=== PATIENT | female | born 1945 | race Caucasian/White ===

== ENCOUNTER → 2017-01-12 | Outpatient (CLI) | payer OTHER ==
[~2017-01-12] MED LIST: AMLO-110 PO; AMLO2.5T PO; ASPI-435 PO; ATOR-24 PO; CALCTAB5 PO; CHOL1CAP57 PO; CIPR-255 PO; CYAN500T13 PO; LISI-461 PO; LSX20 PO; METF1000 PO; MISCCAP80 PO; MULT-506 PO; OMEG12006 PO
--- NOTE | 2017-01-12 12:38 | MAMMOGRAPHY REPORT ---
BILATERAL DIGITAL SCREENING MAMMOGRAM WITH CAD: 01/12/2017 CLINICAL HISTORY: Routine screening. TECHNIQUE: Current study was also evaluated with a Computer Aided Detection (CAD) system. Bilateral CC and MLO views were obtained. COMPARISON: Comparison is made to exams dated: 01/06/2015 mammogram, 01/11/2016 mammogram, 12/31/2013 ma mmogram, 12/25/2012 mammogram, 12/23/2011 mammogram, and 12/17/2010 mammogram - [facility]. BREAST COMPOSITION: The tissue of both breasts is almost entirely fatty. FINDINGS: No suspicious masses, calcifications, or areas of architectural distortion are noted in ei ther breast. There has been no significant interval change compared to prior exams. Scattered bilate ral benign-appearing calcifications are again noted. Nodular asymmetry along the posterior nipple li ne on the right MLO view middle depth is stable compared to prior 2014 and 2010 exams, and considered benign given long-term stability. IMPRESSION: ACR BI-RADS CATEGORY 2: BENIGN There is no mammographic evidence of malignancy. A 1 year screening mammogram is recommended. The pa tient will receive written notification of the results. Approximately 10% of breast cancers are not detected with mammography. A negative mammographic report should not delay biopsy if a clinically suggestive mass is present. Jennyfer Inman M.D. /:01/12/2017 07:40:29 Deck Lid Fitter: Alex FORRESTER(R)(M), [facility] letter sent: Normal 1/2 BI-RADS Code: ACR BI-RADS Category 2: Benign
== END | disposition home or self-care (01) ==
LOC: C.MAMM 07:14
PROVIDERS: ATTEND Obstetrics & Gynecology
DX: Z12.31 Encounter for screening mammogram for malignant neoplasm of breast (principal)

== ENCOUNTER 2018-09-23 09:40 | Observation (INO) ==
--- OUTSIDE RECORDS SUMMARY | 2018-09-23 09:42 | External Medical Summary | Continuity of Care Document ---
:1945 Author Name Sheree Maharaj, Provider Address Unavailable Unavailable , Care Team Providers Name Role Phone Unavailable Unavailable Unavailable BESSIE ARIZA Unavailable Unavailable Unavailable Unavailable Unavailable Problems IBS (irritable bowel syndrome) (564.1) (K58.9) Hyperlipidemia (272.4) (E78.5) Vitamin B12 deficiency (266.2) (E53.8) Osteopenia (733.90) (M85.80) Renal disorder (593.9) (N28.9) Vitamin D deficiency (268.9) (E55.9) Hypertension (401.9) (I10) Diabetes mellitus (250.00) (E11.9) Encounter for routine gynecological examination (V72.31) (Z0 1.419) Allergies and Adverse Reactions Penicillins (Allergy) Medications Dicyclomine HCl CAPS , M.D. Refills: 0 Atorvastatin Calcium 40 MG Oral Tablet , M.D. Refills: 0 Furosemide 20 MG Oral Tablet; TAKE 1 TABLET EVERY MORNING , M.D. Refills: 0 Lisinopril 10 MG Oral Tablet; TAKE 1 TABLET Bedtime , M.D. Refills: 0 Calcium 600 TABS; TAKE 2 TABLETS DAILY. , M.D. Refills: 0 Colon Care CAPS , M.D. Refills: 0 [place] 3 CAPS , M.D. Refills: 0 Multiple Vitamins TABS , M.D. Refills: 0 Vitamin B12 TABS , M.D. Refills: 0 Aspirin 81 MG TABS , M.D. Refills: 0 metFORMIN HCl - 1000 MG Oral Tablet; TAKE 1 TABLET TWI CE DAILY WITH MEALS. , M.D. Refills: 0 Norvasc 2.5 MG Oral Tablet , M.D. Refills: 0 Procedures History of Tonsillectomy With Adenoidectomy Status: Completed History of Oral Surgery Tooth Extraction Status: Completed History of Cholecystectomy Laparoscopic Status: Completed History of Biopsy Breast Open Status: Co mpleted History of Total Hip Replacement Status: Completed History of Complete Colonoscopy Status: Completed Immunizations Immunizations not documented Family History Mother Family history of coronary artery disease (V17.3) (Z82.49) S tatus: Active Father Family history of coronary artery disease (V17.3) (Z82.49) S tatus: Active Family history of Status: Active Social History - Smoking Status Never smoker Plan of Treatment Planned Observations Planned Goals not documented Results No Known Results Results not documented
[2018-09-23] MEDS ORDERED: fentaNYL citrate 100 MCG/2 ML VIAL IV STA (10:01)
[2018-09-23] MEDS ORDERED: ONDANSETRON INJ 2 MG/ML 2 ML VIAL IV STA (10:01)
[2018-09-23] MEDS ORDERED: SODIUM CHLORIDE 0.9% 500 ML IV SCH (10:15)
[2018-09-23 10:47] LABS: Albumin Level 3.8 gm/dl (3.4-5.0); BUN Creatinine Ratio 9.8 (10-20); Calcium 10.1 mg/dl (8.5-10.1); Creatinine Clr Calc Pharmacy 28.8 ml/min; Est GFR (Non-African American) 27.6; Potassium 4.1 mmol/L (3.5-5.1)
[2018-09-23 10:50] LABS: Albumin Globulin Ratio 1.1 (0.9-2); Bilirubin,Total 0.8 mg/dl (0.2-1); Globulin 3.5 gm/dl (2.5-4.0); Total Protein 7.3 gm/dl (6.4-8.2)
[2018-09-23 10:57] LABS: Lymphocytes % (auto) 16.4 %; Mean Corpuscular Hgb Conc 34.2 g/dL (32-36); Mean Platelet Volume 10.2 fL (7.4-10.4); Monocytes % (auto) 6.6 %; Neutrophils % (auto) 75.8 %; Platelet Count 348 K/uL (130-400); RDW Coefficient of Variation 15.2 % (11.5-14.5); RDW Standard Deviation 49.4 fL (36.4-46.3); Red Blood Count 4.32 M/uL (4.2-5.4); White Blood Count 8.52 K/uL (4.8-10.8)
[2018-09-23 10:58] LABS: Basophils # (auto) 0.01 K/uL (0-0.2); Basophils % (auto) 0.1 %; Echinocytes 1+; Eosinophils # (auto) 0.08 K/uL (0-0.5); Eosinophils % (auto) 0.9 %; Immature Granulocytes # (auto) 0.02 K/uL (0.00-0.02); Immature Granulocytes % (auto) 0.2 %; Monocytes # (auto) 0.56 K/uL (0.11-0.59); Neutrophils # (auto) 6.45 K/uL (1.4-6.5)
[2018-09-23] MEDS ORDERED: SODIUM CHLORIDE 0.9% 500 ML IV ONE (11:03)
--- NOTE | 2018-09-23 11:47 | CT Scan Report ---
CT SCAN OF THE ABDOMEN AND PELVIS WITHOUT IV CONTRAST CLINICAL HISTORY: Generalized abdominal pain. Nausea. COMPARISON STUDY: Abdominal CT dated 01/21/2015. TECHNIQUE: CT scan of the abdomen and pelvis is performed from the lung bases to the proximal femora. Images are reviewed in the axial, sagittal, and coronal planes. IV contrast was not administered for this examination as per the referring clinician. Note that the examination was performed in suboptim al fashion without oral and IV contrast. A dose lowering technique was utilized adhering to the [facility]. CT DOSE: 1148.55 mGy.cm FINDINGS: Lung bases: The heart is normal in size and without pericardial effusion. The coronary arteries are d ensely calcified. There is a small hiatal hernia. There is diminished attenuation of the cardiac bloo d pool as compared to the myocardium suggesting anemia. There is elevation right hemidiaphragm. The l judah bases are clear noting bibasilar scarring/atelectasis. Liver: The unenhanced liver is normal in size, contour, and attenuation. There is mild central intrah epatic biliary ductal dilatation. Gallbladder: Surgically absent noting clips in the gallbladder fossa. Spleen: Normal in size and attenuation. Pancreas: The unenhanced pancreas is moderately atrophic and grossly unremarkable. Adrenal glands: Unremarkable. Kidneys: The unenhanced kidneys are atrophic and without hydronephrosis. There are no renal calculi i dentified. There is no evidence of contour deforming renal mass lesion. Abdominal vasculature: The abdominal aorta is normal in course and caliber noting advanced atheroscle rotic calcification. Bowel: There is no bowel obstruction. The small bowel which are distended and mildly fluid-filled. Th ere is mild wall thickening seen throughout the mid to distal small bowel, as well as bowel wall thic kening involving the cecum. There is mild surrounding inflammation and trace fluid. The distal small bowel is fecalized. There is advanced colonic diverticulosis without CT evidence of acute diverticuli tis. Submucosal fat deposition is noted throughout the colon. There is a duodenal diverticulum. The a ppendix is well-visualized and normal. Peritoneum: There is no intraperitoneal free air. There is trace free fluid in the pelvis. There is a small fat-containing umbilical hernia. Lymphadenopathy: None. Pelvic viscera: Evaluation of the pelvis is degraded by streak artifact from a right hip arthroplasty . The bladder is decompressed and not well evaluated. Uterine fibroids are suggested. No adnexal lesi on is seen. Skeletal structures: The skeletal structures are osteopenic. Moderate lumbosacral spondylosis is obse rved. No lytic or blastic lesions are seen. Sclerotic change is noted in the sacroiliac joints. Advan sherwin arthritic changes seen in the left hip. A right hip arthroplasty is in place. IMPRESSION: 1. There is no bowel obstruction. 2. There is mild wall thickening seen throughout the mid to distal small bowel and the cecum with mil d inflammatory surrounding inflammatory change and trace fluid. This likely represents a nonspecific enterocolitis and clinical correlation will be required. 3. The small bowel loops are mildly distended and fluid-filled, and the distal small bowel is fecaliz ed. This may represent stasis/mild ileus. 4. There is a small volume of free fluid in the pelvis. 5. Suspect uterine fibroids. 6. Advanced colonic diverticulosis without CT evidence of acute diverticulitis. 7. Additional findings as above. Electronically signed by: Sekou Richmond M.D. 09/23/2018 11:45 AM
[2018-09-23 11:51] LABS: Appearance Urine Clear (Clear); Bacteria Urine Automated Negative (Negative); Bilirubin Urine Negative (Negative); Blood Urine Negative (Negative); Color Urine Yellow; Epithelial Cell Urine Auto >30 /lpf (0-5); Glucose Urine UA Negative (Negative); Ketones Urine Trace (Negative); Leukocyte Esterase Urine Trace (Negative); Nitrite Urine Negative (Negative); RBC Urine Automated 0-4 /hpf (0-4); Specific Gravity Urine 1.017 (1.000-1.030); Urobilinogen Urine Negative (Negative); pH Urine 8.5 (4.5-7.5)
[2018-09-23] MEDS ORDERED: SODIUM CHLORIDE 0.9% 1000ML 1,000 ML IV SCH (12:00)
[2018-09-23 12:01] LABS: Protein Urine 1+ (Negative)
--- NOTE | 2018-09-23 12:59 | History & Physical Report ---
Date of Service September 23, 2018 Assessment & Plan (1) Enterocolitis: This is a 72yo F with a PMH of tubulovillous adenoma of colon s/p excision, IBS-D, DM II, CKD III, HTN and other medical problems listed below who presents with worsening abdominal pain since yesterday as well as syncopal event this morning and was found to have non-specific enterocolitis. -Diffuse abdominal pain since yesterday in setting of IBS-D, recent endoscopic mucosal resection in May 2018 and a "clean up procedure" earlier this month. Biopsies have reportedly been negative -Hemodynamically stable and afebrile. No leukocytosis. Non-toxic appearance. Lactate elevated at 4.4 with repeat lactate after IV fluids decreased to 3.5 -CT abdomen pelvis without evidence of bowel obstruction. Nonspecific enterocolitis and possible mild ileus. Diverticulosis without evidence of diverticulitis -Bowel rest with maintenance IV fluids. Stool culture and c. diff ordered. Pain control -Consider GI consult if condition does not improve (2) Elevated lactic acid level: Initial lactate elevated at 4.4. Repeat of 3.5 after IV fluids -Elevated in setting of colitis and mild ileus. Also with some dehydration. No evidence for infection, bowel ischemia or SBO -Will repeat again this evening (3) Syncopal episodes: Had single syncopal event earlier today after becoming lightheaded in shower -No head trauma. Likely orthostatic in setting of recent addition of HCTZ -Hold diuretic. Receiving IV fluids -Monitor on telemetry (4) Acute kidney injury superimposed on chronic kidney disease: H/o CKD III but Cr has been worsening lately. Cr of 1.79 today (baseline mid-1s) -Hold HCTZ, receiving fluids -Continue monitoring BMP -Follows with Dr. Latham in clinic (5) Diabetes mellitus, type II: A1c of 6.2 earlier this May -Hold home agents -SSI while in-patient -BSG Q6H while NPO (6) HTN (hypertension): Slightly elevated in setting of pain -Holding lisinopril-hctz in setting of [place] and syncopal event -Add PRN clonidine for SBP >170 DVT Ppx: SQ heparin Code status: FULL PCP: Tori Dispo: Observation med tele. Plan to return home once medically stable. Patient seen in collaboration with Dr. Gerber. Please see addendum. Will be followed by Dr. Urban for remainder of admission. History of Present Illness Chief Complaint: abdominal pain Primary Care Provider: Maribel Valle MD This is a 72yo F with a PMH of tubulovillous adenoma of colon s/p excision, IBS-D, DM II, CKD III, HTN and other medical problems listed below who presents with worsening abdominal pain since yesterday as well as syncopal event this morning. Patient was diagnosed with tubulovillous adenoma of ileocecal valve on colonoscopy in March 2018. [facility] surgical service consulted and recommended right colon resection. Patient went for second opinion at [facility] in [place] and has since undergone an endoscopic mucosal resection in May 2018 and a "clean up procedure" earlier this month. Biopsies have reportedly been negat elizabeth for malignancy. Ate a soft diet for a few weeks and reintroduced popcorn to her diet yesterday with subsequent pain described as diffuse and constant, primarily located in lower abdomen. [place] like gas pains. [place] like she needed to have a bowel movement, but passed only small amounts of stool with popcorn kernels. Denies any melena or hematochezia. Denies fever, chills or sick contacts. Did endorse one episode of vomiting on Monday night but was not associated with any nausea or abdominal pain at that time. Has history of IBS with diarrhea. Of note, did have a syncopal event earlier today after getting out of shower. Event was preceded by lightheadedness and prodrome but denies any visual changes, palpitations or chest pain. Patient was seated on toilet during event and did not incur any head trauma or fall. Episode was witnessed by . Has had episodes of syncope in the past after adjustments to her blood pressure medications. Notes that she was recently started on HCTZ and feels dehydrated. Found to be hemodynamically stable and afebrile. No leukocytosis. Lactate elevated at 4.4 with repeat lactate after IV fluids decreased to 3.5. CT abdomen pelvis without evidence of bowel obstruction. Nonspecific enterocolitis and possible mild ileus. Diverticulosis without evidence of diverticulitis. Allergies Allergy/AdvReac Type Severity Reaction Status Date / Time Penicillins Allergy Unknown Verified 09/23/18 10:21 Home Medications Home Medications Medication Instructions Recorded Confirmed Type aspirin [Aspirin Low Dose] 81 mg PO DAILY 09/23/18 09/23/18 History atorvastatin 40 mg PO QPM 09/23/18 09/23/18 History cyanocobalamin (vitamin B-12) 1,000 mcg PO DAILY 09/23/18 09/23/18 History [Vitamin B-12] diltiazem HCl [Cartia XT] 180 mg PO QPM 09/23/18 09/23/18 History fluocinonide 1 applic TOPICAL BID 09/23/18 09/23/18 History lactobacillus combination no.4 3,000 mmu cells PO DAILY 09/23/18 09/23/18 History [Probiotic] lisinopril-hydrochlorothiazide 1 tab PO DAILY 09/23/18 09/23/18 History metformin 1,000 mg PO BID 09/23/18 09/23/18 History Past Med/Surg History Medical History CKD (chronic kidney disease), stage III (Chronic) Diabetes mellitus, type II (Chronic) HTN (hypertension) (Chronic) Surgical History History of cholecystectomy (Resolved) S/P colonoscopy (Resolved) May 31 and August 24 in [place]. "Clean up procedure, biopsies negative" S/P hip replacement (Resolved) S/P knee replacement (Resolved) Family History Other Heart disease Social History Preferred Language: Samoan Communication Ability: Effective Beliefs That Will Affect Care: None Current Living Situation: Spouse current occupational status: retired Other Information That Helps Us Care for You: No Feels Safe at Home: Yes Safety Concerns: Feels Safe At This Time Smoking Status: Never smoker Hx Alcohol Use: Yes Alcohol type: beer and wine Hx Substance Use: No Review of Systems Review of Systems: At least ten systems reviewed and negative except as noted in the HPI. Physical Exam Physical Exam: General Appearance: WD/WN, no apparent distress, resting comfortably Head: normocephalic, atraumatic Eyes: normal inspection, PERRL, EOMI ENT: hearing grossly normal, pharynx (dry mucous membranes) Neck: supple, no JVD, no adenopathy Respiratory/Chest: lungs clear to auscultation. No wheezes, rales or rhonci. No respiratory distress or accessory muscle use Cardiovascular: regular rate, rhythm, no murmur, normal peripheral pulses Abdomen/GI: sluggish bowel sounds, soft, diffusely tender to palpation but no guarding Extremities/Musculoskelatal: normal inspection, no calf tenderness, normal capillary refill, no pedal edema Neurologic/Psych: alert, normal mood/affect, oriented x 3 Skin: normal color, warm/dry Results & Data Vital Signs (Past 12 Hours) Vital Signs Temp Pulse Resp BP Pulse Ox 09/23/18 11:01 61 21 133/95 99 09/23/18 10:31 63 23 156/100 H 100 09/23/18 10:08 100 09/23/18 10:02 77 31 H 134/74 100 09/23/18 09:49 86 34 H 114/61 100 09/23/18 09:47 36.6 C 83 25 H 137/95 100 Laboratory Results Short CBC 09/23/18 Range/Units 10:17 WBC 8.52 (4.8-10.8) K/uL Hgb 13.0 (12.0-16.0) g/dL Hct 38.0 (37-47) % Plt Count 348 (130-400) K/uL BMP 09/23/18 10:17 Sodium 139 Potassium 4.1 Chloride 103 Carbon Dioxide 24 BUN 18 Creatinine 1.79 H Glucose 175 H Calcium 10.1 Liver Function 09/23/18 Range/Units 10:17 Total Bilirubin 0.8 (0.2-1) mg/dl AST 15 (15-37) U/L ALT 27 (12-78) U/L Alkaline Phosphatase 92 (45-117) U/L Albumin 3.8 (3.4-5.0) gm/dl Urine 09/23/18 Range/Units 11:38 Urine Color Yellow Urine Appearance Clear (Clear) Urine pH 8.5 H (4.5-7.5) Ur Specific [place] 1.017 (1.000-1.030) Urine Protein 1+ H (Negative) Urine Glucose (UA) Negative (Negative) Diagnostic Findings CT abd/pelvis: IMPRESSION: 1. There is no bowel obstruction. 2. There is mild wall thickening seen throughout the mid to distal small bowel and the cecum with mild inflammatory surrounding inflammatory change and trace fluid. This likely represents a nonspecific enterocolitis and clinical correlation will be required. 3. The small bowel loops are mildly distended and fluid-filled, and the distal small bowel is fecalized. This may represent stasis/mild ileus. 4. There is a small volume of free fluid in the pelvis. 5. Suspect uterine fibroids. 6. Advanced colonic diverticulosis without CT evidence of acute diverticulitis. 7. Additional findings as above. ECG Rhythm: normal sinus Change: no significant change Supervising Physician Co-Signing Physician Notes Attending Addendum: delayed entry date of service as noted above care coordinated with SHUN Casillas please refer to her notes for full details, I agree with her notes patient seen and examined, records reviewed by myself as well on exam, patient seen resting in bed, not in distress reports dull discomfort in the lower quadrants, comes in waves (+) small, soft stools earlier in the day, intermittent nausea no fever/chills no other symptoms VS noted and reviewed oriented x 3, not in distress, speaks in sentences with no effort nor accessory muscle use normal rate, regular rhythm, no murmurs clear breath sounds bilaterally non distended, soft, nontender no bipedal edema, erythema, warmth no neuro deficits WBC 8.5 Crea 1.[address] abdomen: IMPRESSION: 1. There is no bowel obstruction. 2. There is mild wall thickening seen throughout the mid to distal small bowel and the cecum with mild inflammatory surrounding inflammatory change and trace fluid. This likely represents a nonspecific enterocolitis and clinical correlation will be required. 3. The small bowel loops are mildly distended and fluid-filled, and the distal small bowel is fecalized. This may represent stasis/mild ileus. 4. There is a small volume of free fluid in the pelvis. 5. Suspect uterine fibroids. 6. Advanced colonic diverticulosis without CT evidence of acute diverticulitis. 7. Additional findings as above. ASSESSMENT AND PLAN ABDOMINAL PAIN likely from Enterocolitis, with Mild Ileus History of Tubulovillous Adenoma, s/p Endoscopic Excision - bowel rest, IV fluids - pain control - GI consult if with no improvement ACUTE RENAL FAILURE - likely pre renal - hold HCTZ - gentle IV fluids - monitor crea SYNCOPE - likely Orthostatic - monitor orthostatic BP monitor in Tele other diagnoses and plan of care as per SHUN Casillas's notes plan of care discussed with patient and her at length and in detail they are both agreeable and understanding, comfortable with the plan of care all questions answered Mateus Gerber MD
--- NOTE | 2018-09-23 13:45 | Emergency Department Note ---
Entered by Tri Louise acting as a scribe for Hayley Lu MD History of Present Illness General Chief complaint: Abdominal Pain Time Seen by Provider: 09/23/18 09:48 Source: patient History of Present Illness Provider complaint: abdominal pain Onset (ago): hour(s) (2330 last night) Location: abdomen Quality: + other (pain) Associated symptoms: + denies other symptoms (denies blood in her stool), + syncope and + other (abdominal distension, diarrhea); no chest pain, no fever/chills and no nausea/vomiting The patient is a 72 year old female who presents to the Emergency Department with complaints of abdominal pain beginning at 2330 last night. She states that she was in bed but was not sleeping when she had the pain. The patient reports that her abdomen felt distended and states that at first she thought she had gas. She states that did not sleep secondary to the pain. She does report that she ate popcorn yesterday at 1600 which she thinks may have aggravated her abdomen. The patient states that she tried to take a shower this morning but was still in a lot of pain. She states that she went to sit down on the toilet, had a syncopal episode, and was out for 1-2 minutes. The patient states that she did have some diarrhea. She denies vomiting, fevers, blood in her stool, and chest pain. The patient states that she is not on any blood thinners. She reports a history of a cholecystectomy, CKD, hypertension, and diabetes. Home Medications Home Medications Medication Instructions Recorded Confirmed Type Probiotic 3,000 mmu cells PO DAILY 09/23/18 09/23/18 History aspirin [Aspirin Low Dose] 81 mg PO DAILY 09/23/18 09/23/18 History atorvastatin 40 mg PO QPM 09/23/18 09/23/18 History cyanocobalamin (vitamin B-12) 1,000 mcg PO DAILY 09/23/18 09/23/18 History [Vitamin B-12] diltiazem HCl [Cartia XT] 180 mg PO QPM 09/23/18 09/23/18 History fluocinonide 1 applic TOPICAL BID 09/23/18 09/23/18 History ascorbic acid (vitamin C) [Vitamin 1,000 mg PO BID #60 tab 09/24/18 Rx C] Allergies Allergy/AdvReac Type Severity Reaction Status Date / Time Penicillins Allergy Unknown Verified 09/23/18 10:21 Past Med/Surg History Medical History CKD (chronic kidney disease), stage III (Chronic) Diabetes mellitus, type II (Chronic) HTN (hypertension) (Chronic) Surgical History History of cholecystectomy (Resolved) S/P colonoscopy (Resolved) May 31 and August 24 in [place]. "Clean up procedure, biopsies negative" S/P hip replacement (Resolved) S/P knee replacement (Resolved) Family History Other Heart disease Social History Preferred Language: German Communication Ability: Effective Beliefs That Will Affect Care: None Current Living Situation: Spouse current occupational status: retired Other Information That Helps Us Care for You: No Feels Safe at Home: Yes Safety Concerns: Feels Safe At This Time Smoking Status: Never smoker Hx Alcohol Use: Yes Alcohol type: beer and wine Hx Substance Use: No Review of Systems See HPI for pertinent positives & negatives. and A total of 10 systems reviewed and were otherwise negative Physical Exam Vital Signs Vital Signs - 24 hr 09/23/18 09:47 09/23/18 09:49 09/23/18 10:02 Temperature 36.6 C Temperature Source Oral Sepsis Recent Fever Within 48 Hours No Sepsis Action Taken by Nursing No Action Required Pulse Rate - Lying 73 Pulse Rate - Sitting 82 Pulse Rate - Standing 89 Pulse Rate 83 86 77 Pulse Rate from SpO2 Sensor 89 79 Pulse Rhythm Regular Pulse Strength Normal Respiratory Rate 25 H 34 H 31 H Respiratory Effort / Characteristics Non-Labored Spontaneous Respiratory Depth Normal Respiratory Pattern Regular Blood Pressure - Lying 151/88 H Blood Pressure - Sitting 130/73 Blood Pressure- Standing 114/61 Blood Pressure 137/95 114/61 134/74 Blood Pressure Mean 109 78 94 Blood Pressure Position Sitting Pulse Oximetry 100 100 100 Oxygen Delivery Method Room Air 09/23/18 10:08 09/23/18 10:31 09/23/18 11:01 Temperature Temperature Source Sepsis Recent Fever Within 48 Hours Sepsis Action Taken by Nursing Pulse Rate - Lying Pulse Rate - Sitting Pulse Rate - Standing Pulse Rate 63 61 Pulse Rate from SpO2 Sensor 63 62 Pulse Rhythm Pulse Strength Respiratory Rate 23 21 Respiratory Effort / Characteristics Respiratory Depth Respiratory Pattern Blood Pressure - Lying Blood Pressure - Sitting Blood Pressure- Standing Blood Pressure 156/100 H 133/95 Blood Pressure Mean 118 107 Blood Pressure Position Pulse Oximetry 100 100 99 Oxygen Delivery Method Room Air 09/23/18 12:01 09/23/18 12:04 09/23/18 12:31 Temperature Temperature Source Sepsis Recent Fever Within 48 Hours Sepsis Action Taken by Nursing Pulse Rate - Lying Pulse Rate - Sitting Pulse Rate - Standing Pulse Rate 63 66 Pulse Rate from SpO2 Sensor Pulse Rhythm Pulse Strength Respiratory Rate 17 20 Respiratory Effort / Characteristics Respiratory Depth Respiratory Pattern Blood Pressure - Lying Blood Pressure - Sitting Blood Pressure- Standing Blood Pressure 141/60 H 151/48 H Blood Pressure Mean 87 82 Blood Pressure Position Pulse Oximetry Oxygen Delivery Method Room Air 09/23/18 13:00 09/23/18 13:01 Temperature Temperature Source Sepsis Recent Fever Within 48 Hours Sepsis Action Taken by Nursing Pulse Rate - Lying Pulse Rate - Sitting Pulse Rate - Standing Pulse Rate 67 64 Pulse Rate from SpO2 Sensor Pulse Rhythm Pulse Strength Respiratory Rate 25 H 18 Respiratory Effort / Characteristics Respiratory Depth Respiratory Pattern Blood Pressure - Lying Blood Pressure - Sitting Blood Pressure- Standing Blood Pressure 159/80 H Blood Pressure Mean 106 Blood Pressure Position Pulse Oximetry Oxygen Delivery Method Vital signs reviewed. General: Elderly-appearing female, in no significant distress. HEENT: No scleral icterus, PERRLA, neck supple. Atraumatic. Cardiovascular: Regular rate and rhythm, no extra sounds. Pulmonary: Clear to auscultation bilaterally, normal work of breathing. Abdomen: Soft, obese, nontender, mildly distended, positive bowel sounds. No rebound or guarding. Musculoskeletal: Atraumatic, no peripheral edema. Neurologic: Patient awake alert and oriented x 3 Skin: Warm, dry, no rash Course 0957: The patient was evaluated in room B5. A history and physical were performed. 1212: I updated the patient who verbalized agreement and understanding of the treatment plan. 1231: I discussed the patient's case with Pearl Gracia who will evaluate the patient for further management. Consultations Consultation #1: Pearl Gracia Time: 12:31 Administered Medications Discontinued Medications Ascorbic Acid (Vitamin C) 1,000 mg PO BID [facility] Stop: 10/24/18 08:59 Last Admin: 09/24/18 08:55 Dose: 1,000 mg Documented by: [id number] Aspirin (Ecotrin Ectab) 81 mg PO DAILY [facility] Stop: 10/24/18 08:59 Last Admin: 09/24/18 08:49 Dose: 81 mg Documented by: [id number] Atorvastatin Calcium (Lipitor) 40 mg PO QPM [facility] Stop: 10/23/18 20:59 Last Admin: 09/23/18 21:18 Dose: 40 mg Documented by: [id number] Clonidine HCl (Catapres) 0.1 mg PO Q6H PRN PRN Reason: SBP >170 Stop: 10/23/18 15:38 Last Admin: 09/23/18 17:07 Dose: 0.1 mg Documented by: [id number] Cyanocobalamin (Vitamin B-12) 1,000 mcg PO DAILY [facility] Stop: 10/24/18 08:59 Last Admin: 09/24/18 08:50 Dose: 1,000 mcg Documented by: [id number] Diltiazem HCl (Cardizem Cd) 180 mg PO QPM [facility] Stop: 10/23/18 20:59 Last Admin: 09/23/18 21:18 Dose: 180 mg Documented by: [id number] Fentanyl Citrate (Fentanyl Citrate) 50 mcg IV NOW STA Stop: 09/23/18 10:02 Last Admin: 09/23/18 10:18 Dose: 50 mcg Documented by: [id number] Fluocinonide (Lidex 0.5%) 1 appln EXT BID [facility] Stop: 10/23/18 20:59 Last Admin: 09/24/18 08:51 Dose: 1 appln Documented by: [id number] Admin: 09/23/18 21:17 Dose: 1 appln Documented by: [id number] Heparin Sodium (Porcine) (Heparin Sodium (Porcine)) 5,000 units SQ Q8 [facility] Stop: 10/23/18 21:59 Last Admin: 09/24/18 05:25 Dose: 5,000 units Documented by: [id number] Cosigned by: [id number] Admin: 09/23/18 21:21 Dose: 5,000 units Documented by: [id number] Cosigned by: [id number] Sodium Chloride (Nss) 500 mls @ 999 mls/hr IV .Q31M [facility] Stop: 09/23/18 10:45 Last Infusion: 09/23/18 10:47 Dose: 0 mls/hr Documented by: [id number] Admin: 09/23/18 10:19 Dose: 999 mls/hr Documented by: [id number] Sodium Chloride (Nss) 500 mls @ 999 mls/hr IV .Q31M ONE Stop: 09/23/18 11:33 Last Infusion: 09/23/18 12:45 Dose: 0 mls/hr Documented by: [id number] Admin: 09/23/18 11:19 Dose: 999 mls/hr Documented by: [id number] Sodium Chloride (Nss 1000ml) 1,000 mls @ 80 mls/hr IV .[id number] [facility] Stop: 10/23/18 15:02 Last Admin: 09/24/18 03:54 Dose: 80 mls/hr Documented by: [id number] Infusion: 09/24/18 03:54 Dose: 80 mls/hr Documented by: [id number] Admin: 09/23/18 16:15 Dose: 80 mls/hr Documented by: [id number] Acetaminophen (irmev) 1,000 mg in 100 mls @ 400 mls/hr IV Q8H PRN PRN Reason: Pain Stop: 10/23/18 15:44 Last Infusion: 09/23/18 17:42 Dose: 0 mls/hr Documented by: [id number] Admin: 09/23/18 17:25 Dose: 400 mls/hr Documented by: [id number] Insulin Aspart (Novolog Flexpen) 0 units SC Q6 [facility] Stop: 10/23/18 17:59 Last Admin: 09/24/18 05:59 Dose: Not Given Documented by: [id number] Cosigned by: [id number] Admin: 09/24/18 00:11 Dose: Not Given Documented by: [id number] Cosigned by: [id number] Admin: 09/23/18 17:33 Dose: Not Given Documented by: [id number] Cosigned by: [id number] Lactobacillus Acidophilus (Floranex) 4 tab PO DAILY [facility] Stop: 10/24/18 08:59 Last Admin: 09/24/18 08:49 Dose: 4 tab Documented by: [id number] Morphine Sulfate (Morphine Sulfate) 3 mg IV Q4H PRN PRN Reason: Pain Stop: 10/07/18 17:20 Last Admin: 09/23/18 17:36 Dose: 3 mg Documented by: [id number] Ondansetron HCl (Zofran) 4 mg IV NOW STA Stop: 09/23/18 10:02 Last Admin: 09/23/18 10:18 Dose: 4 mg Documented by: [id number] Ondansetron HCl (Zofran) 4 mg IV Q6H PRN PRN Reason: Nausea Stop: 10/23/18 15:02 Last Admin: 09/23/18 17:31 Dose: 4 mg Documented by: [id number] Tramadol HCl (Ultram) 50 mg PO Q4H PRN PRN Reason: Pain Stop: 10/23/18 15:02 Last Admin: 09/23/18 16:14 Dose: 50 mg Documented by: [id number] Medical Decision Making Differential Diagnosis Differential diagnosis Etiologies such as biliary colic, cholecystitis, hepatitis, perihepatitis, pancreatitis, cardiac disease, pancreatitis, gastritis, peptic ulcer disease, appendicitis, ovarian cyst, ovarian torsion, pelvic inflammatory disease, cystitis, diverticulitis, mesenteric ischemia, inflammatory bowel disease, ileus, bowel obstruction, aortic pathology, shingles, as well as others were considered. Medical Records Attestation: I reviewed the patient's medical records. Home Medications Current Medication List: was personally reviewed by me Laboratory Data Attestation: I reviewed the patient's lab results. Result diagrams: 09/24/18 07:36 09/24/18 07:36 Lab Results 09/23/18 09/23/18 09/23/18 Range/Units 10:17 10:17 10:17 WBC 8.52 (4.8-10.8) K/uL RBC 4.32 (4.2-5.4) M/uL Hgb 13.0 (12.0-16.0) g/dL Hct 38.0 (37-47) % MCV 88.0 (80-100) fL MCH 30.1 (25-34) pg MCHC 34.2 (32-36) g/dL RDW Std Deviation 49.4 H (36.4-46.3) fL RDW Coeff of Tin 15.2 H (11.5-14.5) % Plt Count 348 (130-400) K/uL MPV 10.2 (7.4-10.4) fL Immature Gran % (Auto) 0.2 % Neut % (Auto) 75.8 % Lymph % (Auto) 16.4 % [place] % (Auto) 6.6 % Eos % (Auto) 0.9 % Baso % (Auto) 0.1 % Immature Gran # (Auto) 0.02 (0.00-0.02) K/uL Neut # (Auto) 6.45 (1.4-6.5) K/uL Lymph # (Auto) 1.40 (1.2-3.4) K/uL [place] # (Auto) 0.56 (0.11-0.59) K/uL Eos # (Auto) 0.08 (0-0.5) K/uL Baso # (Auto) 0.01 (0-0.2) K/uL Echinocytes 1+ PT (9.0-12.0) Seconds INR (0.9-1.1) Sodium 139 (136-145) mmol/L Potassium 4.1 (3.5-5.1) mmol/L Chloride 103 (98-107) mmol/L Carbon Dioxide 24 (21-32) mmol/L Anion Gap 12.0 H (3-11) BUN 18 (7-18) mg/dl Creatinine 1.79 H (0.6-1.2) mg/dl Est Cr Clr Drug Dosing 28.8 ml/min Est GFR ( Amer) 32.0 Est GFR (Non-Af Amer) 27.6 BUN/Creatinine Ratio 9.8 L (10-20) Glucose 175 H (70-99) mg/dl Lactate 4.4 H* (0.4-2.0) mmol/L Calcium 10.1 (8.5-10.1) mg/dl Total Bilirubin 0.8 (0.2-1) mg/dl AST 15 (15-37) U/L ALT 27 (12-78) U/L Alkaline Phosphatase 92 (45-117) U/L Total Protein 7.3 (6.4-8.2) gm/dl Albumin 3.8 (3.4-5.0) gm/dl Globulin 3.5 (2.5-4.0) gm/dl Albumin/Globulin Ratio 1.1 (0.9-2) Lipase 111 (73-393) U/L Urine Color Urine Appearance (Clear) Urine pH (4.5-7.5) Ur Specific [place] (1.000-1.030) Urine Protein (Negative) Urine Glucose (UA) (Negative) Urine Ketones (Negative) Urine Blood (Negative) Urine Nitrite (Negative) Urine Bilirubin (Negative) Urine Urobilinogen (Negative) Ur Leukocyte Esterase (Negative) Urine WBC (Auto) (0-5) /hpf Urine RBC (Auto) (0-4) /hpf U Hyaline Cast (Auto) (0-5) /lpf U Epithel Cells (Auto) (0-5) /lpf Urine Bacteria (Auto) (Negative) 09/23/18 09/23/18 09/23/18 Range/Units 10:21 11:22 11:38 WBC (4.8-10.8) K/uL RBC (4.2-5.4) M/uL Hgb (12.0-16.0) g/dL Hct (37-47) % MCV (80-100) fL MCH (25-34) pg MCHC (32-36) g/dL RDW Std Deviation (36.4-46.3) fL RDW Coeff of Tin (11.5-14.5) % Plt Count (130-400) K/uL MPV (7.4-10.4) fL Immature Gran % (Auto) % Neut % (Auto) % Lymph % (Auto) % [place] % (Auto) % Eos % (Auto) % Baso % (Auto) % Immature Gran # (Auto) (0.00-0.02) K/uL Neut # (Auto) (1.4-6.5) K/uL Lymph # (Auto) (1.2-3.4) K/uL [place] # (Auto) (0.11-0.59) K/uL Eos # (Auto) (0-0.5) K/uL Baso # (Auto) (0-0.2) K/uL Echinocytes PT 10.2 (9.0-12.0) Seconds INR 1.0 (0.9-1.1) Sodium (136-145) mmol/L Potassium (3.5-5.1) mmol/L Chloride (98-107) mmol/L Carbon Dioxide (21-32) mmol/L Anion Gap (3-11) BUN (7-18) mg/dl Creatinine (0.6-1.2) mg/dl Est Cr Clr Drug Dosing ml/min Est GFR ( Amer) Est GFR (Non-Af Amer) BUN/Creatinine Ratio (10-20) Glucose (70-99) mg/dl Lactate 3.5 H* (0.4-2.0) mmol/L Calcium (8.5-10.1) mg/dl Total Bilirubin (0.2-1) mg/dl AST (15-37) U/L ALT (12-78) U/L Alkaline Phosphatase (45-117) U/L Total Protein (6.4-8.2) gm/dl Albumin (3.4-5.0) gm/dl Globulin (2.5-4.0) gm/dl Albumin/Globulin Ratio (0.9-2) Lipase (73-393) U/L Urine Color Yellow Urine Appearance Clear (Clear) Urine pH 8.5 H (4.5-7.5) Ur Specific [place] 1.017 (1.000-1.030) Urine Protein 1+ H (Negative) Urine Glucose (UA) Negative (Negative) Urine Ketones Trace H (Negative) Urine Blood Negative (Negative) Urine Nitrite Negative (Negative) Urine Bilirubin Negative (Negative) Urine Urobilinogen Negative (Negative) Ur Leukocyte Esterase Trace H (Negative) Urine WBC (Auto) 1-5 (0-5) /hpf Urine RBC (Auto) 0-4 (0-4) /hpf U Hyaline Cast (Auto) 1-5 (0-5) /lpf U Epithel Cells (Auto) >30 H (0-5) /lpf Urine Bacteria (Auto) Negative (Negative) Imaging Data Radiologist's Impression: Radiology results as stated below per my review and the radiologist's interpretation: CT SCAN OF THE ABDOMEN AND PELVIS WITHOUT IV CONTRAST CLINICAL HISTORY: Generalized abdominal pain. Nausea. COMPARISON STUDY: Abdominal CT dated 01/21/2015. TECHNIQUE: CT scan of the abdomen and pelvis is performed from the lung bases to the proximal femora. Images are reviewed in the axial, sagittal, and coronal planes. IV contrast was not administered for this examination as per the referring clinician. Note that the examination was performed in suboptimal fashion without oral and IV contrast. A dose lowering technique was utilized adhering to the principles of ALARA. CT DOSE: 1148.55 mGy.cm FINDINGS: Lung bases: The heart is normal in size and without pericardial effusion. The coronary arteries are densely calcified. There is a small hiatal hernia. There is diminished attenuation of the cardiac blood pool as compared to the myocardium suggesting anemia. There is elevation right hemidiaphragm. The lung bases are clear noting bibasilar scarring/atelectasis. Liver: The unenhanced liver is normal in size, contour, and attenuation. There is mild central intrahepatic biliary ductal dilatation. Gallbladder: Surgically absent noting clips in the gallbladder fossa. Spleen: Normal in size and attenuation. Pancreas: The unenhanced pancreas is moderately atrophic and grossly unremarkable. Adrenal glands: Unremarkable. Kidneys: The unenhanced kidneys are atrophic and without hydronephrosis. There are no renal calculi identified. There is no evidence of contour deforming renal mass lesion. Abdominal vasculature: The abdominal aorta is normal in course and caliber noting advanced atherosclerotic calcification. Bowel: There is no bowel obstruction. The small bowel which are distended and mildly fluid-filled. There is mild wall thickening seen throughout the mid to distal small bowel, as well as bowel wall thickening involving the cecum. There is mild surrounding inflammation and trace fluid. The distal small bowel is fecalized. There is advanced colonic diverticulosis without CT evidence of acute diverticulitis. Submucosal fat deposition is noted throughout the colon. There is a duodenal diverticulum. The appendix is well-visualized and normal. Peritoneum: There is no intraperitoneal free air. There is trace free fluid in the pelvis. There is a small fat-containing umbilical hernia. Lymphadenopathy: None. Pelvic viscera: Evaluation of the pelvis is degraded by streak artifact from a right hip arthroplasty. The bladder is decompressed and not well evaluated. Uterine fibroids are suggested. No adnexal lesion is seen. Skeletal structures: The skeletal structures are osteopenic. Moderate lumbosacral spondylosis is observed. No lytic or blastic lesions are seen. Sclerotic change is noted in the sacroiliac joints. Advanced arthritic changes seen in the left hip. A right hip arthroplasty is in place. IMPRESSION: 1. There is no bowel obstruction. 2. There is mild wall thickening seen throughout the mid to distal small bowel and the cecum with mild inflammatory surrounding inflammatory change and trace fluid. This likely represents a nonspecific enterocolitis and clinical rhea elation will be required. 3. The small bowel loops are mildly distended and fluid-filled, and the distal small bowel is fecalized. This may represent stasis/mild ileus. 4. There is a small volume of free fluid in the pelvis. 5. Suspect uterine fibroids. 6. Advanced colonic diverticulosis without CT evidence of acute diverticulitis. 7. Additional findings as above. Electronically signed by: Sekou Richmond M.D. 09/23/2018 11:45 AM ECG Data Attestation: I personally reviewed and interpreted this ECG as follows: Indication: syncope Rate (beats per minute): 75 Rhythm: normal sinus Findings: + other (previous inferior infarct); no PAC, no PVC, no ST depression, no ST elevation, no acute ischemic change and no ectopy Blood Pressure Blood Pressure Findings: Normal blood pressure MDM Narrative This pt was evaluated and appeared to be in no distress. IV access was obtained and lab work was drawn. Pt was placed on the traffic monitor specialist. IVF were initiated. EKG reveals a NSR without acute ischemia or dysrhythmia. Lab work reveals an elevated lactate, which was repeated and confirmed. CT scan of abd pelvis is significant for enterocolitis. This would explain the pt's prese ntation. Syncope is likely vasovagal. The pt will be evaluated by the hospitalist for further management. Impression & Plan Enterocolitis, Elevated lactic acid level, Syncope Discharge Plan Visit Data *Final* Discharge Date/Time: 09/23/18 13:49 Chief Complaint: Abdominal Pain ED Provider: Hayley Lu Discharge Problem: Enterocolitis, Elevated lactic acid level, Syncope Patient Disposition: Admitted As Inpatient Condition: Good Discharge Instructions Interventions: ED Discharge Assessment Last Done: 09/23/18 13:49 Discharge Problem: Syncope Qualifiers: Syncope type: vasovagal syncope Qualified Code(s): R55 - Syncope and collapse The scribe's documentation has been prepared under my direction and personally reviewed by me in its entirety. I confirm that the note above accurately reflects all work, treatment, procedures, and medical decision making performed by me.
[2018-09-23] MEDS ORDERED: GLUCOSE 10 TABS/TUBE PO PRN (15:03)
[2018-09-23] MEDS ORDERED: DEXTROSE 50% 50 ML SYRINGE IV PRN (15:03)
[2018-09-23] MEDS ORDERED: GLUCOSE 40% GEL 15 GM TUBE PO PRN (15:03)
[2018-09-23] MEDS ORDERED: ACETAMINOPHEN 325 MG TAB PO PRN (15:03)
[2018-09-23] MEDS ORDERED: TRAMADOL HCL 50 MG TABLET PO PRN (15:03)
[2018-09-23] MEDS ORDERED: GLUCAGON FOR INJ 1 MG VIAL SQ PRN (15:03)
[2018-09-23] MEDS ORDERED: POLYETHYLENE (MIRALAX) 17 GM PACK PO PRN (15:03)
[2018-09-23] MEDS ORDERED: ONDANSETRON INJ 2 MG/ML 2 ML VIAL IV PRN (15:03)
[2018-09-23] MEDS ORDERED: CARBOHYDRATES FOR HYPOGLYCEMIA PO PRN (15:03)
[2018-09-23] MEDS ORDERED: ACETAMINOPHEN 1,000 MG/100 ML VIAL IV PRN ×2 (15:03→15:45)
[2018-09-23] MEDS ORDERED: cloNIDine HCl 0.1 MG TAB PO PRN (15:39)
[2018-09-23 15:54] LABS: Prothrombin Time 10.2 Seconds (9.0-12.0)
[2018-09-23] MEDS: SODIUM CHLORIDE 0.9% 1000ML 1,000 ML IV SCH (16:15)
[2018-09-23] MEDS ORDERED: INSULIN ASPART 100 UNITS/ML 3 ML PEN SC SCH (16:30)
[2018-09-23] MEDS ORDERED: Nursing to Pharmacy Communication ONE (17:13)
[2018-09-23] MEDS ORDERED: MoRPHine SULFATE 4 MG/ML 1 ML CARP\\VIAL IV PRN (17:21)
[2018-09-23] MEDS: INSULIN ASPART 100 UNITS/ML 3 ML PEN SC SCH (17:33)
[2018-09-23] MEDS ORDERED: ATORVASTATIN 40 MG TAB PO SCH (21:00)
[2018-09-23] MEDS ORDERED: dilTIAZem HCL 180 MG CAPCR PO SCH (21:00)
[2018-09-23] MEDS: FLUOCINONIDE 0.05% CR 15 GM TUBE EXT SCH (21:17)
[2018-09-23] MEDS: HEPARIN SOD 5,000 UNIT/0.5 ML VIAL SQ SCH (21:21)
[2018-09-24] MEDS: INSULIN ASPART 100 UNITS/ML 3 ML PEN SC SCH ×2 (00:11→05:59)
[2018-09-24] MEDS: SODIUM CHLORIDE 0.9% 1000ML 1,000 ML IV SCH (03:54)
[2018-09-24] MEDS: HEPARIN SOD 5,000 UNIT/0.5 ML VIAL SQ SCH (05:25)
[2018-09-24 07:50] LABS: Hematocrit (blood only) 36.3 % (37-47); Hemoglobin 12.1 g/dL (12.0-16.0); Mean Corpuscular Hgb Conc 33.3 g/dL (32-36); Mean Corpuscular Volume 90.8 fL (80-100); Mean Platelet Volume 9.6 fL (7.4-10.4); Platelet Count 307 K/uL (130-400); RDW Coefficient of Variation 15.5 % (11.5-14.5); RDW Standard Deviation 51.6 fL (36.4-46.3); White Blood Count 8.48 K/uL (4.8-10.8)
--- NOTE | 2018-09-24 08:00 | Hospitalist Progress Note ---
Date of Service September 24, 2018 Assessment & Plan (1) Enterocolitis: This is a 72yo F with a PMH of tubulovillous adenoma of colon s/p excision, IBS- D, DM II, CKD III, HTN and other medical problems listed below who presents with worsening abdominal pain since yesterday as well as syncopal event who was found to have non-specific enterocolitis. -Diffuse abdominal pain since 1 day [employer] in setting of IBS-D, recent endoscopic mucosal resection in May 2018 and a "clean up procedure" earlier this month. Biopsies have reportedly been negative -Hemodynamically stable and afebrile. No leukocytosis. Non-toxic appearance. Lactate elevated at 4.4 with repeat lactate after IV fluids decreased to 3.5-Now 0.8 -CT abdomen pelvis without evidence of bowel obstruction. Nonspecific enterocolitis and possible mild ileus. Diverticulosis without evidence of diverticulitis -Bowel rest with maintenance IV fluids. Stool culture and c. diff ordered. Pain control (2) Elevated lactic acid level: Initial lactate elevated at 4.4. Repeat of 3.5 after IV fluids, now 0.8 -Elevated in setting of colitis and mild ileus. Also with some dehydration. No evidence for infection, bowel ischemia or SBO (3) Syncopal episodes: Had single syncopal event after becoming lightheaded in shower -No head trauma. Likely orthostatic in setting of recent addition of HCTZ -Hold diuretic. Receiving IV fluids (4) Acute kidney injury superimposed on chronic kidney disease: H/o CKD III but Cr has been worsening lately. Cr of 1.79 today (baseline mid-1s) -Hold HCTZ, received fluids -Follows with Dr. Latham in clinic -Urine Ph 8.5 add ascorbic acid (5) Diabetes mellitus, type II: A1c of 6.2 earlier this May -Hold home agents -SSI while in-patient (6) HTN (hypertension): Slightly elevated in setting of pain -Holding lisinopril-hctz in setting of [place] and syncopal event -Add PRN clonidine for SBP >170 DVT Ppx: SQ heparin Code status: FULL PCP: Tori Dispo: Observation med tele. Plan to return today if medically stable. ROS-No Headache, No Visual Changes, No Nausea, No Vomiting, No Fever, No Chills, No Neck Pain or Stiffness, No Chest Pain, No Palpitations, No SOB, No ESTRADA, No Cough, No Sputum, No Wheezing, No Abdominal Pain, No Diarrhea, No Hematemesis, No Hemoptysis, No Unexpected Weight Loss, No Flank pain, No Melena, No Hematochezia, No Frequency, No Urgency, No Burning, No Hematuria, No Rashes, No Diaphoresis. Appetite is Normal Physical Exam Gen-AAO x 3, NAD, Afebrile Head-NCAT, EOMI, PERRLA, Anicteric Sclera, No Posterior Pharyngeal Erythema Neck-Supple, No JVD, No Thyromegaly, No Masses, No LAD, No Bruits Lungs-Clear to Auscultation Bilaterally, No Rales, No Rhonchi, No Wheezing, No Crepitus Chest-No S4, +S1, +S2, No S3, No Murmurs, No Rubs, No Gallops, No Ectopy Abdomen-Soft, Bowel Sounds Present, Non Tender, Non Distended, No Hepatomegaly, No Splenomegaly, No Palpable Masses, No Rebound, No Rigidity, No Guarding Musculoskeletal-Full Range of Motion Bilaterally, No CVAT Extremities-No Cyanosis, No Clubbing, No Edema Nuero-Cranial Nerves II-XII grossly intact, Motor WNL, DTRs WNL, Strength WNL, Non Focal Psych-Normal Mood Will be followed by Dr. Urban for remainder of admission. Results & Data Vital Signs (Past 12 Hours) Vital Signs Temp Pulse Resp BP Pulse Ox 09/24/18 07:53 36.4 C L 62 18 135/63 94 09/24/18 03:47 36.5 C 67 20 123/61 95 09/23/18 22:53 36.7 C 69 18 120/71 91 09/23/18 21:15 76 125/74 Current Diagnoses Type 2 diabetes mellitus without complications (09/23/18) Essential (primary) hypertension (09/23/18) Noninfective gastroenteritis and colitis, unspecified (09/23/18) Acute kidney failure, unspecified (09/23/18) Chronic kidney disease, unspecified (09/23/18) Syncope and collapse (09/23/18) Other specified abnormal findings of blood chemistry (09/23/18) Allergies Penicillins Allergy (Unknown, Verified 09/23/18 10:21) Height/Weight/Isolation Height 5 ft 2 in Weight 86.3 kg Chemistry 09/23/18 10:17 Sodium 139 Potassium 4.1 Chloride 103 Carbon Dioxide 24 Anion Gap 12.0 H BUN 18 Creatinine 1.79 H Glucose 175 H Urinalysis 09/23/18 11:38 Urine Color Yellow Urine Appearance Clear Urine pH 8.5 H Ur Specific [place] 1.017 Urine Protein 1+ H Urine Glucose (UA) Negative Urine Ketones Trace H Urine Blood Negative Urine Nitrite Negative Urine Bilirubin Negative
[2018-09-24 08:19] LABS: Albumin Level 3.1 gm/dl (3.4-5.0); Calcium 8.7 mg/dl (8.5-10.1); Est GFR (Non-African American) 35.3; Potassium 3.7 mmol/L (3.5-5.1)
[2018-09-24 08:32] LABS: Albumin Globulin Ratio 1.1 (0.9-2); Bilirubin,Total 0.6 mg/dl (0.2-1); Globulin 2.9 gm/dl (2.5-4.0)
[2018-09-24] MEDS: FLUOCINONIDE 0.05% CR 15 GM TUBE EXT SCH (08:51)
[2018-09-24] MEDS ORDERED: ASPIRIN 81 MG ECTAB PO SCH (09:00)
[2018-09-24] MEDS ORDERED: LACTOBACILLUS ACIDOPHILUS (FLORANEX) TAB PO SCH (09:00)
[2018-09-24] MEDS ORDERED: ASCORBIC ACID 500 MG TAB PO SCH (09:00)
[2018-09-24] MEDS ORDERED: CYANOCOBALAMIN 500 MCG TABLET (VITAMIN B-12) PO SCH (09:00)
--- NOTE | 2018-09-24 11:32 | Discharge Summary ---
Date of Service September 24, 2018 Admission HPI Per Admitting Provider This is a 72yo F with a PMH of tubulovillous adenoma of colon s/p excision, IBS- D, DM II, CKD III, HTN and other medical problems listed below who presents with worsening abdominal pain since yesterday as well as syncopal event this morning. Patient was diagnosed with tubulovillous adenoma of ileocecal valve on colonoscopy in March 2018. [facility] [place] and recommended right colon resection. Patient went for second opinion at [facility] in [place] and has since undergone an endoscopic mucosal resection in May 2018 and a "clean up procedure" earlier this month. Biopsies have reportedly been negative for malignancy. Ate a soft diet for a few weeks and reintroduced popcorn to her diet yesterday with subsequent pain described as diffuse and constant, primarily located in lower abdomen. [place] like gas pains. [place] like she needed to have a bowel movement, but passed only small amounts of stool with popcorn kernels. Denies any melena or hematochezia. Denies fever, chills or sick contacts. Did endorse one episode of vomiting on Monday night but was not associated with any nausea or abdominal pain at that time. Has history of IBS with diarrhea. Of note, did have a syncopal event earlier today after getting out of shower. Event was preceded by lightheadedness and prodrome but denies any visual changes, palpitations or chest pain. Patient was seated on toilet during event and did not incur any head trauma or fall. Episode was witnessed by . Has had episodes of syncope in the past after adjustments to her blood pressure medications. Notes that she was recently started on HCTZ and feels dehydrated. Found to be hemodynamically stable and afebrile. No leukocytosis. Lactate elevated at 4.4 with repeat lactate after IV fluids decreased to 3.5. CT abdomen pelvis without evidence of bowel obstruction. Nonspecific enterocolitis and possible mild ileus. Diverticulosis without evidence of diverticulitis. Admission Exam Per Admitting Provider General Appearance: WD/WN, no apparent distress, resting comfortably Head: normocephalic, atraumatic Eyes: normal inspection, PERRL, EOMI ENT: hearing grossly normal, pharynx (dry mucous membranes) Neck: supple, no JVD, no adenopathy Respiratory/Chest: lungs clear to auscultation. No wheezes, rales or rhonci. No respiratory distress or accessory muscle use Cardiovascular: regular rate, rhythm, no murmur, normal peripheral pulses Abdomen/GI: sluggish bowel sounds, soft, diffusely tender to palpation but no guarding Extremities/Musculoskelatal: normal inspection, no calf tenderness, normal capillary refill, no pedal edema Neurologic/Psych: alert, normal mood/affect, oriented x 3 Skin: normal color, warm/dry Principal Diagnosis Colitis Syncope from dehydration Elevated Lactate Obesity CKD III HTN A/C Kidney Disease Discharge Exam Feels great ROS-No Headache, No Visual Changes, No Nausea, No Vomiting, No Fever, No Chills, No Neck Pain or Stiffness, No Chest Pain, No Palpitations, No SOB, No ESTRADA, No Cough, No Sputum, No Wheezing, No Abdominal Pain, No Diarrhea, No Hematemesis, No Hemoptysis, No Unexpected Weight Loss, No Flank pain, No Melena, No Hematochezia, No Frequency, No Urgency, No Burning, No Hematuria, No Rashes, No Diaphoresis. Appetite is Normal Physical Exam Gen-AAO x 3, NAD, Afebrile, obese Head-NCAT, EOMI, PERRLA, Anicteric Sclera, No Posterior Pharyngeal Erythema Neck-Supple, No JVD, No Thyromegaly, No Masses, No LAD, No Bruits Lungs-Clear to Auscultation Bilaterally, No Rales, No Rhonchi, No Wheezing, No Crepitus Chest-No S4, +S1, +S2, No S3, No Murmurs, No Rubs, No Gallops, No Ectopy Abdomen-Soft, Bowel Sounds Present, Non Tender, Non Distended, No Hepatomegaly, No Splenomegaly, No Palpable Masses, No Rebound, No Rigidity, No Guarding Musculoskeletal-Full Range of Motion Bilaterally, No CVAT Extremities-No Cyanosis, No Clubbing, No Edema Nuero-Cranial Nerves II-XII grossly intact, Motor WNL, DTRs WNL, Strength WNL, Non Focal Psych-Normal Mood Discharge Data Allergies Allergy/AdvReac Type Severity Reaction Status Date / Time Penicillins Allergy Unknown Verified 09/23/18 10:21 Consultations 09/23/18 13:15 ED Decision to Admit Stat Ordered Studies 09/23/18 11:02 CT abd pelvis wo con Stat Current Diagnoses Type 2 diabetes mellitus without complications (09/23/18) Essential (primary) hypertension (09/23/18) Noninfective gastroenteritis and colitis, unspecified (09/23/18) Acute kidney failure, unspecified (09/23/18) Chronic kidney disease, unspecified (09/23/18) Syncope and collapse (09/23/18) Other specified abnormal findings of blood chemistry (09/23/18) Allergies Penicillins Allergy (Unknown, Verified 09/23/18 10:21) Height/Weight/Isolation Height 5 ft 2 in Weight 86.3 kg Chemistry 09/23/18 09/24/18 10:17 07:36 Sodium 139 141 Potassium 4.1 3.7 Chloride 103 107 Carbon Dioxide 24 26 Anion Gap 12.0 H 7.0 BUN 18 16 Creatinine 1.79 H 1.46 H D Glucose 175 H 124 H Urinalysis 09/23/18 11:38 Urine Color Yellow Urine Appearance Clear Urine pH 8.5 H Ur Specific [place] 1.017 Urine Protein 1+ H Urine Glucose (UA) Negative Urine Ketones Trace H Urine Blood Negative Urine Nitrite Negative Urine Bilirubin Negative Hospital Course (1) Enterocolitis: This is a 72yo F with a PMH of tubulovillous adenoma of colon s/p excision, IBS- D, DM II, CKD III, HTN and other medical problems listed below who presents with worsening abdominal pain since yesterday as well as syncopal event who was found to have non-specific enterocolitis. -Diffuse abdominal pain since 1 day [employer] in setting of IBS-D, recent endoscopic mucosal resection in May 2018 and a "clean up procedure" earlier this month. Biopsies have reportedly been negative -Hemodynamically stable and afebrile. No leukocytosis. Non-toxic appearance. Lactate elevated at 4.4 with repeat lactate after IV fluids decreased to 3.5-Now 0.8 -CT abdomen pelvis without evidence of bowel obstruction. Nonspecific enterocolitis and possible mild ileus. Diverticulosis without evidence of diverticulitis -DC home today and f/u c PCP-Greg Valle (2) Elevated lactic acid level: Initial lactate elevated at 4.4. Repeat of 3.5 after IV fluids, now 0.8 -Elevated in setting of colitis and mild ileus. Also with some dehydration. No evidence for infection, bowel ischemia or SBO (3) Syncopal episodes: Had single syncopal event after becoming lightheaded in shower -No head trauma. Likely orthostatic in setting of recent addition of HCTZ -Hold diuretic. Receiving IV fluids (4) Acute kidney injury superimposed on chronic kidney disease: H/o CKD III but Cr has been worsening lately. Cr of 1.79 today (baseline mid-1s) -Hold HCTZ, received fluids -Follows with Dr. Lahtam in clinic -Urine Ph 8.5 add ascorbic acid (5) Diabetes mellitus, type II: A1c of 6.2 earlier this May -Hold home agents -SSI while in-patient (6) HTN (hypertension): Slightly elevated in setting of pain -Holding lisinopril-hctz in setting of [place] and syncopal event -Add PRN clonidine for SBP >170 DVT Ppx: SQ heparin Code status: FULL PCP: Tori Dispo: DC Home today ROS-No Headache, No Visual Changes, No Nausea, No Vomiting, No Fever, No Chills, No Neck Pain or Stiffness, No Chest Pain, No Palpitations, No SOB, No ESTRADA, No Cough, No Sputum, No Wheezing, No Abdominal Pain, No Diarrhea, No Hematemesis, No Hemoptysis, No Unexpected Weight Loss, No Flank pain, No Melena, No Hematochezia, No Frequency, No Urgency, No Burning, No Hematuria, No Rashes, No Diaphoresis. Appetite is Normal Physical Exam Gen-AAO x 3, NAD, Afebrile Head-NCAT, EOMI, PERRLA, Anicteric Sclera, No Posterior Pharyngeal Erythema Neck-Supple, No JVD, No Thyromegaly, No Masses, No LAD, No Bruits Lungs-Clear to Auscultation Bilaterally, No Rales, No Rhonchi, No Wheezing, No Crepitus Chest-No S4, +S1, +S2, No S3, No Murmurs, No Rubs, No Gallops, No Ectopy Abdomen-Soft, Bowel Sounds Present, Non Tender, Non Distended, No Hepatomegaly, No Splenomegaly, No Palpable Masses, No Rebound, No Rigidity, No Guarding Musculoskeletal-Full Range of Motion Bilaterally, No CVAT Extremities-No Cyanosis, No Clubbing, No Edema Nuero-Cranial Nerves II-XII grossly intact, Motor WNL, DTRs WNL, Strength WNL, Non Focal Psych-Normal Mood Total Time Total Time Spent Total Time Spent (In Minutes): 45 mins Total Time Includes: Examination of the Patient, Discharge Planning, Medication Reconciliation and Communication With Other Providers Discharge Plan Discharge Items Patient Disposition: Home - Self-Care Reason For Visit: ENTEROCOLITIS,ELEVATED LACTATE,SYNCOPE Discharge Diagnosis: Colitis Syncope from dehydration Elevated Lactate/Metformin Obesity CKD III HTN A/C Kidney Disease Condition: Good Discharge Goals: Decrease discomfort Activity: Resume your previous activity Lifting: Gradually increase as tolerated Bathing: No limitations Sexual Activity: When tolerated Exercise/Sports: Rest today Driving/Machine Use: No limitations Weightbearing: Left weightbearing and Right weightbearing Non-emergency contact: Primary Care Provider Call non-emergency contact if: you have any medication questions and your symptoms worsen Follow-up/Referrals: Maribel Valle MD [Primary Care Provider] - Diet: Clear liquid Diet Comment: Advance Diet as tolerated Addtl Provider Instructions: Routine f/u, Hold Metformin for now Prescriptions: New ascorbic acid (vitamin C) [Vitamin C] 500 mg Tablet 1,000 mg PO BID Qty: 60 RF: 0 Continued aspirin [Aspirin Low Dose] 81 mg Tablet,Delayed Release (Dr/Ec) 81 mg PO DAILY RF: 0 atorvastatin 40 mg Tablet 40 mg PO QPM RF: 0 diltiazem HCl [Cartia XT] 180 mg Capsule,Extended Release 24hr 180 mg PO QPM RF: 0 cyanocobalamin (vitamin B-12) [Vitamin B-12] 1,000 mcg Tablet 1,000 mcg PO DAILY RF: 0 fluocinonide 0.05 % Cream 1 applic TOPICAL BID RF: 0 Probiotic 3 billion cell Capsule 3,000 mmu cells PO DAILY RF: 0 Discontinued lisinopril-hydrochlorothiazide 20-12.5 mg Tablet 1 tab PO DAILY RF: 0 metformin 1,000 mg Tablet 1,000 mg PO BID RF: 0 Stand-Alone Forms: Call Back Authorization, [facility] Discharge Orders: Discharge Order (Routine); Ordered 09/24/18 Ordered By: Frankie Urban Admission Data Admit Date/Time: 09/23/18 13:30 Attending Provider: Frankie Urban Admit Provider: Mateus Gerber Primary Care Provider: Maribel Valle Other Providers: Mateus Gerber Service: Telemetry Medical
== END 2018-09-24 12:52 | disposition home or self-care (01) ==
LOC: ED 09:40 → 2W 09:40

== ENCOUNTER 2018-09-26 17:05 | Inpatient (IN) ==
[2018-09-26] MEDS ORDERED: ONDANSETRON INJ 2 MG/ML 2 ML VIAL IV STA (17:56)
[2018-09-26 18:02] LABS: Basophils # (auto) 0.01 K/uL (0-0.2); Basophils % (auto) 0.1 %; Eosinophils # (auto) 0.02 K/uL (0-0.5); Eosinophils % (auto) 0.2 %; Hematocrit (blood only) 39.4 % (37-47); Hemoglobin 13.8 g/dL (12.0-16.0); Immature Granulocytes # (auto) 0.02 K/uL (0.00-0.02); Immature Granulocytes % (auto) 0.2 %; Lymphocytes # (auto) 0.95 K/uL (1.2-3.4); Lymphocytes % (auto) 10.4 %; Mean Corpuscular Volume 86.6 fL (80-100); Mean Platelet Volume 10.2 fL (7.4-10.4); Monocytes # (auto) 0.59 K/uL (0.11-0.59); Monocytes % (auto) 6.5 %; Neutrophils # (auto) 7.53 K/uL (1.4-6.5); Neutrophils % (auto) 82.6 %; Platelet Count 384 K/uL (130-400); RDW Coefficient of Variation 15.1 % (11.5-14.5); RDW Standard Deviation 47.5 fL (36.4-46.3); Red Blood Count 4.55 M/uL (4.2-5.4); White Blood Count 9.12 K/uL (4.8-10.8)
[2018-09-26] MEDS: HYDROmorphone INJ 0.5 MG/0.5 ML SYR IV PRN ×2 (18:06→19:20)
[2018-09-26 18:21] LABS: Albumin Level 4.1 gm/dl (3.4-5.0); Calcium 9.8 mg/dl (8.5-10.1); Creatinine Clr Calc Pharmacy 27.8 ml/min; Est GFR (Non-African American) 26.7; Potassium 3.1 mmol/L (3.5-5.1)
[2018-09-26 18:23] LABS: Albumin Globulin Ratio 1.1 (0.9-2); Bilirubin,Total 1.1 mg/dl (0.2-1); Globulin 3.6 gm/dl (2.5-4.0); Total Protein 7.7 gm/dl (6.4-8.2)
[2018-09-26] MEDS ORDERED: SODIUM CHLORIDE 0.9% 1000ML 1,000 ML IV STA (18:53)
[2018-09-26] MEDS ORDERED: SODIUM CHLORIDE 0.9% 1000ML 500 ML IV ONE (18:53)
[2018-09-26] MEDS ORDERED: POTASSIUM CHLORIDE / WTR 10 MEQ/100 ML PLCT IV ONE (19:38)
--- NOTE | 2018-09-26 20:53 | CT Scan Report ---
CT SCAN OF THE ABDOMEN AND PELVIS WITHOUT IV CONTRAST CLINICAL HISTORY: Generalized abdominal pain. Vomiting. COMPARISON STUDY: Abdominal CT scans dated 09/23/2018 and 01/21/2015. TECHNIQUE: CT scan of the abdomen and pelvis is performed from the lung bases to the proximal femora. Images are reviewed in the axial, sagittal, and coronal planes. IV contrast was not administered due to poor renal function. Note that the examination is suboptimal without IV contrast. A dose lowering technique was utilized adhering to the principles of ALARA. CT DOSE: 1048.89 mGy.cm FINDINGS: Lung bases: The heart is normal in size and without pericardial effusion. The coronary arteries are d ensely calcified. There is a small hiatal hernia. There is diminished attenuation of the cardiac bloo d pool as compared to the myocardium suggesting anemia. There is elevation of the right hemidiaphragm . There is trace right pleural effusion. Scarring/atelectasis is seen at both lung bases. Liver: The unenhanced liver is normal in size, contour, and attenuation. There is mild central intrah epatic biliary ductal dilatation. Gallbladder: Surgically absent noting clips in the gallbladder fossa. Spleen: Normal in size and attenuation. Pancreas: The unenhanced pancreas is moderately atrophic and grossly unremarkable. Adrenal glands: Unremarkable. Kidneys: The unenhanced kidneys are atrophic and without hydronephrosis. There are no renal calculi i dentified. There is no evidence of contour deforming renal mass lesion. Abdominal vasculature: The abdominal aorta is normal in course and caliber noting advanced atheroscle rotic calcification. Bowel: The proximal small bowel loops are distended and fluid-filled. There are numerous air-fluid l evels, with associated perienteric stranding and interloop fluid. Proximal small bowel loops measure up to 4 cm in diameter. This gradually transitions to decompressed distal small bowel in the right lo wer quadrant, with no discrete transition point identified. The colon is relatively decompressed. The re is no pneumatosis intestinalis or portal venous gas. Wall thickening is suggested involving the de compressed distal small bowel. This is unchanged to somewhat improved From 09/23/2018. There is advance d colonic diverticulosis without CT evidence of acute diverticulitis. Submucosal fat deposition is no bronson throughout the colon. There is a duodenal diverticulum. The appendix is well-visualized and norm al. Peritoneum: There is no intraperitoneal free air. There is a small volume of abdominopelvic ascites, which has increased from 09/23/2018. There is a small fat-containing umbilical hernia. Lymphadenopathy: None. Pelvic viscera: Evaluation of the pelvis is degraded by streak artifact from a right hip arthroplasty . The bladder is decompressed and not well evaluated. Uterine fibroids are suggested. No adnexal lesi on is seen. Skeletal structures: The skeletal structures are osteopenic. Moderate lumbosacral spondylosis is obse rved. No lytic or blastic lesions are seen. Sclerotic change is noted in the sacroiliac joints. Advan sherwin arthritic changes seen in the left hip. A right hip arthroplasty is in place. IMPRESSION: 1. The proximal small bowel loops are distended and fluid-filled, with numerous air-fluid levels, mil d surrounding inflammation, and interloop fluid. The degree of small bowel distention has noticeably increased from 09/23/2018. 2. The distended small bowel loops gradually transition to decompressed distal small bowel and colon. No discrete transition point is identified. This may represent functional obstruction secondary to m ucosal edema/thick-walled distal small bowel. These findings could be seen in the setting of a nonspe cific enteritis, with infectious, inflammatory, and ischemic etiologies within the differential. Clin ical correlation will be essential and surgical consultation is advised. 3. There is no pneumatosis intestinalis, portal venous gas, or intraperitoneal free air. 4. There is a small volume of abdominopelvic ascites, which has increased from previous. 5. Suspect uterine fibroids. 6. Advanced colonic diverticulosis without CT evidence of acute diverticulitis. 7. Additional findings as above. Electronically signed by: Sekou Richmond M.D. 09/26/2018 8:51 PM
[2018-09-26] MEDS ORDERED: SODIUM CHLORIDE 0.9% 1000ML 1,000 ML IV ONE (21:12)
[2018-09-26] MEDS ORDERED: LACTATED RINGER'S 1,000 ML IV ONE (21:51)
--- NOTE | 2018-09-26 21:51 | Surgery Consultation ---
Date of Consultation September 26, 2018 Assessment & Plan (1) Small bowel obstruction: Ms. García is a 72 yo female with a history of endoscopic mucosal resection of a polyp near the ileocecal valve. She presents this evening with a bowel obstruction. She has dilated loops of small bowel and decompresses in the RLQ, but no definitive transition point, bowel wall thickening and free fluid. In comparison to the CT just a few days ago the small bowel is more distended, wall thickening is decreased, and there is no significant change in the amount of free fluid. While she does have a mild lactic acidosis this is likely secondary to dehydration, though it is prudent to monitor closely for signs of bowel ischemia and ensure resolution. Possible obstruction could be due to bowel edema, adhesions, or less likely mass. Symptoms did start after increasing the fiber in her diet since her procedure. Given close time proximity to this procedure it raises the concern for edema in relation to this, though I would expect this to have occurred a little closer to the procedure date, vs other causes. With edema there is also a potential for a bezoar. Currently her abdominal exam is benign, she is hemodynamically stable and has no leukocytosis, thus it is safe to attempt conservative treatment with close monitoring. - NPO - NGT to suction - IVF and administer IVF bolus - Repeat lactate 4 hours after initial lab drawn - IV Abx for potential bacterial translocation - If any increase in lactate, worsening abdominal pain, or hemodynamic changes please contact general surgery immediately - Will consider repeating CT scan with oral contrast tomorrow to further evaluate cause of obstruction as well as potential therapeutic benefit. 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 If her condition deteriorates may need to re-assess - Recommend SCDs and Heparin for VTE ppx History of Present Illness Reason for Consultation: Bowel obstruction History of Present Illness Pt is a 72 yo female with PMHx significant for but not limited to HTN, IBS-D, DM II, CKD with recent sudden worsening of GFR, and fibroids who underwent endoscopic resection of a polyp near the ileocecal valve at [facility] on May 26 and again on August 24. This is the second polyp she has had near this area. She states pathology was negative for malignancy. She had no bleeding or any other complications after the procedure. She was admitted on 09/24/18 after a syncopal episode with abdominal pain and an elevated lactate. She was treated for enterocolitis, hydrated, and discharged the following day. She presents this evening with recurrent abdominal pain, which started on Monday night. The pain started in the pelvis and slowly started moving upward and then out to the sides. She had a couple of episodes of diarrhea that evening as well. This afternoon she had two episodes of emesis and felt syncopal and thus presented to the ED. Since arrival she has had 2 additional episodes of emesis. She has now developed hiccups and has an acidic taste in her mouth. Vitals are unremarkable aside from a RR of 25. She does not have a leukocytosis, but is hypokalemic and has a lactate of 3.1. CT scan was completed showing an SBO. Surgical history is significant for a laparoscopic cholecystectomy and had endoscopic mucosal resection of a polyp near the ileocecal valve. Denies a prior history of bowel obstructions and no personal history of malignancy. Allergies Allergy/AdvReac Type Severity Reaction Status Date / Time Penicillins Allergy Unknown Verified 09/26/18 19:49 nickel Allergy . Unverified 09/26/18 19:50 Home Medications Home Medications Medication Instructions Recorded Confirmed Type Probiotic 3,000 mmu cells PO DAILY 09/23/18 09/26/18 History aspirin [Aspirin Low Dose] 81 mg PO QPM 09/23/18 09/26/18 History atorvastatin 40 mg PO QPM 09/23/18 09/26/18 History cyanocobalamin (vitamin B-12) 1,000 mcg PO DAILY 09/23/18 09/26/18 History [Vitamin B-12] diltiazem HCl [Cartia XT] 180 mg PO QPM 09/23/18 09/26/18 History fluocinonide 1 applic TOPICAL BID 09/23/18 09/26/18 History metformin 1,000 mg PO AMPM 09/26/18 09/26/18 History Patient History Medical History Syncopal episodes (Acute) Acute kidney injury superimposed on chronic kidney disease (Acute) CKD (chronic kidney disease), stage III (Chronic) Diabetes mellitus, type II (Chronic) Enterocolitis (Acute) Elevated lactic acid level (Acute) HTN (hypertension) (Chronic) Surgical History History of cholecystectomy (Resolved) S/P colonoscopy (Resolved) May 31 and August 24 in [place]. "Clean up procedure, biopsies negative" S/P hip replacement (Resolved) S/P knee replacement (Resolved) Family History Other Heart disease Social History Preferred Language: Egyptian Communication Ability: Effective Beliefs That Will Affect Care: None marital status: Current Living Situation: Spouse current occupational status: retired Feels Safe at Home: Yes Smoking Status: Former smoker Hx Alcohol Use: Yes Alcohol type: beer and wine Hx Substance Use: No Review of Systems Constitutional: no fever, no chills and no sweats Respiratory: no cough and no dyspnea Cardiovascular: no chest pain and no dyspnea Gastrointestinal: as per Subjective / HPI Genitourinary: no dysuria and no urinary frequency Physical Exam Constitutional: well developed and well nourished; no acute distress Eyes: PERRL, conjunctivae normal, anicteric sclerae ENMT: external ear and nose normal, oropharynx normal Neck: normal visual inspection Respiratory: normal respiratory effort Cardiovascular: Rate/Rhythm: regular rate and regular rhythm Gastrointestinal (Abdomen): soft, distended, non-tender Skin: no rashes, warm and dry Neurologic: alert Results & Data Vital Signs (Past 12 Hours) Vital Signs Temp Pulse Pulse Resp BP BP Pulse Ox 09/26/18 21:31 88 25 H 150/87 H 99 09/26/18 21:30 86 20 98 09/26/18 21:16 83 22 150/87 H 98 09/26/18 21:15 81 23 98 09/26/18 21:01 82 18 95 09/26/18 21:00 83 18 179/87 H 96 09/26/18 20:46 78 14 94 09/26/18 20:45 80 16 153/78 H 95 09/26/18 20:31 78 16 176/72 H 97 09/26/18 20:30 77 26 H 98 09/26/18 20:16 77 17 97 09/26/18 20:15 78 23 185/86 H 98 09/26/18 20:12 79 17 163/92 H 99 09/26/18 20:10 79 20 09/26/18 19:45 77 16 148/77 H 94 09/26/18 19:31 73 24 141/84 H 94 09/26/18 19:30 72 18 94 09/26/18 19:22 78 21 186/91 H 98 09/26/18 19:16 78 26 H 96 09/26/18 19:15 75 23 168/111 H 98 09/26/18 19:06 78 21 146/96 H 98 09/26/18 19:01 78 28 H 146/96 H 09/26/18 19:00 81 22 09/26/18 18:45 79 27 H 161/82 H 09/26/18 18:30 80 26 H 151/82 H 09/26/18 18:16 80 20 144/99 H 09/26/18 18:15 82 21 09/26/18 18:07 86 18 213/136 H 09/26/18 18:06 87 95 09/26/18 18:00 84 33 H 09/26/18 17:45 87 22 09/26/18 17:30 82 35 H 09/26/18 17:29 80 25 H 09/26/18 17:26 80 30 H 196/108 H 09/26/18 17:16 187/95 H 09/26/18 17:13 36.4 C L 96 H 20 98 Laboratory Results 09/26/18 09/26/18 09/26/18 Range/Units 17:57 17:49 17:49 WBC 9.12 (4.8-10.8) K/uL RBC 4.55 (4.2-5.4) M/uL Hgb 13.8 (12.0-16.0) g/dL Hct 39.4 (37-47) % MCV 86.6 (80-100) fL MCH 30.3 (25-34) pg MCHC 35.0 (32-36) g/dL RDW Std Deviation 47.5 H (36.4-46.3) fL RDW Coeff of Tin 15.1 H (11.5-14.5) % Plt Count 384 (130-400) K/uL MPV 10.2 (7.4-10.4) fL Immature Gran % (Auto) 0.2 % Neut % (Auto) 82.6 % Lymph % (Auto) 10.4 % [place] % (Auto) 6.5 % Eos % (Auto) 0.2 % Baso % (Auto) 0.1 % Immature Gran # (Auto) 0.02 (0.00-0.02) K/uL Neut # (Auto) 7.53 H (1.4-6.5) K/uL Lymph # (Auto) 0.95 L (1.2-3.4) K/uL [place] # (Auto) 0.59 (0.11-0.59) K/uL Eos # (Auto) 0.02 (0-0.5) K/uL Baso # (Auto) 0.01 (0-0.2) K/uL Sodium 136 (136-145) mmol/L Potassium 3.1 L (3.5-5.1) mmol/L Chloride 100 (98-107) mmol/L Carbon Dioxide 24 (21-32) mmol/L Anion Gap 12.0 H (3-11) BUN 17 (7-18) mg/dl Creatinine 1.84 H (0.6-1.2) mg/dl Est Cr Clr Drug Dosing 27.8 ml/min Est GFR ( Amer) 31.0 Est GFR (Non-Af Amer) 26.7 BUN/Creatinine Ratio 9.0 L (10-20) Glucose 171 H (70-99) mg/dl POC Lactic Acid Ihsan 3.09 H (0.90-1.70) mmol/L Calcium 9.8 (8.5-10.1) mg/dl Magnesium Pending Total Bilirubin 1.1 H (0.2-1) mg/dl AST 22 (15-37) U/L ALT 35 (12-78) U/L Alkaline Phosphatase 111 (45-117) U/L Total Protein 7.7 (6.4-8.2) gm/dl Albumin 4.1 (3.4-5.0) gm/dl Globulin 3.6 (2.5-4.0) gm/dl Albumin/Globulin Ratio 1.1 (0.9-2) Lipase 107 (73-393) U/L TSH Pending Diagnostic Findings (09/26/18) CT Abdomen/Pelvis: FINDINGS: Lung bases: The heart is normal in size and without pericardial effusion. The coronary arteries are densely calcified. There is a small hiatal hernia. There is diminished attenuation of the cardiac blood pool as compared to the myocardium suggesting anemia. There is elevation of the right hemidiaphragm. There is trace right pleural effusion. Scarring/atelectasis is seen at both lung bases. Liver: The unenhanced liver is normal in size, contour, and attenuation. There is mild central intrahepatic biliary ductal dilatation. Gallbladder: Surgically absent noting clips in the gallbladder fossa. Spleen: Normal in size and attenuation. Pancreas: The unenhanced pancreas is moderately atrophic and grossly unremarkable. Adrenal glands: Unremarkable. Kidneys: The unenhanced kidneys are atrophic and without hydronephrosis. There are no renal calculi identified. There is no evidence of contour deforming renal mass lesion. Abdominal vasculature: The abdominal aorta is normal in course and caliber noting advanced atherosclerotic calcification. Bowel: The proximal small bowel loops are distended and fluid-filled. There are numerous air-fluid levels, with associated perienteric stranding and interloop fluid. Proximal small bowel loops measure up to 4 cm in diameter. This gradually transitions to decompressed distal small bowel in the right lower quadrant, with no discrete transition point identified. The colon is relatively decompressed. There is no pneumatosis intestinalis or portal venous gas. Wall thickening is suggested involving the decompressed distal small bowel. This is unchanged to somewhat improved From 09/23/2018. There is advanced colonic diverticulosis without CT evidence of acute diverticulitis. Submucosal fat deposition is noted throughout the colon. There is a duodenal diverticulum. The appendix is well- visualized and normal. Peritoneum: There is no intraperitoneal free air. There is a small volume of abdominopelvic ascites, which has increased from 09/23/2018. There is a small fat- containing umbilical hernia. Lymphadenopathy: None. Pelvic viscera: Evaluation of the pelvis is degraded by streak artifact from a right hip arthroplasty. The bladder is decompressed and not well evaluated. Uterine fibroids are suggested. No adnexal lesion is seen. Skeletal structures: The skeletal structures are osteopenic. Moderate lumbosacral spondylosis is observed. No lytic or blastic lesions are seen. Sclerotic change is noted in the sacroiliac joints. Advanced arthritic changes seen in the left hip. A right hip arthroplasty is in place. IMPRESSION: 1. The proximal small bowel loops are distended and fluid-filled, with numerous air-fluid levels, mild surrounding inflammation, and interloop fluid. The degree of small bowel distention has noticeably increased from 09/23/2018. 2. The distended small bowel loops gradually transition to decompressed distal small bowel and colon. No discrete transition point is identified. This may represent functional obstruction secondary to mucosal edema/thick-walled distal small bowel. These findings could be seen in the setting of a nonspecific enteritis, with infectious, inflammatory, and ischemic etiologies within the differential. Clinical correlation will be essential and surgical consultation is advised. 3. There is no pneumatosis intestinalis, portal venous gas, or intraperitoneal free air. 4. There is a small volume of abdominopelvic ascites, which has increased from p revious. 5. Suspect uterine fibroids. 6. Advanced colonic diverticulosis without CT evidence of acute diverticulitis. 7. Additional findings as above.
[2018-09-26] MEDS ORDERED: PROMETHAZINE HCL 12.5 MG in SODIUM CHLORIDE 0.9% 50 ML IV PRN (21:52)
[2018-09-26] MEDS ORDERED: TRAMADOL HCL 50 MG TABLET PO PRN (21:52)
--- NOTE | 2018-09-26 22:16 | Emergency Department Note ---
Entered by Susan Champagne acting as a scribe for ED Provider Note CHIEF COMPLAINT: Abdominal Pain HISTORY OF PRESENT ILLNESS: The patient is a 72 year old female who presents to the Emergency Room with complaints of an episode of abdominal pain starting this morning. The patient states that she was here 3 days ago because she was having abdominal pain and diarrhea. She states that she had fainted from it and was bought in. She states that the admitted her, but she felt fine by that evening and was discharged the next day. She reports that she was in no pain when they discharged her and informed her to keep an all liquid diet. The patient states that she did follow that, but yesterday morning ate some Ritz crackers. She states that her diarrhea started again and she got scared so she stopped eating. She states that she then returned to the all liquid diet. The patient states that this morning she woke up with the abdominal pain that she currently rates as a 2/10 in severity. She states that she tried eating chicken noodle soup, a popsicle, and applesauce, but shortly after vomited it back up. She reports that each time the pain goes up to a 9/10 in severity, she vomits. The patient complains of being nauseated still. She notes that she was supposed to follow up with her PCP tomorrow and tried to get in with them today, but they recommended she come to the ED. She notes that they are concerned given her blood pressure. She notes that she has had 2 abdominal surgeries in the past, a cholecystectomy and an endoscopic submucosal dissection. The patient denies leg swelling. Pt denies LOC, headache, fevers, chills, diaphoresis, visual changes, neck pain, chest pain, breathing difficulties, back pain, melena, hematochezia, urinary symptoms, numbness, weakness, lymphadenopathy, rash, or other complaints. REVIEW OF SYSTEMS: See HPI for pertinent positives and negatives. A total of ten systems were reviewed and were otherwise negative. PMHx/PSHx: CKD, DM, Enterocolitis, HTN, Cholecystectomy, Hip Replacement, Knee Replacement, Colonoscopy SOCIAL HISTORY: Patient lives at home with her . She is retired. She does drink alcohol and was a former smoker. She denies using substances. PHYSICAL EXAM: GENERAL: Awake, alert, uncomfortable appearing, in mild distress HENT: Normocephalic, atraumatic. Oropharynx unremarkable. EYES: PERRL. Normal conjunctiva. Sclera non-icteric. NECK: Inspection normal. Non-tender. Supple. No nuchal rigidity. FROM. No masses. RESPIRATORY: Clear to auscultation. No wheezes. No rales. Normal respiratory effort. CARDIAC: Normal rate. Normal rhythm. No murmurs. No rubs. Extremities warm and well perfused. Pulses equal. No JVD. GI: Soft, non-distended. Left upper and lower abdominal tenderness to palpation. No rebound or guarding. No masses. RECTAL: Deferred. MUSCULOSKELETAL: Atraumatic. Chest examination reveals no tenderness. No joint edema. LOWER EXTREMITIES: Calves are equal size bilaterally and non-tender. No edema. No discoloration. NEURO: Normal sensorium. No sensory or motor deficits noted. SKIN: No rash or jaundice noted. EMERGENCY DEPARTMENT COURSE: 1731: Past medical records reviewed. The patient was evaluated in room A11A, and a complete history and physical examination were performed. 1946: I spoke to radiology and given her elevated creatinine and low GFR, they recommend against using IV contrast and do the non con study. 2007: I reevaluated the patient and updated her on going to CT. 2106: I discussed the patient's case with Dr. Epps- General Surgeon. She is going to come see the patient. 2119: I reevaluated the patient and updated her on her test results. I discussed the treatment plan with her. She verbally agrees and understands. General Surgery is at bedside. 2125: I discussed the patient's case with Dr. Cardenas [facility] Hospitalist. He will evaluate the patient for further management. MEDICAL DECISION MAKING: Prior records/ancillary studies reviewed. Previous records indicate the patient was treated and discharged after experiencing an enteritis. Triage Nursing notes reviewed and agree them. Additional history obtained from the patient's significant other. The patient's history was concerning for abdominal pain. Differential diagnosis: Etiologies such as appendicitis, diverticulitis, PUD, biliary pathology, UTI, pancreatitis, obstruction, mesenteric ischemia, aortic pathology, infections, inflammatory bowel disease, renal colic, as well as others were entertained. Physical examination findings: As above. ER treatment provided: Normal saline hydration IV Dilaudid IV Zofran IV potassium On reassessment the patient felt better. Diagnostics interpreted by me: ECG: Normal The labs revealed an unremarkable CBC and chemistry panel except for hypokalemia. The patient's creatinine is mildly elevated and GFR is low. Lactate is elevated. Imaging studies: CT scan performed and was concerning for small bowel obstruction. No obvious transition point noted. No pneumatosis or portal venous gas. Consultation: A consultation was placed with the general surgeon on-call, Dr. Esposito, the case was discussed and diagnostics were reviewed. The patient was evaluated in the ER for further treatment. She recommended hydration and a 4-hour lactate. I did consult with Dr. Mcnally of the [facility] hospitalist service. He will evaluate the patient for admission and repeat lactate. IMPRESSION: Small bowel obstruction PLAN: Being Evaluated by Hospitalist The scribe's documentation has been prepared under my direction and personally reviewed by me in its entirety. I confirm that the note above accurately reflects all work, treatment, procedures, and medical decision making performed by me. Impression & Plan Small bowel obstruction Past Med/Surg History Medical History Syncopal episodes (Acute) Acute kidney injury superimposed on chronic kidney disease (Acute) CKD (chronic kidney disease), stage III (Chronic) Diabetes mellitus, type II (Chronic) Enterocolitis (Acute) Elevated lactic acid level (Acute) HTN (hypertension) (Chronic) Surgical History History of cholecystectomy (Resolved) S/P colonoscopy (Resolved) May 31 and August 24 in [place]. "Clean up procedure, biopsies negative" S/P hip replacement (Resolved) S/P knee replacement (Resolved) Family History Other Heart disease Social History Preferred Language: Yi Communication Ability: Effective Beliefs That Will Affect Care: None marital status: Current Living Situation: Spouse current occupational status: retired Feels Safe at Home: Yes Smoking Status: Former smoker Hx Alcohol Use: Yes Alcohol type: beer and wine Hx Substance Use: No Results & Data Vital Signs Vital Signs - 24 hr 09/26/18 17:13 09/26/18 17:16 09/26/18 17:26 Temperature 36.4 C L Temperature Source Oral Sepsis Recent Fever Within 48 Hours No Sepsis New/Unexplained Change in Mental Status No Sepsis Action Taken by Nursing No Action Required Pulse Rate 96 H 80 Pulse Rate [Left Apical] Pulse Rate from SpO2 Sensor Pulse Rhythm [Left Apical] Pulse Strength [Left Apical] Respiratory Rate 20 30 H Respiratory Effort / Characteristics Respiratory Depth Respiratory Pattern Blood Pressure 196/108 H Blood Pressure [Right Arm] 187/95 H Blood Pressure Mean 137 Blood Pressure Mean [Right Arm] 125 Blood Pressure Position [Right Arm] Pulse Oximetry 98 Oxygen Delivery Method Room Air 09/26/18 17:29 09/26/18 17:30 09/26/18 17:45 Temperature Temperature Source Sepsis Recent Fever Within 48 Hours Sepsis New/Unexplained Change in Mental Status Sepsis Action Taken by Nursing Pulse Rate 80 82 87 Pulse Rate [Left Apical] Pulse Rate from SpO2 Sensor Pulse Rhythm [Left Apical] Pulse Strength [Left Apical] Respiratory Rate 25 H 35 H 22 Respiratory Effort / Characteristics Respiratory Depth Respiratory Pattern Blood Pressure Blood Pressure [Right Arm] Blood Pressure Mean Blood Pressure Mean [Right Arm] Blood Pressure Position [Right Arm] Pulse Oximetry Oxygen Delivery Method 09/26/18 18:00 09/26/18 18:06 09/26/18 18:07 Temperature Temperature Source Sepsis Recent Fever Within 48 Hours Sepsis New/Unexplained Change in Mental Status Sepsis Action Taken by Nursing Pulse Rate 84 87 86 Pulse Rate [Left Apical] Pulse Rate from SpO2 Sensor Pulse Rhythm [Left Apical] Pulse Strength [Left Apical] Respiratory Rate 33 H 18 Respiratory Effort / Characteristics Respiratory Depth Respiratory Pattern Blood Pressure 213/136 H Blood Pressure [Right Arm] Blood Pressure Mean 161 Blood Pressure Mean [Right Arm] Blood Pressure Position [Right Arm] Pulse Oximetry 95 Oxygen Delivery Method Room Air 09/26/18 18:15 09/26/18 18:16 09/26/18 18:30 Temperature Temperature Source Sepsis Recent Fever Within 48 Hours Sepsis New/Unexplained Change in Mental Status Sepsis Action Taken by Nursing Pulse Rate 82 80 80 Pulse Rate [Left Apical] Pulse Rate from SpO2 Sensor Pulse Rhythm [Left Apical] Pulse Strength [Left Apical] Respiratory Rate 21 20 26 H Respiratory Effort / Characteristics Respiratory Depth Respiratory Pattern Blood Pressure 144/99 H 151/82 H Blood Pressure [Right Arm] Blood Pressure Mean 114 105 Blood Pressure Mean [Right Arm] Blood Pressure Position [Right Arm] Pulse Oximetry Oxygen Delivery Method 09/26/18 18:45 09/26/18 19:00 09/26/18 19:01 Temperature Temperature Source Sepsis Recent Fever Within 48 Hours Sepsis New/Unexplained Change in Mental Status Sepsis Action Taken by Nursing Pulse Rate 79 81 78 Pulse Rate [Left Apical] Pulse Rate from SpO2 Sensor Pulse Rhythm [Left Apical] Pulse Strength [Left Apical] Respiratory Rate 27 H 22 28 H Respiratory Effort / Characteristics Respiratory Depth Respiratory Pattern Blood Pressure 161/82 H 146/96 H Blood Pressure [Right Arm] Blood Pressure Mean 108 112 Blood Pressure Mean [Right Arm] Blood Pressure Position [Right Arm] Pulse Oximetry Oxygen Delivery Method 09/26/18 19:06 09/26/18 19:15 09/26/18 19:16 Temperature Temperature Source Sepsis Recent Fever Within 48 Hours Sepsis New/Unexplained Change in Mental Status Sepsis Action Taken by Nursing Pulse Rate 75 78 Pulse Rate [Left Apical] 78 Pulse Rate from SpO2 Sensor 74 72 Pulse Rhythm [Left Apical] Regular Pulse Strength [Left Apical] Normal Respiratory Rate 21 23 26 H Respiratory Effort / Characteristics Non-Labored Spontaneous Respiratory Depth Normal Respiratory Pattern Regular Blood Pressure 168/111 H Blood Pressure [Right Arm] 146/96 H Blood Pressure Mean 130 Blood Pressure Mean [Right Arm] 112 Blood Pressure Position [Right Arm] Lying Pulse Oximetry 98 98 96 Oxygen Delivery Method Room Air 09/26/18 19:22 09/26/18 19:30 09/26/18 19:31 Temperature Temperature Source Sepsis Recent Fever Within 48 Hours Sepsis New/Unexplained Change in Mental Status Sepsis Action Taken by Nursing Pulse Rate 78 72 73 Pulse Rate [Left Apical] Pulse Rate from SpO2 Sensor 76 72 73 Pulse Rhythm [Left Apical] Pulse Strength [Left Apical] Respiratory Rate 21 18 24 Respiratory Effort / Characteristics Respiratory Depth Respiratory Pattern Blood Pressure 186/91 H 141/84 H Blood Pressure [Right Arm] Blood Pressure Mean 122 103 Blood Pressure Mean [Right Arm] Blood Pressure Position [Right Arm] Pulse Oximetry 98 94 94 Oxygen Delivery Method 09/26/18 19:45 09/26/18 20:10 09/26/18 20:12 Temperature Temperature Source Sepsis Recent Fever Within 48 Hours Sepsis New/Unexplained Change in Mental Status Sepsis Action Taken by Nursing Pulse Rate 77 79 79 Pulse Rate [Left Apical] Pulse Rate from SpO2 Sensor 76 79 Pulse Rhythm [Left Apical] Pulse Strength [Left Apical] Respiratory Rate 16 20 17 Respiratory Effort / Characteristics Respiratory Depth Respiratory Pattern Blood Pressure 148/77 H 163/92 H Blood Pressure [Right Arm] Blood Pressure Mean 100 115 Blood Pressure Mean [Right Arm] Blood Pressure Position [Right Arm] Pulse Oximetry 94 99 Oxygen Delivery Method 09/26/18 20:15 09/26/18 20:16 09/26/18 20:30 Temperature Temperature Source Sepsis Recent Fever Within 48 Hours Sepsis New/Unexplained Change in Mental Status Sepsis Action Taken by Nursing Pulse Rate 78 77 77 Pulse Rate [Left Apical] Pulse Rate from SpO2 Sensor 78 79 76 Pulse Rhythm [Left Apical] Pulse Strength [Left Apical] Respiratory Rate 23 17 26 H Respiratory Effort / Characteristics Respiratory Depth Respiratory Pattern Blood Pressure 185/86 H Blood Pressure [Right Arm] Blood Pressure Mean 119 Blood Pressure Mean [Right Arm] Blood Pressure Position [Right Arm] Pulse Oximetry 98 97 98 Oxygen Delivery Method 09/26/18 20:31 09/26/18 20:45 09/26/18 20:46 Temperature Temperature Source Sepsis Recent Fever Within 48 Hours Sepsis New/Unexplained Change in Mental Status Sepsis Action Taken by Nursing Pulse Rate 78 80 78 Pulse Rate [Left Apical] Pulse Rate from SpO2 Sensor 78 73 78 Pulse Rhythm [Left Apical] Pulse Strength [Left Apical] Respiratory Rate 16 16 14 Respiratory Effort / Characteristics Respiratory Depth Respiratory Pattern Blood Pressure 176/72 H 153/78 H Blood Pressure [Right Arm] Blood Pressure Mean 106 103 Blood Pressure Mean [Right Arm] Blood Pressure Position [Right Arm] Pulse Oximetry 97 95 94 Oxygen Delivery Method 09/26/18 21:00 09/26/18 21:01 09/26/18 21:15 Temperature Temperature Source Sepsis Recent Fever Within 48 Hours Sepsis New/Unexplained Change in Mental Status Sepsis Action Taken by Nursing Pulse Rate 83 82 81 Pulse Rate [Left Apical] Pulse Rate from SpO2 Sensor 81 82 81 Pulse Rhythm [Left Apical] Pulse Strength [Left Apical] Respiratory Rate 18 18 23 Respiratory Effort / Characteristics Respiratory Depth Respiratory Pattern Blood Pressure 179/87 H Blood Pressure [Right Arm] Blood Pressure Mean 117 Blood Pressure Mean [Right Arm] Blood Pressure Position [Right Arm] Pulse Oximetry 96 95 98 Oxygen Delivery Method 09/26/18 21:16 09/26/18 21:30 09/26/18 21:31 Temperature Temperature Source Sepsis Recent Fever Within 48 Hours Sepsis New/Unexplained Change in Mental Status Sepsis Action Taken by Nursing Pulse Rate 83 86 88 Pulse Rate [Left Apical] Pulse Rate from SpO2 Sensor 83 86 89 Pulse Rhythm [Left Apical] Pulse Strength [Left Apical] Respiratory Rate 22 20 25 H Respiratory Effort / Characteristics Respiratory Depth Respiratory Pattern Blood Pressure 150/87 H 150/87 H Blood Pressure [Right Arm] Blood Pressure Mean 108 108 Blood Pressure Mean [Right Arm] Blood Pressure Position [Right Arm] Pulse Oximetry 98 98 99 Oxygen Delivery Method Home Medications Current Medication List: was personally reviewed by me Laboratory Data Attestation: I reviewed the patient's lab results. Result diagrams: 09/26/18 17:49 09/26/18 17:49 Lab Results 09/26/18 09/26/18 09/26/18 Range/Units 17:49 17:49 17:57 WBC 9.12 (4.8-10.8) K/uL RBC 4.55 (4.2-5.4) M/uL Hgb 13.8 (12.0-16.0) g/dL Hct 39.4 (37-47) % MCV 86.6 (80-100) fL MCH 30.3 (25-34) pg MCHC 35.0 (32-36) g/dL RDW Std Deviation 47.5 H (36.4-46.3) fL RDW Coeff of Tin 15.1 H (11.5-14.5) % Plt Count 384 (130-400) K/uL MPV 10.2 (7.4-10.4) fL Immature Gran % (Auto) 0.2 % Neut % (Auto) 82.6 % Lymph % (Auto) 10.4 % [place] % (Auto) 6.5 % Eos % (Auto) 0.2 % Baso % (Auto) 0.1 % Immature Gran # (Auto) 0.02 (0.00-0.02) K/uL Neut # (Auto) 7.53 H (1.4-6.5) K/uL Lymph # (Auto) 0.95 L (1.2-3.4) K/uL [place] # (Auto) 0.59 (0.11-0.59) K/uL Eos # (Auto) 0.02 (0-0.5) K/uL Baso # (Auto) 0.01 (0-0.2) K/uL Sodium 136 (136-145) mmol/L Potassium 3.1 L (3.5-5.1) mmol/L Chloride 100 (98-107) mmol/L Carbon Dioxide 24 (21-32) mmol/L Anion Gap 12.0 H (3-11) BUN 17 (7-18) mg/dl Creatinine 1.84 H (0.6-1.2) mg/dl Est Cr Clr Drug Dosing 27.8 ml/min Est GFR ( Amer) 31.0 Est GFR (Non-Af Amer) 26.7 BUN/Creatinine Ratio 9.0 L (10-20) Glucose 171 H (70-99) mg/dl POC Lactic Acid Ihsan 3.09 H (0.90-1.70) mmol/L Calcium 9.8 (8.5-10.1) mg/dl Total Bilirubin 1.1 H (0.2-1) mg/dl AST 22 (15-37) U/L ALT 35 (12-78) U/L Alkaline Phosphatase 111 (45-117) U/L Total Protein 7.7 (6.4-8.2) gm/dl Albumin 4.1 (3.4-5.0) gm/dl Globulin 3.6 (2.5-4.0) gm/dl Albumin/Globulin Ratio 1.1 (0.9-2) Lipase 107 (73-393) U/L Administered Medications Sodium Chloride (Nss 1000ml) 1,000 mls @ 125 mls/hr IV .Q8H STA Stop: 09/27/18 02:52 Last Infusion: 09/26/18 21:30 Dose: 0 mls/hr Documented by: [id number] Admin: 09/26/18 19:37 Dose: 125 mls/hr Documented by: [id number] Discontinued Medications Hydromorphone HCl (Dilaudid) 0.5 mg IV Q15M PRN PRN Reason: Pain Stop: 10/10/18 17:55 Last Admin: 09/26/18 19:20 Dose: 0.5 mg Documented by: [id number] Admin: 09/26/18 18:06 Dose: 0.5 mg Documented by: [id number] Sodium Chloride (Nss 1000ml) 500 mls @ 999 mls/hr IV .Q31M ONE Stop: 09/26/18 19:23 Last Infusion: 09/26/18 19:37 Dose: 0 mls/hr Documented by: [id number] Admin: 09/26/18 19:06 Dose: 999 mls/hr Documented by: [id number] Potassium Chloride (K Adriano / Wtr) 10 meq in 100 mls @ 100 mls/hr IV ONE ONE Stop: 09/26/18 20:37 Last Infusion: 09/26/18 22:00 Dose: 0 mls/hr Documented by: [id number] Admin: 09/26/18 20:05 Dose: 100 mls/hr Documented by: [id number] Sodium Chloride (Nss 1000ml) 1,000 mls @ 999 mls/hr IV .Q1H1M ONE Stop: 09/26/18 22:12 Last Admin: 09/26/18 21:36 Dose: 999 mls/hr Documented by: [id number] Ondansetron HCl (Zofran) 4 mg IV NOW STA Stop: 09/26/18 17:57 Last Admin: 09/26/18 18:06 Dose: 4 mg Documented by: [id number] Imaging Data Radiologist's Impression: Radiology results as stated below per my review and the radiologist's interpretation: CT SCAN OF THE ABDOMEN AND PELVIS WITHOUT IV CONTRAST CLINICAL HISTORY: Generalized abdominal pain. Vomiting. COMPARISON STUDY: Abdominal CT scans dated 09/23/2018 and 01/21/2015. TECHNIQUE: CT scan of the abdomen and pelvis is performed from the lung bases to the proximal femora. Images are reviewed in the axial, sagittal, and coronal planes. IV contrast was not administered due to poor renal function. Note that the examination is suboptimal without IV contrast. A dose lowering technique was utilized adhering to the principles of ALARA. CT DOSE: 1048.89 mGy.cm FINDINGS: Lung bases: The heart is normal in size and without pericardial effusion. The coronary arteries are densely calcified. There is a small hiatal hernia. There is diminished attenuation of the cardiac blood pool as compared to the myocardium suggesting anemia. There is elevation of the right hemidiaphragm. There is trace right pleural effusion. Scarring/atelectasis is seen at both lung bases. Liver: The unenhanced liver is normal in size, contour, and attenuation. There is mild central intrahepatic biliary ductal dilatation. Gallbladder: Surgically absent noting clips in the gallbladder fossa. Spleen: Normal in size and attenuation. Pancreas: The unenhanced pancreas is moderately atrophic and grossly unremarkable. Adrenal glands: Unremarkable. Kidneys: The unenhanced kidneys are atrophic and without hydronephrosis. There are no renal calculi identified. There is no evidence of contour deforming renal mass lesion. Abdominal vasculature: The abdominal aorta is normal in course and caliber noting advanced atherosclerotic calcification. Bowel: The proximal small bowel loops are distended and fluid-filled. There are numerous air-fluid levels, with associated perienteric stranding and interloop fluid. Proximal small bowel loops measure up to 4 cm in diameter. This gradually transitions to decompressed distal small bowel in the right lower quadrant, with no discrete transition point identified. The colon is relatively decompressed. There is no pneumatosis intestinalis or portal venous gas. Wall thickening is suggested involving the decompressed distal small bowel. This is unchanged to somewhat improved From 09/23/2018. There is advanced colonic diverticulosis without CT evidence of acute diverticulitis. Submucosal fat deposition is noted throughout the colon. There is a duodenal diverticulum. The appendix is well- visualized and normal. Peritoneum: There is no intraperitoneal free air. There is a small volume of abdominopelvic ascites, which has increased from 09/23/2018. There is a small fat- containing umbilical hernia. Lymphadenopathy: None. Pelvic viscera: Evaluation of the pelvis is degraded by streak artifact from a right hip arthroplasty. The bladder is decompressed and not well evaluated. Uterine fibroids are suggested. No adnexal lesion is seen. Skeletal structures: The skeletal structures are osteopenic. Moderate lumbosacral spondylosis is observed. No lytic or blastic lesions are seen. Sclerotic change is noted in the sacroiliac joints. Advanced arthritic changes seen in the left hip. A right hip arthroplasty is in place. IMPRESSION: 1. The proximal small bowel loops are distended and fluid-filled, with numerous air-fluid levels, mild surrounding inflammation, and interloop fluid. The degree of small bowel distention has noticeably increased from 09/23/2018. 2. The distended small bowel loops gradually transition to decompressed distal small bowel and colon. No discrete transition point is identified. This may represent functional obstruction secondary to mucosal edema/thick-walled distal small bowel. These findings could be seen in the setting of a nonspecific enteritis, with infectious, inflammatory, and ischemic etiologies within the differential. Clinical correlation will be essential and surgical consultation is advised. 3. There is no pneumatosis intestinalis, portal venous gas, or intraperitoneal free air. 4. There is a small volume of abdominopelvic ascites, which has increased from previous. 5. Suspect uterine fibroids. 6. Advanced colonic diverticulosis without CT evidence of acute diverticulitis. 7. Additional findings as above. Electronically signed by: Sekou Richmond M.D. 09/26/2018 8:51 PM ECG Data Attestation: I personally reviewed and interpreted this ECG as follows: Indication: abdominal pain Rate (beats per minute): 81 Rhythm: normal sinus Findings: + other (LVH), + nonspecific-ST abn and + Q waves (inferior) Blood Pressure Blood Pressure Findings: Elevated blood pressure Blood Pressure Disposition: further management by hospitalist Discharge Plan Visit Data Chief Complaint: Abdominal Pain Stated Complaint: ABDOMINAL PAIN ED Provider: Aren Candelario Discharge Problem: Small bowel obstruction Patient Disposition: Being Evaluated by Hospitalist Forms Stand Alone Forms: Call Back Authorization, My [facility] Prescriptions Prescriptions: No Action metformin 1,000 mg tablet 1,000 mg PO AMPM RF: 0 aspirin [Aspirin Low Dose] 81 mg Tablet,Delayed Release (Dr/Ec) 81 mg PO QPM RF: 0 atorvastatin 40 mg Tablet 40 mg PO QPM RF: 0 diltiazem HCl [Cartia XT] 180 mg Capsule,Extended Release 24hr 180 mg PO QPM RF: 0 cyanocobalamin (vitamin B-12) [Vitamin B-12] 1,000 mcg Tablet 1,000 mcg PO DAILY RF: 0 fluocinonide 0.05 % Cream 1 applic TOPICAL BID RF: 0 Probiotic 3 billion cell Capsule 3,000 mmu cells PO DAILY RF: 0 Referrals Referrals: Maribel Valle MD [Primary Care Provider] - The scribe's documentation has been prepared under my direction and personally reviewed by me in its entirety. I confirm that the note above accurately reflects all work, treatment, procedures, and medical decision making performed by me.
[2018-09-26 22:18] LABS: Magnesium 1.4 mg/dl (1.8-2.4)
--- NOTE | 2018-09-26 22:18 | History & Physical Report ---
Date of Service September 26, 2018 Assessment & Plan (1) Small bowel obstruction: This is a 72yo F with a PMH of tubulovillous adenoma of colon s/p excision, IBS-D, DM II, CKD III, HTN and other medical problems listed below who presents with abdominal pain, nausea and vomiting and was found to have a small bowel obstruction and [place] on CKD. -Was admitted earlier this week from 09/23-09/24 for enterocolitis and small ileus, elevated lactate and syncopal episode in setting of dehydration, no obstruction on CT abd/pelvis -Recurrent abdominal pain starting last evening with associated nausea and vomiting today -Hemodynamically stable and afebrile. No leukocytosis. Lactate is elevated at 3.9 -CT abdomen pelvis reveals findings consistent with small bowel obstruction -General surgery was consulted and Dr. Esposito evaluated patient in ED -NG tube to be placed, keep NPO with IV fluids -Add Zosyn to empirically cover -Repeat lactate (2) Acute kidney injury superimposed on chronic kidney disease: Creatinine is elevated at 1.83 (baseline mid-ones) -Decreased PO intake for the past few days -IV fluids. Continue to monitor BMP (3) Diabetes mellitus, type II: A1c of 6.2 earlier this May -Hold home agents -SSI while in-patient -BSG Q6H while NPO (4) HTN (hypertension): Slightly elevated in setting of pain -Adequate pain control, add PRN Clonidine if needed DVT Ppx: SQ heparin Code status: FULL PCP: Tori Patient seen in collaboration with Dr. Motta. Please see addendum for further plan details. History of Present Illness Chief Complaint: abdominal distention, N/V Primary Care Provider: Maribel Valle MD This is a 72yo F with a PMH of tubulovillous adenoma of colon s/p excision, IBS-D, DM II, CKD III, HTN and other medical problems listed below who presents with abdominal pain, nausea and vomiting. Was admitted earlier this week from 09/23-09/24 for enterocolitis, elevated lactate and syncopal episode in setting of dehydration. Was discharged the following day after lactate normalized and patient was adequately hydrated. Was instructed to continue liquid diet and felt well until last evening, when lower abdominal pain recurred with some radiation to mid-abdomen. Also had diarrhea last evening. Today, abdominal pain continued and patient had 2 bouts of emesis and then 2 more since arrival to ED. [place] lightheaded at home. Denies fever, chills, headache, cough, chest pain, palpitations, shortness of breath, dysuria or hematuria. Patient is hemodynamically stable and afebrile. No leukocytosis. Lactate is elevated at 3.9 and creatinine is elevated at 1.83 (baseline mid-ones). CT abdomen pelvis reveals findings consistent with small bowel obstruction. General surgery was consulted and evaluated patient in ED. NG tube will be placed, patient will be kept NPO with IV fluids. Repeat lactate. Of note, patient was diagnosed with tubulovillous adenoma of ileocecal valve on colonoscopy in March 2018 and is s/p endoscopic mucosal resection in May 2018 and again on August 24 at [facility] in [place]. Biopsies have reportedly been negative for malignancy. Allergies Allergy/AdvReac Type Severity Reaction Status Date / Time Penicillins Allergy Unknown Verified 09/26/18 19:49 nickel Allergy . Unverified 09/26/18 19:50 Home Medications Home Medications Medication Instructions Recorded Confirmed Type Probiotic 3,000 mmu cells PO DAILY 09/23/18 09/26/18 History aspirin [Aspirin Low Dose] 81 mg PO QPM 09/23/18 09/26/18 History atorvastatin 40 mg PO QPM 09/23/18 09/26/18 History cyanocobalamin (vitamin B-12) 1,000 mcg PO DAILY 09/23/18 09/26/18 History [Vitamin B-12] diltiazem HCl [Cartia XT] 180 mg PO QPM 09/23/18 09/26/18 History fluocinonide 1 applic TOPICAL BID 09/23/18 09/26/18 History metformin 1,000 mg PO AMPM 09/26/18 09/26/18 History Past Med/Surg History Medical History CKD (chronic kidney disease), stage III (Chronic) Diabetes mellitus, type II (Chronic) HTN (hypertension) (Chronic) Surgical History History of cholecystectomy (Resolved) S/P colonoscopy (Resolved) May 31 and August 24 in [place]. "Clean up procedure, biopsies negative" S/P hip replacement (Resolved) S/P knee replacement (Resolved) Family History Other Heart disease Social History Preferred Language: Cuban Communication Ability: Effective Polisher Aluminum Required: No Beliefs That Will Affect Care: None marital status: Current Living Situation: Spouse current occupational status: retired Feels Safe at Home: Yes Safety Concerns: Feels Safe At This Time Smoking Status: Never smoker Hx Alcohol Use: Yes Alcohol type: beer and wine Hx Substance Use: No Review of Systems Review of Systems: At least ten systems reviewed and negative except as noted in the HPI. Physical Exam Physical Exam: General Appearance: WD/WN, no apparent distress, resting comfortably Head: normocephalic, atraumatic Eyes: normal inspection, PERRL, EOMI ENT: hearing grossly normal, pharynx normal (dry mucous membranes) Neck: supple, no JVD, no adenopathy Respiratory/Chest: lungs clear to auscultation. No wheezes, rales or rhonci. No respiratory distress or accessory muscle use Cardiovascular: regular rate, rhythm, no murmur, normal peripheral pulses Abdomen/GI: hypoactive bowel sounds, distended, diffuse TTP, no guarding Extremities/Musculoskelatal: normal inspection, no calf tenderness, normal capillary refill, no pedal edema Neurologic/Psych: alert, normal mood/affect, oriented x 3 Skin: normal color, warm/dry Results & Data Vital Signs (Past 12 Hours) Vital Signs Temp Pulse Pulse Resp BP BP Pulse Ox 09/26/18 21:31 88 25 H 150/87 H 99 09/26/18 21:30 86 20 98 09/26/18 21:16 83 22 150/87 H 98 09/26/18 21:15 81 23 98 09/26/18 21:01 82 18 95 09/26/18 21:00 83 18 179/87 H 96 09/26/18 20:46 78 14 94 09/26/18 20:45 80 16 153/78 H 95 09/26/18 20:31 78 16 176/72 H 97 09/26/18 20:30 77 26 H 98 09/26/18 20:16 77 17 97 09/26/18 20:15 78 23 185/86 H 98 09/26/18 20:12 79 17 163/92 H 99 09/26/18 20:10 79 20 09/26/18 19:45 77 16 148/77 H 94 09/26/18 19:31 73 24 141/84 H 94 09/26/18 19:30 72 18 94 09/26/18 19:22 78 21 186/91 H 98 09/26/18 19:16 78 26 H 96 09/26/18 19:15 75 23 168/111 H 98 09/26/18 19:06 78 21 146/96 H 98 09/26/18 19:01 78 28 H 146/96 H 09/26/18 19:00 81 22 09/26/18 18:45 79 27 H 161/82 H 09/26/18 18:30 80 26 H 151/82 H 09/26/18 18:16 80 20 144/99 H 09/26/18 18:15 82 21 09/26/18 18:07 86 18 213/136 H 09/26/18 18:06 87 95 09/26/18 18:00 84 33 H 09/26/18 17:45 87 22 09/26/18 17:30 82 35 H 09/26/18 17:29 80 25 H 09/26/18 17:26 80 30 H 196/108 H 09/26/18 17:16 187/95 H 09/26/18 17:13 36.4 C L 96 H 20 98 Laboratory Results Short CBC 09/26/18 Range/Units 17:49 WBC 9.12 (4.8-10.8) K/uL Hgb 13.8 (12.0-16.0) g/dL Hct 39.4 (37-47) % Plt Count 384 (130-400) K/uL BMP 09/26/18 17:49 Sodium 136 Potassium 3.1 L Chloride 100 Carbon Dioxide 24 BUN 17 Creatinine 1.84 H Glucose 171 H Calcium 9.8 Lactate: 3.09 Liver Function 09/26/18 Range/Units 17:49 Total Bilirubin 1.1 H (0.2-1) mg/dl AST 22 (15-37) U/L ALT 35 (12-78) U/L Alkaline Phosphatase 111 (45-117) U/L Albumin 4.1 (3.4-5.0) gm/dl Diagnostic Findings CT abd/pelvis: IMPRESSION: 1. The proximal small bowel loops are distended and fluid-filled, with numerous air-fluid levels, mild surrounding inflammation, and interloop fluid. The degree of small bowel distention has noticeably increased from 09/23/2018. 2. The distended small bowel loops gradually transition to decompressed distal small bowel and colon. No discrete transition point is identified. This may represent functional obstruction secondary to mucosal edema/thick-walled distal small bowel. These findings could be seen in the setting of a nonspecific enteritis, with infectious, inflammatory, and ischemic etiologies within the differential. Clinical correlation will be essential and surgical consultation is advised. 3. There is no pneumatosis intestinalis, portal venous gas, or intraperitoneal free air. 4. There is a small volume of abdominopelvic ascites, which has increased from previous. 5. Suspect uterine fibroids. 6. Advanced colonic diverticulosis without CT evidence of acute diverticulitis. 7. Additional findings as above. Supervising Physician Co-Signing Physician Notes IM ATTENDING : Patient seen and examined. History obtained from patient and records. Preceding documentation by Ms. Pearl Casillas PA-C reviewed. FINAL ASSESSMENT AND PLAN as follows : Small bowel obstruction History of villous adenoma status post endoscopic resection Postobstructive diarrhea rule out C. difficile Hypertensive urgency secondary to abdominal pain, anxiety Hypokalemia, ARF on CRI similar to GI illness Episodic hypercalcemia, patient currently normocalcemic DM2, on oral meds, well controlled as of recent outpatient hemoglobin A1c of 6.5 last July 2018 Medical telemetry given uncontrolled blood pressure Facilitate home calcium channel fabiola Analgesia, anxiolytic as needed Monitor creatinine response to IV fluids Surgery consult RE SBO (ER provider already in touch with Dr. Esposito who recommends bowel rest, NGT insertion and antibiotic prophylaxis.) Stool C. difficile Replace electrolytes Patient requesting for outpatient hypercalcemia lab work ordered by tax commissioner to be drawn inpatient. ISS BG goal 1 40-180, may need basal insulin to attain goal DVT prophylaxis with Heparin subcu Full code
[2018-09-26 22:32] LABS: T4 Free Thyroxine 1.28 ng/dl (0.8-1.6)
[2018-09-26] MEDS ORDERED: dilTIAZem HCl 5 MG/ML 5 ML VIAL IV STA (22:51)
[2018-09-26] MEDS ORDERED: cefTRIAXone SODIUM 2,000 MG in DEXTROSE 5% 50 ML IV STA (22:52)
[2018-09-26] MEDS ORDERED: metroNIDAZOLE 500 MG/100 ML BAG IV STA (22:52)
[2018-09-27] MEDS ORDERED: GLUCOSE 10 TABS/TUBE PO PRN (00:45)
[2018-09-27] MEDS ORDERED: DEXTROSE 50% 50 ML SYRINGE IV PRN (00:45)
[2018-09-27] MEDS ORDERED: ACETAMINOPHEN 325 MG TAB PO PRN (00:45)
[2018-09-27] MEDS ORDERED: GLUCOSE 40% GEL 15 GM TUBE PO PRN (00:45)
[2018-09-27] MEDS ORDERED: GLUCAGON FOR INJ 1 MG VIAL SQ PRN (00:45)
[2018-09-27] MEDS ORDERED: CARBOHYDRATES FOR HYPOGLYCEMIA PO PRN (00:45)
[2018-09-27] MEDS ORDERED: LORazepam 0.25 MG/0.5 ML VIAL IV ONE (01:15)
[2018-09-27] MEDS: LACTATED RINGER'S 1,000 ML IV SCH ×2 (01:33→16:54)
[2018-09-27 02:06] LABS: Prothrombin Time 10.2 Seconds (9.0-12.0)
[2018-09-27] MEDS: MAGNESIUM SULFATE / D5W 1 GM/100 ML BAG IV SCH ×2 (02:22→03:54)
[2018-09-27] MEDS: POTASSIUM CHLORIDE / WTR 10 MEQ/100 ML PLCT IV SCH ×3 (02:26→04:57)
[2018-09-27] MEDS: HYDROmorphone INJ 0.5 MG/0.5 ML SYR IV PRN ×3 (02:33→15:30)
[2018-09-27] MEDS ORDERED: HydrALAZINE HCL 20 MG/ML VIAL IV ONE (02:41)
[2018-09-27] MEDS: INSULIN ASPART 100 UNITS/ML 3 ML PEN SC SCH ×4 (03:19→17:52)
[2018-09-27] MEDS: HEPARIN SOD 5,000 UNIT/0.5 ML VIAL SQ SCH ×3 (06:04→21:27)
[2018-09-27 07:08] LABS: Basophils # (auto) 0.01 K/uL (0-0.2); Basophils % (auto) 0.2 %; Eosinophils # (auto) 0.02 K/uL (0-0.5); Eosinophils % (auto) 0.4 %; Hematocrit (blood only) 36.9 % (37-47); Hemoglobin 12.9 g/dL (12.0-16.0); Immature Granulocytes # (auto) 0.01 K/uL (0.00-0.02); Immature Granulocytes % (auto) 0.2 %; Lymphocytes # (auto) 0.84 K/uL (1.2-3.4); Lymphocytes % (auto) 18.7 %; Mean Corpuscular Volume 88.1 fL (80-100); Mean Platelet Volume 10.1 fL (7.4-10.4); Monocytes # (auto) 0.43 K/uL (0.11-0.59); Monocytes % (auto) 9.6 %; Neutrophils # (auto) 3.18 K/uL (1.4-6.5); Neutrophils % (auto) 70.9 %; Platelet Count 347 K/uL (130-400); RDW Coefficient of Variation 15.5 % (11.5-14.5); RDW Standard Deviation 49.7 fL (36.4-46.3); Red Blood Count 4.19 M/uL (4.2-5.4); White Blood Count 4.49 K/uL (4.8-10.8)
[2018-09-27 07:51] LABS: BUN Creatinine Ratio 10.2 (10-20); Creatinine Clr Calc Pharmacy 38.1 ml/min; Est GFR (Non-African American) 38.9; Magnesium 2.3 mg/dl (1.8-2.4); Potassium 3.6 mmol/L (3.5-5.1)
[2018-09-27] MEDS ORDERED: CYANOCOBALAMIN 500 MCG TABLET (VITAMIN B-12) PO SCH (09:00)
[2018-09-27] MEDS ORDERED: NON-FORMULARY MEDICATION (Lactobacillus Combination No.4 [Probiotic] 3,000 mmu cells) PO SCH (09:00)
[2018-09-27] MEDS: metroNIDAZOLE 500 MG/100 ML BAG IV SCH ×2 (09:08→15:30)
[2018-09-27] MEDS: FLUOCINONIDE 0.05% CR 15 GM TUBE EXT SCH ×2 (09:10→21:30)
--- NOTE | 2018-09-27 09:20 | XRay Report ---
KUB HISTORY: Small bowel obstruction. Status post placement of an enteric tube. NGT placement COMPARISON: CT abdomen and pelvis 09/26/2018 FINDINGS: Status post placement of an enteric tube, distal tip terminating about the abdominal right upper quadrant, likely within the region of the distal gastric body. Multiple air-filled dilated loop s of small bowel redemonstrated measuring up to 4.1 cm. No pneumatosis or pneumoperitoneum. Cholecyst ectomy. Right hip arthroplasty. Severe left hip osteoarthritis. Degenerative changes of the spine. No urolith. IMPRESSION: 1. Status post placement of an enteric tube, distal tip within the expected location of the distal ga stric lumen. 2. Persistent small bowel obstruction. 3. No pneumatosis or pneumoperitoneum. Electronically signed by: Zack Plaza M.D. 09/27/2018 9:19 AM
--- NOTE | 2018-09-27 11:03 | Communication Note ---
Date of Service: September 27, [address] Aristeo Farris, telephone maintainer at [facility], who performed the endoscopic submucosal dissection. He stated that the adenoma was at the ileocecal valve and did have an area of dysplasia. If surgery were needed due to obstruction at the ileocecal valve, an ileocecectomy would be sufficient from a pathologic standpoint it would not need a right hemicolectomy. He agreed that if the obstruction was at the ileocecal valve it would be less likely secondary to edema and more likely secondary to scarring and he stated because of the size of the adenoma that an adenoma itself could also potentially be the cause of obstruction. I will obtain imaging with contrast (UGI with small bowel follow through then CT scan, but final imaging modality to be determined after discussion with Radiology and availability).
[2018-09-27] MEDS: ONDANSETRON INJ 2 MG/ML 2 ML VIAL IV PRN ×2 (11:47→20:18)
--- NOTE | 2018-09-27 11:48 | Progress Note ---
Date of Service September 27, 2018 Assessment & Plan (1) Small bowel obstruction: Ms. García is a 72 yo female with a history of endoscopic mucosal resection of a polyp near the ileocecal valve. She presents this evening with a bowel obstruction. She has dilated loops of small bowel and decompresses in the RLQ, but no definitive transition point, bowel wall thickening and free fluid. In comparison to the CT just a few days ago the small bowel is more distended, wall thickening is decreased, and there is no significant change in the amount of free fluid. While she does have a mild lactic acidosis this is likely secondary to dehydration, though it is prudent to monitor closely for signs of bowel ischemia and ensure resolution. Possible obstruction could be due to bowel edema, adhesions, or less likely mass. Symptoms did start after increasing the fiber in her diet since her procedure. Given close time proximity to this procedure it raises the concern for edema in relation to this, though I would expect this to have occurred a little closer to the procedure date, vs other causes. With edema there is also a potential for a bezoar, stricture from the procedure, or adenoma. In re-reviewing imaging again no definitive transition point is noted, however otherwise appears similar to an SBO and distal ileum is decompressed, which would indicate obstruction would be prior to the ileocecal valve. No bowel function yet. Abdominal exam is improving. NGT is recorded as having 425 output, however I do not think this is accurate because there was more than this upon immediate insertion of the NGT in the ED. - NPO - NGT to suction - IVF - IV Abx for potential bacterial translocation and/or enterocolitis - If any increase in lactate, worsening abdominal pain, or hemodynamic changes please contact general surgery immediately - After discussion with Radiology and Dr. Farris (see communication from earlier today) will obtain CT scan with oral contrast to further evaluate cause of obstruction as well as potential therapeutic benefit. Given pt's overall stability the risk of kidney damage given her underlying kidney disease outweighs the benefit of imaging with IV contrast - Recommend SCDs and Heparin for VTE ppx Subjective Pt states abdominal pain has decreased, she did require a dose of narcotics. Currently denies nausea. NGT is recorded as having 425 output, however I do not think this is accurate because there was more than this upon immediate insertion of the NGT in the ED. Lactic acidosis has resolved. Physical Exam Constitutional: well developed and well nourished; no acute distress ENMT: NGT in place with bilious output Respiratory: normal respiratory effort Cardiovascular: Rate/Rhythm: regular rate and regular rhythm Gastrointestinal (Abdomen): soft, nontender, distended but decreased compared to last night Results & Data Vital Signs (Past 12 Hours) Vital Signs Temp Pulse Pulse Resp BP BP Pulse Ox 09/27/18 11:42 36.6 C 92 H 18 177/84 H 99 09/27/18 09:12 92 H 169/81 H 09/27/18 07:44 81 09/27/18 07:22 36.6 C 91 H 20 143/79 H 94 09/27/18 06:41 161/77 H 09/27/18 03:44 36.4 C L 88 16 183/74 H 98 09/27/18 02:14 90 198/76 H 09/27/18 01:11 196/81 H Laboratory Results 09/27/18 09/27/18 09/27/18 Range/Units 07:29 06:55 06:55 WBC (4.8-10.8) K/uL RBC (4.2-5.4) M/uL Hgb (12.0-16.0) g/dL Hct (37-47) % MCV (80-100) fL MCH (25-34) pg MCHC (32-36) g/dL RDW Std Deviation (36.4-46.3) fL RDW Coeff of Tin (11.5-14.5) % Plt Count (130-400) K/uL MPV (7.4-10.4) fL Immature Gran % (Auto) % Neut % (Auto) % Lymph % (Auto) % Charles % (Auto) % Eos % (Auto) % Baso % (Auto) % Immature Gran # (Auto) (0.00-0.02) K/uL Neut # (Auto) (1.4-6.5) K/uL Lymph # (Auto) (1.2-3.4) K/uL Charles # (Auto) (0.11-0.59) K/uL Eos # (Auto) (0-0.5) K/uL Baso # (Auto) (0-0.2) K/uL PT (9.0-12.0) Seconds INR (0.9-1.1) Sodium 141 (136-145) mmol/L Potassium 3.6 D (3.5-5.1) mmol/L Chloride 104 (98-107) mmol/L Carbon Dioxide 28 (21-32) mmol/L Anion Gap 9.0 (3-11) BUN 14 (7-18) mg/dl Creatinine 1.35 H D (0.6-1.2) mg/dl Est Cr Clr Drug Dosing 38.1 ml/min Est GFR ( Amer) 45.0 Est GFR (Non-Af Amer) 38.9 BUN/Creatinine Ratio 10.2 (10-20) Glucose 130 H (70-99) mg/dl POC Glucose 120 H (70-99) POC Lactic Acid Ihsan (0.90-1.70) mmol/L Lactate (0.4-2.0) mmol/L Calcium 9.0 (8.5-10.1) mg/dl Magnesium 2.3 (1.8-2.4) mg/dl Total Bilirubin (0.2-1) mg/dl AST (15-37) U/L ALT (12-78) U/L Alkaline Phosphatase (45-117) U/L Total Protein (6.4-8.2) gm/dl Albumin (3.4-5.0) gm/dl Globulin (2.5-4.0) gm/dl Albumin/Globulin Ratio (0.9-2) Lipase (73-393) U/L 25-OH Vitamin D Total 11.5 L (30-100) ng/ml TSH (0.300-4.500) uIu/ml Free T4 (0.8-1.6) ng/dl PTH Intact (18.4-80.1) pg/ml 09/27/18 09/27/18 09/27/18 Range/Units 06:55 06:54 06:03 WBC 4.49 L (4.8-10.8) K/uL RBC 4.19 L (4.2-5.4) M/uL Hgb 12.9 (12.0-16.0) g/dL Hct 36.9 L (37-47) % MCV 88.1 (80-100) fL MCH 30.8 (25-34) pg MCHC 35.0 (32-36) g/dL RDW Std Deviation 49.7 H (36.4-46.3) fL RDW Coeff of Tin 15.5 H (11.5-14.5) % Plt Count 347 (130-400) K/uL MPV 10.1 (7.4-10.4) fL Immature Gran % (Auto) 0.2 % Neut % (Auto) 70.9 % Lymph % (Auto) 18.7 % Charles % (Auto) 9.6 % Eos % (Auto) 0.4 % Baso % (Auto) 0.2 % Immature Gran # (Auto) 0.01 (0.00-0.02) K/uL Neut # (Auto) 3.18 (1.4-6.5) K/uL Lymph # (Auto) 0.84 L (1.2-3.4) K/uL Charles # (Auto) 0.43 (0.11-0.59) K/uL Eos # (Auto) 0.02 (0-0.5) K/uL Baso # (Auto) 0.01 (0-0.2) K/uL PT (9.0-12.0) Seconds INR (0.9-1.1) Sodium (136-145) mmol/L Potassium (3.5-5.1) mmol/L Chloride (98-107) mmol/L Carbon Dioxide (21-32) mmol/L Anion Gap (3-11) BUN (7-18) mg/dl Creatinine (0.6-1.2) mg/dl Est Cr Clr Drug Dosing ml/min Est GFR ( Amer) Est GFR (Non-Af Amer) BUN/Creatinine Ratio (10-20) Glucose (70-99) mg/dl POC Glucose 124 H (70-99) POC Lactic Acid Ihsan (0.90-1.70) mmol/L Lactate (0.4-2.0) mmol/L Calcium (8.5-10.1) mg/dl Magnesium (1.8-2.4) mg/dl Total Bilirubin (0.2-1) mg/dl AST (15-37) U/L ALT (12-78) U/L Alkaline Phosphatase (45-117) U/L Total Protein (6.4-8.2) gm/dl Albumin (3.4-5.0) gm/dl Globulin (2.5-4.0) gm/dl Albumin/Globulin Ratio (0.9-2) Lipase (73-393) U/L 25-OH Vitamin D Total (30-100) ng/ml TSH (0.300-4.500) uIu/ml Free T4 (0.8-1.6) ng/dl PTH Intact 114.0 H (18.4-80.1) pg/ml 09/27/18 09/26/18 09/26/18 Range/Units 02:29 23:55 23:19 WBC (4.8-10.8) K/uL RBC (4.2-5.4) M/uL Hgb (12.0-16.0) g/dL Hct (37-47) % MCV (80-100) fL MCH (25-34) pg MCHC (32-36) g/dL RDW Std Deviation (36.4-46.3) fL RDW Coeff of Tin (11.5-14.5) % Plt Count (130-400) K/uL MPV (7.4-10.4) fL Immature Gran % (Auto) % Neut % (Auto) % Lymph % (Auto) % Charles % (Auto) % Eos % (Auto) % Baso % (Auto) % Immature Gran # (Auto) (0.00-0.02) K/uL Neut # (Auto) (1.4-6.5) K/uL Lymph # (Auto) (1.2-3.4) K/uL Charles # (Auto) (0.11-0.59) K/uL Eos # (Auto) (0-0.5) K/uL Baso # (Auto) (0-0.2) K/uL PT (9.0-12.0) Seconds INR (0.9-1.1) Sodium (136-145) mmol/L Potassium (3.5-5.1) mmol/L Chloride (98-107) mmol/L Carbon Dioxide (21-32) mmol/L Anion Gap (3-11) BUN (7-18) mg/dl Creatinine (0.6-1.2) mg/dl Est Cr Clr Drug Dosing ml/min Est GFR ( Amer) Est GFR (Non-Af Amer) BUN/Creatinine Ratio (10-20) Glucose (70-99) mg/dl POC Glucose 136 H 164 H (70-99) POC Lactic Acid Ihsan (0.90-1.70) mmol/L Lactate 1.0 (0.4-2.0) mmol/L Calcium (8.5-10.1) mg/dl Magnesium (1.8-2.4) mg/dl Total Bilirubin (0.2-1) mg/dl AST (15-37) U/L ALT (12-78) U/L Alkaline Phosphatase (45-117) U/L Total Protein (6.4-8.2) gm/dl Albumin (3.4-5.0) gm/dl Globulin (2.5-4.0) gm/dl Albumin/Globulin Ratio (0.9-2) Lipase (73-393) U/L 25-OH Vitamin D Total (30-100) ng/ml TSH (0.300-4.500) uIu/ml Free T4 (0.8-1.6) ng/dl PTH Intact (18.4-80.1) pg/ml 09/26/18 09/26/18 09/26/18 Range/Units 17:57 17:55 17:49 WBC (4.8-10.8) K/uL RBC (4.2-5.4) M/uL Hgb (12.0-16.0) g/dL Hct (37-47) % MCV (80-100) fL MCH (25-34) pg MCHC (32-36) g/dL RDW Std Deviation (36.4-46.3) fL RDW Coeff of Tin (11.5-14.5) % Plt Count (130-400) K/uL MPV (7.4-10.4) fL Immature Gran % (Auto) % Neut % (Auto) % Lymph % (Auto) % Charles % (Auto) % Eos % (Auto) % Baso % (Auto) % Immature Gran # (Auto) (0.00-0.02) K/uL Neut # (Auto) (1.4-6.5) K/uL Lymph # (Auto) (1.2-3.4) K/uL Charles # (Auto) (0.11-0.59) K/uL Eos # (Auto) (0-0.5) K/uL Baso # (Auto) (0-0.2) K/uL PT 10.2 (9.0-12.0) Seconds INR 1.0 (0.9-1.1) Sodium 136 (136-145) mmol/L Potassium 3.1 L (3.5-5.1) mmol/L Chloride 100 (98-107) mmol/L Carbon Dioxide 24 (21-32) mmol/L Anion Gap 12.0 H (3-11) BUN 17 (7-18) mg/dl Creatinine 1.84 H (0.6-1.2) mg/dl Est Cr Clr Drug Dosing 27.8 ml/min Est GFR ( Amer) 31.0 Est GFR (Non-Af Amer) 26.7 BUN/Creatinine Ratio 9.0 L (10-20) Glucose 171 H (70-99) mg/dl POC Glucose (70-99) POC Lactic Acid Ihsan 3.09 H (0.90-1.70) mmol/L Lactate (0.4-2.0) mmol/L Calcium 9.8 (8.5-10.1) mg/dl Magnesium 1.4 L (1.8-2.4) mg/dl Total Bilirubin 1.1 H (0.2-1) mg/dl AST 22 (15-37) U/L ALT 35 (12-78) U/L Alkaline Phosphatase 111 (45-117) U/L Total Protein 7.7 (6.4-8.2) gm/dl Albumin 4.1 (3.4-5.0) gm/dl Globulin 3.6 (2.5-4.0) gm/dl Albumin/Globulin Ratio 1.1 (0.9-2) Lipase 107 (73-393) U/L 25-OH Vitamin D Total (30-100) ng/ml TSH 4.950 H (0.300-4.500) uIu/ml Free T4 1.28 (0.8-1.6) ng/dl PTH Intact (18.4-80.1) pg/ml 09/26/18 Range/Units 17:49 WBC 9.12 (4.8-10.8) K/uL RBC 4.55 (4.2-5.4) M/uL Hgb 13.8 (12.0-16.0) g/dL Hct 39.4 (37-47) % MCV 86.6 (80-100) fL MCH 30.3 (25-34) pg MCHC 35.0 (32-36) g/dL RDW Std Deviation 47.5 H (36.4-46.3) fL RDW Coeff of Tin 15.1 H (11.5-14.5) % Plt Count 384 (130-400) K/uL MPV 10.2 (7.4-10.4) fL Immature Gran % (Auto) 0.2 % Neut % (Auto) 82.6 % Lymph % (Auto) 10.4 % Charles % (Auto) 6.5 % Eos % (Auto) 0.2 % Baso % (Auto) 0.1 % Immature Gran # (Auto) 0.02 (0.00-0.02) K/uL Neut # (Auto) 7.53 H (1.4-6.5) K/uL Lymph # (Auto) 0.95 L (1.2-3.4) K/uL Charles # (Auto) 0.59 (0.11-0.59) K/uL Eos # (Auto) 0.02 (0-0.5) K/uL Baso # (Auto) 0.01 (0-0.2) K/uL PT (9.0-12.0) Seconds INR (0.9-1.1) Sodium (136-145) mmol/L Potassium (3.5-5.1) mmol/L Chloride (98-107) mmol/L Carbon Dioxide (21-32) mmol/L Anion Gap (3-11) BUN (7-18) mg/dl Creatinine (0.6-1.2) mg/dl Est Cr Clr Drug Dosing ml/min Est GFR ( Amer) Est GFR (Non-Af Amer) BUN/Creatinine Ratio (10-20) Glucose (70-99) mg/dl POC Glucose (70-99) POC Lactic Acid Ihsan (0.90-1.70) mmol/L Lactate (0.4-2.0) mmol/L Calcium (8.5-10.1) mg/dl Magnesium (1.8-2.4) mg/dl Total Bilirubin (0.2-1) mg/dl AST (15-37) U/L ALT (12-78) U/L Alkaline Phosphatase (45-117) U/L Total Protein (6.4-8.2) gm/dl Albumin (3.4-5.0) gm/dl Globulin (2.5-4.0) gm/dl Albumin/Globulin Ratio (0.9-2) Lipase (73-393) U/L 25-OH Vitamin D Total (30-100) ng/ml TSH (0.300-4.500) uIu/ml Free T4 (0.8-1.6) ng/dl PTH Intact (18.4-80.1) pg/ml
[2018-09-27 14:05] LABS: Appearance Urine Clear (Clear); Bacteria Urine Automated Negative (Negative); Blood Urine Negative (Negative); Color Urine Dark Yellow; Epithelial Cell Urine Auto >30 /lpf (0-5); Glucose Urine UA Negative (Negative); Ketones Urine 1+ (Negative); Leukocyte Esterase Urine Negative (Negative); Nitrite Urine Negative (Negative); Protein Urine Trace (Negative); RBC Urine Automated 0-4 /hpf (0-4); Specific Gravity Urine 1.028 (1.000-1.030); Urobilinogen Urine Negative (Negative); pH Urine 5.5 (4.5-7.5)
[2018-09-27 14:07] LABS: Bilirubin Urine Negative (Negative); Ictotest Urine Negative (Negative)
--- NOTE | 2018-09-27 15:37 | CT Scan Report ---
ABDOMEN AND PELVIS CT WITH ORAL CONTRAST CT DOSE: 1309.17 mGy.cm HISTORY: Follow-up study in a patient with history of small bowel obstruction and acute generalized a bdominal pain assess for SBO, wait 3 hrs after contrast to image TECHNIQUE: Multiaxial CT images of the abdomen and pelvis were performed following the use of oral co ntrast. A dose lowering technique was utilized adhering to the principles of ALARA. COMPARISON STUDY: CT abdomen and pelvis 09/26/2018 FINDINGS: Trace pleural effusions. Mild subsegmental bibasilar atelectasis. There is no pneumatosis or pneumop eritoneum. The imaged inferior cardiac chambers are unremarkable. Coronary arterial and aortic annula r calcifications are noted. Prior cholecystectomy. Solid abdominal organs are suboptimally evaluated without the use of IV contrast. Within the limitations of the exam the liver, spleen, pancreas and ad renal glands are unremarkable and appear unchanged from comparison. Mild nonspecific bilateral perine phric stranding. No urolith or obstructive uropathy. Bladder is partially decompressed. Suggestion of a fibroid uterus. No adnexal mass lesions. Extensive calcification of the abdominal aorta. No adenop athy by CT size criteria. Enteric tube is noted in the stomach. Enteric contrast seen within the stomach, duodenum and jejunum. Enteric contrast does not progress past dilated loops of small bowel within the central abdomen. Dil ated small bowel loops are again seen measuring up to 3.5 cm transversely decompressed small bowel lo ops are seen distally without discrete transition point identified. The degree of small bowel distent ion appears similar to slightly decreased from comparison. Interloop edema with trace abdominopelvic ascites. Colonic diverticulosis without acute diverticulitis. No drainable fluid collection. Appendix appears normal. Tiny fat filled periumbilical hernia. Right hip total joint arthroplasty. Degenerati ve changes of the spine, pelvis and left hip. IMPRESSION: 1. Persistent dilated loops of small bowel, similar to slightly decreased from yesterday's study. The enteric contrast does not progress past dilated loops of small bowel within the central to lower abd omen. Again, decompressed loops of ileum are seen within the abdominal right lower quadrant without d iscrete transition point. Constellation of findings is again suggestive of a small bowel obstruction and/or functional obstruction with ileus. 2. Interloop edema with trace abdominopelvic ascites redemonstrated. 3. No pneumatosis or pneumoperitoneum. 4. Enteric tube terminates within the distal gastric body. 5. Additional findings as above. Electronically signed by: Zack Plaza M.D. 09/27/2018 3:36 PM
--- NOTE | 2018-09-27 18:13 | Hospitalist Progress Note ---
Date of Service September 27, 2018 Assessment & Plan (1) Small bowel obstruction: History of tubulovillous adenoma of the ileocecal valve. It is possible this is causing her small bowel obstruction per surgery and she may need a surgical treatment of her obstruction. It is also possible adhesions are contributing. Continue NG tube with suction. Ceftriaxone and Flagyl for prophylaxis. Patient is improving clinically. Appreciate surgery recs. (2) CKD (chronic kidney disease), stage III: Around baseline creatinine. This is slightly elevated on admission and improved with IV fluids, etiology likely dehydration in the setting of vomiting and GI losses. Continue IV fluids with small bolus this evening. (3) Diabetes mellitus, type II: Insulin sliding scale every 6 as needed for fingerstick glucose labs. Currently at goal. (4) HTN (hypertension): Labetalol given for elevation in blood pressure and heart rate; hold oral medication in setting of small bowel obstruction. (5) DVT prophylaxis: Heparin Full Code Dispo-uncertain at this time. Danya Milian DO [facility] Hospitalist Subjective 72-year-old female who was recently admitted for worsening abdominal pain and syncope 1 week ago presented for acute small bowel obstruction. She has a history of tubulovillous adenoma of the ileocecal valve that was seen on colonoscopy March 2018. She has undergone a staged endoscopic mucosal resection with [facility] with the most recent shave procedure being performed in early August. She was admitted and tube was placed to suction recommended by surgery. She is continued on IV antibiotic for potential of bacterial translocation and her lactate was normal. She is doing somewhat well today. She is having intermittent lightheadedness and nausea and required a small pain medication overnight. She is not passing gas at this time there is approximately 700 cc of bilious green gastric secretions and suction canister. She is afebrile and without chills. Review of Systems Review of Systems: All systems reviewed & are unremarkable except as noted in HPI & below Physical Exam Physical Exam: CONSTITUTIONAL: WNWD, vitals as above, generally well- appearing, NGT in place to suction EYES: normal conjuctivae, no scleral icterus ENT: MMM, +NGT in place. RESPIRATORY: clear to auscultation bilaterally, no crackles, rales or wheezes, normal respiratory effort CARDIOVASCULAR: regular rate and rhythm, S1 and 2 heard without murmurs, gallops or rubs, no JVD GASTROINTESTINAL: normal bowel sounds, soft, nontender, nondistended MUSCULOSKELETAL: strength 5/5 throughout, head is normocephalic and atraumatic SKIN: warm and dry NEUROLOGIC: CN 2-12 grossly intact, no gross ofcal deficits, no sensory deficit, normal cognition PSYCHIATRIC: alert cooperative and oriented to person, place and time. Results & Data Vital Signs (Past 12 Hours) Vital Signs Temp Pulse Pulse Pulse Resp BP Pulse Ox 09/27/18 16:02 36.4 C L 89 18 181/91 H 98 09/27/18 15:05 87 09/27/18 11:42 36.6 C 92 H 18 177/84 H 99 09/27/18 09:12 92 H 169/81 H 09/27/18 07:44 81 09/27/18 07:22 36.6 C 91 H 20 143/79 H 94 09/27/18 06:41 161/77 H Laboratory Results Short CBC 09/27/18 Range/Units 06:55 WBC 4.49 L (4.8-10.8) K/uL Hgb 12.9 (12.0-16.0) g/dL Hct 36.9 L (37-47) % Plt Count 347 (130-400) K/uL BMP 09/27/18 06:55 Sodium 141 Potassium 3.6 D Chloride 104 Carbon Dioxide 28 BUN 14 Creatinine 1.35 H D Glucose 130 H Calcium 9.0 Urine 09/27/18 Range/Units Unknown Urine Color Dark Yellow Urine Appearance Clear (Clear) Urine pH 5.5 (4.5-7.5) Ur Specific [place] 1.028 (1.000-1.030) Urine Protein Trace H (Negative) Urine Glucose (UA) Negative (Negative) Diagnostic Findings A/P CT IMPRESSION: 1. Persistent dilated loops of small bowel, similar to slightly decreased from yesterday's study. The enteric contrast does not progress past dilated loops of small bowel within the central to lower abdomen. Again, decompressed loops of ileum are seen within the abdominal right lower quadrant without discrete transition point. Constellation of findings is again suggestive of a small bowel obstruction and/or functional obstruction with ileus. 2. Interloop edema with trace abdominopelvic ascites redemonstrated. 3. No pneumatosis or pneumoperitoneum. 4. Enteric tube terminates within the distal gastric body. 5. Additional findings as above.
[2018-09-27] MEDS: ACETAMINOPHEN 1,000 MG/100 ML VIAL IV PRN (20:18)
[2018-09-27] MEDS ORDERED: SODIUM CHLORIDE 0.9% 1000ML 1,000 ML IV SCH (20:48)
[2018-09-27] MEDS ORDERED: LABETALOL HCL IV 5 MG/ML 20ML IV STA (20:48)
[2018-09-27] MEDS ORDERED: ATORVASTATIN 40 MG TAB PO SCH (21:00)
[2018-09-27] MEDS ORDERED: ASPIRIN 81 MG ECTAB PO SCH (21:00)
[2018-09-27] MEDS ORDERED: dilTIAZem HCL 180 MG CAPCR PO SCH (21:00)
--- NOTE | 2018-09-27 21:19 | XRay Report ---
XR KUB/Abdomen 1 view CLINICAL HISTORY: 72 years-old Female presenting with Eval SBO, s/p CT scan with Oral contrast. TECHNIQUE: Single supine view of the abdomen was obtained. COMPARISON: 09/27/2018. FINDINGS: Water-soluble dilute oral contrast is not apparent by radiograph. Gaseous distention of small bowel in the mid abdomen with apparent diameter of over 4 cm though this is likely affected by magnification. The appearance is stable to slightly diminished since the prior exam as far as there is less extensive dilated small bowel currently. Limited evaluation for pneumope ritoneum. Cholecystectomy clips noted. Hyperdensity projects over the right upper quadrant possibly retained or al contrast. Limited evaluation for calcifications given body habitus and portable technique. Total right hip arthroplasty. Degenerative changes of the spine. IMPRESSION: 1. Persistent small bowel obstruction though this may be slightly improved from prior. Electronically signed by: Jameson Hensley M.D. 09/27/2018 9:17 PM
[2018-09-27] MEDS ORDERED: cefTRIAXone SODIUM 2,000 MG in DEXTROSE 5% 50 ML IV SCH (23:00)
[2018-09-28] MEDS: metroNIDAZOLE 500 MG/100 ML BAG IV SCH ×2 (00:53→08:03)
[2018-09-28] MEDS: LORazepam 0.25 MG/0.5 ML VIAL IV PRN (00:56)
[2018-09-28] MEDS: INSULIN ASPART 100 UNITS/ML 3 ML PEN SC SCH ×4 (01:00→18:20)
[2018-09-28] MEDS: HEPARIN SOD 5,000 UNIT/0.5 ML VIAL SQ SCH ×3 (05:14→21:42)
[2018-09-28] MEDS: ONDANSETRON INJ 2 MG/ML 2 ML VIAL IV PRN ×2 (05:14→22:25)
[2018-09-28 05:54] LABS: Cdiff Antigen Positive; Cdiff Toxin A+B Negative Cdiff Toxin (Negative)
[2018-09-28 07:07] LABS: Hematocrit (blood only) 36.2 % (37-47); Hemoglobin 12.2 g/dL (12.0-16.0); Mean Corpuscular Hgb Conc 33.7 g/dL (32-36); Mean Corpuscular Volume 88.7 fL (80-100); Mean Platelet Volume 10.4 fL (7.4-10.4); Platelet Count 313 K/uL (130-400); RDW Coefficient of Variation 15.5 % (11.5-14.5); RDW Standard Deviation 49.7 fL (36.4-46.3); Red Blood Count 4.08 M/uL (4.2-5.4); White Blood Count 4.45 K/uL (4.8-10.8)
[2018-09-28 07:39] LABS: BUN Creatinine Ratio 8.7 (10-20); Calcium 8.4 mg/dl (8.5-10.1); Creatinine Clr Calc Pharmacy 48.4 ml/min; Est GFR (African American) 59.6; Est GFR (Non-African American) 51.5; Potassium 2.9 mmol/L (3.5-5.1)
[2018-09-28] MEDS: FLUOCINONIDE 0.05% CR 15 GM TUBE EXT SCH ×2 (08:04→20:42)
[2018-09-28] MEDS ORDERED: HydrALAZINE HCL 20 MG/ML VIAL IV ONE ×2 (08:19→23:43)
[2018-09-28] MEDS: POTASSIUM CHLORIDE 80 MEQ in SODIUM CHLORIDE 0.9% 1000ML 1,000 ML IV SCH ×2 (09:02→18:23)
--- NOTE | 2018-09-28 10:15 | XRay Report ---
KUB CLINICAL HISTORY: Enteric tube placement. FINDINGS: An AP, portable, supine abdominal radiograph is compared to abdominal radiograph and CT sherrell ed 09/27/2018. An enteric tube is in place. The tip projects below the diaphragm over the proximal stom ach. Cholecystectomy clips are noted. Distended loops of small bowel persist and measure up to 4.5 cm . The appearance remains consistent with bowel obstruction. No evidence of intraperitoneal free air i s seen on this supine image. Residual enteric contrast is noted in the colon. The skeletal structures are osteopenic. Lumbosacral spondylosis is observed. IMPRESSION: 1. An enteric tube projects below the diaphragm over the proximal stomach. 2. There is evidence of persistent small bowel obstruction. Electronically signed by: Sekou Richmond M.D. 09/28/2018 10:14 AM
[2018-09-28] MEDS: MAGNESIUM SULFATE / D5W 1 GM/100 ML BAG IV SCH ×3 (10:44→13:06)
--- NOTE | 2018-09-28 12:21 | XRay Report ---
KUB HISTORY: NGT placement COMPARISON: KUB 09/28/2018. FINDINGS: Dilated loops of small bowel persist and suggest an obstruction. Nasogastric tube terminate s in a postpyloric position and is located at the proximal duodenum. No renal calculi. No ureteral c alculi. No pneumoperitoneum or pneumatosis. IMPRESSION: Nasogastric tube terminates in a postpyloric position and is located at the proximal duodenum. Electronically signed by: Benjamín Basurto M.D. 09/28/2018 12:20 PM
--- NOTE | 2018-09-28 12:51 | Surgery Progress Note ---
Date of Service September 28, 2018 Assessment & Plan (1) Small bowel obstruction: Ms. García is a 72 yo female with a history of endoscopic mucosal resection of a polyp near the ileocecal valve. She presented to hospital with a bowel obstruction. She has dilated loops of small bowel which decompresses in the RLQ, but no definitive transition point, bowel wall thickening and free fluid. In comparison to the CT few days prior the small bowel is more distended, wall thickening is decreased, and there is no significant change in the amount of free fluid. Possible obstruction could be due to bowel edema, adhesions, or less likely mass. Symptoms did start after increasing the fiber in her diet since her procedure. Given close time proximity to this procedure it raises the concern for edema in relation to this, though I would expect this to have occurred a little closer to the procedure date, vs other causes. With edema there is also a potential for a bezoar, stricture from the procedure, or adenoma. In re-reviewing imaging again no definitive transition point is noted, however otherwise appears similar to an SBO and distal ileum is decompressed, which would indicate obstruction would be prior to the ileocecal valve. +bowel function with positive c. diff gene test, negative c. diff toxin repeat CT scan with oral contrast on 09/27/18 showing no progression of contrast past dilated loops of small bowel in central abdomen consistent with SBO Plan: Continue conservative management - NPO - NGT to suction - IVF - Recommend discontinuing IV Abx and treat possible C. diff infection. Recommend ID consult for further recommendations regarding c.diff treatment - OOB to chair and ambulate - Continue SCDs and Heparin for VTE ppx - replete potassium - follow labs Dr. Esposito has seen and examined pt, agrees with above, please see addendum for further recommendations/plan Supervising Physician Co-Signing Physician Notes I have seen and evaluated the patient and reviewed the medical record. I agree with the documentation as provided in this note by Suzanne Rowan PA-C. Subjective per nursing staff patient had episode of emesis and NGT slipped out. Tried to place the NGT back in but unsure if it is in proper position. C. diff gene + toxin was negative Patient states she had a bad night last night, incontinent of liquid stool. Had some abdominal pain but improved after bowel movements. Still having some hiccups. "just feeling worn out" Physical Exam Constitutional: WD/WN, vitals as above no acute distress and not ill appearing Respiratory: normal respiratory effort; no respiratory distress Gastrointestinal (Abdomen): Inspection/Auscultation: + abdomen distended Percussion/Palpation: abdomen soft; abdomen nontender, no guarding and abdomen not rigid NGT with dark bilious/brown output Skin: no rashes, warm and dry Psychiatric: A+Ox3, euthymic affect Results & Data Vital Signs (Past 12 Hours) Vital Signs Temp Pulse Pulse Resp BP Pulse Ox 09/28/18 11:24 36.8 C 90 20 156/83 H 93 09/28/18 10:00 111 H 159/89 H 09/28/18 08:56 82 169/109 H 09/28/18 07:29 36.7 C 91 H 18 169/82 H 93 09/28/18 07:15 80 09/28/18 00:49 80 Laboratory Results 09/28/18 09/28/18 09/28/18 Range/Units Unknown 11:40 06:14 WBC (4.8-10.8) K/uL RBC (4.2-5.4) M/uL Hgb (12.0-16.0) g/dL Hct (37-47) % MCV (80-100) fL MCH (25-34) pg MCHC (32-36) g/dL RDW Std Deviation (36.4-46.3) fL RDW Coeff of Tin (11.5-14.5) % Plt Count (130-400) K/uL MPV (7.4-10.4) fL Sodium (136-145) mmol/L Potassium (3.5-5.1) mmol/L Chloride (98-107) mmol/L Carbon Dioxide (21-32) mmol/L Anion Gap (3-11) BUN (7-18) mg/dl Creatinine (0.6-1.2) mg/dl Est Cr Clr Drug Dosing ml/min Est GFR ( Amer) Est GFR (Non-Af Amer) BUN/Creatinine Ratio (10-20) Glucose (70-99) mg/dl POC Glucose 122 H (70-99) Calcium (8.5-10.1) mg/dl Magnesium 1.7 L (1.8-2.4) mg/dl Urine Color Urine Appearance (Clear) Urine pH (4.5-7.5) Ur Specific [place] (1.000-1.030) Urine Protein (Negative) Urine Glucose (UA) (Negative) Urine Ketones (Negative) Urine Blood (Negative) Urine Nitrite (Negative) Urine Bilirubin (Negative) Urine Urobilinogen (Negative) Ur Leukocyte Esterase (Negative) Urine WBC (Auto) (0-5) /hpf Urine RBC (Auto) (0-4) /hpf U Hyaline Cast (Auto) (0-5) /lpf U Epithel Cells (Auto) (0-5) /lpf Urine Bacteria (Auto) (Negative) Stl C. diff Tox B Gene Positive Cdiff Gene H (Neg) Stl C.difficile Tox A&B Negative Cdiff Toxin (Negative) 09/28/18 09/28/18 09/28/18 Range/Units 06:14 06:14 05:47 WBC 4.45 L (4.8-10.8) K/uL RBC 4.08 L (4.2-5.4) M/uL Hgb 12.2 (12.0-16.0) g/dL Hct 36.2 L (37-47) % MCV 88.7 (80-100) fL MCH 29.9 (25-34) pg MCHC 33.7 (32-36) g/dL RDW Std Deviation 49.7 H (36.4-46.3) fL RDW Coeff of Tin 15.5 H (11.5-14.5) % Plt Count 313 (130-400) K/uL MPV 10.4 (7.4-10.4) fL Sodium 139 (136-145) mmol/L Potassium 2.9 L D (3.5-5.1) mmol/L Chloride 104 (98-107) mmol/L Carbon Dioxide 26 (21-32) mmol/L Anion Gap 9.0 (3-11) BUN 9 D (7-18) mg/dl Creatinine 1.07 (0.6-1.2) mg/dl Est Cr Clr Drug Dosing 48.4 ml/min Est GFR ( Amer) 59.6 Est GFR (Non-Af Amer) 51.5 BUN/Creatinine Ratio 8.7 L (10-20) Glucose 126 H (70-99) mg/dl POC Glucose 124 H (70-99) Calcium 8.4 L (8.5-10.1) mg/dl Magnesium (1.8-2.4) mg/dl Urine Color Urine Appearance (Clear) Urine pH (4.5-7.5) Ur Specific [place] (1.000-1.030) Urine Protein (Negative) Urine Glucose (UA) (Negative) Urine Ketones (Negative) Urine Blood (Negative) Urine Nitrite (Negative) Urine Bilirubin (Negative) Urine Urobilinogen (Negative) Ur Leukocyte Esterase (Negative) Urine WBC (Auto) (0-5) /hpf Urine RBC (Auto) (0-4) /hpf U Hyaline Cast (Auto) (0-5) /lpf U Epithel Cells (Auto) (0-5) /lpf Urine Bacteria (Auto) (Negative) Stl C. diff Tox B Gene (Neg) Stl C.difficile Tox A&B (Negative) 09/28/18 09/27/18 09/27/18 Range/Units 00:52 Unknown 20:14 WBC (4.8-10.8) K/uL RBC (4.2-5.4) M/uL Hgb (12.0-16.0) g/dL Hct (37-47) % MCV (80-100) fL MCH (25-34) pg MCHC (32-36) g/dL RDW Std Deviation (36.4-46.3) fL RDW Coeff of Tin (11.5-14.5) % Plt Count (130-400) K/uL MPV (7.4-10.4) fL Sodium (136-145) mmol/L Potassium (3.5-5.1) mmol/L Chloride (98-107) mmol/L Carbon Dioxide (21-32) mmol/L Anion Gap (3-11) BUN (7-18) mg/dl Creatinine (0.6-1.2) mg/dl Est Cr Clr Drug Dosing ml/min Est GFR ( Amer) Est GFR (Non-Af Amer) BUN/Creatinine Ratio (10-20) Glucose (70-99) mg/dl POC Glucose 118 H 131 H (70-99) Calcium (8.5-10.1) mg/dl Magnesium (1.8-2.4) mg/dl Urine Color Dark Yellow Urine Appearance Clear (Clear) Urine pH 5.5 (4.5-7.5) Ur Specific [place] 1.028 (1.000-1.030) Urine Protein Trace H (Negative) Urine Glucose (UA) Negative (Negative) Urine Ketones 1+ H (Negative) Urine Blood Negative (Negative) Urine Nitrite Negative (Negative) Urine Bilirubin Negative (Negative) Urine Urobilinogen Negative (Negative) Ur Leukocyte Esterase Negative (Negative) Urine WBC (Auto) 1-5 (0-5) /hpf Urine RBC (Auto) 0-4 (0-4) /hpf U Hyaline Cast (Auto) 1-5 (0-5) /lpf U Epithel Cells (Auto) >30 H (0-5) /lpf Urine Bacteria (Auto) Negative (Negative) Stl C. diff Tox B Gene (Neg) Stl C.difficile Tox A&B (Negative) 09/27/18 09/27/18 Range/Units 16:36 11:59 WBC (4.8-10.8) K/uL RBC (4.2-5.4) M/uL Hgb (12.0-16.0) g/dL Hct (37-47) % MCV (80-100) fL MCH (25-34) pg MCHC (32-36) g/dL RDW Std Deviation (36.4-46.3) fL RDW Coeff of Tin (11.5-14.5) % Plt Count (130-400) K/uL MPV (7.4-10.4) fL Sodium (136-145) mmol/L Potassium (3.5-5.1) mmol/L Chloride (98-107) mmol/L Carbon Dioxide (21-32) mmol/L Anion Gap (3-11) BUN (7-18) mg/dl Creatinine (0.6-1.2) mg/dl Est Cr Clr Drug Dosing ml/min Est GFR ( Amer) Est GFR (Non-Af Amer) BUN/Creatinine Ratio (10-20) Glucose (70-99) mg/dl POC Glucose 121 H 116 H (70-99) Calcium (8.5-10.1) mg/dl Magnesium (1.8-2.4) mg/dl Urine Color Urine Appearance (Clear) Urine pH (4.5-7.5) Ur Specific [place] (1.000-1.030) Urine Protein (Negative) Urine Glucose (UA) (Negative) Urine Ketones (Negative) Urine Blood (Negative) Urine Nitrite (Negative) Urine Bilirubin (Negative) Urine Urobilinogen (Negative) Ur Leukocyte Esterase (Negative) Urine WBC (Auto) (0-5) /hpf Urine RBC (Auto) (0-4) /hpf U Hyaline Cast (Auto) (0-5) /lpf U Epithel Cells (Auto) (0-5) /lpf Urine Bacteria (Auto) (Negative) Stl C. diff Tox B Gene (Neg) Stl C.difficile Tox A&B (Negative) Diagnostic Findings ABDOMEN AND PELVIS CT WITH ORAL CONTRAST CT DOSE: 1309.17 mGy.cm HISTORY: Follow-up study in a patient with history of small bowel obstruction and acute generalized abdominal pain assess for SBO, wait 3 hrs after contrast to image TECHNIQUE: Multiaxial CT images of the abdomen and pelvis were performed following the use of oral contrast. A dose lowering technique was utilized adhering to the principles of ALARA. COMPARISON STUDY: CT abdomen and pelvis 09/26/2018 FINDINGS: Trace pleural effusions. Mild subsegmental bibasilar atelectasis. There is no pneumatosis or pneumoperitoneum. The imaged inferior cardiac chambers are unremarkable. Coronary arterial and aortic annular calcifications are noted. Prior cholecystectomy. Solid abdominal organs are suboptimally evaluated without the use of IV contrast. Within the limitations of the exam the liver, spleen, pancreas and adrenal glands are unremarkable and appear unchanged from comparison. Mild nonspecific bilateral perinephric stranding. No urolith or obstructive uropathy. Bladder is partially decompressed. Suggestion of a fibroid uterus. No adnexal mass lesions. Extensive calcification of the abdominal aorta. No adenopathy by CT size criteria. Enteric tube is noted in the stomach. Enteric contrast seen within the stomach, duodenum and jejunum. Enteric contrast does not progress past dilated loops of small bowel within the central abdomen. Dilated small bowel loops are again seen measuring up to 3.5 cm transversely decompressed small bowel loops are seen distally without discrete transition point identified. The degree of small bowel distention appears similar to slightly decreased from comparison. Interloop edema with trace abdominopelvic ascites. Colonic diverticulosis without acute diverticulitis. No drainable fluid collection. Appendix appears normal. Tiny fat filled periumbilical hernia. Right hip total joint arthroplasty. Degenerative changes of the spine, pelvis and left hip. IMPRESSION: 1. Persistent dilated loops of small bowel, similar to slightly decreased from yesterday's study. The enteric contrast does not progress past dilated loops of small bowel within the central to lower abdomen. Again, decompressed loops of ileum are seen within the abdominal right lower quadrant without discrete tra nsition point. Constellation of findings is again suggestive of a small bowel obstruction and/or functional obstruction with ileus. 2. Interloop edema with trace abdominopelvic ascites redemonstrated. 3. No pneumatosis or pneumoperitoneum. 4. Enteric tube terminates within the distal gastric body. 5. Additional findings as above.
--- NOTE | 2018-09-28 13:32 | Hospitalist Progress Note ---
Date of Service September 28, 2018 Assessment & Plan (1) Small bowel obstruction: History of tubulovillous adenoma of the ileocecal valve. It is possible this is causing her small bowel obstruction per surgery and she may need a surgical treatment of her obstruction. It is also possible adhesions are contributing. Continue NG tube with suction. Ceftriaxone and Flagyl for prophylaxis. Patient is improving clinically. Appreciate surgery recs. (2) CKD (chronic kidney disease), stage III: Around baseline creatinine. This is slightly elevated on admission and improved with IV fluids, etiology likely dehydration in the setting of vomiting and GI losses. Continue IV fluids. (3) Diabetes mellitus, type II: Insulin sliding scale every 6 as needed for fingerstick glucose labs. Currently at goal. (4) HTN (hypertension): Hold oral medication in setting of small bowel obstruction. Avoiding hydralazine for possible side effect of reflex tachycardia. Avoiding BB as do not want to eliminate appropriate physiologic augmentation of cardiac output for diarrhea. Will start Vasotec 1.25mg IV q6hrs. (5) Hypokalemia: 2/2 low Mag in setting of GI losses. Replace with IV supplementation. Recheck in am. (6) Hypomagnesemia: Replace 3mg IV now. Repeat in am. (7) DVT prophylaxis: Heparin Full Code Dispo-home when medically stable. Danya Milian DO [facility] Hospitalist Subjective difficult morning as NGT needed to be readjusted several times by nursing feels improved overall she did have 4 BMs overnight and then another one this am c-diff gene + but toxin was negative ID consulted-rec against treatment 1L gastric output overnight abdomen soft pt denies pain/nausea Review of Systems Review of Systems: All systems reviewed & are unremarkable except as noted in HPI & below Physical Exam Physical Exam: CONSTITUTIONAL: WNWD, vitals as above, generally well- appearing, NGT in place to suction EYES: normal conjunctivae, no scleral icterus ENT: MMM, +NGT in place. RESPIRATORY: clear to auscultation bilaterally, no crackles, rales or wheezes, normal respiratory effort CARDIOVASCULAR: regular rate and rhythm, S1 and 2 heard without murmurs, gallops or rubs, no JVD GASTROINTESTINAL: normal bowel sounds, soft, nontender, nondistended MUSCULOSKELETAL: strength 5/5 throughout, head is normocephalic and atraumatic SKIN: warm and dry NEUROLOGIC: CN 2-12 grossly intact, no gross ofcal deficits, no sensory deficit, normal cognition PSYCHIATRIC: alert cooperative and oriented to person, place and time Results & Data Vital Signs (Past 12 Hours) Vital Signs Temp Pulse Pulse Resp BP Pulse Ox 09/28/18 11:24 36.8 C 90 20 156/83 H 93 09/28/18 10:00 111 H 159/89 H 09/28/18 08:56 82 169/109 H 09/28/18 07:29 36.7 C 91 H 18 169/82 H 93 09/28/18 07:15 80 Laboratory Results Short CBC 09/28/18 Range/Units 06:14 WBC 4.45 L (4.8-10.8) K/uL Hgb 12.2 (12.0-16.0) g/dL Hct 36.2 L (37-47) % Plt Count 313 (130-400) K/uL BMP 09/28/18 06:14 Sodium 139 Potassium 2.9 L D Chloride 104 Carbon Dioxide 26 BUN 9 D Creatinine 1.07 Glucose 126 H Calcium 8.4 L Urine 09/27/18 Range/Units Unknown Urine Color Dark Yellow Urine Appearance Clear (Clear) Urine pH 5.5 (4.5-7.5) Ur Specific [place] 1.028 (1.000-1.030) Urine Protein Trace H (Negative) Urine Glucose (UA) Negative (Negative) Medications Administered Current Inpatient Medications Dextrose (Dextrose 50%) 25 - 50 ml IV UD PRN; Protocol PRN Reason: Hypoglycemia Protocol Stop: 10/27/18 00:44 Ergocalciferol (Vitamin D2) 50,000 units PO Q7D@0900 [facility] Stop: 10/29/18 08:59 Fluocinonide (Lidex 0.5%) 1 appln EXT BID [facility] Stop: 10/27/18 08:59 Last Admin: 09/28/18 08:04 Dose: 1 appln Documented by: Glucagon (Glucagen) 1 mg SQ UD PRN; Protocol PRN Reason: Hypoglycemia Protocol Stop: 10/27/18 00:44 Glucose (Glucose 40%) 15 - 30 gm PO UD PRN; Protocol PRN Reason: Hypoglycemia Protocol Stop: 10/27/18 00:44 Glucose (Dex4 Glucose) 4 - 8 tabs PO UD PRN; Protocol PRN Reason: Hypoglycemia Protocol Stop: 10/27/18 00:44 Heparin Sodium (Porcine) (Heparin Sodium (Porcine)) 5,000 units SQ Q8 [facility] Stop: 10/27/18 05:59 Last Admin: 09/28/18 13:05 Dose: 5,000 units Documented by: Hydromorphone HCl (Dilaudid) 0.5 mg IV Q3H PRN PRN Reason: Pain Stop: 10/10/18 21:51 Last Admin: 09/27/18 15:30 Dose: 0.5 mg Documented by: Promethazine HCl 12.5 mg/ (Sodium Chloride) 50.5 mls @ 202 mls/hr IV Q6H PRN PRN Reason: Nausea And Vomiting Stop: 10/26/18 21:51 Last Infusion: 09/27/18 03:23 Dose: Infused Documented by: Metronidazole (Flagyl) 500 mg in 100 mls @ 100 mls/hr IV Q8H [facility] Stop: 10/07/18 07:59 Last Infusion: 09/28/18 09:04 Dose: Infused Documented by: Ceftriaxone Sodium 2,000 mg/ (Dextrose) 70 mls @ 100 mls/hr IV Q24H [facility]; Protocol Stop: 10/07/18 22:59 Last Infusion: 09/28/18 00:50 Dose: Infused Documented by: Lactated Ringer's (Lr) 1,000 mls @ 60 mls/hr IV .[id number] [facility] Stop: 10/27/18 00:44 Last Infusion: 09/28/18 09:02 Dose: 0 mls/hr Documented by: Acetaminophen (Ofirmev) 1,000 mg in 100 mls @ 400 mls/hr IV Q8H PRN PRN Reason: other Stop: 10/27/18 20:00 Last Infusion: 09/27/18 20:34 Dose: Infused Documented by: Lorazepam (Ativan) 0.25 mg in 0.5 mls @ 0.5 mls/min IV Q8H PRN PRN Reason: Anxiety Stop: 10/27/18 20:59 Last Admin: 09/28/18 00:56 Dose: 0.5 mls/min Documented by: Potassium Chloride 80 meq/ (Sodium Chloride) 1,040 mls @ 125 mls/hr IV .[id number] [facility] Stop: 10/28/18 08:29 Last Admin: 09/28/18 09:02 Dose: 125 mls/hr Documented by: Insulin Aspart (Novolog Flexpen) 0 units SC Q6 [facility] Stop: 10/27/18 01:14 Last Admin: 09/28/18 11:52 Dose: Not Given Documented by: Miscellaneous (Carbohydrates For Hypoglycemia) 15 - 30 gm PO UD PRN PRN Reason: Hypoglycemia Treatment Stop: 10/27/18 00:44 Ondansetron HCl (Zofran) 4 mg IV Q4H PRN PRN Reason: Nausea Stop: 10/27/18 11:32 Last Admin: 09/28/18 05:14 Dose: 4 mg Documented by: Tramadol HCl (Ultram) 25 - 50 mg PO Q4H PRN PRN Reason: Pain Stop: 10/26/18 21:51
--- NOTE | 2018-09-28 14:15 | Infectious Disease Consult ---
Date of Consultation September 28, 2018 Assessment & Plan (1) Small bowel obstruction: would follow off of abx, toxin negative, would not treat for c diff. no new ID recs at this time. History of Present Illness Attending Physician: Danya Milian DO pt admitted with abd pain, found on ct to have sbo, now with ngt, bilious drainage noted in canister. no f/c. had n/v service captain, now resolved. family at bedside, currently denies diarrha, no abd pain, overall feeling somewhat better. kieran cp, sob, cough. on roecphin and gallagher. wbc 4.4, creat 1, UA negative, no cultures done. C. diff gene +, toxin negative. ID asked to eval re need to treat for c diff. Allergies Allergy/AdvReac Type Severity Reaction Status Date / Time Penicillins Allergy Unknown Verified 09/26/18 19:49 nickel Allergy . Unverified 09/26/18 19:50 Home Medications Home Medications Medication Instructions Recorded Confirmed Type Probiotic 3,000 mmu cells PO DAILY 09/23/18 09/26/18 History aspirin [Aspirin Low Dose] 81 mg PO QPM 09/23/18 09/26/18 History atorvastatin 40 mg PO QPM 09/23/18 09/26/18 History cyanocobalamin (vitamin B-12) 1,000 mcg PO DAILY 09/23/18 09/26/18 History [Vitamin B-12] diltiazem HCl [Cartia XT] 180 mg PO QPM 09/23/18 09/26/18 History fluocinonide 1 applic TOPICAL BID 09/23/18 09/26/18 History metformin 1,000 mg PO AMPM 09/26/18 09/26/18 History Patient History Medical History CKD (chronic kidney disease), stage III (Chronic) Diabetes mellitus, type II (Chronic) HTN (hypertension) (Chronic) Surgical History History of cholecystectomy (Resolved) S/P colonoscopy (Resolved) May 31 and August 24 in [place]. "Clean up procedure, biopsies negative" S/P hip replacement (Resolved) S/P knee replacement (Resolved) Family History Other Heart disease Social History Preferred Language: Wolof Communication Ability: Effective System Dispatcher Required: No Beliefs That Will Affect Care: None marital status: Current Living Situation: Spouse current occupational status: retired Feels Safe at Home: Yes Safety Concerns: Feels Safe At This Time Smoking Status: Never smoker Hx Alcohol Use: Yes Alcohol type: beer and wine Hx Substance Use: No Review of Systems Review of Systems: All systems reviewed & are unremarkable except as noted in HPI & below Physical Exam Constitutional: WD/WN, vitals as above Eyes: PERRL, conjunctivae normal, anicteric sclerae ENMT: external ear and nose normal, oropharynx normal Neck: trachea midline, no thyromegaly normal visual inspection Respiratory: normal respiratory effort, lungs clear to auscultation Cardiovascular: RRR, no murmur, no edema Gastrointestinal (Abdomen): Inspection/Auscultation: abdomen normal to inspection and + abdomen distended Percussion/Palpation: abdomen soft; abdomen nontender, no guarding and abdomen not rigid Musculoskeletal: no cyanosis or clubbing, extremities motor strength 5/5 Skin: no rashes, warm and dry Psychiatric: A+Ox3, euthymic affect Results & Data Vital Signs (Past 12 Hours) Vital Signs Temp Pulse Pulse Resp BP Pulse Ox 09/28/18 11:24 36.8 C 90 20 156/83 H 93 09/28/18 10:00 111 H 159/89 H 09/28/18 08:56 82 169/109 H 09/28/18 07:29 36.7 C 91 H 18 169/82 H 93 09/28/18 07:15 80
[2018-09-28] MEDS: LACTATED RINGER'S 1,000 ML IV SCH (18:10)
[2018-09-28] MEDS ORDERED: dilTIAZem HCl 5 MG/ML 5 ML VIAL IV STA (21:20)
--- NOTE | 2018-09-28 22:12 | Hospitalist Progress Note ---
Date of Service September 28, 2018 Results & Data Vital Signs (Past 12 Hours) Vital Signs Temp Pulse Pulse Pulse Resp BP Pulse Ox 09/28/18 21:52 85 183/78 H 09/28/18 21:15 91 H 187/105 H 09/28/18 21:04 36.3 C L 92 H 20 192/100 H 95 09/28/18 16:00 96 H 09/28/18 14:56 36.8 C 90 18 164/91 H 93 09/28/18 11:24 36.8 C 90 20 156/83 H 93
[2018-09-28] MEDS: ENALAPRILAT 1.25 MG in DEXTROSE 5% 25 ML IV SCH (22:43)
[2018-09-29] MEDS: INSULIN ASPART 100 UNITS/ML 3 ML PEN SC SCH ×5 (00:40→23:52)
[2018-09-29] MEDS: LORazepam 0.25 MG/0.5 ML VIAL IV PRN (01:53)
[2018-09-29] MEDS ORDERED: HydrALAZINE HCL 20 MG/ML VIAL IV ONE (02:25)
[2018-09-29] MEDS ORDERED: LORazepam 0.25 MG/0.5 ML VIAL IV ONE (03:15)
[2018-09-29] MEDS: PANTOprazole 40 MG in SYRINGE 0 ML IV SCH ×2 (03:24→19:53)
[2018-09-29] MEDS: LACTATED RINGER'S 1,000 ML IV SCH ×2 (03:24→19:53)
--- NOTE | 2018-09-29 03:25 | Hospitalist Progress Note ---
Date of Service September 29, 2018 Subjective Patient/ requested physician evaluation in a.m. Patient feeling more anxious, not feeling well, new central achy abdominal pain. Stools not grossly bloody. NGT drainage noted to be black since yesterday afternoon as per . gastric occult blood positive AP UGIB Ongoing NGT drainage for SBO IV PPI Stat H&H CT abdomen pelvis Hold heparin subcu for now SCDs for DVT prophylaxis Further management pending work-up results. Will relay to AM provider. Results & Data Vital Signs (Past 12 Hours) Vital Signs Temp Pulse Pulse Pulse Resp BP BP 09/29/18 01:40 89 09/29/18 00:58 90 188/80 H 09/29/18 00:10 36.6 C 86 20 197/77 H 09/28/18 23:31 91 H 199/83 H 09/28/18 23:15 36.5 C 88 190/86 H 09/28/18 21:52 85 183/78 H 09/28/18 21:15 91 H 187/105 H 09/28/18 21:04 36.3 C L 92 H 20 192/100 H 09/28/18 16:00 96 H Pulse Ox 09/29/18 01:40 09/29/18 00:58 09/29/18 00:10 94 09/28/18 23:31 09/28/18 23:15 92 09/28/18 21:52 09/28/18 21:15 09/28/18 21:04 95 09/28/18 16:00
[2018-09-29 03:35] LABS: Basophils # (auto) 0.02 K/uL (0-0.2); Basophils % (auto) 0.3 %; Eosinophils # (auto) 0.03 K/uL (0-0.5); Eosinophils % (auto) 0.4 %; Hematocrit (blood only) 40.1 % (37-47); Hemoglobin 13.4 g/dL (12.0-16.0); Immature Granulocytes % (auto) 1.3 %; Lymphocytes # (auto) 1.06 K/uL (1.2-3.4); Lymphocytes % (auto) 13.8 %; Mean Corpuscular Hgb Conc 33.4 g/dL (32-36); Mean Corpuscular Volume 88.7 fL (80-100); Mean Platelet Volume 9.7 fL (7.4-10.4); Monocytes # (auto) 0.54 K/uL (0.11-0.59); Neutrophils # (auto) 5.94 K/uL (1.4-6.5); Neutrophils % (auto) 77.2 %; Platelet Count 360 K/uL (130-400); RDW Coefficient of Variation 15.5 % (11.5-14.5); RDW Standard Deviation 49.7 fL (36.4-46.3); Red Blood Count 4.52 M/uL (4.2-5.4); White Blood Count 7.69 K/uL (4.8-10.8)
[2018-09-29 03:51] LABS: BUN Creatinine Ratio 6.9 (10-20); Calcium 9.1 mg/dl (8.5-10.1); Creatinine Clr Calc Pharmacy 56.3 ml/min; Est GFR (African American) 71.6; Est GFR (Non-African American) 61.8; Magnesium 2.2 mg/dl (1.8-2.4); Potassium 3.5 mmol/L (3.5-5.1)
[2018-09-29] MEDS ORDERED: METOPROLOL TARTRATE 1 MG/ML VIAL IV SCH (06:00)
[2018-09-29] MEDS: ENALAPRILAT 1.25 MG in DEXTROSE 5% 25 ML IV SCH ×4 (06:12→23:40)
--- NOTE | 2018-09-29 07:07 | CT Scan Report ---
CT abd pelvis wo con CLINICAL HISTORY: 72 years-old Female presenting with new abd pain. TECHNIQUE: Multidetector CT of the abdomen and pelvis was performed without the use of intravenous co ntrast. IV contrast: None. One or more dose lowering techniques were used consistent with the princip les of ALA (as low as reasonably achievable), including automatic exposure control, mA or kV adjust ment to individual patient size, and/or use of iterative reconstruction. COMPARISON: 09/27/2018. CT DOSE (mGy.cm): The estimated cumulative dose is 1060.21 mGy.cm. FINDINGS: Fern Picker topogram: Orthopedic hardware. Dilated small bowel. Lung bases: Normal heart size. Coronary artery and aortic valve calcification. No pericardial or pleu ral effusion. Minimal dependent changes likely atelectasis. Liver: Normal morphology. Density consistent with hepatic steatosis. Biliary: No gross biliary ductal dilatation allowing for noncontrast technique. Gallbladder surgicall y absent. Pancreas: Moderate parenchymal atrophy. Spleen: Normal noncontrast appearance. Adrenal glands: Normal noncontrast appearance. Kidneys and ureters: Normal noncontrast appearance. No nephrolithiasis. No hydronephrosis. Normal ure ters. Bladder: Normal. Pelvic organs: Normal noncontrast appearance. Bowel: Diverticulosis of the sigmoid and descending colon. No wall thickening of or pericolonic infla mmatory change. Residual oral contrast is noted in the colon, which has progressed to the rectum. The appendix is normal. A nasogastric tube terminates in the gastric antrum. Duodenal diverticulum at th e level the pancreatic head. Mild distention of the mid ileum, which has decreased from prior. Smooth transition at the upper stream portion. Some oral contrast remains within the ileum. There is a smoo th transition to a narrow caliber in the distal ileum, where there is circumferential wall thickening (series 3 image 292). An extended length of stenotic appearing small bowel measuring 20 to 30 cm is noted. This extends to the terminal ileum. No associated surrounding inflammatory change. Peritoneal cavity: Mild mesenteric edema associated with the dilated bowel loops. Decreased interloop fluid. No free intraperitoneal gas. Lymph nodes: No gross lymphadenopathy allowing for noncontrast technique. Vasculature: Atherosclerosis of the normal caliber abdominal aorta. Abdominal wall: Normal. Musculoskeletal: Right hip arthroplasty. Degenerative changes of the left hip and spine. IMPRESSION: 1. Continued decrease in small bowel distention and passage of oral contrast to the level of the rec angelia. No complete bowel obstruction. Findings suggest a resolving functional and/or partial bowel obst ruction at the site of a caliber transition in the distal ileum, where there is an extended length of stenotic thick-walled small bowel extending to the level of the terminal ileum. 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 2. Resolving findings of congestive change within the mesentery consistent with less than small ludy l distention. 3. Diverticulosis coli. No evidence of diverticulitis. 4. Hepatic steatosis. Electronically signed by: Jameson Hensley M.D. 09/29/2018 7:05 AM
[2018-09-29] MEDS ORDERED: ERGOCALCIFEROL 50,000 UNITS CAP PO SCH (09:00)
[2018-09-29 10:23] LABS: Hematocrit (blood only) 38.1 % (37-47); Hemoglobin 13.2 g/dL (12.0-16.0)
--- NOTE | 2018-09-29 12:23 | Surgery Progress Note ---
Date of Service September 29, 2018 Assessment & Plan (1) Small bowel obstruction: Patient feels better today CT last night shows improvement in the edema of the terminal ileum and there is been passage of oral contrast through the rectum No longer has nausea or vomiting Bowel movements continue Would clamp NG tube today and then can unclamp for nausea. If that does not occur then can consider removing NG tomorrow and starting liquids slowly. Would advance her diet very slowly. No indication for surgical intervention at this time Present on Admission?: Yes Subjective Had some mild discomfort and anxiety last night That is resolved Feels better today No nausea or vomiting Denies abdominal pain Passing bowels Very little flatus NG output has decreased Physical Exam Gastrointestinal (Abdomen): Inspection/Auscultation: normal bowel sounds; abdomen not distended Percussion/Palpation: abdomen soft; abdomen nontender Results & Data Vital Signs (Past 12 Hours) Vital Signs Temp Pulse Pulse Pulse Resp BP Pulse Ox 09/29/18 07:29 112 H 09/29/18 07:00 36.4 C L 96 H 20 163/81 H 94 09/29/18 04:00 36.4 C L 97 H 12 151/77 H 94 09/29/18 01:40 89 09/29/18 00:58 90 188/80 H Laboratory Results 09/29/18 09/29/18 09/29/18 Range/Units 11:34 10:10 07:22 WBC (4.8-10.8) K/uL RBC (4.2-5.4) M/uL Hgb 13.2 (12.0-16.0) g/dL Hct 38.1 (37-47) % MCV (80-100) fL MCH (25-34) pg MCHC (32-36) g/dL RDW Std Deviation (36.4-46.3) fL RDW Coeff of Tin (11.5-14.5) % Plt Count (130-400) K/uL MPV (7.4-10.4) fL Immature Gran % (Auto) % Neut % (Auto) % Lymph % (Auto) % [place] % (Auto) % Eos % (Auto) % Baso % (Auto) % Immature Gran # (Auto) (0.00-0.02) K/uL Neut # (Auto) (1.4-6.5) K/uL Lymph # (Auto) (1.2-3.4) K/uL [place] # (Auto) (0.11-0.59) K/uL Eos # (Auto) (0-0.5) K/uL Baso # (Auto) (0-0.2) K/uL Sodium (136-145) mmol/L Potassium (3.5-5.1) mmol/L Chloride (98-107) mmol/L Carbon Dioxide (21-32) mmol/L Anion Gap (3-11) BUN (7-18) mg/dl Creatinine (0.6-1.2) mg/dl Est Cr Clr Drug Dosing ml/min Est GFR ( Amer) Est GFR (Non-Af Amer) BUN/Creatinine Ratio (10-20) Glucose (70-99) mg/dl POC Glucose 101 H 131 H (70-99) Lactate (0.4-2.0) mmol/L Calcium (8.5-10.1) mg/dl Magnesium (1.8-2.4) mg/dl Blood Type Antibody Screen 09/29/18 09/29/18 09/29/18 Range/Units 06:11 03:22 03:22 WBC (4.8-10.8) K/uL RBC (4.2-5.4) M/uL Hgb (12.0-16.0) g/dL Hct (37-47) % MCV (80-100) fL MCH (25-34) pg MCHC (32-36) g/dL RDW Std Deviation (36.4-46.3) fL RDW Coeff of Tin (11.5-14.5) % Plt Count (130-400) K/uL MPV (7.4-10.4) fL Immature Gran % (Auto) % Neut % (Auto) % Lymph % (Auto) % [place] % (Auto) % Eos % (Auto) % Baso % (Auto) % Immature Gran # (Auto) (0.00-0.02) K/uL Neut # (Auto) (1.4-6.5) K/uL Lymph # (Auto) (1.2-3.4) K/uL [place] # (Auto) (0.11-0.59) K/uL Eos # (Auto) (0-0.5) K/uL Baso # (Auto) (0-0.2) K/uL Sodium 138 (136-145) mmol/L Potassium 3.5 D (3.5-5.1) mmol/L Chloride 103 (98-107) mmol/L Carbon Dioxide 25 (21-32) mmol/L Anion Gap 10.0 (3-11) BUN 6 L (7-18) mg/dl Creatinine 0.92 (0.6-1.2) mg/dl Est Cr Clr Drug Dosing 56.3 ml/min Est GFR ( Amer) 71.6 Est GFR (Non-Af Amer) 61.8 BUN/Creatinine Ratio 6.9 L (10-20) Glucose 138 H (70-99) mg/dl POC Glucose 136 H (70-99) Lactate (0.4-2.0) mmol/L Calcium 9.1 (8.5-10.1) mg/dl Magnesium 2.2 (1.8-2.4) mg/dl Blood Type O Positive Antibody Screen NEGATIVE 09/29/18 09/29/18 09/28/18 Range/Units 03:22 00:39 18:11 WBC 7.69 (4.8-10.8) K/uL RBC 4.52 (4.2-5.4) M/uL Hgb 13.4 (12.0-16.0) g/dL Hct 40.1 (37-47) % MCV 88.7 (80-100) fL MCH 29.6 (25-34) pg MCHC 33.4 (32-36) g/dL RDW Std Deviation 49.7 H (36.4-46.3) fL RDW Coeff of Tin 15.5 H (11.5-14.5) % Plt Count 360 (130-400) K/uL MPV 9.7 (7.4-10.4) fL Immature Gran % (Auto) 1.3 % Neut % (Auto) 77.2 % Lymph % (Auto) 13.8 % [place] % (Auto) 7.0 % Eos % (Auto) 0.4 % Baso % (Auto) 0.3 % Immature Gran # (Auto) 0.10 H (0.00-0.02) K/uL Neut # (Auto) 5.94 (1.4-6.5) K/uL Lymph # (Auto) 1.06 L (1.2-3.4) K/uL [place] # (Auto) 0.54 (0.11-0.59) K/uL Eos # (Auto) 0.03 (0-0.5) K/uL Baso # (Auto) 0.02 (0-0.2) K/uL Sodium (136-145) mmol/L Potassium (3.5-5.1) mmol/L Chloride (98-107) mmol/L Carbon Dioxide (21-32) mmol/L Anion Gap (3-11) BUN (7-18) mg/dl Creatinine (0.6-1.2) mg/dl Est Cr Clr Drug Dosing ml/min Est GFR ( Amer) Est GFR (Non-Af Amer) BUN/Creatinine Ratio (10-20) Glucose (70-99) mg/dl POC Glucose 124 H 109 H (70-99) Lactate (0.4-2.0) mmol/L Calcium (8.5-10.1) mg/dl Magnesium (1.8-2.4) mg/dl Blood Type Antibody Screen 09/28/18 Range/Units 12:58 WBC (4.8-10.8) K/uL RBC (4.2-5.4) M/uL Hgb (12.0-16.0) g/dL Hct (37-47) % MCV (80-100) fL MCH (25-34) pg MCHC (32-36) g/dL RDW Std Deviation (36.4-46.3) fL RDW Coeff of Tin (11.5-14.5) % Plt Count (130-400) K/uL MPV (7.4-10.4) fL Immature Gran % (Auto) % Neut % (Auto) % Lymph % (Auto) % [place] % (Auto) % Eos % (Auto) % Baso % (Auto) % Immature Gran # (Auto) (0.00-0.02) K/uL Neut # (Auto) (1.4-6.5) K/uL Lymph # (Auto) (1.2-3.4) K/uL [place] # (Auto) (0.11-0.59) K/uL Eos # (Auto) (0-0.5) K/uL Baso # (Auto) (0-0.2) K/uL Sodium (136-145) mmol/L Potassium (3.5-5.1) mmol/L Chloride (98-107) mmol/L Carbon Dioxide (21-32) mmol/L Anion Gap (3-11) BUN (7-18) mg/dl Creatinine (0.6-1.2) mg/dl Est Cr Clr Drug Dosing ml/min Est GFR ( Amer) Est GFR (Non-Af Amer) BUN/Creatinine Ratio (10-20) Glucose (70-99) mg/dl POC Glucose (70-99) Lactate 1.0 (0.4-2.0) mmol/L Calcium (8.5-10.1) mg/dl Magnesium (1.8-2.4) mg/dl Blood Type Antibody Screen Diagnostic Findings CT abd pelvis wo con CLINICAL HISTORY: 72 years-old Female presenting with new abd pain. TECHNIQUE: Multidetector CT of the abdomen and pelvis was performed without the use of intravenous contrast. IV contrast: None. One or more dose lowering techniques were used consistent with the principles of ALARA (as low as reasonably achievable), including automatic exposure control, mA or kV adjustment to individual patient size, and/or use of iterative reconstruction. COMPARISON: 09/27/2018. CT DOSE (mGy.cm): The estimated cumulative dose is 1060.21 mGy.cm. FINDINGS: Supervisor Type Bar And Segment topogram: Orthopedic hardware. Dilated small bowel. Lung bases: Normal heart size. Coronary artery and aortic valve calcification. No pericardial or pleural effusion. Minimal dependent changes likely atelectasis. Liver: Normal morphology. Density consistent with hepatic steatosis. Biliary: No gross biliary ductal dilatation allowing for noncontrast technique. Gallbladder surgically absent. Pancreas: Moderate parenchymal atrophy. Spleen: Normal noncontrast appearance. Adrenal glands: Normal noncontrast appearance. Kidneys and ureters: Normal noncontrast appearance. No nephrolithiasis. No hydronephrosis. Normal ureters. Bladder: Normal. Pelvic organs: Normal noncontrast appearance. Bowel: Diverticulosis of the sigmoid and descending colon. No wall thickening of or pericolonic inflammatory change. Residual oral contrast is noted in the colon, which has progressed to the rectum. The appendix is normal. A nasogastric tube terminates in the gastric antrum. Duodenal diverticulum at the level the pancreatic head. Mild distention of the mid ileum, which has decreased from prior. Smooth transition at the upper stream portion. Some oral contrast remains within the ileum. There is a smooth transition to a narrow caliber in the distal ileum, where there is circumferential wall thickening (series 3 image 292). An extended length of stenotic appearing small bowel measuring 20 to 30 cm is noted. This extends to the terminal ileum. No associated surrounding inflammatory change. Peritoneal cavity: Mild mesenteric edema associated with the dilated bowel loops. Decreased interloop fluid. No free intraperitoneal gas. Lymph nodes: No gross lymphadenopathy allowing for noncontrast technique. Vasculature: Atherosclerosis of the normal caliber abdominal aorta. Abdominal wall: Normal. Musculoskeletal: Right hip arthroplasty. Degenerative changes of the left hip and spine. IMPRESSION: 1. Continued decrease in small bowel distention and passage of oral contrast to the level of the rectum. No complete bowel obstruction. Findings suggest a resolving functional and/or partial bowel obstruction at the site of a caliber transition in the distal ileum, where there is an extended length of stenotic thick-walled small bowel extending to the level of the terminal ileum. 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 2. Resolving findings of congestive change within the mesentery consistent with less than small bowel distention. 3. Diverticulosis coli. No evidence of diverticulitis. 4. Hepatic steatosis.
[2018-09-29] MEDS: FLUOCINONIDE 0.05% CR 15 GM TUBE EXT SCH ×2 (13:08→19:53)
--- NOTE | 2018-09-29 13:45 | Gastrointestinal Consultation ---
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 Her hosp course has been sig for diarrhea, with C diff neg. She has needed NGT readjusted mult times; overnight, her NGT drainage appeared to be dark although her hgb, VS, and BUN have all been unremarkable. A CT was done to work up possible GIB, which showed improved SBO. She was begun on IV BID PPI. At present, her NGT cont to drain coffee ground material, and sh efeels like her abd is mildly more distended than yest, although she denies abd pain and is stooling 4-5 x liquid small vol stools today. On exam, she appears comfortable, pleasant, and is in NAD. HEENT: dry, pink CV: RRR Resp: CTA Abd: soft NT, mild distended and tympanic, + BS Extrem: no edema, 2+ radial pulses Labs reviewed A/P: Coffee ground NGT drainage - She has no evidence of clin sig GIB. This is likely related to NGT trauma, which has been adjusted multiple times. Can cont IV BID PPI, follow Hgb daily. 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 Will review imaging. Management of acute SBO per surg service, would consider SBFT once obstruction resolved and consideration for endoscopic dilation. Allergies Allergy/AdvReac Type Severity Reaction Status Date / Time Penicillins Allergy Unknown Verified 09/26/18 19:49 nickel Allergy . Unverified 09/26/18 19:50 Home Medications Home Medications Medication Instructions Recorded Confirmed Type Probiotic 3,000 mmu cells PO DAILY 09/23/18 09/26/18 History aspirin [Aspirin Low Dose] 81 mg PO QPM 09/23/18 09/26/18 History atorvastatin 40 mg PO QPM 09/23/18 09/26/18 History cyanocobalamin (vitamin B-12) 1,000 mcg PO DAILY 09/23/18 09/26/18 History [Vitamin B-12] diltiazem HCl [Cartia XT] 180 mg PO QPM 09/23/18 09/26/18 History fluocinonide 1 applic TOPICAL BID 09/23/18 09/26/18 History metformin 1,000 mg PO AMPM 09/26/18 09/26/18 History Patient History Medical History CKD (chronic kidney disease), stage III (Chronic) Diabetes mellitus, type II (Chronic) HTN (hypertension) (Chronic) Surgical History History of cholecystectomy (Resolved) S/P colonoscopy (Resolved) May 31 and August 24 in [place]. "Clean up procedure, biopsies negative" S/P hip replacement (Resolved) S/P knee replacement (Resolved) Family History Other Heart disease Social History Preferred Language: Romanian Communication Ability: Effective Character Impersonator Required: No Beliefs That Will Affect Care: None marital status: Current Living Situation: Spouse current occupational status: retired Feels Safe at Home: Yes Safety Concerns: Feels Safe At This Time Smoking Status: Never smoker Hx Alcohol Use: Yes Alcohol type: beer and wine Hx Substance Use: No Results & Data Vital Signs (Past 12 Hours) Vital Signs Temp Pulse Pulse Resp BP Pulse Ox 09/29/18 07:29 112 H 09/29/18 07:00 36.4 C L 96 H 20 163/81 H 94 09/29/18 04:00 36.4 C L 97 H 12 151/77 H 94
--- NOTE | 2018-09-29 14:32 | Hospitalist Progress Note ---
Date of Service September 29, 2018 Assessment & Plan (1) Small bowel obstruction: History of tubulovillous adenoma of the ileocecal valve. Continue NG tube with suction. Ceftriaxone and Flagyl initially given for prophylaxis were stopped. Patient is improving clinically. Appreciate surgery recs. (2) CKD (chronic kidney disease), stage III: Around baseline creatinine. This is slightly elevated on admission and improved with IV fluids, etiology likely dehydration in the setting of vomiting and GI losses. Continue IV fluids while NPO (3) Diabetes mellitus, type II: Insulin sliding scale every 6 as needed for fingerstick glucose labs. Currently at goal. (4) HTN (hypertension): Hold oral medication in setting of small bowel obstruction. Avoiding hydralazine for possible side effect of reflex tachycardia. Avoiding BB as do not want to eliminate appropriate physiologic augmentation of cardiac output for diarrhea. Cont Vasotec 1.25mg IV q6hrs. (5) DVT prophylaxis: Heparin Full Code Dispo-home when medically stable. Danya Milian DO [facility] Hospitalist Subjective doing well this morning anxiety episode overnight which has passed no pain denies nausea afebrile. Review of Systems Review of Systems: All systems reviewed & are unremarkable except as noted in HPI & below Physical Exam Physical Exam: CONSTITUTIONAL: WNWD, vitals as above, generally well- appearing, NGT in place to suction EYES: normal conjunctivae, no scleral icterus ENT: MMM, +NGT in place. RESPIRATORY: clear to auscultation bilaterally, no crackles, rales or wheezes, normal respiratory effort CARDIOVASCULAR: regular rate and rhythm, S1 and 2 heard without murmurs, gallops or rubs, no JVD GASTROINTESTINAL: normal bowel sounds, soft, nontender, nondistended MUSCULOSKELETAL: strength 5/5 throughout, head is normocephalic and atraumatic SKIN: warm and dry NEUROLOGIC: CN 2-12 grossly intact, no gross focal deficits, no sensory deficit, normal cognition PSYCHIATRIC: alert cooperative and oriented to person, place and time Results & Data Vital Signs (Past 12 Hours) Vital Signs Temp Pulse Pulse Resp BP Pulse Ox 09/29/18 07:29 112 H 09/29/18 07:00 36.4 C L 96 H 20 163/81 H 94 09/29/18 04:00 36.4 C L 97 H 12 151/77 H 94 Laboratory Results Short CBC 09/29/18 09/29/18 Range/Units 03:22 10:10 WBC 7.69 (4.8-10.8) K/uL Hgb 13.4 13.2 (12.0-16.0) g/dL Hct 40.1 38.1 (37-47) % Plt Count 360 (130-400) K/uL BMP 09/29/18 03:22 Sodium 138 Potassium 3.5 D Chloride 103 Carbon Dioxide 25 BUN 6 L Creatinine 0.92 Glucose 138 H Calcium 9.1 Medications Administered Current Inpatient Medications Dextrose (Dextrose 50%) 25 - 50 ml IV UD PRN; Protocol PRN Reason: Hypoglycemia Protocol Stop: 10/27/18 00:44 Ergocalciferol (Vitamin D2) 50,000 units PO Q7D@0900 [facility] Stop: 10/29/18 08:59 Fluocinonide (Lidex 0.5%) 1 appln EXT BID [facility] Stop: 10/27/18 08:59 Last Admin: 09/29/18 13:08 Dose: 1 appln Documented by: Glucagon (Glucagen) 1 mg SQ UD PRN; Protocol PRN Reason: Hypoglycemia Protocol Stop: 10/27/18 00:44 Glucose (Glucose 40%) 15 - 30 gm PO UD PRN; Protocol PRN Reason: Hypoglycemia Protocol Stop: 10/27/18 00:44 Glucose (Dex4 Glucose) 4 - 8 tabs PO UD PRN; Protocol PRN Reason: Hypoglycemia Protocol Stop: 10/27/18 00:44 Hydromorphone HCl (Dilaudid) 0.5 mg IV Q3H PRN PRN Reason: Pain Stop: 10/10/18 21:51 Last Admin: 09/27/18 15:30 Dose: 0.5 mg Documented by: Promethazine HCl 12.5 mg/ (Sodium Chloride) 50.5 mls @ 202 mls/hr IV Q6H PRN PRN Reason: Nausea And Vomiting Stop: 10/26/18 21:51 Last Infusion: 09/27/18 03:23 Dose: Infused Documented by: Lactated Ringer's (Lr) 1,000 mls @ 60 mls/hr IV .[id number] [facility] Stop: 10/27/18 00:44 Last Infusion: 09/29/18 03:52 Dose: 60 mls/hr Documented by: Acetaminophen (Ofirmev) 1,000 mg in 100 mls @ 400 mls/hr IV Q8H PRN PRN Reason: other Stop: 10/27/18 20:00 Last Infusion: 09/27/18 20:34 Dose: Infused Documented by: Lorazepam (Ativan) 0.25 mg in 0.5 mls @ 0.5 mls/min IV Q8H PRN PRN Reason: Anxiety Stop: 10/27/18 20:59 Last Admin: 09/29/18 01:53 Dose: 0.5 mls/min Documented by: Enalaprilat 1.25 mg/ Dextrose 26 mls @ 100 mls/hr IV Q6 [facility] Stop: 10/28/18 22:29 Last Infusion: 09/29/18 13:23 Dose: Infused Documented by: Pantoprazole Sodium 40 mg/ (Syringe) 10 mls @ 5 mls/min IV BID@0900,2100 [facility] Stop: 10/29/18 03:14 Last Admin: 09/29/18 03:24 Dose: 5 mls/min Documented by: Insulin Aspart (Novolog Flexpen) 0 units SC Q6 [facility] Stop: 10/27/18 01:14 Last Admin: 09/29/18 12:51 Dose: Not Given Documented by: Miscellaneous (Carbohydrates For Hypoglycemia) 15 - 30 gm PO UD PRN PRN Reason: Hypoglycemia Treatment Stop: 10/27/18 00:44 Ondansetron HCl (Zofran) 4 mg IV Q4H PRN PRN Reason: Nausea Stop: 10/27/18 11:32 Last Admin: 09/28/18 22:25 Dose: 4 mg Documented by: Tramadol HCl (Ultram) 25 - 50 mg PO Q4H PRN PRN Reason: Pain Stop: 10/26/18 21:51
[2018-09-29 16:23] LABS: Hematocrit (blood only) 36.8 % (37-47); Hemoglobin 12.6 g/dL (12.0-16.0)
[2018-09-30] MEDS: LORazepam 0.25 MG/0.5 ML VIAL IV PRN ×2 (00:49→22:14)
[2018-09-30] MEDS: ENALAPRILAT 1.25 MG in DEXTROSE 5% 25 ML IV SCH ×3 (06:12→17:39)
[2018-09-30] MEDS: INSULIN ASPART 100 UNITS/ML 3 ML PEN SC SCH ×3 (06:19→18:33)
[2018-09-30] MEDS: ACETAMINOPHEN 1,000 MG/100 ML VIAL IV PRN (09:15)
[2018-09-30] MEDS: PANTOprazole 40 MG in SYRINGE 0 ML IV SCH ×2 (09:15→20:23)
[2018-09-30] MEDS: FLUOCINONIDE 0.05% CR 15 GM TUBE EXT SCH ×2 (09:16→20:23)
--- NOTE | 2018-09-30 09:56 | Surgery Progress Note ---
Date of Service September 30, 2018 Assessment & Plan (1) Small bowel obstruction: Etiology of weak sensation is unclear. Her abdomen is benign Would discontinue NG tube and placed on sips of clears to go very slowly Blood pressure elevation as per internal medicine Present on Admission?: Yes Subjective Had episode this morning of feeling "weak" Had no nausea until she developed the feeling. It that is now resolved. She has passed gas yesterday and this morning. She has not had bowel movement yet. She had no nausea overnight. The NG tube was placed on suction this morning with only a minimal amount returning. Physical Exam Gastrointestinal (Abdomen): Inspection/Auscultation: abdomen not distended Percussion/Palpation: abdomen soft; abdomen nontender Results & Data Vital Signs (Past 12 Hours) Vital Signs Temp Pulse Pulse Pulse Resp BP BP 09/30/18 08:51 36.5 C 92 H 197/122 H 09/30/18 07:51 91 H 09/30/18 07:32 36.5 C 84 20 201/109 H 09/30/18 06:08 93 H 195/107 H 09/30/18 04:00 36.8 C 86 18 181/96 H 09/29/18 23:37 36.5 C 93 H 18 171/98 H 09/29/18 22:20 82 Pulse Ox 09/30/18 08:51 96 09/30/18 07:51 09/30/18 07:32 92 09/30/18 06:08 09/30/18 04:00 96 09/29/18 23:37 92 09/29/18 22:20
--- NOTE | 2018-09-30 10:27 | Hospitalist Progress Note ---
Date of Service September 30, 2018 Assessment & Plan (1) Small bowel obstruction: History of tubulovillous adenoma of the ileocecal valve. Improving, DC NGT per surgery. Start clear diet and advance very slowly. (2) CKD (chronic kidney disease), stage III: Around baseline creatinine. (3) Diabetes mellitus, type II: Insulin sliding scale every 6 as needed for fingerstick glucose labs. Currently at goal. Change to ACHS once eating. (4) HTN (hypertension): Hold oral medication in setting of small bowel obstruction. Avoiding hydralazine for possible side effect of reflex tachycardia. Avoiding BB as do not want to eliminate appropriate physiologic augmentation of cardiac output for diarrhea. Cont Vasotec 1.25mg IV q6hrs. Once tolerating PO will restart home antihypertensives. (5) DVT prophylaxis: Heparin Full Code Dispo-home when medically stable. Danya Milian DO [facility] Hospitalist Subjective some lightheadedness this morning-she was standing for prolonged period at that time after several days in bed. a wave of nausea better with hooking her back up to suction, however, no gastric output was noted some gas pain lower in abdomen, passing gas overnight CT two nights ago with contrast distal to blockage. Surgery ok with pulling tube after being clamped all night and doing fairly well. BP elevated, however, she is off her HCTZ diuretic and on Vasotec. This was during stressful event this am and while having a severe headache. Review of Systems Review of Systems: All systems reviewed & are unremarkable except as noted in HPI & below Physical Exam Physical Exam: CONSTITUTIONAL: WNWD, vitals as above, generally well- appearing, NGT in place to suction EYES: normal conjunctivae, no scleral icterus ENT: MMM, +NGT in place. RESPIRATORY: clear to auscultation bilaterally, no crackles, rales or wheezes, normal respiratory effort CARDIOVASCULAR: regular rate and rhythm, S1 and 2 heard without murmurs, gallops or rubs, no JVD GASTROINTESTINAL: soft, nontender, nondistended MUSCULOSKELETAL: strength 5/5 throughout, head is normocephalic and atraumatic SKIN: warm and dry NEUROLOGIC: CN 2-12 grossly intact, no gross focal deficits, no sensory deficit, normal cognition PSYCHIATRIC: alert cooperative and oriented to person, place and time Results & Data Vital Signs (Past 12 Hours) Vital Signs Temp Pulse Pulse Pulse Resp BP BP 09/30/18 08:51 36.5 C 92 H 197/122 H 09/30/18 07:51 91 H 09/30/18 07:32 36.5 C 84 20 201/109 H 09/30/18 06:08 93 H 195/107 H 09/30/18 04:00 36.8 C 86 18 181/96 H 09/29/18 23:37 36.5 C 93 H 18 171/98 H 09/29/18 22:20 82 Pulse Ox 09/30/18 08:51 96 09/30/18 07:51 09/30/18 07:32 92 09/30/18 06:08 09/30/18 04:00 96 09/29/18 23:37 92 09/29/18 22:20
--- NOTE | 2018-09-30 12:01 | Gastroenterology Progress Note ---
Date of Service Events noted. Some dizziness upon standing that resolved after vomiting this am. Passing flatus. No abd pain. NGT back on suction. Eager to start clears per surg service. On exam, she appears comfortable. Abd is mod distend, similar to yesterday, tympanic with normal BS. No abd tenderness. A/P: SBO, likely due to stricture from IC valve EMR - Cont management of SBO per surg service. Hgb remains stable without evidence clin sig GIB. - Would consider eventual surgery for IC valve stricture and recurrent neoplasia. September 30, 2018 Results & Data Vital Signs (Past 12 Hours) Vital Signs Temp Pulse Pulse Pulse Resp BP BP 09/30/18 11:39 36.5 C 89 20 206/109 H 09/30/18 08:51 36.5 C 92 H 197/122 H 09/30/18 07:51 91 H 09/30/18 07:32 36.5 C 84 20 201/109 H 09/30/18 06:08 93 H 195/107 H 09/30/18 04:00 36.8 C 86 18 181/96 H Pulse Ox 09/30/18 11:39 97 09/30/18 08:51 96 09/30/18 07:51 09/30/18 07:32 92 09/30/18 06:08 09/30/18 04:00 96
[2018-09-30] MEDS: LACTATED RINGER'S 1,000 ML IV SCH ×2 (13:15→22:16)
[2018-10-01] MEDS: ENALAPRILAT 1.25 MG in DEXTROSE 5% 25 ML IV SCH ×2 (00:29→06:24)
[2018-10-01 06:26] LABS: Hematocrit (blood only) 37.3 % (37-47); Hemoglobin 12.6 g/dL (12.0-16.0); Mean Corpuscular Hgb Conc 33.8 g/dL (32-36); Mean Corpuscular Volume 87.1 fL (80-100); Mean Platelet Volume 9.9 fL (7.4-10.4); Platelet Count 373 K/uL (130-400); RDW Coefficient of Variation 15.3 % (11.5-14.5); RDW Standard Deviation 49.3 fL (36.4-46.3); Red Blood Count 4.28 M/uL (4.2-5.4)
[2018-10-01 06:46] LABS: BUN Creatinine Ratio 12.3 (10-20); Calcium 9.1 mg/dl (8.5-10.1); Est GFR (African American) 67.2; Est GFR (Non-African American) 57.9; Potassium 2.9 mmol/L (3.5-5.1)
[2018-10-01 06:54] LABS: Magnesium 1.8 mg/dl (1.8-2.4)
[2018-10-01] MEDS: LACTATED RINGER'S 1,000 ML IV SCH (08:06)
[2018-10-01] MEDS: FLUOCINONIDE 0.05% CR 15 GM TUBE EXT SCH ×2 (08:06→20:55)
[2018-10-01] MEDS ORDERED: POTASSIUM CHLORIDE 20 MEQ TABCR PO SCH (08:30)
[2018-10-01] MEDS ORDERED: POTASSIUM CHLORIDE IV SCH (08:45)
[2018-10-01] MEDS ORDERED: SODIUM CHLORIDE 0.9% IV SCH (08:45)
[2018-10-01] MEDS ORDERED: MAGNESIUM SULFATE IV SCH (08:45)
--- NOTE | 2018-10-01 09:20 | Gastroenterology Progress Note ---
Date of Service October 01, 2018 Assessment & Plan (1) Small bowel obstruction: 72 year old female admitted w/ SBO, likely due to stricture from IC valve EMR clinically improving, tolerating trial of clear liquids this AM. - No evidence of GIB - Recommend ongoing discussion with surgery to discuss surgical evaluation resection of stenosis. - Continue clear liquids as tolerated this AM - Management of SBO and dietary advancemets per surgery service Will sign off but please call with any questions. Attg add: I interviewed and examined pt, reviewed chart and labs. Pt without GIB, improving SBO. 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 Subjective Pt was seen and evaluated, chart reviewed. NG removed. Tolerated trial of clears. No abd pain. No nausea, vomiting. Moving small stools. Semi-formed. No black or bloody stools. No fever, chills, CP, SOB. Review of Systems Constitutional: no fever, no chills and no fatigue Respiratory: no cough, no dyspnea and no wheezing Cardiovascular: no chest pain, no radiating jaw, neck or arm pain and no syncope Gastrointestinal: no abdominal pain, no nausea, no cramping, no blood in stools and no melena Physical Exam Constitutional: well developed and well nourished; no acute distress Respiratory: normal respiratory effort, lungs clear to auscultation Cardiovascular: RRR, no murmur, no edema Gastrointestinal (Abdomen): Inspection/Auscultation: normal bowel sounds Percussion/Palpation: + abdomen tender and abdomen soft; no guarding and abdomen not rigid Skin: no rashes, warm and dry Results & Data Vital Signs (Past 12 Hours) Vital Signs Temp Pulse Resp BP Pulse Ox 10/01/18 07:05 36.8 C 89 18 186/98 H 95 10/01/18 06:23 174/99 H 10/01/18 03:25 36.7 C 82 20 172/96 H 97 10/01/18 00:10 36.6 C 85 18 139/80 93
[2018-10-01] MEDS: INSULIN ASPART 100 UNITS/ML 3 ML PEN SC SCH ×4 (09:36→20:21)
[2018-10-01] MEDS: LISINOPRIL/HCTZ 20/12.5MG 1 TAB TAB PO SCH (09:49)
[2018-10-01] MEDS: PANTOprazole 40 MG in SYRINGE 0 ML IV SCH (10:09)
--- NOTE | 2018-10-01 11:08 | Surgery Progress Note ---
Date of Service October 01, 2018 Assessment & Plan (1) Small bowel obstruction: Ms. García is a 72 yo female with a history of endoscopic mucosal resection of a polyp near the ileocecal valve. She presented to hospital with a bowel obstruction. Symptoms did start after increasing the fiber in her diet since her procedure. Given close time proximity to this procedure it raises the concern for edema, stricture, or recurrent adenoma. Patient had a repeat CT scan on 09/29/18 which showed progression of oral contrast through small bowel to the colon and rectum however there is an extended length of stenotic thick-walled small bowel extending to the level of the terminal ileum. 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 positive c. diff gene test, negative c. diff toxin Plan: Will plan to advance diet to soft diet today to see if she tolerates. Given the distal ileal and terminal ileal stenosis and thick wall she may require surgical resection if she does not tolerate advancement of diet. Could also consider endoscopic dilation if possible. Would want to speak with patient's endoscopic surgeon (Dr. Aristeo Farris) prior to entertaining this approach. May start oral home meds to help with hypertension OOB to chair and ambulate Continue SCDs and Heparin for VTE ppx replete potassium follow labs Dr. Esposito has seen and examined pt, agrees with above, please see addendum for further recommendations/plan Supervising Physician Co-Signing Physician Notes I have seen and evaluated the patient and reviewed the medical record. I agree with the documentation as provided in this note by Suzanne Rowan PA-C. In review of most recent CT scan contrast is progressing through the colon, and I suspect there is stenosis at the site of endoscopic submucosal resection and proximal to that site, potentially could be adenoma itself. Is tolerating clears, will trial a soft diet today. I am uncertain if she will tolerate this, and there is concern that if strictured it may further stricture over the upcoming months and ultimately need surgical resection. Prior to surgical in tervention would discuss with GI here as well as Dr. Farris as to whether endoscopic evaluation and dilation is a possibility. Subjective feeling better today no nausea or vomiting had coffee and chicken broth this morning and tolerating so far small liquid bowel movements , no formed stool Physical Exam Constitutional: WD/WN, vitals as above no acute distress and not ill appearing Respiratory: normal respiratory effort; no respiratory distress Gastrointestinal (Abdomen): Inspection/Auscultation: abdomen normal to inspection; abdomen not distended Percussion/Palpation: abdomen soft; abdomen nontender, no guarding and abdomen not rigid Skin: no rashes, warm and dry Psychiatric: A+Ox3, euthymic affect Results & Data Vital Signs (Past 12 Hours) Vital Signs Temp Pulse Resp BP Pulse Ox 10/01/18 07:05 36.8 C 89 18 186/98 H 95 10/01/18 06:23 174/99 H 10/01/18 03:25 36.7 C 82 20 172/96 H 97 10/01/18 00:10 36.6 C 85 18 139/80 93 Laboratory Results 10/01/18 10/01/18 10/01/18 Range/Units 07:31 06:00 06:00 WBC 8.00 (4.8-10.8) K/uL RBC 4.28 (4.2-5.4) M/uL Hgb 12.6 (12.0-16.0) g/dL Hct 37.3 (37-47) % MCV 87.1 (80-100) fL MCH 29.4 (25-34) pg MCHC 33.8 (32-36) g/dL RDW Std Deviation 49.3 H (36.4-46.3) fL RDW Coeff of Tin 15.3 H (11.5-14.5) % Plt Count 373 (130-400) K/uL MPV 9.9 (7.4-10.4) fL Sodium 137 (136-145) mmol/L Potassium 2.9 L (3.5-5.1) mmol/L Chloride 101 (98-107) mmol/L Carbon Dioxide 24 (21-32) mmol/L Anion Gap 12.0 H (3-11) BUN 12 (7-18) mg/dl Creatinine 0.97 (0.6-1.2) mg/dl Est Cr Clr Drug Dosing 52.0 ml/min Est GFR ( Amer) 67.2 Est GFR (Non-Af Amer) 57.9 BUN/Creatinine Ratio 12.3 (10-20) Glucose 102 H (70-99) mg/dl POC Glucose 120 H (70-99) Calcium 9.1 (8.5-10.1) mg/dl Magnesium 1.8 (1.8-2.4) mg/dl 09/30/18 09/30/18 Range/Units 17:52 11:51 WBC (4.8-10.8) K/uL RBC (4.2-5.4) M/uL Hgb (12.0-16.0) g/dL Hct (37-47) % MCV (80-100) fL MCH (25-34) pg MCHC (32-36) g/dL RDW Std Deviation (36.4-46.3) fL RDW Coeff of Tin (11.5-14.5) % Plt Count (130-400) K/uL MPV (7.4-10.4) fL Sodium (136-145) mmol/L Potassium (3.5-5.1) mmol/L Chloride (98-107) mmol/L Carbon Dioxide (21-32) mmol/L Anion Gap (3-11) BUN (7-18) mg/dl Creatinine (0.6-1.2) mg/dl Est Cr Clr Drug Dosing ml/min Est GFR ( Amer) Est GFR (Non-Af Amer) BUN/Creatinine Ratio (10-20) Glucose (70-99) mg/dl POC Glucose 108 H 109 H (70-99) Calcium (8.5-10.1) mg/dl Magnesium (1.8-2.4) mg/dl Diagnostic Findings CT abd pelvis wo con CLINICAL HISTORY: 72 years-old Female presenting with new abd pain. TECHNIQUE: Multidetector CT of the abdomen and pelvis was performed without the use of intravenous contrast. IV contrast: None. One or more dose lowering techniques were used consistent with the principles of ALARA (as low as reasonably achievable), including automatic exposure control, mA or kV adjustment to individual patient size, and/or use of iterative reconstruction. COMPARISON: 09/27/2018. CT DOSE (mGy.cm): The estimated cumulative dose is 1060.21 mGy.cm. FINDINGS: Hay Chopper topogram: Orthopedic hardware. Dilated small bowel. Lung bases: Normal heart size. Coronary artery and aortic valve calcification. No pericardial or pleural effusion. Minimal dependent changes likely atelectasis. Liver: Normal morphology. Density consistent with hepatic steatosis. Biliary: No gross biliary ductal dilatation allowing for noncontrast technique. Gallbladder surgically absent. Pancreas: Moderate parenchymal atrophy. Spleen: Normal noncontrast appearance. Adrenal glands: Normal noncontrast appearance. Kidneys and ureters: Normal noncontrast appearance. No nephrolithiasis. No hydronephrosis. Normal ureters. Bladder: Normal. Pelvic organs: Normal noncontrast appearance. Bowel: Diverticulosis of the sigmoid and descending colon. No wall thickening of or pericolonic inflammatory change. Residual oral contrast is noted in the colon, which has progressed to the rectum. The appendix is normal. A nasogastric tube terminates in the gastric antrum. Duodenal diverticulum at the level the pancreatic head. Mild distention of the mid ileum, which has decreased from prior. Smooth transition at the upper stream portion. Some oral contrast remains within the ileum. There is a smooth transition to a narrow caliber in the distal ileum, where there is circumferential wall thickening (series 3 image 292). An extended length of stenotic appearing small bowel measuring 20 to 30 cm is noted. This extends to the terminal ileum. No associated surrounding inflammatory change. Peritoneal cavity: Mild mesenteric edema associated with the dilated bowel loops. Decreased interloop fluid. No free intraperitoneal gas. Lymph nodes: No gross lymphadenopathy allowing for noncontrast technique. Vasculature: Atherosclerosis of the normal caliber abdominal aorta. Abdominal wall: Normal. Musculoskeletal: Right hip arthroplasty. Degenerative changes of the left hip and spine. IMPRESSION: 1. Continued decrease in small bowel distention and passage of oral contrast to the level of the rectum. No complete bowel obstruction. Findings suggest a resolving functional and/or partial bowel obstruction at the site of a caliber transition in the distal ileum, where there is an extended length of stenotic thick-walled small bowel extending to the level of the terminal ileum. 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 2. Resolving findings of congestive change within the mesentery consistent with less than small bowel distention. 3. Diverticulosis coli. No evidence of diverticulitis. 4. Hepatic steatosis.
[2018-10-01] MEDS: PANTOprazole 40 MG TAB PO SCH (20:54)
--- NOTE | 2018-10-01 21:51 | Hospitalist Progress Note ---
Date of Service October 01, 2018 Assessment & Plan (1) Hypokalemia: likely 2/2 GI losses. Replace and repeat in am. (2) HTN (hypertension): Restarted her lis/HCTZ. DC's Vasotec. (3) Small bowel obstruction: History of tubulovillous adenoma of the ileocecal valve. Gen Surgery and GI teams are discussing retirement disposition recommendations regarding treatment of this area. However, for now her obstruction has resolved and she is advancing well on her solid diet. (4) CKD (chronic kidney disease), stage III: Around baseline creatinine. (5) Diabetes mellitus, type II: Insulin sliding scale. Currently at goal. Change to ACHS once eating. (6) Vitamin D deficiency: ergocalciferol x 12 weeks. (7) DVT prophylaxis: Lovenox Full Code Dispo-home when medically stable. Danya Milian DO [facility] Hospitalist Subjective feeling well DC NGT yesterday and tolerating solids denies abd pain +flatus improved since admission. Review of Systems Review of Systems: All systems reviewed & are unremarkable except as noted in HPI & below Physical Exam Physical Exam: CONSTITUTIONAL: WNWD, vitals as above, generally well- appearing EYES: normal conjunctivae, no scleral icterus ENT: MMM RESPIRATORY: clear to auscultation bilaterally, no crackles, rales or wheezes, normal respiratory effort CARDIOVASCULAR: regular rate and rhythm, S1 and 2 heard without murmurs, gallops or rubs, no JVD GASTROINTESTINAL: soft, nontender, nondistended MUSCULOSKELETAL: strength 5/5 throughout, head is normocephalic and atraumatic SKIN: warm and dry NEUROLOGIC: CN 2-12 grossly intact, no gross focal deficits, no sensory d eficit, normal cognition PSYCHIATRIC: alert cooperative and oriented to person, place and time Results & Data Vital Signs (Past 12 Hours) Vital Signs Temp Pulse Pulse Resp BP BP Pulse Ox 10/01/18 18:55 36.7 C 80 22 169/91 H 94 10/01/18 16:42 87 10/01/18 15:53 196/93 H 10/01/18 15:12 36.5 C 87 18 202/96 H 190/96 H 97 10/01/18 11:32 36.4 C L 81 18 160/83 H 94 Laboratory Results Short CBC 10/01/18 Range/Units 06:00 WBC 8.00 (4.8-10.8) K/uL Hgb 12.6 (12.0-16.0) g/dL Hct 37.3 (37-47) % Plt Count 373 (130-400) K/uL BMP 10/01/18 06:00 Sodium 137 Potassium 2.9 L Chloride 101 Carbon Dioxide 24 BUN 12 Creatinine 0.97 Glucose 102 H Calcium 9.1 Medications Administered Current Inpatient Medications Dextrose (Dextrose 50%) 25 - 50 ml IV UD PRN; Protocol PRN Reason: Hypoglycemia Protocol Stop: 10/27/18 00:44 Ergocalciferol (Vitamin D2) 50,000 units PO Q7D@0900 [facility] Stop: 10/29/18 08:59 Fluocinonide (Lidex 0.5%) 1 appln EXT BID [facility] Stop: 10/27/18 08:59 Last Admin: 10/01/18 20:55 Dose: 1 appln Documented by: Glucagon (Glucagen) 1 mg SQ UD PRN; Protocol PRN Reason: Hypoglycemia Protocol Stop: 10/27/18 00:44 Glucose (Glucose 40%) 15 - 30 gm PO UD PRN; Protocol PRN Reason: Hypoglycemia Protocol Stop: 10/27/18 00:44 Glucose (Dex4 Glucose) 4 - 8 tabs PO UD PRN; Protocol PRN Reason: Hypoglycemia Protocol Stop: 10/27/18 00:44 Lisinopril/HCTZ (Prinzide 20/12.5mg) 1 tab PO QAM [facility] Stop: 10/31/18 09:29 Last Admin: 10/01/18 09:49 Dose: 1 tab Documented by: Hydromorphone HCl (Dilaudid) 0.5 mg IV Q3H PRN PRN Reason: Pain Stop: 10/10/18 21:51 Last Admin: 09/27/18 15:30 Dose: 0.5 mg Documented by: Promethazine HCl 12.5 mg/ (Sodium Chloride) 50.5 mls @ 202 mls/hr IV Q6H PRN PRN Reason: Nausea And Vomiting Stop: 10/26/18 21:51 Last Infusion: 09/27/18 03:23 Dose: Infused Documented by: Acetaminophen (Ofirmev) 1,000 mg in 100 mls @ 400 mls/hr IV Q8H PRN PRN Reason: other Stop: 10/27/18 20:00 Last Infusion: 09/30/18 09:30 Dose: Infused Documented by: Lorazepam (Ativan) 0.25 mg in 0.5 mls @ 0.5 mls/min IV Q8H PRN PRN Reason: Anxiety Stop: 10/27/18 20:59 Last Admin: 09/30/18 22:14 Dose: 0.5 mls/min Documented by: Insulin Aspart (Novolog Flexpen) 0 units SC ACHS [facility] Stop: 10/31/18 07:29 Last Admin: 10/01/18 20:21 Dose: Not Given Documented by: Miscellaneous (Carbohydrates For Hypoglycemia) 15 - 30 gm PO UD PRN PRN Reason: Hypoglycemia Treatment Stop: 10/27/18 00:44 Ondansetron HCl (Zofran) 4 mg IV Q4H PRN PRN Reason: Nausea Stop: 10/27/18 11:32 Last Admin: 09/28/18 22:25 Dose: 4 mg Documented by: Pantoprazole Sodium (Protonix) 40 mg PO BID [facility] Stop: 10/31/18 20:59 Last Admin: 10/01/18 20:54 Dose: 40 mg Documented by: Tramadol HCl (Ultram) 25 - 50 mg PO Q4H PRN PRN Reason: Pain Stop: 10/26/18 21:51
[2018-10-01] MEDS ORDERED: HydrALAZINE HCL 20 MG/ML VIAL IV PRN (23:12)
[2018-10-02] MEDS: LORazepam 0.25 MG/0.5 ML VIAL IV PRN
[2018-10-02 06:46] LABS: Hemoglobin 11.9 g/dL (12.0-16.0); Mean Corpuscular Volume 87.3 fL (80-100); Mean Platelet Volume 9.5 fL (7.4-10.4); Platelet Count 352 K/uL (130-400); RDW Coefficient of Variation 15.2 % (11.5-14.5); Red Blood Count 4.01 M/uL (4.2-5.4); White Blood Count 7.59 K/uL (4.8-10.8)
[2018-10-02 07:23] LABS: Potassium 3.2 mmol/L (3.5-5.1)
[2018-10-02 07:24] LABS: BUN Creatinine Ratio 12.4 (10-20); Calcium 9.2 mg/dl (8.5-10.1); Est GFR (African American) 51.9; Est GFR (Non-African American) 44.8; Magnesium 1.9 mg/dl (1.8-2.4)
[2018-10-02] MEDS: FLUOCINONIDE 0.05% CR 15 GM TUBE EXT SCH (08:19)
[2018-10-02] MEDS: LISINOPRIL/HCTZ 20/12.5MG 1 TAB TAB PO SCH (08:20)
[2018-10-02] MEDS: PANTOprazole 40 MG TAB PO SCH (08:20)
[2018-10-02] MEDS ORDERED: ENOXAPARIN INJ 40 MG/0.4 ML SYR SQ SCH (09:00)
[2018-10-02] MEDS: INSULIN ASPART 100 UNITS/ML 3 ML PEN SC SCH (09:47)
[2018-10-02] MEDS ORDERED: POTASSIUM CHLORIDE 20 MEQ TABCR PO STA (10:21)
--- NOTE | 2018-10-02 10:28 | Discharge Summary ---
Date of Service October 02, 2018 Admission HPI Per Admitting Provider This is a 72yo F with a PMH of tubulovillous adenoma of colon s/p excision, IBS- D, DM II, CKD III, HTN and other medical problems listed below who presents with abdominal pain, nausea and vomiting. Was admitted earlier this week from 09/23-09/24 for enterocolitis, elevated lactate and syncopal episode in setting of dehydration. Was discharged the following day after lactate normalized and patient was adequately hydrated. Was instructed to continue liquid diet and felt well until last evening, when lower abdominal pain recurred with some radiation to mid-abdomen. Also had diarrhea last evening. Today, abdominal pain continued and patient had 2 bouts of emesis and then 2 more since arrival to ED. [place] lightheaded at home. Denies fever, chills, headache, cough, chest pain, palpitations, shortness of breath, dysuria or hematuria. Patient is hemodynamically stable and afebrile. No leukocytosis. Lactate is elevated at 3.9 and creatinine is elevated at 1.83 (baseline mid-ones). CT abdomen pelvis reveals findings consistent with small bowel obstruction. General surgery was consulted and evaluated patient in ED. NG tube will be placed, patient will be kept NPO with IV fluids. Repeat lactate. Of note, patient was diagnosed with tubulovillous adenoma of ileocecal valve on colonoscopy in March 2018 and is s/p endoscopic mucosal resection in May 2018 and again on August 24 at [facility] in [place]. Biopsies have reportedly been negative for malignancy. Admission Exam Per Admitting Provider General Appearance: WD/WN, no apparent distress, resting comfortably Head: normocephalic, atraumatic Eyes: normal inspection, PERRL, EOMI ENT: hearing grossly normal, pharynx (dry mucous membranes) Neck: supple, no JVD, no adenopathy Respiratory/Chest: lungs clear to auscultation. No wheezes, rales or rhonci. No respiratory distress or accessory muscle use Cardiovascular: regular rate, rhythm, no murmur, normal peripheral pulses Abdomen/GI: sluggish bowel sounds, soft, diffusely tender to palpation but no guarding Extremities/Musculoskelatal: normal inspection, no calf tenderness, normal capillary refill, no pedal edema Neurologic/Psych: alert, normal mood/affect, oriented x 3 Skin: normal color, warm/dry Principal Diagnosis SBO, Hypertension Discharge Data Allergies Allergy/AdvReac Type Severity Reaction Status Date / Time Penicillins Allergy Unknown Verified 09/26/18 19:49 nickel Allergy . Unverified 09/26/18 19:50 Consultations 09/26/18 23:02 ED Decision to Admit Stat 09/27/18 00:45 Consult General Surgery Routine 09/28/18 12:05 Consult Infectious Diseases Routine 09/29/18 07:56 Consult Gastroenterology Routine Ordered Studies 09/26/18 19:48 CT abd pelvis wo con Stat 09/27/18 11:28 CT abd pelvis oral con only Stat 09/29/18 03:07 CT abd pelvis wo con Urgent Hospital Course (1) Hypokalemia: likely 2/2 GI losses. Replaced (2) HTN (hypertension): Restarted her lis/HCTZ. DC's Vasotec. (3) Small bowel obstruction: History of tubulovillous adenoma of the ileocecal valve. Gen Surgery and GI teams are discussing rat exterminator disposition recommendations regarding treatment of this area. However, for now her obstruction has resolved after NGT placement and she is advancing well on her solid diet. (4) CKD (chronic kidney disease), stage III: Around baseline creatinine. (5) Diabetes mellitus, type II: Insulin sliding scale. Currently at goal. (6) Vitamin D deficiency: ergocalciferol x 12 weeks. (7) DVT prophylaxis: Lovenox Full Code Dispo-home when medically stable. At time of discharge she was hemodynamically stable and afebrile and was tolerating PO. She was mentating and ambulating at baseline and doing well. She was discharged in stable condition with close promary care follow-up recommended. Total Time Total Time Spent Total Time Spent (In Minutes): 60 Total Time Includes: Examination of the Patient, Discharge Planning, Medication Reconciliation and Communication With Other Providers Discharge Plan Discharge Items Patient Disposition: Home - Self-Care Reason For Visit: HTN URGENCY, SBO Discharge Diagnosis: SBO, Hypertension Condition: Good Discharge Goals: Learn about illness and Prevent disease Activity: Resume your previous activity Non-emergency contact: Primary Care Provider Call non-emergency contact if: you have any medication questions, your symptoms worsen, your pain is not controlled and you have a fever Follow-up/Referrals: Maribel Valle MD [Primary Care Provider] - Diet: Carb Consistent or DM2 Addtl Provider Instructions: Please take all medications as instructed on discharge list below. It is recommended that you followup with your primary care physician within one week of discharge. You have an appointment scheduled with Dr. Maribel Valle on 10/08 @ 11:05am. Please take all discharge paperwork with you to this appointment. It was a pleasure taking care of you! Please call if you have any questions or problems. You can reach a [facility] hospitalist on duty at [facility] 24 hours a day by calling [phone]. Take care of yourself. Danya Milian, DO [facility] Pres[facility]: New ergocalciferol (vitamin D2) [Vitamin D2] 50,000 unit Capsule 50,000 unit PO Q7D@0900 Qty: 12 RF: 0 Continued metformin 1,000 mg tablet 1,000 mg PO AMPM RF: 0 lisinopril-hydrochlorothiazide 20-12.5 mg tablet 1 tab PO DAILY RF: 0 aspirin [Aspirin Low Dose] 81 mg Tablet,Delayed Release (Dr/Ec) 81 mg PO QPM RF: 0 atorvastatin 40 mg Tablet 40 mg PO QPM RF: 0 diltiazem HCl [Cartia XT] 180 mg Capsule,Extended Release 24hr 180 mg PO QPM RF: 0 cyanocobalamin (vitamin B-12) [Vitamin B-12] 1,000 mcg Tablet 1,000 mcg PO DAILY RF: 0 fluocinonide 0.05 % Cream 1 applic TOPICAL BID RF: 0 Probiotic 3 billion cell Capsule 3,000 mmu cells PO DAILY RF: 0 Stand-Alone Forms: Call Back Authorization, [facility] Discharge Orders: Discharge Order (Routine); Ordered 10/02/18 Ordered By: Danya Milian Admission Data Admit Date/Time: 09/26/18 22:54 Attending Provider: Danya Milian Admit Provider: Momo Motta Primary Care Provider: Maribel Valle Other Providers: Momo Motta ; Armando Garza ; Lynn Mendieta Service: Telemetry Medical Other Interventions: Discharge Summary Assessment (RN) Last Done: 10/02/18 12:23 DC Date/Time DO NOT enter until pt leaves facility: 10/02/18 12:54
--- NOTE | 2018-10-02 15:38 | Surgery Progress Note ---
Date of Service patient seen at 9:00 on 10/02/2018 October 02, 2018 Assessment & Plan (1) Small bowel obstruction: Ms. García is a 72 yo female with a history of endoscopic mucosal resection of a polyp near the ileocecal valve. She presented to hospital with a bowel obstruction. Symptoms did start after increasing the fiber in her diet since her procedure. Given close time proximity to this procedure it raises the concern for edema, stricture, or recurrent adenoma. Patient had a repeat CT scan on 09/29/18 which showed progression of oral contrast through small bowel to the colon and rectum however there is an extended length of stenotic thick-walled small bowel extending to the level of the terminal ileum. 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 positive c. diff gene test, negative c. diff toxin Plan: Had discussion with patient in regards to further management. She is tolerating diet and there is no signs of acute obstruction. She has another endoscopy scheduled for January with [facility]. Discussed with GI and they are recommending surgical resection given findings of CT scan and possibility of recurrence of adenoma at the ileocecal valve. Discussed with patient that she would need to have discussion with her endoscopist and determine further plans (i.e. either further endoscopic evaluation and management either resection or dilatation for stricture or ultimately surgical resection). In meantime, do not feel acute surgical intervention is required. Recommend low fiber diet for next few weeks and bowel regimen to prevent constipaton. Follow closely with Dr. Kessler Discussed with Dr. Souza and Dr. Esposito who agrees with above Subjective feeling good tolerating low fiber diet no nausea or vomiting liquid bowel movement this morning, no blood no abdominal pain Physical Exam Constitutional: WD/WN, vitals as above + obese; no acute distress Respiratory: normal respiratory effort; no respiratory distress Gastrointestinal (Abdomen): Inspection/Auscultation: abdomen normal to inspection; abdomen not distended Percussion/Palpation: abdomen soft; abdomen nontender, no guarding and abdomen not rigid Skin: no rashes, warm and dry Psychiatric: A+Ox3, euthymic affect Results & Data Vital Signs (Past 12 Hours) Vital Signs Temp Pulse Pulse Resp BP BP Pulse Ox 10/02/18 12:23 36.6 C 85 85 18 124/83 196/93 H 97 10/02/18 11:32 85 85 18 124/83 97 10/02/18 07:45 36.6 C 81 18 122/87 97 10/02/18 03:37 36.5 C 75 20 146/80 H 93 Laboratory Results 10/02/18 10/02/18 10/02/18 Range/Units 11:40 07:39 06:20 WBC (4.8-10.8) K/uL RBC (4.2-5.4) M/uL Hgb (12.0-16.0) g/dL Hct (37-47) % MCV (80-100) fL MCH (25-34) pg MCHC (32-36) g/dL RDW Std Deviation (36.4-46.3) fL RDW Coeff of Tin (11.5-14.5) % Plt Count (130-400) K/uL MPV (7.4-10.4) fL Sodium 138 (136-145) mmol/L Potassium 3.2 L (3.5-5.1) mmol/L Chloride 102 (98-107) mmol/L Carbon Dioxide 27 (21-32) mmol/L Anion Gap 9.0 (3-11) BUN 15 (7-18) mg/dl Creatinine 1.20 (0.6-1.2) mg/dl Est Cr Clr Drug Dosing 42.0 ml/min Est GFR ( Amer) 51.9 Est GFR (Non-Af Amer) 44.8 BUN/Creatinine Ratio 12.4 (10-20) Glucose 102 H (70-99) mg/dl POC Glucose 95 112 H (70-99) Calcium 9.2 (8.5-10.1) mg/dl Magnesium 1.9 (1.8-2.4) mg/dl 10/02/18 10/01/18 10/01/18 Range/Units 06:20 20:10 16:09 WBC 7.59 (4.8-10.8) K/uL RBC 4.01 L (4.2-5.4) M/uL Hgb 11.9 L (12.0-16.0) g/dL Hct 35.0 L (37-47) % MCV 87.3 (80-100) fL MCH 29.7 (25-34) pg MCHC 34.0 (32-36) g/dL RDW Std Deviation 49.0 H (36.4-46.3) fL RDW Coeff of Tin 15.2 H (11.5-14.5) % Plt Count 352 (130-400) K/uL MPV 9.5 (7.4-10.4) fL Sodium (136-145) mmol/L Potassium (3.5-5.1) mmol/L Chloride (98-107) mmol/L Carbon Dioxide (21-32) mmol/L Anion Gap (3-11) BUN (7-18) mg/dl Creatinine (0.6-1.2) mg/dl Est Cr Clr Drug Dosing ml/min Est GFR ( Amer) Est GFR (Non-Af Amer) BUN/Creatinine Ratio (10-20) Glucose (70-99) mg/dl POC Glucose 106 H 101 H (70-99) Calcium (8.5-10.1) mg/dl Magnesium (1.8-2.4) mg/dl
== END 2018-10-02 12:54 | disposition home or self-care (01) | DRG 389 ==
LOC: ED 17:05 → 2N 22:54
DX: Z79.82 Long term (current) use of aspirin; E66.9 Obesity, unspecified; E11.22 Type 2 diabetes mellitus with diabetic chronic kidney disease; E86.0 Dehydration; E87.6 Hypokalemia; K52.9 Noninfective gastroenteritis and colitis, unspecified; Z96.659 Presence of unspecified artificial knee joint; I16.0 Hypertensive urgency; R74.0 Nonspecific elevation of levels of transaminase and lactic acid dehydrogenase [LDH]; N17.9 Acute kidney failure, unspecified; K58.0 Irritable bowel syndrome with diarrhea; Z88.0 Allergy status to penicillin; Z96.649 Presence of unspecified artificial hip joint; E83.52 Hypercalcemia; R55 Syncope and collapse; N18.3 Chronic kidney disease, stage 3 (moderate); I12.9 Hypertensive chronic kidney disease with stage 1 through stage 4 chronic kidney disease, or unspecified chronic kidney disease; Z79.899 Other long term (current) drug therapy; Z86.010 Personal history of colon polyps; Z68.35 Body mass index [BMI] 35.0-35.9, adult; K56.699 Other intestinal obstruction unspecified as to partial versus complete obstruction

== ENCOUNTER 2020-03-10 14:53 | Inpatient (IN) ==
[2020-03-10] MEDS ORDERED: SODIUM CHLORIDE 0.9% 1000ML 1,000 ML IV ONE (15:21)
--- NOTE | 2020-03-10 15:37 | Emergency Department Note ---
Impression & Plan SBO (small bowel obstruction), Abdominal pain, Leukocytosis ED Provider Note NAME: MINOR KUO AGE: 74 SEX: F : 1945 ARRIVES VIA: Ambulance INFORMANT: Patient ED PROVIDER(S): Link Ortiz DO CHIEF COMPLAINT: Abdominal pain HPI: Patient is a 74-year-old female who presents the ER for one episode of vomiting this morning. She ate dinner last night without difficulty. She has a history of a previous bowel obstructions. She notes that she has been burping. Last bowel movement was this morning. She notes she has lower abdominal pain. Pain is a 7 out of 10. Does not want anything for her pain. No other exacerbating or remitting factors. ROS: See above HPI for pertinent positives & negatives. A total of 10 systems reviewed and were otherwise negative. PAST MEDICAL HISTORY:See Below PAST SURGICAL HISTORY:See Below FAMILY HISTORY:See Below SOCIAL HISTORY:See Below HOME MEDICATIONS:See Below ALLERGIES:See Below VITALS:See Below PHYSICAL EXAMINATION: GENERAL: Sitting up in bed, alert, well appearing, well nourished, no distress, non-toxic EYE EXAM: normal conjunctiva. OROPHARYNX: no exudate, no erythema, lips, buccal mucosa, and tongue normal and mucous membranes are moist NECK: supple, no nuchal rigidity, no adenopathy, non-tender LUNGS: Clear to auscultation. Normal chest wall mechanics HEART: no murmurs, S1 normal and S2 normal ABDOMEN: abdomen soft, non-tender, normo-active bowel sounds, no masses, no rebound or guarding. UPPER EXTREMITIES: upper extremities are grossly normal. LOWER EXTREMITIES: No pitting edema. NEURO EXAM: Normal sensorium, cranial nerves II-XII grossly intact, normal speech, no gross weakness of arms, no gross weakness of legs. MEDICAL DECISION MAKING: Patient is a 74-year-old female who presents the ER for abdominal pain. She is concerned that she may have another small bowel obstruction and she has had this once before in the past. IV was established blood work was obtained. Labs show mild leukocytosis of 15,000. No significant anemia. BMP was remarkable for creatinine 1.4. LFTs bilirubin was unremarkable. Lipase was normal. CT abdomen pelvis shows a small bowel obstruction. She only had 1 episode of vomiting today. She did request pain medications was given IV fluids Zofran and morphine. She was updated bedside. Discussed with the hospitalist for further evaluation. Triage Nursing notes reviewed. Prior medical records reviewed Vital Signs: reviewed and remarkable for HTN Differential diagnosis: Differential diagnoses includes but is not limited to gastritis, peptic ulcer disease, GERD, gallbladder disease, pancreatitis, small bowel obstruction, acute coronary syndrome, pericarditis, ischemic bowel, irritable bowel disease, irritable bowel syndrome, appendicitis, diverticulitis, malignancy, hernia, urinary tract infection, torsion, perforation, trauma, infectious. ER treatment provided: See below Diagnostics interpreted by me: ECG: none Cardiac Monitoring: An order was placed for continuous cardiac monitoring. The monitor shows a rate of 80 with sinus rhythm. Laboratory studies: As stated above and show below. Imaging studies: CT abdomen pelvis shows small bowel obstruction Consultation(s): Discussed with Sherly from [facility] Hospitalist service ED COURSE: Procedures: none Critical Care: None Past Med/Surg History Medical History (Updated 03/10/20 @ 17:25 by Link Ortiz, DO) Aortic stenosis "MODERATE" - NO SYMPTOMS - FOLLOWS [facility] CARDIO Arthritis CKD (chronic kidney disease), stage III Diabetes mellitus, type II Fatty liver History of skin cancer RECENT / FACE / REMOVAL TO TAKE PLACE END OF THIS MONTH, BASAL CELL HTN (hypertension) Small bowel obstruction HX 2019 Surgical History (Updated 01/17/20 @ 07:54 by Juan David Hill MD, FACS) H/O breast biopsy open, benign, 1972 H/O breast surgery (01/08/20) Excision of epidermoid cyst, left breast. Dr. Hill 01/08/2020 History of cholecystectomy History of total right knee replacement S/P colonoscopy May 31 2018 and Aug 24 2018 11/14/18, 05/17/19 in [place]. "Clean up procedure, biopsies negative" 2008, precancer at ileocecal valve 02/2010, repeat done and polyp, ileocecal valve looked good, [place] for 3 years, [place]. 03/06, polyp, repeat in 3 years. S/P hip replacement Right S/P tonsillectomy and adenoidectomy S/P tooth extraction Family History Mother Heart disease Father Heart disease Denies family history of Ovarian cancer Breast cancer Colorectal cancer Social History (Updated 05/21/19 @ 08:53 by Christie Lucas) Smoking Status: Never smoker Second Hand Exposure: No; Hx Alcohol Use: Yes Alcohol type: beer and wine Hx Substance Use: No Preferred Language: Citizen Of [place] Communication Ability: Effective Teamsite Developer Required: No Beliefs That Will Affect Care: Jehovah'S Witness Jehovah'S Witness Beliefs: PENTECOSTAL marital status: Current Living Situation: Spouse current occupational status: retired Feels Safe at Home: Yes Assistive Devices: Cane Allergies Allergies Allergy/AdvReac Type Severity Reaction Status Date / Time nickel Allergy Unknown ITCHY / Verified 03/10/20 17:23 BLISTERS Penicillins Allergy Unknown REMOTE HX, Verified 03/10/20 17:23 NOT SURE REACTION ? RASH sulfamethoxazole AdvReac Unknown AFFECTED Verified 03/10/20 17:23 [From Bactrim] KIDNEYS trimethoprim [From Bactrim] AdvReac Unknown AFFECTED Verified 03/10/20 17:23 KIDNEYS Home Meds Home Medications Medication Instructions Recorded Confirmed aspirin [Aspirin Low Dose] 81 mg PO QPM 09/23/18 03/10/20 atorvastatin 40 mg PO QPM 09/23/18 03/10/20 cyanocobalamin (vitamin B-12) 1,000 mcg PO DAILY 09/23/18 03/10/20 [Vitamin B-12] diltiazem HCl [Cartia XT] 180 mg PO QPM 09/23/18 03/10/20 fluocinonide 1 applic TOPICAL DAILY 09/23/18 03/10/20 hydrochlorothiazide 12.5 mg capsule 12.5 mg PO QAM 05/21/19 03/10/20 lisinopril 10 mg tablet 10 mg PO QAM 05/21/19 03/10/20 metformin 1,000 mg tablet 1,000 mg PO BID tab 05/21/19 03/10/20 Probiotic Digestive Care 1 cell PO QAM 11/19/19 03/10/20 acetaminophen 325 - 650 mg PO Q4 PRN 11/19/19 03/10/20 ascorbic acid (vitamin C) 1 g PO DAILY 11/19/19 03/10/20 clobetasol 1 appln TOP 2XWK 11/19/19 03/10/20 Results & Data (ED) Vital Signs Vital Signs - 24 hr 03/10/20 14:59 03/10/20 15:02 03/10/20 15:21 Temperature 36.8 C Temperature Source Oral Pulse Rate 86 90 Pulse Rate from SpO2 Sensor Respiratory Rate 18 Respiratory Depth Normal Blood Pressure 176/98 H 176/98 H Blood Pressure Mean 124 124 Pulse Oximetry 97 Oxygen Delivery Method Room Air Sepsis Recent Fever Within 48 Hours No Sepsis New/Unexplained Change in Mental Status No Sepsis Action Taken by Nursing No Action Required 03/10/20 15:30 03/10/20 16:00 03/10/20 16:30 Temperature Temperature Source Pulse Rate 85 78 75 Pulse Rate from SpO2 Sensor 75 Respiratory Rate 24 27 H 22 Respiratory Depth Blood Pressure Blood Pressure Mean Pulse Oximetry 95 Oxygen Delivery Method Sepsis Recent Fever Within 48 Hours Sepsis New/Unexplained Change in Mental Status Sepsis Action Taken by Nursing 03/10/20 16:49 Temperature Temperature Source Pulse Rate 83 Pulse Rate from SpO2 Sensor 84 Respiratory Rate 25 H Respiratory Depth Blood Pressure 182/86 H Blood Pressure Mean 105 Pulse Oximetry 96 Oxygen Delivery Method Sepsis Recent Fever Within 48 Hours Sepsis New/Unexplained Change in Mental Status Sepsis Action Taken by Nursing Laboratory Data Result diagrams: 03/10/20 15:30 03/10/20 15:30 Lab Results 03/10/20 03/10/20 03/10/20 Range/Units 15:30 15:30 15:37 WBC 15.34 H (4.8-10.8) K/uL RBC 4.73 (4.2-5.4) M/uL Hgb 14.1 (12.0-16.0) g/dL POC Hgb 14.6 (12.0-16.0) g/dl Hct 41.6 (37-47) % POC Hct 43 (37-47) % MCV 87.9 (80-100) fL MCH 29.8 (25-34) pg MCHC 33.9 (32-36) g/dL RDW Std Deviation 49.8 H (36.4-46.3) fL RDW Coeff of Tin 15.3 H (11.5-14.5) % Plt Count 434 H (130-400) K/uL MPV 10.0 (7.4-10.4) fL Immature Gran % (Auto) 0.3 % Neut % (Auto) 85.4 % Lymph % (Auto) 8.8 % [place] % (Auto) 5.1 % Eos % (Auto) 0.3 % Baso % (Auto) 0.1 % Neut # (Auto) 13.11 H (1.4-6.5) K/uL Lymph # (Auto) 1.35 (1.2-3.4) K/uL [place] # (Auto) 0.78 H (0.11-0.59) K/uL Eos # (Auto) 0.04 (0-0.5) K/uL Baso # (Auto) 0.02 (0-0.2) K/uL Immature Gran # (Auto) 0.04 H (0.00-0.02) K/uL POC Sodium 136 (135-144) mmol/L Sodium 137 (136-145) mmol/L POC Potassium 3.9 (3.3-5.0) mmol/L Potassium 3.8 (3.5-5.1) mmol/L POC Chloride 101 (101-112) mmol/L Chloride 104 (98-107) mmol/L Carbon Dioxide 25 (21-32) mmol/L POC Total CO2 25 (24-31) mmol/L Anion Gap 8.0 (3-11) POC Anion Gap 14.0 L (16-25) mmol/L POC BUN 23 H (7-18) mg/dl BUN 21 H (7-18) mg/dl Creatinine 1.39 H (0.6-1.2) mg/dl POC Creatinine 1.3 (0.6-1.3) mg/dl Est Cr Clr Drug Dosing 34.3 ml/min Est GFR ( Amer) 42.9 Est GFR (Non-Af Amer) 37.0 BUN/Creatinine Ratio 15.1 (10-20) Glucose 152 H (70-99) mg/dl POC Glucose (other) 151 H (70-99) mg/dl Calcium 10.1 (8.5-10.1) mg/dl POC Ioniz Calcium Ene 1.14 (1.12-1.32) mmol/l Total Bilirubin 0.9 (0.2-1) mg/dl AST 12 L (15-37) U/L ALT 21 (12-78) U/L Alkaline Phosphatase 91 (45-117) U/L Total Protein 8.2 (6.4-8.2) gm/dl Albumin 4.3 (3.4-5.0) gm/dl Globulin 3.9 (2.5-4.0) gm/dl Albumin/Globulin Ratio 1.1 (0.9-2) Lipase 139 (73-393) U/L Administered Medications Discontinued Medications Sodium Chloride (Nss 1000ml) 1,000 mls @ 999 mls/hr IV .Q1H1M ONE Stop: 03/10/20 16:21 Last Infusion: 03/10/20 16:53 Dose: 0 mls/hr Documented by: [id number] Admin: 03/10/20 15:42 Dose: 999 mls/hr Documented by: [id number] Ioversol (Ioversol 100ml) 94 ml IV ONCE ONE Stop: 03/10/20 16:14 Last Admin: 03/10/20 16:13 Dose: 94 ml Documented by: [id number] Morphine Sulfate (Morphine Sulfate 4 Mg/Ml 1 Ml Carp\\Vial) 4 mg IV NOW STA Stop: 03/10/20 16:32 Last Admin: 03/10/20 16:48 Dose: 4 mg Documented by: [id number] Ondansetron HCl (Ondansetron Inj 2 Mg/Ml 2 Ml Vial) 4 mg IV NOW STA Stop: 03/10/20 16:32 Last Admin: 03/10/20 16:48 Dose: 4 mg Documented by: [id number] Discharge Plan Visit Data Chief Complaint: Abdominal Pain Stated Complaint: Lower Abd Pain ED Provider: Link Ortiz Discharge Problem: SBO (small bowel obstruction), Abdominal pain, Leukocytosis Forms Stand Alone Forms: [facility] Prescriptions Prescriptions: No Action lisinopril 10 mg tablet 10 mg PO QAM RF: 0 hydrochlorothiazide 12.5 mg capsule 12.5 mg PO QAM RF: 0 metformin 1,000 mg tablet 1,000 mg PO BID RF: 0 ascorbic acid (vitamin C) 1,000 mg Tablet 1 g PO DAILY RF: 0 clobetasol 0.05 % ointment 1 appln TOP 2XWK RF: 0 Probiotic Digestive Care 20 billion cell Capsule 1 cell PO QAM RF: 0 acetaminophen 325 mg Tablet 325 - 650 mg PO Q4 PRN (Reason: Pain) RF: 0 aspirin [Aspirin Low Dose] 81 mg Tablet,Delayed Release (Dr/Ec) 81 mg PO QPM RF: 0 atorvastatin 40 mg Tablet 40 mg PO QPM RF: 0 diltiazem HCl [Cartia XT] 180 mg Capsule,Extended Release 24hr 180 mg PO QPM RF: 0 cyanocobalamin (vitamin B-12) [Vitamin B-12] 1,000 mcg Tablet 1,000 mcg PO DAILY RF: 0 fluocinonide 0.05 % Cream 1 applic TOPICAL DAILY RF: 0 Discharge Problem: Abdominal pain Qualifiers: Abdominal location: unspecified location Qualified Code(s): R10.9 - Unspecified abdominal pain Leukocytosis Qualifiers: Leukocytosis type: unspecified Qualified Code(s): D72.829 - Elevated white blood cell count, unspecified
[2020-03-10 15:42] LABS: Basophils # (auto) 0.02 K/uL (0-0.2); Basophils % (auto) 0.1 %; Eosinophils # (auto) 0.04 K/uL (0-0.5); Eosinophils % (auto) 0.3 %; Hematocrit (blood only) 41.6 % (37-47); Hemoglobin 14.1 g/dL (12.0-16.0); Immature Granulocytes # (auto) 0.04 K/uL (0.00-0.02); Immature Granulocytes % (auto) 0.3 %; Lymphocytes # (auto) 1.35 K/uL (1.2-3.4); Lymphocytes % (auto) 8.8 %; Mean Corpuscular Hemoglobin 29.8 pg (25-34); Mean Corpuscular Hgb Conc 33.9 g/dL (32-36); Mean Corpuscular Volume 87.9 fL (80-100); Monocytes # (auto) 0.78 K/uL (0.11-0.59); Monocytes % (auto) 5.1 %; Neutrophils # (auto) 13.11 K/uL (1.4-6.5); Neutrophils % (auto) 85.4 %; Platelet Count 434 K/uL (130-400); RDW Coefficient of Variation 15.3 % (11.5-14.5); RDW Standard Deviation 49.8 fL (36.4-46.3); Red Blood Count 4.73 M/uL (4.2-5.4); White Blood Count 15.34 K/uL (4.8-10.8)
[2020-03-10 15:53] LABS: iSTAT Creatinine 1.3 mg/dl (0.6-1.3); iSTAT Hemoglobin 14.6 g/dl (12.0-16.0); iSTAT Ionized Calcium 1.14 mmol/l (1.12-1.32); iSTAT Potassium 3.9 mmol/L (3.3-5.0)
[2020-03-10 16:03] LABS: Albumin Level 4.3 gm/dl (3.4-5.0); BUN Creatinine Ratio 15.1 (10-20); Calcium 10.1 mg/dl (8.5-10.1); Creatinine Clr Calc Pharmacy 34.3 ml/min; Est GFR (African American) 42.9; Potassium 3.8 mmol/L (3.5-5.1)
[2020-03-10 16:06] LABS: Albumin Globulin Ratio 1.1 (0.9-2); Bilirubin,Total 0.9 mg/dl (0.2-1); Globulin 3.9 gm/dl (2.5-4.0); Total Protein 8.2 gm/dl (6.4-8.2)
[2020-03-10] MEDS ORDERED: IOVERSOL 100ml IV ONE (16:13)
[2020-03-10] MEDS ORDERED: MoRPHine SULFATE 4 MG/ML 1 ML CARP\\VIAL IV STA (16:31)
[2020-03-10] MEDS ORDERED: ONDANSETRON INJ 2 MG/ML 2 ML VIAL IV STA (16:31)
--- NOTE | 2020-03-10 16:36 | CT Scan Report ---
ABDOMEN AND PELVIS CT WITH IV CONTRAST CT DOSE: 977.77 mGy.cm HISTORY: Acute lower abdominal pain lower abd pain TECHNIQUE: Multiaxial CT images of the abdomen and pelvis were performed following the IV administrat ion of 94 cc of Optiray 320, A dose lowering technique was utilized adhering to the principles of AL TAMAR. COMPARISON STUDY: CT abdomen and pelvis 09/29/2018 FINDINGS: Mild right hemidiaphragmatic elevation. Clear lung bases. No pneumatosis or pneumoperitoneu m. Coronary artery calcifications. Calcified plaque of the thoracic and abdominal aorta. Spleen, mild ly atrophic pancreas and adrenal glands are unremarkable. Cholecystectomy with likely physiologic. Du ctal dilation. Unremarkable liver. Patency of the hepatic and portal veins. Mild cortical thinning of the bilateral kidneys. There are a few subcentimeter hypodensities of the k idneys which are too small to characterize however favor renal cysts. No hydronephrosis. Partially de compressed urinary bladder. Heterogeneous uterus with suggested fibroid measuring up to 3.1 cm. No ad nexal mass lesion. There is no adenopathy. Tiny hiatal hernia. Small to moderate duodenal diverticulum. Colonic diverticulosis. Decompressed asc ending and transverse colon with wall thickening. Mural fatty changes of the ileocecal valve. Noninfl devorah appendix. Nonspecific tiny lymph nodes of the right lower quadrant mesentery. There is mild soft tissue thickening at the ileocecal valve without discrete mass identified. Prominent loops of small bowel with air-fluid levels measure up to 2.9 cm. Transition point is noted at the ileocecal valve. T he terminal ileum measures up to 2.8 cm and is filled with fecal material. Mild interloop edema with trace abdominal pelvic ascites. Unremarkable soft tissues. Right hip total arthroplasty. Degenerative changes of the spine, pelvis and left hip. IMPRESSION: 1. Prominent air and fluid-filled loops of small bowel within the abdomen and pelvis is suggestive of small bowel obstruction with transition point at the level of the ileocecal valve. No definite obstr ucting mass identified. 2. Mild reactive interloop edema with trace abdominal pelvic ascites. 3. No pneumatosis or pneumoperitoneum. 4. Colonic diverticulosis. 5. Fibroid uterus. 6. Additional findings as above. ACT 112: Negative or not required by law. The above report was generated using voice recognition software. It may contain grammatical, syntax o r spelling errors. Electronically signed by: Zack Plaza M.D. 03/10/2020 4:34 PM
--- NOTE | 2020-03-10 18:05 | History & Physical Report ---
Date of Service March 10, 2020 Assessment & Plan (1) SBO (small bowel obstruction): (2) Leukocytosis: This is a 74-year-old F with a significant past medical history and T2DM, HTN, moderate aortic stenosis, CKD stage III, gastroparesis, angiomyolipoma of kidney who presents to ED secondary to abdominal pain, N/V x 1 day. In ED she remained hemodynamically stable. Labs notable for wbc 15.34k, h/h 14.1 &41.6, plt 434, bun/cr 21/1.39, gluc 152, covid negative. CT a/p: . Prominent air and fluid-filled loops of small bowel within the abdomen and pelvis is suggestive of small bowel obstruction with transition point at the level of the ileocecal valve. No definite obstructing mass identified. 2. Mild reactive interloop edema with trace abdominal pelvic ascites. 3. No pneumatosis or pneumoperitoneum. 4. Colonic diverticulosis. 5. Fibroid uterus. She did not require NGT placement. admit to med/surg conservative tx for now strict NPO IVF LR @ 80cc/hr antiemetics, analgesia prn avoid narcotics if able consult gen surg of significance pt follows [facility] for endoscopic submuscosal resections due to polyps (3) Diabetes mellitus, type II: last a1c 6.1 on 11/12 obtain a1c in a.m. hold metformin lantus/novolog per protocol (4) CKD (chronic kidney disease), stage III: baseline cr 1.4 bun/cr 23 and 1.39 monitor, avoid nephrotoxic agents (5) Aortic stenosis: moderate follows [facility] yearly monitor volume status closely (6) HTN (hypertension): BP elevated likely in setting of pain and missed meds today on diltiazem, hctz and lisinopril as outpt hold while NPO (7) DVT prophylaxis: SQ Heparin Disposition: admit to med/surg Follow up: PCP Dr. Hernandes upon discharge Pt was seen and examined in collaboration with Dr. Marcelino, please see addendum History of Present Illness Chief Complaint: abd pain, n/v x 1 day. Primary Care Provider: Indra Hernandes, DO This is a 74-year-old F with a significant past medical history and T2DM, HTN, moderate aortic stenosis, CKD stage III, gastroparesis, angiomyolipoma of kidney who presents to ED secondary to abdominal pain, N/V x 1 day. Sx started abruptly last evening and into neurocritical care physician with acute onset of lower abd pain, wax and wane in severity, dull achy/crampy, 10/10 at it worst. Currently pain 2/10, but 8/10 on arrival. She further complained of nausea and few episodes of emesis. She had 2 BMs today, one very early in a.m. and last 1 hr prior to arrival. Described it as loose, but not lavinia diarrhea. Denies hematemesis, melena or hematochezia. She was unable to tolerate water or medications this morning. Last meal was last evening. She denies f/c/s, dizziness, lightheaded, chest pain, sob, palpitations, cough, dysuria, increased freq/urgency with urination. She has hx of prior SBO back in 2019 ~ 1 month after having endoscopic submucosal resection at [facility]. She has had 3-4 of these, last in June 2019 and is due again in April for dysplastic polyp. Denies any other open abd surgeries. Denies any known covid exp, loss of taste or smell. In ED she received IV morphine and zofran which has improved sx and she currently is not experiencing n/v. In ED she remained hemodynamically stable. Labs notable for wbc 15.34k, h/h 14.1 &41.6, plt 434, bun/cr 21/1.39, gluc 152, covid negative. CT a/p: . Prominent air and fluid-filled loops of small bowel within the abdomen and pelvis is suggestive of small bowel obstruction with transition point at the level of the ileocecal valve. No definite obstructing mass identified. 2. Mild reactive interloop edema with trace abdominal pelvic ascites. 3. No pneumatosis or pneumoperitoneum. 4. Colonic diverticulosis. 5. Fibroid uterus. She did not require NGT placement. Allergies Allergy/AdvReac Type Severity Reaction Status Date / Time nickel Allergy Unknown ITCHY / Verified 03/10/20 17:23 BLISTERS Penicillins Allergy Unknown REMOTE HX, Verified 03/10/20 17:23 NOT SURE REACTION ? RASH sulfamethoxazole AdvReac Unknown AFFECTED Verified 03/10/20 17:23 [From Bactrim] KIDNEYS trimethoprim [From Bactrim] AdvReac Unknown AFFECTED Verified 03/10/20 17:23 KIDNEYS Home Medications Medication Instructions Recorded Confirmed Type aspirin [Aspirin Low Dose] 81 mg PO QPM 09/23/18 03/10/20 History atorvastatin 40 mg PO QPM 09/23/18 03/10/20 History cyanocobalamin (vitamin B-12) 1,000 mcg PO DAILY 09/23/18 03/10/20 History [Vitamin B-12] diltiazem HCl [Cartia XT] 180 mg PO QPM 09/23/18 03/10/20 History fluocinonide 1 applic TOPICAL DAILY 09/23/18 03/10/20 History hydrochlorothiazide 12.5 mg capsule 12.5 mg PO QAM 05/21/19 03/10/20 History lisinopril 10 mg tablet 10 mg PO QAM 05/21/19 03/10/20 History metformin 1,000 mg tablet 1,000 mg PO BID tab 05/21/19 03/10/20 History Probiotic Digestive Care 1 cell PO QAM 11/19/19 03/10/20 History acetaminophen 325 - 650 mg PO Q4 PRN 11/19/19 03/10/20 History ascorbic acid (vitamin C) 1 g PO DAILY 11/19/19 03/10/20 History clobetasol 1 appln TOP 2XWK 11/19/19 03/10/20 History Past Med/Surg History Medical History (Updated 03/10/20 @ 18:23 by Sherly Crane PA-C) Aortic stenosis "MODERATE" - NO SYMPTOMS - FOLLOWS [facility] C[facility] Arthritis CKD (chronic kidney disease), stage III Diabetes mellitus, type II Fatty liver History of skin cancer RECENT / FACE / REMOVAL TO TAKE PLACE END OF THIS MONTH, BASAL CELL HTN (hypertension) Small bowel obstruction HX 2019 Surgical History H/O breast biopsy open, benign, 1972 H/O breast surgery (01/08/20) Excision of epidermoid cyst, left breast. Dr. Hill 01/08/2020 History of cholecystectomy History of total right knee replacement S/P colonoscopy May 31 2018 and Aug 24 2018 11/14/18, 05/17/19 in [place]. "Clean up procedure, biopsies negative" 2008, precancer at ileocecal valve 02/2010, repeat done and polyp, ileocecal valve looked good, [place] for 3 years, [place]. 03/06, polyp, repeat in 3 years. S/P hip replacement Right S/P tonsillectomy and adenoidectomy S/P tooth extraction Family History Mother Heart disease Father Heart disease Denies family history of Ovarian cancer Breast cancer Colorectal cancer Social History (Updated 03/10/20 @ 18:20 by Sherly Crane PA-C) Smoking Status: Never smoker Second Hand Exposure: No; Hx Alcohol Use: Yes (1-2 drinks a week) Alcohol type: beer and wine Hx Substance Use: No Preferred Language: Azeri Communication Ability: Effective Personal Driver Required: No Beliefs That Will Affect Care: Gnosticist Gnosticist Beliefs: JEW marital status: Current Living Situation: Spouse current occupational status: retired Feels Safe at Home: Yes Assistive Devices: Cane Review of Systems Review of Systems: All systems reviewed & are unremarkable except as noted in HPI & below Physical Exam Physical Exam: Constitutional: WD/WN, F, vitals as above, NAD, sitting up in bed, pleasant, conversing easily Head: Normocephalic, Atraumatic Eyes: PERRL, conjunctivae normal, anicteric sclerae ENMT: external ear and nose normal, oropharynx normal Neck: trachea midline, no thyromegaly normal visual inspection Respiratory: normal respiratory effort, lungs clear to auscultation, no wheeze, rales, rhonchi. Normal insp/exp effort, no accessory muscle use Cardiovascular: RRR, 2/6 SARAHI noted RUSB, no edema Vessels: no JVD or carotid bruit Chest: normal inspection of chest Abdomen: normal bowel sounds, soft, nontender, no hepatosplenomegaly Musculoskeletal: no cyanosis or clubbing, extremities motor strength 5/5 Skin: no rashes, warm and dry normal turgor Neurologic: PERRL, EOMI, accommodation nl, no face palsy, no dysarthria CN's II-XI intact bilaterally and moves all extremities Psychiatric: A+Ox3, euthymic affect Lymphatic: no cervical or axillary lymphadenopathy : deferred Results & Data Results & Data ([place]) Vital Signs (Past 12 Hours) Vital Signs Temp Pulse Resp BP Pulse Ox 03/10/20 17:47 80 19 186/77 H 98 03/10/20 16:49 83 25 H 182/86 H 96 03/10/20 16:30 75 22 95 03/10/20 16:00 78 27 H 03/10/20 15:30 85 24 03/10/20 15:21 90 03/10/20 15:02 36.8 C 86 18 176/98 H 97 03/10/20 14:59 176/98 H Laboratory Results Short CBC 03/10/20 Range/Units 15:30 WBC 15.34 H (4.8-10.8) K/uL Hgb 14.1 (12.0-16.0) g/dL Hct 41.6 (37-47) % Plt Count 434 H (130-400) K/uL BMP 03/10/20 15:30 Sodium 137 Potassium 3.8 Chloride 104 Carbon Dioxide 25 BUN 21 H Creatinine 1.39 H Glucose 152 H Calcium 10.1 Liver Function 03/10/20 Range/Units 15:30 Total Bilirubin 0.9 (0.2-1) mg/dl AST 12 L (15-37) U/L ALT 21 (12-78) U/L Alkaline Phosphatase 91 (45-117) U/L Albumin 4.3 (3.4-5.0) gm/dl Diagnostic Findings CT abd/pelvis: IMPRESSION: 1. Prominent air and fluid-filled loops of small bowel within the abdomen and pelvis is suggestive of small bowel obstruction with transition point at the level of the ileocecal valve. No definite obstructing mass identified. 2. Mild reactive interloop edema with trace abdominal pelvic ascites. 3. No pneumatosis or pneumoperitoneum. 4. Colonic diverticulosis. 5. Fibroid uterus. 6. Additional findings as above. Medications Administered Discontinued Medications Sodium Chloride (Nss 1000ml) 1,000 mls @ 999 mls/hr IV .Q1H1M ONE Stop: 03/10/20 16:21 Last Infusion: 03/10/20 16:53 Dose: 0 mls/hr Documented by: [id number] Admin: 03/10/20 15:42 Dose: 999 mls/hr Documented by: [id number] Ioversol (Ioversol 100ml) 94 ml IV ONCE ONE Stop: 03/10/20 16:14 Last Admin: 03/10/20 16:13 Dose: 94 ml Documented by: [id number] Morphine Sulfate (Morphine Sulfate 4 Mg/Ml 1 Ml Carp\\Vial) 4 mg IV NOW STA Stop: 03/10/20 16:32 Last Admin: 03/10/20 16:48 Dose: 4 mg Documented by: [id number] Ondansetron HCl (Ondansetron Inj 2 Mg/Ml 2 Ml Vial) 4 mg IV NOW STA Stop: 03/10/20 16:32 Last Admin: 03/10/20 16:48 Dose: 4 mg Documented by: [id number] Code Status & VTE Plan Code Status Full Code VTE Prophylaxis Plan VTE Prophylaxis will be ordered: Yes Supervising Physician Co-Signing Physician Notes Attending addendum: The patient was seen and examined in emergency room She is a 74-year-old female with significant past medical history of diabetes type 2, hypertension, moderate aortic stenosis, CKD stage III, ileocecal junction polyps, gastroparesis has been complaining of abdominal pain with distention, nausea and vomiting since last night Denies any fever and/or chills and denies any other significant symptoms On examination No apparent distress at rest Hemodynamically stable with blood pressure up at 165/78 Chest-clear to auscultate bilaterally Heart-S1-S2 with a 2/6 systolic murmur over aortic area Abdomen-minimally distended, soft, mildly tender right lower quadrant and bowel sounds present Extremities-no edema Admission labs, EKG and imaging studies reviewed CT of the abdomen and pelvis showed small bowel obstruction with transition point at the level of the ileocecal valve. She has a significant history of ileocecal polyps and she underwent endoscopic submucosal resection of polyps at [facility] x4 and she has had prior history of distal obstruction. He has leukocytosis which is secondary to stress-induced doubt any infection Her other medical conditions remain stable Agree with assessment and plan as outlined above by CHARMAINE Yadav Dr (1) Leukocytosis Leukocytosis type: unspecified Qualified Code(s): D72.829 - Elevated white blood cell count, unspecified
[2020-03-10] MEDS ORDERED: LACTATED RINGER'S 1,000 ML IV SCH (18:30)
[2020-03-10 18:49] LABS: Appearance Urine Clear (Clear); Bilirubin Urine Negative (Negative); Blood Urine Negative (Negative); Color Urine Yellow; Glucose Urine UA Negative (Negative); Ketones Urine Negative (Negative); Leukocyte Esterase Urine Negative (Negative); Nitrite Urine Negative (Negative); Protein Urine Negative (Negative); Specific Gravity Urine 1.037 (1.000-1.030); Urobilinogen Urine Negative (Negative); pH Urine 5.5 (4.5-7.5)
[2020-03-10] MEDS ORDERED: DEXTROSE 50% 50 ML SYRINGE IV PRN (20:06)
[2020-03-10] MEDS ORDERED: CARBOHYDRATES FOR HYPOGLYCEMIA PO PRN (20:06)
[2020-03-10] MEDS ORDERED: GLUCOSE 10 TABS/TUBE PO PRN (20:06)
[2020-03-10] MEDS ORDERED: GLUCOSE 40% GEL 15 GM TUBE PO PRN (20:06)
[2020-03-10] MEDS ORDERED: GLUCAGON FOR INJ 1 MG VIAL SQ PRN (20:06)
[2020-03-10] MEDS ORDERED: hydrALAZINE HCL 20 MG/ML VIAL IV PRN (20:44)
[2020-03-10] MEDS ORDERED: Nursing to Pharmacy Communication SCH ×2 (20:45→21:15)
[2020-03-10] MEDS ORDERED: D5W AND NSS 1,000 ML IV SCH (21:00)
[2020-03-10] MEDS ORDERED: INSULIN ASPART 100 UNITS/ML 3 ML PEN SC SCH ×2 (21:00)
[2020-03-10] MEDS ORDERED: PHARMACY GLYCEMIC MGMT CONSULT PRN (21:03)
[2020-03-10] MEDS: INSULIN GLARGINE SOLOSTAR 100 UNITS/ML 3 ML PEN SC SCH (21:36)
[2020-03-10] MEDS: HEPARIN SOD 5,000 UNIT/0.5 ML VIAL SQ SCH (21:36)
[2020-03-10] MEDS: ACETAMINOPHEN 1,000 MG/100 ML VIAL IV PRN (21:55)
[2020-03-11] MEDS: INSULIN ASPART 100 UNITS/ML 3 ML PEN SC SCH ×4 (00:04→17:58)
[2020-03-11] MEDS: MoRPHine SULFATE 4 MG/ML 1 ML CARP\\VIAL IV PRN ×2 (03:50→16:11)
[2020-03-11] MEDS: ONDANSETRON INJ 2 MG/ML 2 ML VIAL IV PRN ×2 (03:50→16:19)
[2020-03-11] MEDS: HEPARIN SOD 5,000 UNIT/0.5 ML VIAL SQ SCH ×3 (06:13→21:09)
[2020-03-11] MEDS: ACETAMINOPHEN 1,000 MG/100 ML VIAL IV PRN ×2 (06:23→14:51)
[2020-03-11 08:08] LABS: Basophils # (auto) 0.01 K/uL (0-0.2); Basophils % (auto) 0.1 %; Eosinophils # (auto) 0.02 K/uL (0-0.5); Eosinophils % (auto) 0.2 %; Hematocrit (blood only) 38.3 % (37-47); Hemoglobin 12.6 g/dL (12.0-16.0); Immature Granulocytes # (auto) 0.01 K/uL (0.00-0.02); Immature Granulocytes % (auto) 0.1 %; Lymphocytes # (auto) 1.01 K/uL (1.2-3.4); Lymphocytes % (auto) 10.7 %; Mean Corpuscular Hemoglobin 29.3 pg (25-34); Mean Corpuscular Hgb Conc 32.9 g/dL (32-36); Mean Corpuscular Volume 89.1 fL (80-100); Mean Platelet Volume 9.7 fL (7.4-10.4); Monocytes # (auto) 0.59 K/uL (0.11-0.59); Monocytes % (auto) 6.3 %; Neutrophils % (auto) 82.6 %; Platelet Count 357 K/uL (130-400); RDW Coefficient of Variation 15.5 % (11.5-14.5); RDW Standard Deviation 49.9 fL (36.4-46.3); White Blood Count 9.44 K/uL (4.8-10.8)
[2020-03-11 08:34] LABS: Albumin Level 3.5 gm/dl (3.4-5.0); BUN Creatinine Ratio 15.4 (10-20); Calcium 9.4 mg/dl (8.5-10.1); Creatinine Clr Calc Pharmacy 39.1 ml/min; Est GFR (African American) 48.7; Magnesium 1.9 mg/dl (1.8-2.4); Potassium 3.7 mmol/L (3.5-5.1)
[2020-03-11 08:38] LABS: Albumin Globulin Ratio 1.1 (0.9-2); Bilirubin,Total 0.7 mg/dl (0.2-1); Globulin 3.3 gm/dl (2.5-4.0); Total Protein 6.8 gm/dl (6.4-8.2)
--- NOTE | 2020-03-11 08:39 | XRay Report ---
KUB HISTORY: Small bowel obstruction. Follow-up. COMPARISON: Abdomen and pelvis CT 03/10/2020. FINDINGS: Contrast within the bladder from the recent CT examination. There is a right hip prosthesis . Severe osteoarthritis within the left hip is again noted. There are mildly dilated gas-filled loops of small bowel within the mid abdomen. These measure up to 3.5 cm in diameter and are consistent wit h the patient's known partial small bowel obstruction. Gas and stool seen within the colon. No renal calculi. No ureteral calculi. No pneumoperitoneum or pneumatosis. Cholecystectomy. IMPRESSION: No significant change in the partial small bowel obstruction pattern. ACT 112: Negative or not required by law. Electronically signed by: Benjamín Basurto M.D. 03/11/2020 8:38 AM
--- NOTE | 2020-03-11 08:46 | Hospitalist Progress Note ---
Date of Service March 11, 2020 Assessment & Plan (1) SBO (small bowel obstruction): improved clinically and on labwork with bowel rest. no need for NGT since admission surgery consulted, however, abdomen is soft and not distended Leukocytosis resolved. switched IVF to NSS to avoid added dextrose in this diabetic patient. Discussed to use APAP preferentially to avoid opioid induced bowel lethargy. She verbalized understanding with intent to comply as able. (2) Diabetes mellitus, type II: A1C reflects good outpatient control. Currently controlled as inpatient. Hold outpatient medications and use Novolog and Lantus while admitted. (3) CKD (chronic kidney disease), stage III: Around baseline. Avoid nephrotoxic agents. (4) Aortic stenosis: moderate , chronic, stable. Patient appears euvolemic. follows [facility] yearly (5) HTN (hypertension): On oral antihypertensives which are held while patient is NPO. Monitor BP closely during this time. (6) DVT prophylaxis: SQ Heparin Disposition: to home when improved and tolerating PO reliably Code status: Full Code Danya Milian DO [facility] Hospitalist Admission and Anticipated Discharge Date Admission Date: March 10, 2020 Subjective CC: abdominal pain, admitted with SBO leukocytosis resolved overnight patient had a single spell of lightheadedness and sharp pain that improved with Tylenol no flatus no BM yet denies nausea or vomiting-resolved since yesterday. Otherwise asymptomatic this morning and appears to be improving. Review of Systems Review of Systems: All systems reviewed & are unremarkable except as noted in Subjective Physical Exam Physical Exam: CONSTITUTIONAL: WNWD, vitals as above, generally well- appearing EYES: normal conjunctivae, no scleral icterus ENT: external ear and nose normal, oropharynx clear, MMM RESPIRATORY: clear to auscultation bilaterally, no crackles, rales or wheezes, normal respiratory effort CARDIOVASCULAR: regular rate and rhythm, 3/6 SARAHI heard throughout precordium, no gallops or rubs, no JVD, no peripheral edema GASTROINTESTINAL: soft, nontender, nondistended, no guarding MUSCULOSKELETAL: strength 5/5 throughout, head is normocephalic and atraumatic SKIN: warm and dry NEUROLOGIC: CN 2-12 grossly intact, normal cognition, normal speech, no gross focal deficits. PSYCHIATRIC: alert cooperative and appropriate. Results & Data Results & Data ([facility]) Vital Signs (Past 12 Hours) Vital Signs Temp Pulse Resp BP Pulse Ox 03/11/20 07:03 36.6 C 76 16 119/73 94 03/11/20 04:18 36.3 C L 03/11/20 03:23 138/89 03/11/20 03:15 173/112 H 03/10/20 23:14 36.7 C 75 20 150/76 H 94 03/10/20 21:49 73 166/80 H 99 Laboratory Results Short CBC 03/10/20 03/11/20 Range/Units 15:30 07:57 WBC 15.34 H 9.44 (4.8-10.8) K/uL Hgb 14.1 12.6 (12.0-16.0) g/dL Hct 41.6 38.3 (37-47) % Plt Count 434 H 357 (130-400) K/uL BMP 03/10/20 03/11/20 15:30 07:57 Sodium 137 137 Potassium 3.8 3.7 Chloride 104 104 Carbon Dioxide 25 26 BUN 21 H 19 H Creatinine 1.39 H 1.25 H Glucose 152 H 163 H Calcium 10.1 9.4 Liver Function 03/10/20 03/11/20 Range/Units 15:30 07:57 Total Bilirubin 0.9 0.7 (0.2-1) mg/dl AST 12 L 29 (15-37) U/L ALT 21 28 (12-78) U/L Alkaline Phosphatase 91 73 (45-117) U/L Albumin 4.3 3.5 (3.4-5.0) gm/dl Urine 03/10/20 Range/Units 18:40 Urine Color Yellow Urine Appearance Clear (Clear) Urine pH 5.5 (4.5-7.5) Ur Specific [place] 1.037 H (1.000-1.030) Urine Protein Negative (Negative) Urine Glucose (UA) Negative (Negative) Medications Administered Current Inpatient Medications Dextrose (Dextrose 50% 50 Ml Syringe) 25 - 50 ml IV UD PRN; Protocol PRN Reason: Hypoglycemia Protocol Stop: 04/09/20 20:05 Glucagon (Glucagon For Inj 1 Mg Vial) 1 mg SQ UD PRN; Protocol PRN Reason: Hypoglycemia Protocol Stop: 04/09/20 20:05 Glucose (Glucose 10 Tabs/Tube) 4 - 8 tabs PO UD PRN; Protocol PRN Reason: Hypoglycemia Protocol Stop: 04/09/20 20:05 Glucose (Glucose 40% Gel 15 Gm Tube) 15 - 30 gm PO UD PRN; Protocol PRN Reason: Hypoglycemia Protocol Stop: 04/09/20 20:05 Heparin Sodium (Porcine) (Heparin Sod 5,000 Unit/0.5 Ml Vial) 5,000 units SQ Q8 ELIZABETH Stop: 04/09/20 21:59 Last Admin: 03/11/20 06:13 Dose: 5,000 units Documented by: Hydralazine HCl (Hydralazine Hcl 20 Mg/Ml Vial) 5 mg IV Q6H PRN PRN Reason: Hypertension Stop: 04/09/20 20:43 Acetaminophen (Ofirmev) 1,000 mg in 100 mls @ 400 mls/hr IV Q8H PRN PRN Reason: mild pain Stop: 03/13/20 20:05 Last Infusion: 03/11/20 06:38 Dose: Infused Documented by: Insulin Aspart (Insulin Aspart 100 Units/Ml 3 Ml Pen) 0 units SC Q6 ELIZABETH Stop: 04/10/20 00:00 Last Admin: 03/11/20 06:13 Dose: 1 units Documented by: Insulin Glargine (Insulin Glargine Solostar 100 Units/Ml 3 Ml Pen) 0 units SC BID ELIZABETH; Protocol Stop: 04/09/20 20:59 Last Admin: 03/10/20 21:36 Dose: 3 units Documented by: Miscellaneous (Carbohydrates For Hypoglycemia ) 15 - 30 gm PO UD PRN PRN Reason: Hypoglycemia Protocol Stop: 04/09/20 20:05 Miscellaneous Information (Pharmacy Glycemic Mgmt Consult) 1 ea N/A UD PRN PRN Reason: Consult Stop: 04/09/20 21:02 Morphine Sulfate (Morphine Sulfate 4 Mg/Ml 1 Ml Carp\Vial) 4 mg IV Q4H PRN PRN Reason: severe pain Stop: 03/24/20 20:05 Last Admin: 03/11/20 03:50 Dose: 4 mg Documented by: Ondansetron HCl (Ondansetron Inj 2 Mg/Ml 2 Ml Vial) 4 mg IV Q6H PRN PRN Reason: Nausea Stop: 04/09/20 20:05 Last Admin: 03/11/20 03:50 Dose: 4 mg Documented by:
[2020-03-11] MEDS: SODIUM CHLORIDE 0.9% 1000ML 1,000 ML IV SCH ×2 (09:23→21:09)
[2020-03-11 09:24] LABS: Estimated Average Glucose 134 mg/dl; Hemoglobin A1C 6.3 % (4.5-5.6)
[2020-03-11] MEDS: INSULIN GLARGINE SOLOSTAR 100 UNITS/ML 3 ML PEN SC SCH ×2 (09:25→21:18)
--- NOTE | 2020-03-11 09:45 | Pharmacy Report ---
Pharmacy Glycemic Short Note 2 - Date of Service March 11, 2020 - Glycemic Short BSG Results (Last 24 hours): 03/10/20 03/10/20 03/10/20 15:30 15:37 19:14 Glucose 152 H POC Glucose 136 H POC Glucose (other) 151 H 03/10/20 03/10/20 03/11/20 21:07 23:55 03:13 Glucose POC Glucose 124 H 147 H 132 H POC Glucose (other) 03/11/20 03/11/20 06:05 07:57 Glucose 163 H POC Glucose 152 H POC Glucose (other) OUTPATIENT ANTIDIABETIC REGIMEN: * Metformin 1000 mg BID * A1c 6.3% 03/11/2020 ASSESSMENT: * Patient is admitted for Small Bowel Obstruction and currently NPO * Type II diabetes which appears well-controlled with an A1c of 6.3%, on metformin * Patient was started with a scaled lantus up to 6 units BID (this is slightly less than a weight based stress of 1)- will continue with scale but simplify to hold or 5 units * Novolog parameters set roughly as a weight based moderate stress- will continue for now. PLAN FOR INPATIENT GLYCEMIC CONTROL: * Hold outpatient oral diabetes medications * Basal insulin * Lantus 3 units this AM, 0/5 units this PM * Bolus insulin * NovoLog per scale ACHS or Q6hrs while NPO * Goal Range: Low 110 mg/dL - High 140 mg/dL * Correction Factor: 30 mg/dL/unit * Nutritional / Prandial insulin per carb ratio of 1 unit per 10 grams CHO consumed PLAN FOR DISCHARGE: * A1c 6.3%, at goal,Patient can likely resume home regimen of metformin 1000 mg BID.
--- NOTE | 2020-03-11 17:38 | Surgery Consultation ---
Date of Consultation March 11, 2020 Assessment & Plan (1) SBO (small bowel obstruction): This evidence of obstruction is at the ileocecal valve by CT. It is partial. There is air in the colon. She most likely has either stricture or edema related to her mucosectomy's. She was to have another colonoscopy at [facility] within the next few weeks. At the present she feels better. There is no evidence of peritonitis. There is no indication for surgical intervention at this time. Would continue to treat with conservative measures. History of Present Illness Reason for Consultation: Partial bowel obstruction Requesting Physician: Danya Milian DO Attending Physician: Danya Milian DO History of Present Illness I have been asked by Dr. Milian to see this 74-year-old female for evaluation of a partial bowel obstruction. 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 She opted for endoscopic mucosectomy that was performed at [facility]. The initial procedure was performed in April 2018. She has had 3 subsequent procedures as well. In September 2018 she developed evidence of an obstruction shortly after the first procedure. This was felt to possibly be due to edema. It resolved spontaneously. She was well until yesterday when she developed crampy abdominal discomfort while she was sleeping. It awoke her. The pain intensified in severity and became more continuous. It was crampy with some sharp component. It was associated with some nausea but no vomiting. She had a normal bowel movement prior to coming to the hospital. She has not been passing flatus or had a bowel movement here although at present she feels much better. The pain is resolved. She has no nausea. Allergies Allergy/AdvReac Type Severity Reaction Status Date / Time nickel Allergy Unknown ITCHY / Verified 03/10/20 17:23 BLISTERS Penicillins Allergy Unknown REMOTE HX, Verified 03/10/20 17:23 NOT SURE REACTION ? RASH sulfamethoxazole AdvReac Unknown AFFECTED Verified 03/10/20 17:23 [From Bactrim] KIDNEYS trimethoprim [From Bactrim] AdvReac Unknown AFFECTED Verified 03/10/20 17:23 KIDNEYS Home Medications Medication Instructions Recorded Confirmed Type aspirin [Aspirin Low Dose] 81 mg PO QPM 09/23/18 03/10/20 History atorvastatin 40 mg PO QPM 09/23/18 03/10/20 History cyanocobalamin (vitamin B-12) 1,000 mcg PO DAILY 09/23/18 03/10/20 History [Vitamin B-12] diltiazem HCl [Cartia XT] 180 mg PO QPM 09/23/18 03/10/20 History fluocinonide 1 applic TOPICAL DAILY 09/23/18 03/10/20 History hydrochlorothiazide 12.5 mg capsule 12.5 mg PO QAM 05/21/19 03/10/20 History lisinopril 10 mg tablet 10 mg PO QAM 05/21/19 03/10/20 History metformin 1,000 mg tablet 1,000 mg PO BID tab 05/21/19 03/10/20 History Probiotic Digestive Care 1 cell PO QAM 11/19/19 03/10/20 History acetaminophen 325 - 650 mg PO Q4 PRN 11/19/19 03/10/20 History ascorbic acid (vitamin C) 1 g PO DAILY 11/19/19 03/10/20 History clobetasol 1 appln TOP [id number] 11/19/19 03/10/20 History Patient History Medical History (Updated 03/10/20 @ 18:23 by Sherly Crane PA-C) Aortic stenosis "MODERATE" - NO SYMPTOMS - FOLLOWS [facility] [address] [facility] Arthritis CKD (chronic kidney disease), stage III Diabetes mellitus, type II Fatty liver History of skin cancer RECENT / FACE / REMOVAL TO TAKE PLACE END OF THIS MONTH, BASAL CELL HTN (hypertension) Small bowel obstruction HX 2019 Surgical History H/O breast biopsy open, benign, 1972 H/O breast surgery (01/08/20) Excision of epidermoid cyst, left breast. Dr. Hill 01/08/2020 History of cholecystectomy History of total right knee replacement S/P colonoscopy May 31 2018 and Aug 24 2018 11/14/18, 05/17/19 in [place]. "Clean up procedure, biopsies negative" 2008, precancer at ileocecal valve 02/2010, repeat done and polyp, ileocecal valve looked good, [place] 3 years, [place]. 03/06, polyp, repeat in 3 years. S/P hip replacement Right S/P tonsillectomy and adenoidectomy S/P tooth extraction Family History Mother Heart disease Father Heart disease Denies family history of Ovarian cancer Breast cancer Colorectal cancer Social History (Updated 03/10/20 @ 18:20 by Sherly Crane PA-C) Smoking Status: Never smoker Second Hand Exposure: No; Hx Alcohol Use: Yes Alcohol type: hard liquor Hx Substance Use: No Preferred Language: Bulgarian Communication Ability: Effective Computer Support Specialist Required: No Beliefs That Will Affect Care: None marital status: Current Living Situation: Spouse current occupational status: retired Other Information That Helps Us Care for You: No Feels Safe at Home: Yes Safety Concerns: Feels Safe At This Time Assistive Devices: Glasses Physical Exam Constitutional: no acute distress Neck: trachea midline Respiratory: normal respiratory effort, lungs clear to auscultation Cardiovascular: Rate/Rhythm: regular rate and regular rhythm Chest (Breasts): normal inspection/palpation of breasts Gastrointestinal (Abdomen): Inspection/Auscultation: normal bowel sounds; abdomen not distended Percussion/Palpation: abdomen soft; abdomen nontender Skin: no rashes, warm and dry Lymphatic: no cervical lymphadenopathy Results & Data ([facility]) Vital Signs (Past 12 Hours) Vital Signs Temp Pulse Resp BP Pulse Ox 03/11/20 17:16 144/79 H 03/11/20 15:42 90 198/95 H 03/11/20 15:00 36.6 C 83 16 182/74 H 95 03/11/20 07:03 36.6 C 76 16 119/73 94 Laboratory Results 03/11/20 03/11/20 03/11/20 Range/Units 12:01 07:57 07:57 WBC (4.8-10.8) K/uL RBC (4.2-5.4) M/uL Hgb (12.0-16.0) g/dL Hct (37-47) % MCV (80-100) fL MCH (25-34) pg MCHC (32-36) g/dL RDW Std Deviation (36.4-46.3) fL RDW Coeff of Tin (11.5-14.5) % Plt Count (130-400) K/uL MPV (7.4-10.4) fL Immature Gran % (Auto) % Neut % (Auto) % Lymph % (Auto) % [place] % (Auto) % Eos % (Auto) % Baso % (Auto) % Neut # (Auto) (1.4-6.5) K/uL Lymph # (Auto) (1.2-3.4) K/uL [place] # (Auto) (0.11-0.59) K/uL Eos # (Auto) (0-0.5) K/uL Baso # (Auto) (0-0.2) K/uL Immature Gran # (Auto) (0.00-0.02) K/uL Sodium 137 (136-145) mmol/L Potassium 3.7 (3.5-5.1) mmol/L Chloride 104 (98-107) mmol/L Carbon Dioxide 26 (21-32) mmol/L Anion Gap 7.0 (3-11) BUN 19 H (7-18) mg/dl Creatinine 1.25 H (0.6-1.2) mg/dl Est Cr Clr Drug Dosing 39.1 ml/min Est GFR ( Amer) 48.7 Est GFR (Non-Af Amer) 42.0 BUN/Creatinine Ratio 15.4 (10-20) Glucose 163 H (70-99) mg/dl POC Glucose 128 H (70-99) mg/dl Estimat Average Glucose 134 mg/dl Hemoglobin A1c 6.3 H (4.5-5.6) % Calcium 9.4 (8.5-10.1) mg/dl Magnesium 1.9 (1.8-2.4) mg/dl Total Bilirubin 0.7 (0.2-1) mg/dl AST 29 (15-37) U/L ALT 28 (12-78) U/L Alkaline Phosphatase 73 (45-117) U/L Total Protein 6.8 (6.4-8.2) gm/dl Albumin 3.5 (3.4-5.0) gm/dl Globulin 3.3 (2.5-4.0) gm/dl Albumin/Globulin Ratio 1.1 (0.9-2) Urine Color Urine Appearance (Clear) Urine pH (4.5-7.5) Ur Specific [place] (1.000-1.030) Urine Protein (Negative) Urine Glucose (UA) (Negative) Urine Ketones (Negative) Urine Blood (Negative) Urine Nitrite (Negative) Urine Bilirubin (Negative) Urine Urobilinogen (Negative) Ur Leukocyte Esterase (Negative) COVID-19 Eval Order Hepatitis C Ab Screen (Neg) SARS-CoV-2, RNA, NAAT (NEGATIVE) 03/11/20 03/11/20 03/11/20 Range/Units 07:57 06:05 03:13 WBC 9.44 (4.8-10.8) K/uL RBC 4.30 (4.2-5.4) M/uL Hgb 12.6 (12.0-16.0) g/dL Hct 38.3 (37-47) % MCV 89.1 (80-100) fL MCH 29.3 (25-34) pg MCHC 32.9 (32-36) g/dL RDW Std Deviation 49.9 H (36.4-46.3) fL RDW Coeff of Tin 15.5 H (11.5-14.5) % Plt Count 357 (130-400) K/uL MPV 9.7 (7.4-10.4) fL Immature Gran % (Auto) 0.1 % Neut % (Auto) 82.6 % Lymph % (Auto) 10.7 % [place] % (Auto) 6.3 % Eos % (Auto) 0.2 % Baso % (Auto) 0.1 % Neut # (Auto) 7.80 H (1.4-6.5) K/uL Lymph # (Auto) 1.01 L (1.2-3.4) K/uL [place] # (Auto) 0.59 (0.11-0.59) K/uL Eos # (Auto) 0.02 (0-0.5) K/uL Baso # (Auto) 0.01 (0-0.2) K/uL Immature Gran # (Auto) 0.01 (0.00-0.02) K/uL Sodium (136-145) mmol/L Potassium (3.5-5.1) mmol/L Chloride (98-107) mmol/L Carbon Dioxide (21-32) mmol/L Anion Gap (3-11) BUN (7-18) mg/dl Creatinine (0.6-1.2) mg/dl Est Cr Clr Drug Dosing ml/min Est GFR ( Amer) Est GFR (Non-Af Amer) BUN/Creatinine Ratio (10-20) Glucose (70-99) mg/dl POC Glucose 152 H 132 H (70-99) mg/dl Estimat Average Glucose mg/dl Hemoglobin A1c (4.5-5.6) % Calcium (8.5-10.1) mg/dl Magnesium (1.8-2.4) mg/dl Total Bilirubin (0.2-1) mg/dl AST (15-37) U/L ALT (12-78) U/L Alkaline Phosphatase (45-117) U/L Total Protein (6.4-8.2) gm/dl Albumin (3.4-5.0) gm/dl Globulin (2.5-4.0) gm/dl Albumin/Globulin Ratio (0.9-2) Urine Color Urine Appearance (Clear) Urine pH (4.5-7.5) Ur Specific [place] (1.000-1.030) Urine Protein (Negative) Urine Glucose (UA) (Negative) Urine Ketones (Negative) Urine Blood (Negative) Urine Nitrite (Negative) Urine Bilirubin (Negative) Urine Urobilinogen (Negative) Ur Leukocyte Esterase (Negative) COVID-19 Eval Order Hepatitis C Ab Screen (Neg) SARS-CoV-2, RNA, NAAT (NEGATIVE) 03/10/20 03/10/20 03/10/20 Range/Units 23:55 21:07 19:14 WBC (4.8-10.8) K/uL RBC (4.2-5.4) M/uL Hgb (12.0-16.0) g/dL Hct (37-47) % MCV (80-100) fL MCH (25-34) pg MCHC (32-36) g/dL RDW Std Deviation (36.4-46.3) fL RDW Coeff of Tin (11.5-14.5) % Plt Count (130-400) K/uL MPV (7.4-10.4) fL Immature Gran % (Auto) % Neut % (Auto) % Lymph % (Auto) % [place] % (Auto) % Eos % (Auto) % Baso % (Auto) % Neut # (Auto) (1.4-6.5) K/uL Lymph # (Auto) (1.2-3.4) K/uL [place] # (Auto) (0.11-0.59) K/uL Eos # (Auto) (0-0.5) K/uL Baso # (Auto) (0-0.2) K/uL Immature Gran # (Auto) (0.00-0.02) K/uL Sodium (136-145) mmol/L Potassium (3.5-5.1) mmol/L Chloride (98-107) mmol/L Carbon Dioxide (21-32) mmol/L Anion Gap (3-11) BUN (7-18) mg/dl Creatinine (0.6-1.2) mg/dl Est Cr Clr Drug Dosing ml/min Est GFR ( Amer) Est GFR (Non-Af Amer) BUN/Creatinine Ratio (10-20) Glucose (70-99) mg/dl POC Glucose 147 H 124 H 136 H (70-99) mg/dl Estimat Average Glucose mg/dl Hemoglobin A1c (4.5-5.6) % Calcium (8.5-10.1) mg/dl Magnesium (1.8-2.4) mg/dl Total Bilirubin (0.2-1) mg/dl AST (15-37) U/L ALT (12-78) U/L Alkaline Phosphatase (45-117) U/L Total Protein (6.4-8.2) gm/dl Albumin (3.4-5.0) gm/dl Globulin (2.5-4.0) gm/dl Albumin/Globulin Ratio (0.9-2) Urine Color Urine Appearance (Clear) Urine pH (4.5-7.5) Ur Specific [place] (1.000-1.030) Urine Protein (Negative) Urine Glucose (UA) (Negative) Urine Ketones (Negative) Urine Blood (Negative) Urine Nitrite (Negative) Urine Bilirubin (Negative) Urine Urobilinogen (Negative) Ur Leukocyte Esterase (Negative) COVID-19 Eval Order Hepatitis C Ab Screen (Neg) SARS-CoV-2, RNA, NAAT (NEGATIVE) 03/10/20 03/10/20 03/10/20 Range/Units 18:40 17:25 17:25 WBC (4.8-10.8) K/uL RBC (4.2-5.4) M/uL Hgb (12.0-16.0) g/dL Hct (37-47) % MCV (80-100) fL MCH (25-34) pg MCHC (32-36) g/dL RDW Std Deviation (36.4-46.3) fL RDW Coeff of Tin (11.5-14.5) % Plt Count (130-400) K/uL MPV (7.4-10.4) fL Immature Gran % (Auto) % Neut % (Auto) % Lymph % (Auto) % [place] % (Auto) % Eos % (Auto) % Baso % (Auto) % Neut # (Auto) (1.4-6.5) K/uL Lymph # (Auto) (1.2-3.4) K/uL [place] # (Auto) (0.11-0.59) K/uL Eos # (Auto) (0-0.5) K/uL Baso # (Auto) (0-0.2) K/uL Immature Gran # (Auto) (0.00-0.02) K/uL Sodium (136-145) mmol/L Potassium (3.5-5.1) mmol/L Chloride (98-107) mmol/L Carbon Dioxide (21-32) mmol/L Anion Gap (3-11) BUN (7-18) mg/dl Creatinine (0.6-1.2) mg/dl Est Cr Clr Drug Dosing ml/min Est GFR ( Amer) Est GFR (Non-Af Amer) BUN/Creatinine Ratio (10-20) Glucose (70-99) mg/dl POC Glucose (70-99) mg/dl Estimat Average Glucose mg/dl Hemoglobin A1c (4.5-5.6) % Calcium (8.5-10.1) mg/dl Magnesium (1.8-2.4) mg/dl Total Bilirubin (0.2-1) mg/dl AST (15-37) U/L ALT (12-78) U/L Alkaline Phosphatase (45-117) U/L Total Protein (6.4-8.2) gm/dl Albumin (3.4-5.0) gm/dl Globulin (2.5-4.0) gm/dl Albumin/Globulin Ratio (0.9-2) Urine Color Yellow Urine Appearance Clear (Clear) Urine pH 5.5 (4.5-7.5) Ur Specific [place] 1.037 H (1.000-1.030) Urine Protein Negative (Negative) Urine Glucose (UA) Negative (Negative) Urine Ketones Negative (Negative) Urine Blood Negative (Negative) Urine Nitrite Negative (Negative) Urine Bilirubin Negative (Negative) Urine Urobilinogen Negative (Negative) Ur Leukocyte Esterase Negative (Negative) COVID-19 Eval Order Covid19 [facility] Hepatitis C Ab Screen (Neg) SARS-CoV-2, RNA, NAAT NEGATIVE (NEGATIVE) 03/10/20 Range/Units 15:30 WBC (4.8-10.8) K/uL RBC (4.2-5.4) M/uL Hgb (12.0-16.0) g/dL Hct (37-47) % MCV (80-100) fL MCH (25-34) pg MCHC (32-36) g/dL RDW Std Deviation (36.4-46.3) fL RDW Coeff of Tin (11.5-14.5) % Plt Count (130-400) K/uL MPV (7.4-10.4) fL Immature Gran % (Auto) % Neut % (Auto) % Lymph % (Auto) % [place] % (Auto) % Eos % (Auto) % Baso % (Auto) % Neut # (Auto) (1.4-6.5) K/uL Lymph # (Auto) (1.2-3.4) K/uL [place] # (Auto) (0.11-0.59) K/uL Eos # (Auto) (0-0.5) K/uL Baso # (Auto) (0-0.2) K/uL Immature Gran # (Auto) (0.00-0.02) K/uL Sodium (136-145) mmol/L Potassium (3.5-5.1) mmol/L Chloride (98-107) mmol/L Carbon Dioxide (21-32) mmol/L Anion Gap (3-11) BUN (7-18) mg/dl Creatinine (0.6-1.2) mg/dl Est Cr Clr Drug Dosing ml/min Est GFR ( Amer) Est GFR (Non-Af Amer) BUN/Creatinine Ratio (10-20) Glucose (70-99) mg/dl POC Glucose (70-99) mg/dl Estimat Average Glucose mg/dl Hemoglobin A1c (4.5-5.6) % Calcium (8.5-10.1) mg/dl Magnesium (1.8-2.4) mg/dl Total Bilirubin (0.2-1) mg/dl AST (15-37) U/L ALT (12-78) U/L Alkaline Phosphatase (45-117) U/L Total Protein (6.4-8.2) gm/dl Albumin (3.4-5.0) gm/dl Globulin (2.5-4.0) gm/dl Albumin/Globulin Ratio (0.9-2) Urine Color Urine Appearance (Clear) Urine pH (4.5-7.5) Ur Specific [place] (1.000-1.030) Urine Protein (Negative) Urine Glucose (UA) (Negative) Urine Ketones (Negative) Urine Blood (Negative) Urine Nitrite (Negative) Urine Bilirubin (Negative) Urine Urobilinogen (Negative) Ur Leukocyte Esterase (Negative) COVID-19 Eval Order Hepatitis C Ab Screen Neg (Neg) SARS-CoV-2, RNA, NAAT (NEGATIVE) Diagnostic Findings ABDOMEN AND PELVIS CT WITH IV CONTRAST CT DOSE: 977.77 mGy.cm HISTORY: Acute lower abdominal pain lower abd pain TECHNIQUE: Multiaxial CT images of the abdomen and pelvis were performed following the IV administration of 94 cc of Optiray 320, A dose lowering technique was utilized adhering to the principles of ALARA. COMPARISON STUDY: CT abdomen and pelvis 09/29/2018 FINDINGS: Mild right hemidiaphragmatic elevation. Clear lung bases. No pneumatosis or pneumoperitoneum. Coronary artery calcifications. Calcified plaque of the thoracic and abdominal aorta. Spleen, mildly atrophic pancreas and adrenal glands are unremarkable. Cholecystectomy with likely physiologic. Ductal dilation. Unremarkable liver. Patency of the hepatic and portal veins. Mild cortical thinning of the bilateral kidneys. There are a few subcentimeter hypodensities of the kidneys which are too small to characterize however favor renal cysts. No hydronephrosis. Partially decompressed urinary bladder. Heterogeneous uterus with suggested fibroid measuring up to 3.1 cm. No adnexal mass lesion. There is no adenopathy. Tiny hiatal hernia. Small to moderate duodenal diverticulum. Colonic diverticul osis. Decompressed ascending and transverse colon with wall thickening. Mural fatty changes of the ileocecal valve. Noninflamed appendix. Nonspecific tiny lymph nodes of the right lower quadrant mesentery. There is mild soft tissue thickening at the ileocecal valve without discrete mass identified. Prominent loops of small bowel with air-fluid levels measure up to 2.9 cm. Transition point is noted at the ileocecal valve. The terminal ileum measures up to 2.8 cm and is filled with fecal material. Mild interloop edema with trace abdominal pelvic ascites. Unremarkable soft tissues. Right hip total arthroplasty. Degenerative changes of the spine, pelvis and left hip. IMPRESSION: 1. Prominent air and fluid-filled loops of small bowel within the abdomen and pelvis is suggestive of small bowel obstruction with transition point at the level of the ileocecal valve. No definite obstructing mass identified. 2. Mild reactive interloop edema with trace abdominal pelvic ascites. 3. No pneumatosis or pneumoperitoneum. 4. Colonic diverticulosis. 5. Fibroid uterus. 6. Additional findings as above.
[2020-03-12] MEDS: ACETAMINOPHEN 1,000 MG/100 ML VIAL IV PRN (00:49)
[2020-03-12] MEDS: INSULIN ASPART 100 UNITS/ML 3 ML PEN SC SCH ×5 (00:58→21:09)
[2020-03-12] MEDS: HEPARIN SOD 5,000 UNIT/0.5 ML VIAL SQ SCH ×3 (05:55→22:02)
[2020-03-12] MEDS: INSULIN GLARGINE SOLOSTAR 100 UNITS/ML 3 ML PEN SC SCH ×2 (07:55→21:08)
[2020-03-12] MEDS: SODIUM CHLORIDE 0.9% 1000ML 1,000 ML IV SCH (09:02)
--- NOTE | 2020-03-12 12:55 | Pharmacy Report ---
Pharmacy Glycemic Short Note 2 - Date of Service March 12, 2020 - Glycemic Short BSG Results (Last 24 hours): 03/11/20 03/11/20 03/12/20 17:53 20:50 00:41 POC Glucose 128 H 113 H 107 H 03/12/20 03/12/20 05:42 12:12 POC Glucose 117 H 122 H OUTPATIENT ANTIDIABETIC REGIMEN: * Metformin 1000 mg BID * A1c 6.3% 03/11/2020 ASSESSMENT: 03/12 * Patient received 2 units of prandial/correctional + 3 units of basal, BSG ranged from 107-152 mg/dL * Fasting this morning 117 mg/dL, will continue scale 0/5 units of lantus * Patient remains NPO, will continue to follow 03/11 * Patient is admitted for Small Bowel Obstruction and currently NPO * Type II diabetes which appears well-controlled with an A1c of 6.3%, on metformin * Patient was started with a scaled lantus up to 6 units BID (this is slightly less than a weight based stress of 1)- will continue with scale but simplify to hold or 5 units * Novolog parameters set roughly as a weight based moderate stress- will continue for now. PLAN FOR INPATIENT GLYCEMIC CONTROL: * Hold outpatient oral diabetes medications * Basal insulin * Lantus 0/5 units BID * Bolus insulin * NovoLog per scale ACHS or Q6hrs while NPO * Goal Range: Low 110 mg/dL - High 140 mg/dL * Correction Factor: 30 mg/dL/unit * Nutritional / Prandial insulin per carb ratio of 1 unit per 10 grams CHO consumed PLAN FOR DISCHARGE: * A1c 6.3%, at goal,Patient can likely resume home regimen of metformin 1000 mg BID.
[2020-03-12] MEDS ORDERED: Nursing to Pharmacy Communication SCH (15:15)
--- NOTE | 2020-03-12 16:32 | Surgery Progress Note ---
Date of Service March 12, 2020 Assessment & Plan (1) SBO (small bowel obstruction): Has begun to have bowel movements now. Feels like she needs to pass gas No peritonitis No abdominal pain No nausea or vomiting Can proceed with plan for clear liquids today and soft food tomorrow and if she tolerates that for discharge Discussed with her that she needs to get in contact with her seconds handler at [facility] to develop a plan. Admission and Anticipated Discharge Date Admission Date: March 12, 2020 Subjective Had an episode of emesis yesterday but heard nausea has completely resolved. She denies abdominal pain. She has had multiple liquid bowel movements. She tolerated clear liquids for lunch. Physical Exam Gastrointestinal (Abdomen): Inspection/Auscultation: abdomen not distended Percussion/Palpation: abdomen soft; abdomen nontender Results & Data ([facility]) Vital Signs (Past 12 Hours) Vital Signs Temp Pulse Resp BP Pulse Ox 03/12/20 15:35 36.5 C 87 20 160/77 H 95 03/12/20 08:01 36.7 C 86 18 146/87 H 94 Laboratory Results 03/12/20 03/12/20 03/12/20 Range/Units 12:12 05:42 00:41 POC Glucose 122 H 117 H 107 H (70-99) mg/dl 03/11/20 03/11/20 Range/Units 20:50 17:53 POC Glucose 113 H 128 H (70-99) mg/dl
[2020-03-12] MEDS: lisinopril 10 MG TAB PO SCH (17:32)
[2020-03-12] MEDS ORDERED: ASPIRIN 81 MG ECTAB PO SCH (21:00)
[2020-03-12] MEDS ORDERED: ATORVASTATIN 40 MG TAB PO SCH (21:00)
[2020-03-12] MEDS ORDERED: dilTIAZem HCL 180 MG CAPCR PO SCH (21:00)
--- NOTE | 2020-03-12 21:54 | Hospitalist Progress Note ---
Date of Service March 12, 2020 Assessment & Plan (1) SBO (small bowel obstruction): improved clinically and on labwork with bowel rest. no need for NGT since admission surgery consulted, however, abdomen is soft and not distended Leukocytosis resolved. Tolerating clears Stopped IVF ADAT in am. (2) Diabetes mellitus, type II: A1C reflects good outpatient control. Currently controlled as inpatient. Hold outpatient medications and use Novolog and Lantus while admitted. (3) CKD (chronic kidney disease), stage III: Around baseline. Avoid nephrotoxic agents. (4) Aortic stenosis: moderate , chronic, stable. Patient appears euvolemic. follows [facility] yearly (5) HTN (hypertension): chronic, BP slightly uncontrolled. On oral antihypertensives which were restarted. (6) DVT prophylaxis: SQ Heparin Disposition: to home when improved and tolerating PO reliably, likely Monday Code status: Full Code Danya Milian DO [place] Hospitalist Admission and Anticipated Discharge Date Admission Date: March 12, 2020 Subjective cc: SBO having small amounts of loose stool today denies abdominal tenderness tolerating clear liquid diet Review of Systems Review of Systems: All systems reviewed & are unremarkable except as noted in Subjective Physical Exam Physical Exam: CONSTITUTIONAL: WNWD, vitals as above, generally well- appearing EYES: normal conjunctivae, no scleral icterus ENT: external ear and nose normal, oropharynx clear, MMM RESPIRATORY: clear to auscultation bilaterally, no crackles, rales or wheezes, normal respiratory effort CARDIOVASCULAR: regular rate and rhythm, 3/6 SARAHI heard throughout precordium, no gallops or rubs, no JVD, no peripheral edema GASTROINTESTINAL: soft, nontender, nondistended, no guarding MUSCULOSKELETAL: strength 5/5 throughout, head is normocephalic and atraumatic SKIN: warm and dry NEUROLOGIC: CN 2-12 grossly intact, normal cognition, normal speech, no gross focal deficits. PSYCHIATRIC: alert cooperative and appropriate. Results & Data Results & Data ([facility]) Vital Signs (Past 12 Hours) Vital Signs Temp Pulse Pulse Resp BP Pulse Ox 03/12/20 20:54 78 157/79 H 03/12/20 15:35 36.5 C 87 20 160/77 H 95 Medications Administered Current Inpatient Medications Ascorbic Acid (Ascorbic Acid 500 Mg Tab) 500 mg PO DAILY [facility] Stop: 04/12/20 08:59 Aspirin (Aspirin 81 Mg Ectab) 81 mg PO QPM [facility] Stop: 04/11/20 20:59 Last Admin: 03/12/20 20:56 Dose: 81 mg Documented by: Atorvastatin Calcium (Atorvastatin 40 Mg Tab) 40 mg PO QPM [facility] Stop: 04/11/20 20:59 Last Admin: 03/12/20 20:56 Dose: 40 mg Documented by: Cyanocobalamin (Cyanocobalamin 500 Mcg Tablet (Vitamin B-12)) 1,000 mcg PO DAILY [facility] Stop: 04/12/20 08:59 Dextrose (Dextrose 50% 50 Ml Syringe) 25 - 50 ml IV UD PRN; Protocol PRN Reason: Hypoglycemia Protocol Stop: 04/09/20 20:05 Diltiazem HCl (Diltiazem Hcl 180 Mg Capcr) 180 mg PO QPM [facility] Stop: 04/11/20 20:59 Last Admin: 03/12/20 20:56 Dose: 180 mg Documented by: Glucagon (Glucagon For Inj 1 Mg Vial) 1 mg SQ UD PRN; Protocol PRN Reason: Hypoglycemia Protocol Stop: 04/09/20 20:05 Glucose (Glucose 10 Tabs/Tube) 4 - 8 tabs PO UD PRN; Protocol PRN Reason: Hypoglycemia Protocol Stop: 04/09/20 20:05 Glucose (Glucose 40% Gel 15 Gm Tube) 15 - 30 gm PO UD PRN; Protocol PRN Reason: Hypoglycemia Protocol Stop: 04/09/20 20:05 Heparin Sodium (Porcine) (Heparin Sod 5,000 Unit/0.5 Ml Vial) 5,000 units SQ Q8 [facility] Stop: 04/09/20 21:59 Last Admin: 03/12/20 22:02 Dose: 5,000 units Documented by: Hydralazine HCl (Hydralazine Hcl 20 Mg/Ml Vial) 5 mg IV Q6H PRN PRN Reason: Hypertension Stop: 04/09/20 20:43 Last Admin: 03/11/20 15:44 Dose: 5 mg Documented by: Acetaminophen (Ofirmev) 1,000 mg in 100 mls @ 400 mls/hr IV Q8H PRN PRN Reason: mild pain Stop: 03/13/20 20:05 Last Infusion: 03/12/20 01:05 Dose: Infused Documented by: Insulin Aspart (Insulin Aspart 100 Units/Ml 3 Ml Pen) 0 units SC ACHS [facility] Stop: 04/11/20 16:29 Last Admin: 03/12/20 21:09 Dose: Not Given Documented by: Insulin Glargine (Insulin Glargine Solostar 100 Units/Ml 3 Ml Pen) 0 units SC BID [facility]; Protocol Stop: 04/09/20 20:59 Last Admin: 03/12/20 21:08 Dose: Not Given Documented by: Lisinopril (Lisinopril 10 Mg Tab) 10 mg PO QAM [facility] Stop: 04/11/20 16:14 Last Admin: 03/12/20 17:32 Dose: 10 mg Documented by: Miscellaneous (Carbohydrates For Hypoglycemia ) 15 - 30 gm PO UD PRN PRN Reason: Hypoglycemia Protocol Stop: 04/09/20 20:05 Miscellaneous Information (Pharmacy Glycemic Mgmt Consult) 1 ea N/A UD PRN PRN Reason: Consult Stop: 04/09/20 21:02 Morphine Sulfate (Morphine Sulfate 4 Mg/Ml 1 Ml Carp\Vial) 4 mg IV Q4H PRN PRN Reason: severe pain Stop: 03/24/20 20:05 Last Admin: 03/11/20 16:11 Dose: 4 mg Documented by: Ondansetron HCl (Ondansetron Inj 2 Mg/Ml 2 Ml Vial) 4 mg IV Q6H PRN PRN Reason: Nausea Stop: 04/09/20 20:05 Last Admin: 03/11/20 16:19 Dose: 4 mg Documented by:
[2020-03-13] MEDS: HEPARIN SOD 5,000 UNIT/0.5 ML VIAL SQ SCH (05:42)
[2020-03-13] MEDS ORDERED: ASCORBIC ACID 500 MG TAB PO SCH (09:00)
[2020-03-13] MEDS ORDERED: CYANOCOBALAMIN 500 MCG TABLET (VITAMIN B-12) PO SCH (09:00)
--- NOTE | 2020-03-13 10:18 | Surgery Progress Note ---
Date of Service March 13, 2020 Assessment & Plan (1) SBO (small bowel obstruction): Subjectively improved Can advance diet Was to have colonoscopy at [facility] where she underwent her mucosectomy is in the area of the ileocecal valve This is suspicious for a possible stricture as a result of the mucosectomy's and this may come to surgical intervention. She is aware of that. She was going to try to contact her front load trash truck driver that has done the mucosectomy's but has been unsuccessful with that so far. Will await his opinion. She also had thought about having surgical intervention there but is concerned about going to [facility] and may decide to have that here in which case we can schedule appropriately. Will await their opinion. Admission and Anticipated Discharge Date Admission Date: March 12, 2020 Subjective Has no abdominal pain today Has had 2 liquid bowel movements Has tolerated a liquid diet without nausea or vomiting No melena or hematochezia Physical Exam Gastrointestinal (Abdomen): Inspection/Auscultation: normal bowel sounds; abdomen not distended Percussion/Palpation: abdomen soft; abdomen nontender Results & Data ([facility]) Vital Signs (Past 12 Hours) Vital Signs Temp Pulse Resp BP Pulse Ox 03/13/20 07:24 36.5 C 71 16 131/74 95 03/12/20 23:34 165/82 H 03/12/20 23:07 36.7 C 74 22 187/67 H 94
[2020-03-13] MEDS: INSULIN ASPART 100 UNITS/ML 3 ML PEN SC SCH ×2 (10:20→13:45)
[2020-03-13] MEDS: INSULIN GLARGINE SOLOSTAR 100 UNITS/ML 3 ML PEN SC SCH (10:21)
[2020-03-13] MEDS: lisinopril 10 MG TAB PO SCH (10:22)
--- NOTE | 2020-03-13 11:40 | Discharge Summary ---
Date of Service March 13, 2020 Admission HPI Per Admitting Provider This is a 74-year-old F with a significant past medical history and T2DM, HTN, moderate aortic stenosis, CKD stage III, gastroparesis, angiomyolipoma of kidney who presents to ED secondary to abdominal pain, N/V x 1 day. Sx started abruptly last evening and into publication designer with acute onset of lower abd pain, wax and wane in severity, dull achy/crampy, 10/10 at it worst. Currently pain 2/10, but 8/10 on arrival. She further complained of nausea and few episodes of emesis. She had 2 BMs today, one very early in a.m. and last 1 hr prior to arrival. Described it as loose, but not lavinia diarrhea. Denies hematemesis, melena or hematochezia. She was unable to tolerate water or medications this morning. Last meal was last evening. She denies f/c/s, dizziness, lightheaded, chest pain, sob, palpitations, cough, dysuria, increased freq/urgency with urination. She has hx of prior SBO back in 2019 ~ 1 month after having endoscopic submucosal resection at [facility]. She has had 3-4 of these, last in June 2019 and is due again in April for dysplastic polyp. Denies any other open abd surgeries. Denies any known covid exp, loss of taste or smell. In ED she received IV morphine and zofran which has improved sx and she currently is not experiencing n/v. In ED she remained hemodynamically stable. Labs notable for wbc 15.34k, h/h 14.1 &41.6, plt 434, bun/cr 21/1.39, gluc 152, covid negative. CT a/p: . Prominent air and fluid-filled loops of small bowel within the abdomen and pelvis is suggestive of small bowel obstruction with transition point at the level of the ileocecal valve. No definite obstructing mass identified. 2. Mild reactive interloop edema with trace abdominal pelvic ascites. 3. No pneumatosis or pneumoperitoneum. 4. Colonic diverticulosis. 5. Fibroid uterus. She did not require NGT placement. Admission Exam Per Admitting Provider Constitutional: WD/WN, F, vitals as above, NAD, sitting up in bed, pleasant, conversing easily Head: Normocephalic, Atraumatic Eyes: PERRL, conjunctivae normal, anicteric sclerae ENMT: external ear and nose normal, oropharynx normal Neck: trachea midline, no thyromegaly normal visual inspection Respiratory: normal respiratory effort, lungs clear to auscultation, no wheeze, rales, rhonchi. Normal insp/exp effort, no accessory muscle use Cardiovascular: RRR, 2/6 SARAHI noted RUSB, no edema Vessels: no JVD or carotid bruit Chest: normal inspection of chest Abdomen: normal bowel sounds, soft, nontender, no hepatosplenomegaly Musculoskeletal: no cyanosis or clubbing, extremities motor strength 5/5 Skin: no rashes, warm and dry normal turgor Neurologic: PERRL, EOMI, accommodation nl, no face palsy, no dysarthria CN's II-XI intact bilaterally and moves all extremities Psychiatric: A+Ox3, euthymic affect Lymphatic: no cervical or axillary lymphadenopathy : deferred Principal Diagnosis SBO Discharge Exam CONSTITUTIONAL: WNWD, vitals as above, generally well-appearing EYES: normal conjunctivae, no scleral icterus ENT: external ear and nose normal, oropharynx clear, MMM RESPIRATORY: clear to auscultation bilaterally, no crackles, rales or wheezes, normal respiratory effort CARDIOVASCULAR: regular rate and rhythm, 3/6 SARAHI heard throughout precordium, no gallops or rubs, no JVD, no peripheral edema GASTROINTESTINAL: soft, nontender, nondistended, no guarding MUSCULOSKELETAL: strength 5/5 throughout, head is normocephalic and atraumatic SKIN: warm and dry NEUROLOGIC: CN 2-12 grossly intact, normal cognition, normal speech, no gross focal deficits. PSYCHIATRIC: alert cooperative and appropriate. Discharge Data Allergies Allergy/AdvReac Type Severity Reaction Status Date / Time nickel Allergy Unknown ITCHY / Verified 03/10/20 17:23 BLISTERS Penicillins Allergy Unknown REMOTE HX, Verified 03/10/20 17:23 NOT SURE REACTION ? RASH sulfamethoxazole AdvReac Unknown AFFECTED Verified 03/10/20 17:23 [From Bactrim] KIDNEYS trimethoprim [From Bactrim] AdvReac Unknown AFFECTED Verified 03/10/20 17:23 KIDNEYS Consultations 03/10/20 16:44 ED Decision to Admit Stat 03/10/20 17:25 Consult General Surgery Routine 03/10/20 20:06 Consult Case Management - Discharge Planning Routine Ordered Studies [facility], [id number] CT Scan Report Patient: MINOR KUO EAamy Date: 03/10/20MR#: [id number] [address] ADAMEAcct ID:[id number]: [address]Birth Date: [address] [place] [address] Zip: [place], [place] [address]Vfw: 74Location: EDSex: FRoom/Bed:Att Phy:Diagnosis: Lower Abd PainPri Phy: Indra Hernandes, DOService Date: 03/10/20Fam Phy:Interpreting Phy: Brandon PlazaAdmanna Phy: Ordering Phy: Link Ortiz DO cc: ~ ABDOMEN AND PELVIS CT WITH IV CONTRAST CT DOSE: 977.77 mGy.cm HISTORY: Acute lower abdominal pain lower abd pain TECHNIQUE: Multiaxial CT images of the abdomen and pelvis were performed following the IV administration of 94 cc of Optiray 320, A dose lowering technique was utilized adhering to the principles of ALARA. COMPARISON STUDY: CT abdomen and pelvis 09/29/2018 FINDINGS: Mild right hemidiaphragmatic elevation. Clear lung bases. No pneumatosis or pneumoperitoneum. Coronary artery calcifications. Calcified plaque of the thoracic and abdominal aorta. Spleen, mildly atrophic pancreas and adrenal glands are unremarkable. Cholecystectomy with likely physiologic. Ductal dilation. Unremarkable liver. Patency of the hepatic and portal veins. Mild cortical thinning of the bilateral kidneys. There are a few subcentimeter hypodensities of the kidneys which are too small to characterize however favor renal cysts. No hydronephrosis. Partially decompressed urinary bladder. Heterogeneous uterus with suggested fibroid measuring up to 3.1 cm. No adnexal mass lesion. There is no adenopathy. Tiny hiatal hernia. Small to moderate duodenal diverticulum. Colonic diverticulosis. Decompressed ascending and transverse colon with wall thickening. Mural fatty changes of the ileocecal valve. Noninflamed appendix. Nonspecific tiny lymph nodes of the right lower quadrant mesentery. There is mild soft tissue thickening at the ileocecal valve without discrete mass identified. Prominent loops of small bowel with air-fluid levels measure up to 2.9 cm. Transition point is noted at the ileocecal valve. The terminal ileum measures up to 2.8 cm and is filled with fecal material. Mild interloop edema wi th trace abdominal pelvic ascites. Unremarkable soft tissues. Right hip total arthroplasty. Degenerative changes of the spine, pelvis and left hip. IMPRESSION: 1. Prominent air and fluid-filled loops of small bowel within the abdomen and pelvis is suggestive of small bowel obstruction with transition point at the level of the ileocecal valve. No definite obstructing mass identified. 2. Mild reactive interloop edema with trace abdominal pelvic ascites. 3. No pneumatosis or pneumoperitoneum. 4. Colonic diverticulosis. 5. Fibroid uterus. 6. Additional findings as above. ACT 112: Negative or not required by law. The above report was generated using voice recognition software. It may contain grammatical, syntax or spelling errors. Electronically signed by: Zack Plaza M.D. 03/10/2020 4:34 PM Dictated: 03/10/201624Transcribed: 03/10/201624 Hospital Course (1) SBO (small bowel obstruction): The patient is a 74-year-old female who presented to the hospital with vomiting with work-up revealing a small bowel obstruction. Lab revealed mild leukocytosis of 15,000. BMP was remarkable for creatinine 1.4. LFTs and bilirubin were unremarkable. Lipase was normal. CT of the abdomen pelvis revealed a small bowel obstruction. She was received IV fluids, Zofran, morphine in the ER and was admitted to the hospitalist service for further monitoring. She did not require NG tube placement during this hospitalization. General surgery was consulted. There was evidence of the obstruction at the ileocecal valve by CT which was a partial obstruction. As she has a history of multiple mucosectomy's, she was considered to have either a stricture or edema related to these in this area. Air was noted in the colon. She continued to feel better and was continued on bowel rest and conservative measures throughout the rest of her hospitalization. She began passing flatus and having bowel movements, and her diet was advanced as tolerated. At time of discharge she was hemodynamically stable and afebrile and tolerating solid food reliably. She was mentating and ambulating at baseline and oxygenating well on room air. It was recommended she get in touch with her program/music director at [facility] to develop a plan further to evaluate this area for stricture or other issue that may require resection. She verbalized understanding with intent to comply. Close primary care follow-up was recommended. She was discharged in stable condition. Total Time Total Time Spent Total Time Spent (In Minutes): 30 Total Time Includes: Examination of the Patient, Discharge Planning, Medication Reconciliation and Communication With Other Providers Discharge Plan Discharge Items Patient Disposition: Home - Self-Care Reason For Visit: SBO Discharge Diagnosis: SBO Condition on Discharge: Good Activity: Resume your previous activity Non-emergency contact: Primary Care Provider Call non-emergency contact if: you have any medication questions, your symptoms worsen, your pain is worsening and you have a fever Follow-up/Referrals: Indra Hernandes DO [Primary Care Provider] - (Date & Time 03/17/2020 11:00 AM Provider Indra Hernandes DO Department [facility] ) Diet: Carb Consistent or DM2 Addtl Attending Provider Instructions: Please take all medications as instructed on discharge list below. Please follow-up with your primary care provider at the date and time above to ensure you are still doing well after discharge home. It was a pleasure taking care of you! Please call if you have any questions or problems. You can reach a [facility] hospitalist on duty at [facility] 24 hours a day by calling [phone]. Take care of yourself. Danya Milian DO [facility] Hospitalist Pending Studies at Discharge: No Stand-Alone Forms: My [facility] Medications and DC Order Prescriptions: Continued lisinopril 10 mg tablet 10 mg PO QAM RF: 0 hydrochlorothiazide 12.5 mg capsule 12.5 mg PO QAM RF: 0 metformin 1,000 mg tablet 1,000 mg PO BID RF: 0 ascorbic acid (vitamin C) 1,000 mg Tablet 1 g PO DAILY RF: 0 clobetasol 0.05 % ointment 1 appln TOP 2XWK RF: 0 Probiotic Digestive Care 20 billion cell Capsule 1 cell PO QAM RF: 0 acetaminophen 325 mg Tablet 325 - 650 mg PO Q4 PRN (Reason: Pain) RF: 0 aspirin [Aspirin Low Dose] 81 mg Tablet,Delayed Release (Dr/Ec) 81 mg PO QPM RF: 0 atorvastatin 40 mg Tablet 40 mg PO QPM RF: 0 diltiazem HCl [Cartia XT] 180 mg Capsule,Extended Release 24hr 180 mg PO QPM RF: 0 cyanocobalamin (vitamin B-12) [Vitamin B-12] 1,000 mcg Tablet 1,000 mcg PO DAILY RF: 0 fluocinonide 0.05 % Cream 1 applic TOPICAL DAILY RF: 0 Discharge Orders: Discharge Order (Routine); Ordered 03/13/20 Ordered By: Danya Schneider/Other Patient Handouts: Small Bowel Obstruction, Managing Type 2 Diabetes Admission Data Admit Date/Time: 03/12/20 08:00 Attending Provider: Danya Milian Admit Provider: Radha Marcelino Primary Care Provider: Indra Hernandes Other Providers: Anup Souza ; Radha Marcelino Other Interventions: Discharge Summary Assessment (RN) Last Done: 03/13/20 16:11
== END 2020-03-13 17:00 | disposition home or self-care (01) | DRG 390 ==
LOC: ED 14:53 → 3W 14:53 → SUATTDRO 17:25 → 3W 19:40

== ENCOUNTER 2021-02-10 15:03 | Inpatient (IN) ==
[2021-02-10 15:41] LABS: Basophils # (auto) 0.02 K/uL (0-0.2); Basophils % (auto) 0.1 %; Eosinophils # (auto) 0.07 K/uL (0-0.5); Eosinophils % (auto) 0.5 %; Hematocrit (blood only) 40.1 % (37-47); Hemoglobin 13.3 g/dL (12.0-16.0); Immature Granulocytes # (auto) 0.04 K/uL (0.00-0.02); Immature Granulocytes % (auto) 0.3 %; Lymphocytes # (auto) 0.41 K/uL (1.2-3.4); Lymphocytes % (auto) 2.9 %; Mean Corpuscular Hemoglobin 29.9 pg (25-34); Mean Corpuscular Hgb Conc 33.2 g/dL (32-36); Mean Corpuscular Volume 90.1 fL (80-100); Mean Platelet Volume 10.3 fL (7.4-10.4); Monocytes # (auto) 0.46 K/uL (0.11-0.59); Monocytes % (auto) 3.3 %; Neutrophils % (auto) 92.9 %; Platelet Count 265 K/uL (130-400); RDW Coefficient of Variation 15.6 % (11.5-14.5); RDW Standard Deviation 51.5 fL (36.4-46.3); Red Blood Count 4.45 M/uL (4.2-5.4)
[2021-02-10 15:59] LABS: Albumin Level 3.4 gm/dl (3.4-5.0); BUN Creatinine Ratio 12.6 (10-20); Calcium 9.3 mg/dl (8.5-10.1); Creatinine Clr Calc Pharmacy 26.8 ml/min; Est GFR (African American) 32.4 ml/min; Potassium 4.5 mmol/L (3.5-5.1)
[2021-02-10 16:02] LABS: Globulin 3.5 gm/dl (2.5-4.0); Total Protein 6.9 gm/dl (6.4-8.2)
--- NOTE | 2021-02-10 16:13 | XRay Report ---
SINGLE VIEW CHEST CLINICAL HISTORY: Dyspnea. FINDINGS: An AP, portable, upright chest radiograph is obtained. No prior studies are available for c omparison at the time of dictation. The cardiomediastinal silhouette is unremarkable noting atherosc lerotic calcification of the thoracic aorta. There is elevation of right hemidiaphragm with bibasilar atelectasis. No airspace consolidation or large pleural effusion is identified. No pneumothorax is s een. The skeletal structures are osteopenic. The bony thorax is grossly intact. IMPRESSION: No active disease in the chest. ACT 112: Negative or not required by law. Electronically signed by: Sekou Richmond M.D. 02/10/2021 4:11 PM
[2021-02-10] MEDS ORDERED: SODIUM CHLORIDE 0.9% 1000ML 500 ML IV ONE (18:05)
[2021-02-10 18:36] LABS: Appearance Urine Clear (Clear); Bacteria Urine Automated Negative (Negative); Bilirubin Urine Negative (Negative); Blood Urine Negative (Negative); Color Urine Dark Yellow; Epithelial Cell Urine Auto >30 /lpf (0-5); Glucose Urine UA Negative (Negative); Ketones Urine Trace (Negative); Leukocyte Esterase Urine Trace (Negative); Nitrite Urine Negative (Negative); Protein Urine Negative (Negative); RBC Urine Automated 0-4 /hpf (0-4); Specific Gravity Urine 1.043 (1.000-1.030); Urobilinogen Urine Negative (Negative)
[2021-02-10 18:42] LABS: Magnesium 1.6 mg/dl (1.8-2.4); Troponin I < 0.015 ng/ml (0-0.045)
[2021-02-10] MEDS ORDERED: AZITHROMYCIN 250 MG TAB PO ONE (20:41)
[2021-02-10] MEDS ORDERED: cefTRIAXone SODIUM 1 GM ADDVIAL IV STA (20:41)
[2021-02-10] MEDS ORDERED: cefTRIAXone SODIUM 1,000 MG/50 ML BAG IV STA (20:59)
[2021-02-10 21:05] LABS: Partial Thromboplastin Ratio 0.9; Partial Thromboplastin Time 23.9 Seconds (21.0-31.0)
[2021-02-10] MEDS ORDERED: traMADol HCL 50 MG TABLET PO STA (21:41)
[2021-02-10] MEDS ORDERED: CEFEPIME 2,000 MG/20 ML VIAL IV STA (21:45)
--- NOTE | 2021-02-10 21:45 | History & Physical Report ---
Date of Service February 10, 2021 Assessment & Plan (1) Severe sepsis: Plan: SIRS plus ARF on CKD, elevated procalcitonin ? Complicated UTI (UA somewhat bland however) Rule out obstructive uropathy, spine infection given back pain complaints Shortness of breath, episodic tachypnea with abnormal D-dimer Rule out PE hypertension, BP on the lower side hyperlipidemia on statin Rx moderate aortic stenosis (TTE 2019) DM2 on oral medications, well-controlled as of recent hemoglobin A1c of 6.26 October 2020 past tobacco abuse Med telemetry CS, Cefepime for now (hx Pseudomonas aeruginosa on prior urine CS) CT abdomen pelvis, CT lumbar spine Re: Back pain Further management pending work-up results Monitor creatinine response gentle IV hydration, hold DAVIDSON inhibitor and spironolactone until creatinine back to baseline IV heparin for presumptive PE until PE ruled out by VQ scan and LE Dopplers (CT angio study precluded by kidney dysfunction) ISS BG goal one 110-1 40 DVT prophylaxis. IV Heparin Full code Patient's requesting updates from providers. Mr. Mick García, contact number [phone]. Text document was generated using [employer] voice recognition software. It may contain grammatical or spelling errors. Kindly contact undersigned for clarification of any documentation item in question. History of Present Illness Chief Complaint: Shortness of breath, low back pain Primary Care Provider: Indra Hernandes DO History obtained from patient, family, and records. Medical history significant for hypertension, hyperlipidemia, moderate aortic stenosis (TTE 2019), DM2 on oral medications, CRI (baseline creatinine 1.5), past tobacco abuse. Last confinement February 2020 for small bowel obstruction resolved with conservative management. Patient underwent elective left hip replacement at [facility] last November 2020. 3 weeks ago, patient noted low back pain without radiation to legs. Pain somewhat worse with motion. Possibly from ongoing postop rehab. No unusual leg weakness or numbness as per patient. No fever, no chills no chest pain, no S OB. Patient seen at PCP's office. Prednisone course prescribed for presumptive sciatica. Outpatient lumbar spine x-ray showed degenerative changes most pronounced at L4- L5. Pain somewhat improved although patient was not happy with high sugars resulting from steroid Rx. This morning, patient noted shortness of breath somewhat worse on exertion without chest pain. No unusual cough symptoms. Denies unusual leg pain/swelling. Blood pressure noted to be low. Back pain still achy. Denies dysuria/frequency symptoms. O2 sats noted to be 89% on room air during physical therapy session. Patient directed to ER by PCP's office. SBP 80s at some point during ER stay. IVF, Ceftriaxone, Azithromycin given for possible sepsis. Medical History as above Surgical History : Cholecystectomy, tonsillectomy/adenoidectomy, hip replacement, right knee surgery, breast biopsy, left hip surgery Family History : Heart disease, IBD Personal/Social history : Non-smoker, occasional EtOH intake, retired businesswoman Allergies Allergy/AdvReac Type Severity Reaction Status Date / Time nickel Allergy Intermediate ITCHY / Verified 02/10/21 18:00 BLISTERS Penicillins Allergy Unknown REMOTE HX, Verified 02/10/21 17:59 NOT SURE REACTION ? RASH sulfamethoxazole AdvReac Unknown AFFECTED Verified 02/10/21 17:59 [From Bactrim] KIDNEYS trimethoprim [From Bactrim] AdvReac Unknown AFFECTED Verified 02/10/21 17:59 KIDNEYS Home Medications Medication Instructions Recorded Confirmed Type aspirin 81 mg tablet,delayed 81 mg PO QPM 09/23/18 02/10/21 History release (Aspirin Low Dose) atorvastatin 40 mg tablet 40 mg PO QPM 09/23/18 02/10/21 History cyanocobalamin (vitamin B-12) 1,000 mcg PO DAILY 09/23/18 02/10/21 History 1,000 mcg tablet (Vitamin B-12) diltiazem HCl 180 mg 180 mg PO QPM 09/23/18 02/10/21 History capsule,extended release 24 hr (Cartia XT) fluocinonide 0.05 % topical cream 1 applic TOPICAL DAILY 09/23/18 02/10/21 History acetaminophen 325 mg tablet 325 - 650 mg PO Q4 PRN 11/19/19 02/10/21 History ascorbic acid (vitamin C) 1,000 mg 1 g PO DAILY 11/19/19 02/10/21 History tablet clobetasol 0.05 % topical ointment 1 appln TOP 2XWK 11/19/19 02/10/21 History lisinopril 10 mg tablet 10 mg PO DAILY tab 01/13/21 02/10/21 History metformin 500 mg tablet,extended 500 mg PO DAILY 01/13/21 02/10/21 History release 24 hr spironolactone 25 mg tablet 12.5 mg PO DAILY tab 01/13/21 02/10/21 History Lactobacillus rhamnosus GG 10 1 cap PO DAILY 02/10/21 02/10/21 History billion cell-inulin 200 mg capsule ([employer]) Past Med/Surg History Medical History Abdominal pain Aortic stenosis "MODERATE" - NO SYMPTOMS - FOLLOWS [facility] CARDIO Arthritis CKD (chronic kidney disease), stage III Diabetes mellitus, type II Fatty liver History of skin cancer RECENT / FACE / REMOVAL TO TAKE PLACE END OF THIS MONTH, BASAL CELL HTN (hypertension) Leukocytosis SBO (small bowel obstruction) Small bowel obstruction HX 2019 Surgical History H/O breast biopsy open, benign, 1972 H/O breast surgery (01/08/20) Excision of epidermoid cyst, left breast. Dr. Hill 01/08/2020 History of cholecystectomy History of total right knee replacement S/P colonoscopy May 31 2018 and Aug 24 2018 11/14/18, 05/17/19 in [place]. "Clean up procedure, biopsies negative" 2008, precancer at ileocecal valve 02/2010, repeat done and polyp, ileocecal valve looked good, [place] for 3 years, [place]. 03/06, polyp, repeat in 3 years. S/P hip replacement Right S/P tonsillectomy and adenoidectomy S/P tooth extraction Family History Mother Heart disease Father Heart disease Denies family history of Ovarian cancer Breast cancer Colorectal cancer Social History Smoking Status: Never smoker Second Hand Exposure: No; Do You Dip or Chew Tobacco: No; Hx Alcohol Use: Yes Alcohol type: hard liquor Hx Substance Use: No Preferred Language: Macedonian Communication Ability: Effective Telesales Supervisor Required: No Beliefs That Will Affect Care: None marital status: Current Living Situation: Spouse Current Living Situation Comment: 2 story condo with , does not have to go upstairs for anything current occupational status: retired Feels Safe at Home: Yes Safety Concerns: Feels Safe At This Time Assistive Devices: Glasses Review of Systems Review of Systems: As per HPI, all 10 systems reviewed, all other ROS negative Physical Exam Physical Exam: GENERAL: Slightly uncomfortable, obese, no respiratory distress SKIN: Normal color, warm HEENT: [employer] palpebral conjunctivae, no ptosis, dry buccal mucosa NECK : Supple, short neck, no tenderness CHEST : CTA, no tenderness HEART : RRR, systolic murmur over precordium ABDOMEN: Some distention, nontender BACK : Low back tenderness, negative straight leg raise test EXTREMITIES : Minimal LE swelling, no LE tenderness, no other conspicuous deformities noted NEUROLOGIC : Coherent, no facial asymmetry, no other gross focality Results & Data Results & Data ([facility]) Vital Signs (Past 12 Hours) Vital Signs Temp Pulse Pulse Resp BP BP Pulse Ox 02/10/21 21:00 76 27 H 119/63 100 02/10/21 20:36 80 24 100 02/10/21 20:00 75 23 101/54 L 02/10/21 19:30 77 25 H 128/64 02/10/21 19:01 76 98/56 L 02/10/21 19:00 74 26 H 98/56 L 02/10/21 18:40 79 22 84/46 L 95 02/10/21 18:30 77 29 H 02/10/21 18:03 78 23 98 02/10/21 17:47 89 20 85/55 L 99 02/10/21 15:07 35.9 C L 93 H 19 106/73 99 Laboratory Results Laboratory Results WBC 14.10 K/uL (4.8-10.8) H 02/10/21 15:32 RBC 4.45 M/uL (4.2-5.4) 02/10/21 15:32 Hgb 13.3 g/dL (12.0-16.0) 02/10/21 15:32 Hct 40.1 % (37-47) 02/10/21 15:32 MCV 90.1 fL (80-100) 02/10/21 15:32 MCH 29.9 pg (25-34) 02/10/21 15:32 MCHC 33.2 g/dL (32-36) 02/10/21 15:32 RDW Std Deviation 51.5 fL (36.4-46.3) H 02/10/21 15:32 RDW Coeff of Tin 15.6 % (11.5-14.5) H 02/10/21 15:32 Plt Count 265 K/uL (130-400) 02/10/21 15:32 MPV 10.3 fL (7.4-10.4) 02/10/21 15:32 Immature Gran % (Auto) 0.3 % 02/10/21 15:32 Neut % (Auto) 92.9 % 02/10/21 15:32 Lymph % (Auto) 2.9 % 02/10/21 15:32 Ogle % (Auto) 3.3 % 02/10/21 15:32 Eos % (Auto) 0.5 % 02/10/21 15:32 Baso % (Auto) 0.1 % 02/10/21 15:32 Neut # (Auto) 13.10 K/uL (1.4-6.5) H 02/10/21 15:32 Lymph # (Auto) 0.41 K/uL (1.2-3.4) L 02/10/21 15:32 Ogle # (Auto) 0.46 K/uL (0.11-0.59) 02/10/21 15:32 Eos # (Auto) 0.07 K/uL (0-0.5) 02/10/21 15:32 Baso # (Auto) 0.02 K/uL (0-0.2) 02/10/21 15:32 Immature Gran # (Auto) 0.04 K/uL (0.00-0.02) H 02/10/21 15:32 APTT 23.9 Seconds (21.0-31.0) 02/10/21 15:32 PTT Ratio 0.9 02/10/21 15:32 Sodium 135 mmol/L (136-145) L 02/10/21 15:32 Potassium 4.5 mmol/L (3.5-5.1) 02/10/21 15:32 Chloride 106 mmol/L (98-107) 02/10/21 15:32 Carbon Dioxide 21 mmol/L (21-32) 02/10/21 15:32 Anion Gap 8.0 (3-11) 02/10/21 15:32 BUN 22 mg/dl (7-18) H 02/10/21 15:32 Creatinine 1.74 mg/dl (0.6-1.2) H 02/10/21 15:32 Est Cr Clr Drug Dosing 26.8 ml/min 02/10/21 15:32 Est GFR ( Amer) 32.4 ml/min 02/10/21 15:32 Est GFR (Non-Af Amer) 28.0 ml/min 02/10/21 15:32 BUN/Creatinine Ratio 12.6 (10-20) 02/10/21 15:32 Glucose 167 mg/dl (70-99) H 02/10/21 15:32 Lactate 1.9 mmol/L (0.4-2.0) 02/10/21 18:36 Calcium 9.3 mg/dl (8.5-10.1) 02/10/21 15:32 Magnesium 1.6 mg/dl (1.8-2.4) L 02/10/21 15:32 Total Bilirubin 1.0 mg/dl (0.2-1) 02/10/21 15:32 AST 11 U/L (15-37) L 02/10/21 15:32 ALT 19 U/L (12-78) 02/10/21 15:32 Alkaline Phosphatase 81 U/L (45-117) 02/10/21 15:32 Troponin I < 0.015 ng/ml (0-0.045) 02/10/21 15:32 Total Protein 6.9 gm/dl (6.4-8.2) 02/10/21 15:32 Albumin 3.4 gm/dl (3.4-5.0) 02/10/21 15:32 Globulin 3.5 gm/dl (2.5-4.0) 02/10/21 15:32 Albumin/Globulin Ratio 1.0 (0.9-2) 02/10/21 15:32 Procalcitonin 0.88 ng/ml (0-0.5) H 02/10/21 15:32 TSH 2.350 uIu/ml (0.300-4.500) 02/10/21 15:32 Urine Color Dark Yellow 02/10/21 18:20 Urine Appearance Clear (Clear) 02/10/21 18:20 Urine pH 5.0 (4.5-7.5) 02/10/21 18:20 Ur Specific Desmet 1.043 (1.000-1.030) H 02/10/21 18:20 Urine Protein Negative (Negative) 02/10/21 18:20 Urine Glucose (UA) Negative (Negative) 02/10/21 18:20 Urine Ketones Trace (Negative) H 02/10/21 18:20 Urine Blood Negative (Negative) 02/10/21 18:20 Urine Nitrite Negative (Negative) 02/10/21 18:20 Urine Bilirubin Negative (Negative) 02/10/21 18:20 Urine Urobilinogen Negative (Negative) 02/10/21 18:20 Ur Leukocyte Esterase Trace (Negative) H 02/10/21 18:20 Urine WBC (Auto) 10-30 /hpf (0-5) H 02/10/21 18:20 Urine RBC (Auto) 0-4 /hpf (0-4) 02/10/21 18:20 U Hyaline Cast (Auto) 1-5 /lpf (0-5) 02/10/21 18:20 U Epithel Cells (Auto) >30 /lpf (0-5) H 02/10/21 18:20 Urine Bacteria (Auto) Negative (Negative) 02/10/21 18:20 COVID-19 Eval Order Covid19 at [facility] 02/10/21 18:36 SARS-CoV-2 (PCR) NEGATIVE (Negative) 02/10/21 18:36 Impressions Chest X-Ray 02/10/21 15:10 SINGLE VIEW CHEST CLINICAL HISTORY: Dyspnea. FINDINGS: An AP, portable, upright chest radiograph is obtained. No prior studies are available for comparison at the time of dictation. The cardiomediastinal silhouette is unremarkable noting atherosclerotic calcification of the thoracic aorta. There is elevation of right hemidiaphragm with bibasilar atelectasis. No airspace consolidation or large pleural effusion is identified. No pneumothorax is seen. The skeletal structures are osteopenic. The bony thorax is grossly intact. IMPRESSION: No active disease in the chest. ACT 112: Negative or not required by law. Electronically signed by: Sekou Richmond M.D. 02/10/2021 4:11 PM Diagnostic Findings EKG as per interpretation Rate 95, NSR, LAD, LAFB, inferior infarct
[2021-02-10 23:10] LABS: D Dimer 560 ug/L FEU (0-500)
[2021-02-10] MEDS ORDERED: Heparin IV Adult Wt-Based Standard *NO* Bolus Protocol IV STA (23:13)
[2021-02-10] MEDS ORDERED: HEPARIN SODIUM/DEXTROSE 25,000 UNITS/500 ML BAG IV SCH (23:30)
[2021-02-10] MEDS ORDERED: CEFEPIME CONSULT ACTIVE PRN (23:40)
[2021-02-11] MEDS ORDERED: PROMETHAZINE 12.5 MG/50.5 ML BAG IV STA (01:10)
--- NOTE | 2021-02-11 01:32 | Emergency Department Note ---
History of Present Illness General Chief complaint: Hypotension Stated complaint: SOB, FEELING VERY WEAK, LOW BP 90/60 Time Seen by Provider: 02/10/21 18:04 History of Present Illness Provider complaint: Shortness of breath weakness Onset (ago): day(s) 1 Associated symptoms: + shortness of breath and + weakness; no confusion, no chest pain, no cough, no fever/chills or no headaches 75-year-old female presents emergency department for shortness of breath and female. Patient reports that starting today she started becoming short of natacha th and feel extremely weak. She states she went to her dentist today and he noticed that her oxygen saturation was low so he referred her to the emergency department. Patient has any chest pain. She denies any falls. She denies any fevers. Patient is vaccinated gets COVID-19. No hematuria dysuria. No melena or hematochezia. No abdominal pain. Home Medications Medication Instructions Recorded Confirmed Type aspirin 81 mg tablet,delayed 81 mg PO QPM 09/23/18 02/10/21 History release (Aspirin Low Dose) atorvastatin 40 mg tablet 40 mg PO QPM 09/23/18 02/10/21 History cyanocobalamin (vitamin B-12) 1,000 mcg PO DAILY 09/23/18 02/10/21 History 1,000 mcg tablet (Vitamin B-12) diltiazem HCl 180 mg 180 mg PO QPM 09/23/18 02/10/21 History capsule,extended release 24 hr (Cartia XT) fluocinonide 0.05 % topical cream 1 applic TOPICAL DAILY 09/23/18 02/10/21 History acetaminophen 325 mg tablet 325 - 650 mg PO Q4 PRN 11/19/19 02/10/21 History ascorbic acid (vitamin C) 1,000 mg 1 g PO DAILY 11/19/19 02/10/21 History tablet clobetasol 0.05 % topical ointment 1 appln TOP [id number] 11/19/19 02/10/21 History lisinopril 10 mg tablet 10 mg PO DAILY tab 01/13/21 02/10/21 History metformin 500 mg tablet,extended 500 mg PO DAILY 01/13/21 02/10/21 History release 24 hr spironolactone 25 mg tablet 12.5 mg PO DAILY tab 01/13/21 02/10/21 History Lactobacillus rhamnosus GG 10 1 cap PO DAILY 02/10/21 02/10/21 History billion cell-inulin 200 mg capsule ([email or web address]) Allergies Allergy/AdvReac Type Severity Reaction Status Date / Time nickel Allergy Intermediate ITCHY / Verified 02/10/21 18:00 BLISTERS Penicillins Allergy Unknown REMOTE HX, Verified 02/10/21 17:59 NOT SURE REACTION ? RASH sulfamethoxazole AdvReac Unknown AFFECTED Verified 02/10/21 17:59 [From Bactrim] KIDNEYS trimethoprim [From Bactrim] AdvReac Unknown AFFECTED Verified 02/10/21 17:59 KIDNEYS Past Med/Surg History Medical History Abdominal pain Aortic stenosis "MODERATE" - NO SYMPTOMS - FOLLOWS [facility] CARDIO Arthritis CKD (chronic kidney disease), stage III Diabetes mellitus, type II Fatty liver History of skin cancer RECENT / FACE / REMOVAL TO TAKE PLACE END OF THIS MONTH, BASAL CELL HTN (hypertension) Leukocytosis SBO (small bowel obstruction) Small bowel obstruction HX 2019 Surgical History H/O breast biopsy open, benign, 1971 H/O breast surgery (01/08/20) Excision of epidermoid cyst, left breast. Dr. Hill 01/08/2020 History of cholecystectomy History of total right knee replacement S/P colonoscopy May 31 2018 and Aug 24 2018 11/14/18, 05/17/19 in [place]. "Clean up procedure, biopsies negative" 2008, precancer at ileocecal valve 02/2010, repeat done and polyp, ileocecal valve looked good, [place] for 3 years, [place]. 03/06, polyp, repeat in 3 years. S/P hip replacement Right S/P tonsillectomy and adenoidectomy S/P tooth extraction Family History Mother Heart disease Father Heart disease Denies family history of Ovarian cancer Breast cancer Colorectal cancer Social History Smoking Status: Never smoker Second Hand Exposure: No; Hx Alcohol Use: Yes Alcohol type: hard liquor Hx Substance Use: No Preferred Language: Setswana Communication Ability: Effective General Ware[employer] Required: No Beliefs That Will Affect Care: None marital status: Current Living Situation: Spouse current occupational status: retired Feels Safe at Home: Yes Assistive Devices: Glasses Review of Systems A total of 10 systems reviewed and were otherwise negative Physical Exam Vital Signs Vital Signs - 24 hr 02/10/21 15:07 02/10/21 17:47 02/10/21 18:03 Temperature 35.9 C L Temperature Source Temporal Artery Scan Pulse Rate 93 H 78 Pulse Rate [Apical] 89 Pulse Rate from SpO2 Sensor 78 Pulse Rhythm [Apical] Regular Respiratory Rate 19 20 23 Respiratory Effort / Characteristics Non-Labored Non-Labored Respiratory Depth Normal Normal Respiratory Pattern Regular Regular Blood Pressure 106/73 Blood Pressure [Right Arm] 85/55 L Blood Pressure Mean 84 Blood Pressure Mean [Right Arm] 65 Blood Pressure Position [Right Arm] Pulse Oximetry 99 99 98 Oxygen Delivery Method Room Air Room Air Sepsis Recent Fever Within 48 Hours No Sepsis New/Unexplained Change in Mental Status N/A Sepsis Action Taken by Nursing No Action Required 02/10/21 18:30 02/10/21 18:40 02/10/21 19:00 Temperature Temperature Source Pulse Rate 77 74 Pulse Rate [Apical] 79 Pulse Rate from SpO2 Sensor Pulse Rhythm [Apical] Respiratory Rate 29 H 22 26 H Respiratory Effort / Characteristics Respiratory Depth Respiratory Pattern Blood Pressure 98/56 L Blood Pressure [Right Arm] 84/46 L Blood Pressure Mean 70 Blood Pressure Mean [Right Arm] 58 Blood Pressure Position [Right Arm] Semi-fowlers Pulse Oximetry 95 Oxygen Delivery Method Room Air Sepsis Recent Fever Within 48 Hours Sepsis New/Unexplained Change in Mental Status Sepsis Action Taken by Nursing 02/10/21 19:01 02/10/21 19:30 02/10/21 20:00 Temperature Temperature Source Pulse Rate 77 75 Pulse Rate [Apical] 76 Pulse Rate from SpO2 Sensor Pulse Rhythm [Apical] Respiratory Rate 25 H 23 Respiratory Effort / Characteristics Respiratory Depth Respiratory Pattern Blood Pressure 128/64 101/54 L Blood Pressure [Right Arm] 98/56 L Blood Pressure Mean 85 69 Blood Pressure Mean [Right Arm] 70 Blood Pressure Position [Right Arm] Pulse Oximetry Oxygen Delivery Method Sepsis Recent Fever Within 48 Hours Sepsis New/Unexplained Change in Mental Status Sepsis Action Taken by Nursing 02/10/21 20:36 02/10/21 21:00 02/10/21 21:30 Temperature Temperature Source Pulse Rate 80 76 77 Pulse Rate [Apical] Pulse Rate from SpO2 Sensor 80 76 Pulse Rhythm [Apical] Respiratory Rate 24 27 H 24 Respiratory Effort / Characteristics Respiratory Depth Respiratory Pattern Blood Pressure 119/63 107/51 L Blood Pressure [Right Arm] Blood Pressure Mean 81 69 Blood Pressure Mean [Right Arm] Blood Pressure Position [Right Arm] Pulse Oximetry 100 100 Oxygen Delivery Method Sepsis Recent Fever Within 48 Hours Sepsis New/Unexplained Change in Mental Status Sepsis Action Taken by Nursing Physical Exam GENERAL: She is oriented to person, place, and time. She appears well-developed and well-nourished. She does not appear distressed. HENT: Exam performed. -Head: Normocephalic and atraumatic. -Right Ear: External ear normal. No mastoid tenderness. -Left Ear: External ear normal. No mastoid tenderness. -Mouth/Throat: The oropharynx is clear and moist. No trismus in the jaw. No dental abscesses or uvula swelling. No oropharyngeal exudate or tonsillar abscesses. EYES: Conjunctivae and EOM are normal. Pupils are equal, round, and reactive to light. Right eye exhibits no discharge. Left eye exhibits no discharge. No scleral icterus. NECK: Normal range of motion. Neck supple. No JVD present. No spinous process tenderness present. No carotid bruit present. No rigidity. No tracheal deviation and normal range of motion present. No Brudzinski's sign and no Kernig's sign noted. CV: Normal rate, regular rhythm, systolic murmur present and intact distal pulses. There is no peripheral edema. Palpable radial pulses bue. PULM/CHEST: Effort normal and breath sounds normal. No respiratory distress. No stridor. She has no wheezes. She has no rales. -Chest Wall: She exhibits no tenderness. ABD: The abdomen is soft. Bowel sounds are normal. She has no distension. No mass is present. There is no tenderness. There is no rebound, no guarding, no Wild's sign and no tenderness at McBurney's point. Rovsig negative MUSC/SKEL: Normal range of motion. There is no peripheral edema, tenderness or deformity. LYMPH: No cervical adenopathy. NEURO: She is alert and oriented to person, place, and time. She has normal strength. No cranial nerve deficit or sensory deficit. Coordination and gait normal. GCS eye subscore is 4. GCS verbal subscore is 5. GCS motor subscore is 6. Cerebellar tests wnl. SKIN: Skin is warm and dry. She is not diaphoretic. PSYCH: She has a normal mood and affect. Behavior is normal. Judgment and thought content normal. Course Course 1803: The patient was evaluated in room A9. A complete history and physical exam was performed Cardiac monitoring: An order was placed for continuous cardiac monitoring. The monitor shows a rate of 90 with sinus rhythm EMR reviewed. Patient has a history of CKD and aortic stenosis. Patient hypotensive on arrival. Patient will be given judicious small boluses of fluids given her history of aortic stenosis. 500 cc normal saline ordered for the patient. 2100: Vital signs stable status post IV fluid bolus. Labs show leukocytosis of 14. Procalcitonin is elevated. Lactic acid within normal limits. Chest x-ray negative. COVID-19 screen negative. Given patient's symptoms of dyspnea and her leukocytosis procalcitonin, [facility]. There is suspicion for underlying infection. Blood cultures will be sent and the patient be treated with Rocephin and azithromycin. Case discussed with Dr. Schmidt who will evaluate the patient. Administered Medications Heparin Sodium/Dextrose (Heparin Sodium/Dextrose) 25,000 units in 500 mls @ 22 mls/hr IV .[id number] [facility]; Protocol Stop: 03/12/21 23:29 Last Admin: 02/11/21 00:11 Dose: 1,100 units/hr, 22 mls/hr Documented by: [id number] Cosigned by: [id number] Discontinued Medications Azithromycin (Azithromycin 250 Mg Tab) 500 mg PO NOW ONE Stop: 02/10/21 20:42 Last Admin: 02/10/21 21:15 Dose: 500 mg Documented by: [id number] Sodium Chloride (Nss 1000ml) 500 mls @ 999 mls/hr IV .Q31M ONE Stop: 02/10/21 18:35 Last Infusion: 02/10/21 19:21 Dose: 0 mls/hr Documented by: [id number] Admin: 02/10/21 18:39 Dose: 999 mls/hr Documented by: [id number] Ceftriaxone Sodium (Rocephin) 1,000 mg in 50 mls @ 100 mls/hr IV NOW STA Stop: 02/10/21 21:28 Last Infusion: 02/10/21 22:42 Dose: 0 mls/hr Documented by: [id number] Admin: 02/10/21 21:15 Dose: 100 mls/hr Documented by: [id number] Cefepime HCl (Maxipime) 2,000 mg in 20 mls @ 5 mls/min IV NOW STA; Protocol Stop: 02/10/21 21:48 Last Admin: 02/10/21 22:25 Dose: 5 mls/min Documented by: [id number] Promethazine HCl (Phenergan) 12.5 mg in 50.5 mls @ 202 mls/hr IV NOW STA Stop: 02/11/21 01:24 Last Admin: 02/11/21 01:19 Dose: 202 mls/hr Documented by: [id number] Tramadol HCl (Tramadol Hcl 50 Mg Tablet) 50 mg PO NOW STA Stop: 02/10/21 21:42 Last Admin: 02/10/21 22:25 Dose: 50 mg Documented by: [id number] Medical Decision Making Laboratory Data Result diagrams: 02/10/21 15:32 02/10/21 15:32 Lab Results 02/10/21 02/10/21 02/10/21 Range/Units 15:32 15:32 15:32 WBC 14.10 H (4.8-10.8) K/uL RBC 4.45 (4.2-5.4) M/uL Hgb 13.3 (12.0-16.0) g/dL Hct 40.1 (37-47) % MCV 90.1 (80-100) fL MCH 29.9 (25-34) pg MCHC 33.2 (32-36) g/dL RDW Std Deviation 51.5 H (36.4-46.3) fL RDW Coeff of Tin 15.6 H (11.5-14.5) % Plt Count 265 (130-400) K/uL MPV 10.3 (7.4-10.4) fL Immature Gran % (Auto) 0.3 % Neut % (Auto) 92.9 % Lymph % (Auto) 2.9 % Lares % (Auto) 3.3 % Eos % (Auto) 0.5 % Baso % (Auto) 0.1 % Neut # (Auto) 13.10 H (1.4-6.5) K/uL Lymph # (Auto) 0.41 L (1.2-3.4) K/uL Lares # (Auto) 0.46 (0.11-0.59) K/uL Eos # (Auto) 0.07 (0-0.5) K/uL Baso # (Auto) 0.02 (0-0.2) K/uL Immature Gran # (Auto) 0.04 H (0.00-0.02) K/uL APTT (21.0-31.0) Seconds PTT Ratio Sodium 135 L (136-145) mmol/L Potassium 4.5 (3.5-5.1) mmol/L Chloride 106 (98-107) mmol/L Carbon Dioxide 21 (21-32) mmol/L Anion Gap 8.0 (3-11) BUN 22 H (7-18) mg/dl Creatinine 1.74 H (0.6-1.2) mg/dl Est Cr Clr Drug Dosing 26.8 ml/min Est GFR ( Amer) 32.4 ml/min Est GFR (Non-Af Amer) 28.0 ml/min BUN/Creatinine Ratio 12.6 (10-20) Glucose 167 H (70-99) mg/dl Lactate (0.4-2.0) mmol/L Calcium 9.3 (8.5-10.1) mg/dl Magnesium (1.8-2.4) mg/dl Total Bilirubin 1.0 (0.2-1) mg/dl AST 11 L (15-37) U/L ALT 19 (12-78) U/L Alkaline Phosphatase 81 (45-117) U/L Troponin I (0-0.045) ng/ml Total Protein 6.9 (6.4-8.2) gm/dl Albumin 3.4 (3.4-5.0) gm/dl Globulin 3.5 (2.5-4.0) gm/dl Albumin/Globulin Ratio 1.0 (0.9-2) Procalcitonin 0.88 H (0-0.5) ng/ml TSH (0.300-4.500) uIu/ml Urine Color Urine Appearance (Clear) Urine pH (4.5-7.5) Ur Specific [place] (1.000-1.030) Urine Protein (Negative) Urine Glucose (UA) (Negative) Urine Ketones (Negative) Urine Blood (Negative) Urine Nitrite (Negative) Urine Bilirubin (Negative) Urine Urobilinogen (Negative) Ur Leukocyte Esterase (Negative) Urine WBC (Auto) (0-5) /hpf Urine RBC (Auto) (0-4) /hpf U Hyaline Cast (Auto) (0-5) /lpf U Epithel Cells (Auto) (0-5) /lpf Urine Bacteria (Auto) (Negative) COVID-19 Eval Order SARS-CoV-2 (PCR) (Negative) 02/10/21 02/10/21 02/10/21 Range/Units 15:32 15:32 15:32 WBC (4.8-10.8) K/uL RBC (4.2-5.4) M/uL Hgb (12.0-16.0) g/dL Hct (37-47) % MCV (80-100) fL MCH (25-34) pg MCHC (32-36) g/dL RDW Std Deviation (36.4-46.3) fL RDW Coeff of Tin (11.5-14.5) % Plt Count (130-400) K/uL MPV (7.4-10.4) fL Immature Gran % (Auto) % Neut % (Auto) % Lymph % (Auto) % Lares % (Auto) % Eos % (Auto) % Baso % (Auto) % Neut # (Auto) (1.4-6.5) K/uL Lymph # (Auto) (1.2-3.4) K/uL Lares # (Auto) (0.11-0.59) K/uL Eos # (Auto) (0-0.5) K/uL Baso # (Auto) (0-0.2) K/uL Immature Gran # (Auto) (0.00-0.02) K/uL APTT 23.9 (21.0-31.0) Seconds PTT Ratio 0.9 Sodium (136-145) mmol/L Potassium (3.5-5.1) mmol/L Chloride (98-107) mmol/L Carbon Dioxide (21-32) mmol/L Anion Gap (3-11) BUN (7-18) mg/dl Creatinine (0.6-1.2) mg/dl Est Cr Clr Drug Dosing ml/min Est GFR ( Amer) ml/min Est GFR (Non-Af Amer) ml/min BUN/Creatinine Ratio (10-20) Glucose (70-99) mg/dl Lactate (0.4-2.0) mmol/L Calcium (8.5-10.1) mg/dl Magnesium 1.6 L (1.8-2.4) mg/dl Total Bilirubin (0.2-1) mg/dl AST (15-37) U/L ALT (12-78) U/L Alkaline Phosphatase (45-117) U/L Troponin I < 0.015 (0-0.045) ng/ml Total Protein (6.4-8.2) gm/dl Albumin (3.4-5.0) gm/dl Globulin (2.5-4.0) gm/dl Albumin/Globulin Ratio (0.9-2) Procalcitonin (0-0.5) ng/ml TSH 2.350 (0.300-4.500) uIu/ml Urine Color Urine Appearance (Clear) Urine pH (4.5-7.5) Ur Specific [place] (1.000-1.030) Urine Protein (Negative) Urine Glucose (UA) (Negative) Urine Ketones (Negative) Urine Blood (Negative) Urine Nitrite (Negative) Urine Bilirubin (Negative) Urine Urobilinogen (Negative) Ur Leukocyte Esterase (Negative) Urine WBC (Auto) (0-5) /hpf Urine RBC (Auto) (0-4) /hpf U Hyaline Cast (Auto) (0-5) /lpf U Epithel Cells (Auto) (0-5) /lpf Urine Bacteria (Auto) (Negative) COVID-19 Eval Order SARS-CoV-2 (PCR) (Negative) 02/10/21 02/10/21 02/10/21 Range/Units 18:20 18:36 18:36 WBC (4.8-10.8) K/uL RBC (4.2-5.4) M/uL Hgb (12.0-16.0) g/dL Hct (37-47) % MCV (80-100) fL MCH (25-34) pg MCHC (32-36) g/dL RDW Std Deviation (36.4-46.3) fL RDW Coeff of Tin (11.5-14.5) % Plt Count (130-400) K/uL MPV (7.4-10.4) fL Immature Gran % (Auto) % Neut % (Auto) % Lymph % (Auto) % Lares % (Auto) % Eos % (Auto) % Baso % (Auto) % Neut # (Auto) (1.4-6.5) K/uL Lymph # (Auto) (1.2-3.4) K/uL Lares # (Auto) (0.11-0.59) K/uL Eos # (Auto) (0-0.5) K/uL Baso # (Auto) (0-0.2) K/uL Immature Gran # (Auto) (0.00-0.02) K/uL APTT (21.0-31.0) Seconds PTT Ratio Sodium (136-145) mmol/L Potassium (3.5-5.1) mmol/L Chloride (98-107) mmol/L Carbon Dioxide (21-32) mmol/L Anion Gap (3-11) BUN (7-18) mg/dl Creatinine (0.6-1.2) mg/dl Est Cr Clr Drug Dosing ml/min Est GFR ( Amer) ml/min Est GFR (Non-Af Amer) ml/min BUN/Creatinine Ratio (10-20) Glucose (70-99) mg/dl Lactate 1.9 (0.4-2.0) mmol/L Calcium (8.5-10.1) mg/dl Magnesium (1.8-2.4) mg/dl Total Bilirubin (0.2-1) mg/dl AST (15-37) U/L ALT (12-78) U/L Alkaline Phosphatase (45-117) U/L Troponin I (0-0.045) ng/ml Total Protein (6.4-8.2) gm/dl Albumin (3.4-5.0) gm/dl Globulin (2.5-4.0) gm/dl Albumin/Globulin Ratio (0.9-2) Procalcitonin (0-0.5) ng/ml TSH (0.300-4.500) uIu/ml Urine Color Dark Yellow Urine Appearance Clear (Clear) Urine pH 5.0 (4.5-7.5) Ur Specific [place] 1.043 H (1.000-1.030) Urine Protein Negative (Negative) Urine Glucose (UA) Negative (Negative) Urine Ketones Trace H (Negative) Urine Blood Negative (Negative) Urine Nitrite Negative (Negative) Urine Bilirubin Negative (Negative) Urine Urobilinogen Negative (Negative) Ur Leukocyte Esterase Trace H (Negative) Urine WBC (Auto) 10-30 H (0-5) /hpf Urine RBC (Auto) 0-4 (0-4) /hpf U Hyaline Cast (Auto) 1-5 (0-5) /lpf U Epithel Cells (Auto) >30 H (0-5) /lpf Urine Bacteria (Auto) Negative (Negative) COVID-19 Eval Order Covid19 at [facility] SARS-CoV-2 (PCR) (Negative) 02/10/21 Range/Units 18:36 WBC (4.8-10.8) K/uL RBC (4.2-5.4) M/uL Hgb (12.0-16.0) g/dL Hct (37-47) % MCV (80-100) fL MCH (25-34) pg MCHC (32-36) g/dL RDW Std Deviation (36.4-46.3) fL RDW Coeff of Tin (11.5-14.5) % Plt Count (130-400) K/uL MPV (7.4-10.4) fL Immature Gran % (Auto) % Neut % (Auto) % Lymph % (Auto) % Lares % (Auto) % Eos % (Auto) % Baso % (Auto) % Neut # (Auto) (1.4-6.5) K/uL Lymph # (Auto) (1.2-3.4) K/uL Lares # (Auto) (0.11-0.59) K/uL Eos # (Auto) (0-0.5) K/uL Baso # (Auto) (0-0.2) K/uL Immature Gran # (Auto) (0.00-0.02) K/uL APTT (21.0-31.0) Seconds PTT Ratio Sodium (136-145) mmol/L Potassium (3.5-5.1) mmol/L Chloride (98-107) mmol/L Carbon Dioxide (21-32) mmol/L Anion Gap (3-11) BUN (7-18) mg/dl Creatinine (0.6-1.2) mg/dl Est Cr Clr Drug Dosing ml/min Est GFR ( Amer) ml/min Est GFR (Non-Af Amer) ml/min BUN/Creatinine Ratio (10-20) Glucose (70-99) mg/dl Lactate (0.4-2.0) mmol/L Calcium (8.5-10.1) mg/dl Magnesium (1.8-2.4) mg/dl Total Bilirubin (0.2-1) mg/dl AST (15-37) U/L ALT (12-78) U/L Alkaline Phosphatase (45-117) U/L Troponin I (0-0.045) ng/ml Total Protein (6.4-8.2) gm/dl Albumin (3.4-5.0) gm/dl Globulin (2.5-4.0) gm/dl Albumin/Globulin Ratio (0.9-2) Procalcitonin (0-0.5) ng/ml TSH (0.300-4.500) uIu/ml Urine Color Urine Appearance (Clear) Urine pH (4.5-7.5) Ur Specific [place] (1.000-1.030) Urine Protein (Negative) Urine Glucose (UA) (Negative) Urine Ketones (Negative) Urine Blood (Negative) Urine Nitrite (Negative) Urine Bilirubin (Negative) Urine Urobilinogen (Negative) Ur Leukocyte Esterase (Negative) Urine WBC (Auto) (0-5) /hpf Urine RBC (Auto) (0-4) /hpf U Hyaline Cast (Auto) (0-5) /lpf U Epithel Cells (Auto) (0-5) /lpf Urine Bacteria (Auto) (Negative) COVID-19 Eval Order SARS-CoV-2 (PCR) NEGATIVE (Negative) Imaging Data Radiologist's Impression: Chest X-Ray 02/10/21 15:10 SINGLE VIEW CHEST CLINICAL HISTORY: Dyspnea. FINDINGS: An AP, portable, upright chest radiograph is obtained. No prior studies are available for comparison at the time of dictation. The cardiomediastinal silhouette is unremarkable noting atherosclerotic calc ification of the thoracic aorta. There is elevation of right hemidiaphragm with bibasilar atelectasis. No airspace consolidation or large pleural effusion is identified. No pneumothorax is seen. The skeletal structures are osteopenic. The bony thorax is grossly intact. IMPRESSION: No active disease in the chest. ACT 112: Negative or not required by law. Electronically signed by: Sekou Richmond M.D. 02/10/2021 4:11 PM ECG Data Indication: + weakness Rate (beats per minute): 93 Rhythm: + normal sinus ECG Intervals/blocks: + Normal KS and + Normal QT-c ECG ST segments: + Normal ST segments Additional Comments: QRS 68 MDM Narrative 1804: The patient was evaluated in room A9. A complete history and physical exam was performed Cardiac monitoring: An order was placed for continuous cardiac monitoring. The monitor shows a rate of 90 with sinus rhythm EMR reviewed. Patient has a history of CKD and aortic stenosis. Patient hypotensive on arrival. Patient will be given judicious small boluses of fluids given her history of aortic stenosis. 500 cc normal saline ordered for the patient. 2100: Vital signs stable status post IV fluid bolus. Labs show leukocytosis of 14. Procalcitonin is elevated. Lactic acid within normal limits. Chest x-ray negative. COVID-19 screen negative. Given patient's symptoms of dyspnea and her leukocytosis procalcitonin, [facility]. There is suspicion for underlying infection. Blood cultures will be sent and the patient be treated with Rocephin and azithromycin. Case discussed with Dr. Schmidt who will evaluate the patient. Impression & Plan Dyspnea Discharge Plan Visit Data Chief Complaint: Hypotension Stated Complaint: SOB, FEELING VERY WEAK, LOW BP 90/60 Discharge Problem: Dyspnea Patient Disposition: Being Evaluated by Hospitalist
[2021-02-11] MEDS ORDERED: GLUCOSE 40% GEL 15 GM TUBE PO PRN (05:05)
[2021-02-11] MEDS ORDERED: ACETAMINOPHEN 325 MG TAB PO PRN (05:05)
[2021-02-11] MEDS ORDERED: SODIUM CHLORIDE 0.9% 1000ML 1,000 ML IV ONE (05:05)
[2021-02-11] MEDS ORDERED: GLUCOSE 10 TABS/TUBE PO PRN (05:05)
[2021-02-11] MEDS ORDERED: PROMETHAZINE HCL 12.5 MG in SODIUM CHLORIDE 0.9% 50 ML IV PRN (05:05)
[2021-02-11] MEDS ORDERED: DEXTROSE 50% 50 ML SYRINGE IV PRN (05:05)
[2021-02-11] MEDS ORDERED: GLUCAGON FOR INJ 1 MG VIAL SQ PRN (05:05)
[2021-02-11] MEDS ORDERED: HYDROmorphone INJ 0.5 MG/0.5 ML SYR IV PRN (05:05)
[2021-02-11] MEDS ORDERED: traMADol HCL 50 MG TABLET PO PRN (05:05)
[2021-02-11] MEDS ORDERED: CARBOHYDRATES FOR HYPOGLYCEMIA PO PRN (05:05)
[2021-02-11] MEDS: INSULIN ASPART 100 UNITS/ML 3 ML PEN SC SCH ×5 (05:41→22:06)
[2021-02-11 07:25] LABS: Basophils # (auto) 0.01 K/uL (0-0.2); Basophils % (auto) 0.1 %; Eosinophils # (auto) 0.12 K/uL (0-0.5); Eosinophils % (auto) 1.5 %; Hematocrit (blood only) 35.6 % (37-47); Hemoglobin 11.9 g/dL (12.0-16.0); Immature Granulocytes # (auto) 0.02 K/uL (0.00-0.02); Immature Granulocytes % (auto) 0.2 %; Lymphocytes # (auto) 0.56 K/uL (1.2-3.4); Lymphocytes % (auto) 6.8 %; Mean Corpuscular Hemoglobin 29.5 pg (25-34); Mean Corpuscular Hgb Conc 33.4 g/dL (32-36); Mean Corpuscular Volume 88.3 fL (80-100); Mean Platelet Volume 10.8 fL (7.4-10.4); Monocytes # (auto) 0.33 K/uL (0.11-0.59); Neutrophils # (auto) 7.15 K/uL (1.4-6.5); Neutrophils % (auto) 87.4 %; Platelet Count 240 K/uL (130-400); RDW Coefficient of Variation 15.7 % (11.5-14.5); RDW Standard Deviation 50.7 fL (36.4-46.3); Red Blood Count 4.03 M/uL (4.2-5.4); White Blood Count 8.19 K/uL (4.8-10.8)
--- NOTE | 2021-02-11 07:49 | CT Scan Report ---
CT lumbar spine wo con CLINICAL HISTORY: back pain TECHNIQUE: Multidetector row helical CT of the lumbar spine was performed without administration of i ntravenous contrast. Coronal and sagittal reformations were obtained. Automated dose lowering techniq ues and/or adjustment according to patient size were utilized for this exam. Comparison: None available at the time of this dictation. FINDINGS: For counting purposes, the last complete intervertebral disc space is considered L5-S1. No acute fractures are identified. Degenerative changes are noted in the visualized spine. Vertebral body alignment is within normal limits. Surrounding soft tissues are unremarkable. IMPRESSION: No evidence of acute fracture or traumatic subluxation. ACT 112: Negative or not required by law. Electronically signed by: Hector Jo M.D. 02/11/2021 7:47 AM
--- NOTE | 2021-02-11 08:06 | CT Scan Report ---
CT OF THE ABDOMEN AND PELVIS WITHOUT CONTRAST CLINICAL HISTORY: Right flank pain. COMPARISON STUDY: CT of the abdomen and pelvis March 10, 2020. KUB March 11, 2020. TECHNIQUE: Axial images of the abdomen and pelvis were obtained without IV contrast. Images were revi ewed in the axial, sagittal, and coronal planes. Automated exposure control was utilized for the kash dy. A dose lowering technique was utilized adhering to the principles of ALARA. FINDINGS: Lung bases are unremarkable. No pneumatosis, free air or portal venous gas is present. Ther e are no renal, ureteral or bladder calculi although evaluation of the distal ureters is suboptimal g iven streak artifact from hip arthroplasties. Bilateral renal cortical thinning is present. Evaluatio n of the remainder of the abdomen and pelvis is suboptimal on this unenhanced examination. There is n o significant biliary ductal dilatation status post cholecystectomy. Unenhanced images of the liver, spleen, adrenal glands and pancreas are unremarkable. There is no evidence for a bowel obstruction. C aliber of the appendix is at the upper limits of normal. There is no evidence for acute appendicitis. Colonic diverticulosis is noted without evidence for acute diverticulitis. There is extensive plaque of the abdominal aorta. Several fibroids are noted. There is no evidence for a bowel obstruction. Sm all fat-containing umbilical hernia is present. IMPRESSION: 1. No urinary calculi or hydronephrosis. 2. No bowel obstruction. 3. Sigmoid diverticulosis without evidence for acute diverticulitis. ACT 112: Negative or not required by law. Electronically signed by: Patrice Atkinson M.D. 02/11/2021 8:05 AM
[2021-02-11 08:11] LABS: Partial Thromboplastin Ratio 2.1
[2021-02-11 08:12] LABS: Partial Thromboplastin Time 55.9 Seconds (21.0-31.0)
--- NOTE | 2021-02-11 08:15 | Ultrasound Report ---
US venous doppler LE BI CLINICAL HISTORY: abn ddimer COMPARISON: None available at the time of this dictation. TECHNIQUE: Bilateral lower extremity real-time compression venous ultrasound with Color Doppler imagi ng. Utilizing real-time ultrasonic imaging multiple real time high-resolution ultrasonic images with comp ression and noncompression maneuvers of the deep venous system in addition to color doppler imaging w ere performed from the common femoral vein through the proximal calf veins. FINDINGS: Currently there is normal compressibility of the deep venous system from the common femoral vein thro ugh the proximal calf veins. No current evidence of acute thrombosis is identified. Impression: No evidence of deep venous thrombus. ACT 112: Negative or not required by law. Electronically signed by: Hector Jo M.D. 02/11/2021 8:14 AM
--- NOTE | 2021-02-11 10:09 | Nuclear Medicine Report ---
NUCLEAR PULMONARY PERFUSION SCAN CLINICAL HISTORY: Dyspnea. COMPARISON STUDY: Chest x-ray dated 02/10/2021. TECHNIQUE: Nuclear perfusion scan of both lungs were obtained following the IV administration of 5.4 mCi of technetium 99m MAA. Images were acquired in the anterior, posterior, and oblique projections. FINDINGS: A chest x-ray performed 02/10/2021 shows elevation right hemidiaphragm. The lungs are clear. No perfusion defects are identified on the perfusion imaging. IMPRESSION: Normal pulmonary perfusion scan. ACT 112: Negative or not required by law. Electronically signed by: Sekou Richmond M.D. 02/11/2021 10:08 AM
--- NOTE | 2021-02-11 13:23 | Electrocardiogram Report ---
Test Reason : Blood Pressure : / mmHG Vent. Rate : 093 BPM Atrial Rate : 093 BPM P-R Int : 182 ms QRS Dur : 068 ms QT Int : 354 ms P-R-T Axes : 070 -24 070 degrees QTc Int : 440 ms Poor data quality, interpretation may be adversely affected Sinus rhythm Low voltage QRS Inferior infarct (cited on or before 23-SEP-2018) Possible Anterolateral infarct , age undetermined Abnormal ECG When compared with ECG of 26-SEP-2018 18:10, No significant change Confirmed by Loyd Pineda ([id number]) on 02/11/2021 1:22:48 PM Referred By: Confirmed By:Loyd Pineda
--- NOTE | 2021-02-11 14:15 | Hospitalist Progress Note ---
Date of Service February 11, 2021 Assessment & Plan (1) Severe sepsis: Plan: SIRS plus ARF on CKD, elevated procalcitonin ? Complicated UTI (UA somewhat bland however) Rule out obstructive uropathy, spine infection given back pain complaints Shortness of breath, episodic tachypnea with abnormal D-dimer Rule out PE hypertension, BP on the lower side hyperlipidemia on statin Rx moderate aortic stenosis (TTE 2018) DM2 on oral medications, well-controlled as of recent hemoglobin A1c of 6.26 October 2020 past tobacco abuse Overall patient reports she is feeling better. Hemodynamically doing okay. She remains afebrile. We will continue with cefepime for now. Blood and urine cultures were obtained on admission. CT abdomen pelvis, CT lumbar spine Re: Negative for any acute findings Monitor creatinine response gentle IV hydration, hold DAVIDSON inhibitor and spironol actone until creatinine back to baseline VQ scan and LE Dopplers (CT angio study precluded by kidney dysfunction); negative. Will discontinue heparin infusion. ISS BG goal one 110-1 40 DVT prophylaxis. IV Heparin Full code Patient's requesting updates from providers. Mr. Mick García, contact number [phone]. Text document was generated using [employer] voice recognition software. It may contain grammatical or spelling errors. Kindly contact undersigned for clarification of any documentation item in question. Admission and Anticipated Discharge Date Admission Date: February 10, 2021 Subjective Patient doing okay. Have some right lower back discomfort. Denies any chest pain at the moment. Does feel weak. Rest of the review of system is negative. Review of Systems Review of Systems: All systems reviewed & are unremarkable except as noted in HPI & below Physical Exam Physical Exam: General: A&Ox3 HENT: NCAT, MMM, EOMI Eyes: PERRLA Neck: Supple, normal range of motion CVS: normal rate and rhythm Resp: b/l breath sound Abdomen: Soft, ND/NT, +BS Extremities: Left hip incision is c/d/i Neuro: face symmetric, strength grossly equal, no focal deficit Skin: warm and dry, no rashes/lesions/errythema MSK: normal ROM, no joint swelling/erythema Results & Data Results & Data ([facility]) Vital Signs (Past 12 Hours) Vital Signs Temp Pulse Pulse Resp BP BP Pulse Ox 02/11/21 11:36 36.8 C 66 18 100/58 L 97 10/21/21 07:51 77 02/11/21 07:50 36.7 C 78 18 105/63 97 02/11/21 06:00 36.6 C 86 80 16 123/72 100 02/11/21 04:30 84 20 113/56 L 96 02/11/21 04:00 86 23 116/59 L 97 02/11/21 03:30 83 19 113/65 96 02/11/21 03:00 87 23 121/60 96 02/11/21 02:30 89 20 108/61 94
[2021-02-11] MEDS ORDERED: HEPARIN STOP ORDER ONE (14:30)
[2021-02-11] MEDS ORDERED: ATORVASTATIN 40 MG TAB PO SCH (21:00)
[2021-02-11] MEDS ORDERED: dilTIAZem HCL 180 MG CAPCR PO SCH (21:00)
[2021-02-11] MEDS ORDERED: ASPIRIN 81 MG ECTAB PO SCH (21:00)
[2021-02-11] MEDS ORDERED: CEFEPIME 1,000 MG in SYRINGE 0 ML IV SCH (22:00)
[2021-02-12 07:02] LABS: Basophils # (auto) 0.01 K/uL (0-0.2); Basophils % (auto) 0.2 %; Eosinophils # (auto) 0.32 K/uL (0-0.5); Eosinophils % (auto) 6.5 %; Hematocrit (blood only) 36.7 % (37-47); Hemoglobin 11.7 g/dL (12.0-16.0); Immature Granulocytes # (auto) 0.01 K/uL (0.00-0.02); Immature Granulocytes % (auto) 0.2 %; Lymphocytes # (auto) 1.88 K/uL (1.2-3.4); Lymphocytes % (auto) 38.2 %; Mean Corpuscular Hemoglobin 29.3 pg (25-34); Mean Corpuscular Hgb Conc 31.9 g/dL (32-36); Mean Platelet Volume 10.3 fL (7.4-10.4); Monocytes # (auto) 0.34 K/uL (0.11-0.59); Monocytes % (auto) 6.9 %; Neutrophils # (auto) 2.36 K/uL (1.4-6.5); Platelet Count 255 K/uL (130-400); RDW Standard Deviation 53.7 fL (36.4-46.3); Red Blood Count 3.99 M/uL (4.2-5.4); White Blood Count 4.92 K/uL (4.8-10.8)
[2021-02-12 07:19] LABS: Partial Thromboplastin Time 25.4 Seconds (21.0-31.0)
[2021-02-12 07:26] LABS: BUN Creatinine Ratio 12.1 (10-20); Calcium 8.8 mg/dl (8.5-10.1); Creatinine Clr Calc Pharmacy 35.8 ml/min; Est GFR (African American) 46.2 ml/min; Est GFR (Non-African American) 39.8 ml/min; Potassium 4.3 mmol/L (3.5-5.1)
[2021-02-12] MEDS: INSULIN ASPART 100 UNITS/ML 3 ML PEN SC SCH ×2 (09:55→12:33)
--- NOTE | 2021-02-12 14:41 | Discharge Summary ---
Date of Service February 12, 2021 Admission HPI Per Admitting Provider History obtained from patient, family, and records. Medical history significant for hypertension, hyperlipidemia, moderate aortic stenosis (TTE 2018), DM2 on oral medications, CRI (baseline creatinine 1.5), past tobacco abuse. Last confinement February 2020 for small bowel obstruction resolved with conservative management. Patient underwent elective left hip replacement at [facility] last November 2020. 3 weeks ago, patient noted low back pain without radiation to legs. Pain somewhat worse with motion. Possibly from ongoing postop rehab. No unusual leg weakness or numbness as per patient. No fever, no chills no chest pain, no S OB. Patient seen at PCP's office. Prednisone course prescribed for presumptive sciatica. Outpatient lumbar spine x-ray showed degenerative changes most pronounced at L4- L5. Pain somewhat improved although patient was not happy with high sugars resulting from steroid Rx. This morning, patient noted shortness of breath somewhat worse on exertion without chest pain. No unusual cough symptoms. Denies unusual leg pain/swelling. Blood pressure noted to be low. Back pain still achy. Denies dysuria/frequency symptoms. O2 sats noted to be 89% on room air during physical therapy session. Patient directed to ER by PCP's office. SBP 80s at some point during ER stay. IVF, Ceftriaxone, Azithromycin given for possible sepsis. Medical History as above Surgical History : Cholecystectomy, tonsillectomy/adenoidectomy, hip replacement, right knee surgery, breast biopsy, left hip surgery Family History : Heart disease, IBD Personal/Social history : Non-smoker, occasional EtOH intake, retired businesswoman Admission Exam Per Admitting Provider GENERAL: Slightly uncomfortable, obese, no respiratory distress SKIN: Normal color, warm HEENT: Boy[place] palpebral conjunctivae, no ptosis, dry buccal mucosa NECK : Supple, short neck, no tenderness CHEST : CTA, no tenderness HEART : RRR, systolic murmur over precordium ABDOMEN: Some distention, nontender BACK : Low back tenderness, negative straight leg raise test EXTREMITIES : Minimal LE swelling, no LE tenderness, no other conspicuous deformities noted NEUROLOGIC : Coherent, no facial asymmetry, no other gross focality Principal Diagnosis SIRS Hypotension-resolved Acute kidney injury in setting of CKD Stage 3 Chronic back pain Discharge Exam CONSTITUTIONAL: WNWD, vitals stable, generally well-appearing, NAD EYES: normal conjunctivae, no scleral icterus ENT: external ear and nose normal, MMM NECK: trachea midline RESPIRATORY: clear to auscultation bilaterally, no crackles, rales or wheezes, normal respiratory effort CARDIOVASCULAR: regular rate and rhythm, 3/6 SARAHI hear throughout precordium, no gallops or rubs, no JVD, no peripheral edema GASTROINTESTINAL: soft, nontender, ND, no guarding. MUSCULOSKELETAL: strength 5/5 throughout, head is normocephalic and atraumatic SKIN: warm and dry NEUROLOGIC: CN 2-12 grossly intact,normal cognition, normal speech, no tremor. no gross focal deficits. PSYCHIATRIC: alert cooperative and oriented to person, place and time. Euthymic mood, makes good eye contact, language grossly intact, recent and remote memory grossly intact. Discharge Data Allergies Allergy/AdvReac Type Severity Reaction Status Date / Time nickel Allergy Intermediate ITCHY / Verified 02/10/21 18:00 BLISTERS Penicillins Allergy Unknown REMOTE HX, Verified 02/10/21 17:59 NOT SURE REACTION ? RASH sulfamethoxazole AdvReac Unknown AFFECTED Verified 02/10/21 17:59 [From Bactrim] KIDNEYS trimethoprim [From Bactrim] AdvReac Unknown AFFECTED Verified 02/10/21 17:59 KIDNEYS Ordered Studies Laboratory Results WBC 4.92 K/uL (4.8-10.8) 02/12/21 06:25 RBC 3.99 M/uL (4.2-5.4) L 02/12/21 06:25 Hgb 11.7 g/dL (12.0-16.0) L 02/12/21 06:25 Hct 36.7 % (37-47) L 02/12/21 06:25 MCV 92.0 fL (80-100) 02/12/21 06:25 MCH 29.3 pg (25-34) 02/12/21 06:25 MCHC 31.9 g/dL (32-36) L 02/12/21 06:25 RDW Std Deviation 53.7 fL (36.4-46.3) H 02/12/21 06:25 RDW Coeff of Tin 16.0 % (11.5-14.5) H 02/12/21 06:25 Plt Count 255 K/uL (130-400) 02/12/21 06:25 MPV 10.3 fL (7.4-10.4) 10/22/21 06:25 Immature Gran % (Auto) 0.2 % 02/12/21 06:25 Neut % (Auto) 48.0 % 02/12/21 06:25 Lymph % (Auto) 38.2 % 02/12/21 06:25 Collier % (Auto) 6.9 % 02/12/21 06:25 Eos % (Auto) 6.5 % 02/12/21 06:25 Baso % (Auto) 0.2 % 02/12/21 06:25 Neut # (Auto) 2.36 K/uL (1.4-6.5) 02/12/21 06:25 Lymph # (Auto) 1.88 K/uL (1.2-3.4) 02/12/21 06:25 Collier # (Auto) 0.34 K/uL (0.11-0.59) 02/12/21 06:25 Eos # (Auto) 0.32 K/uL (0-0.5) 02/12/21 06:25 Baso # (Auto) 0.01 K/uL (0-0.2) 02/12/21 06:25 Immature Gran # (Auto) 0.01 K/uL (0.00-0.02) 02/12/21 06:25 APTT 25.4 Seconds (21.0-31.0) 02/12/21 06:25 PTT Ratio 1.0 02/12/21 06:25 D-Dimer 560 ug/L FEU (0-500) H* 02/10/21 22:42 Sodium 139 mmol/L (136-145) 02/12/21 06:25 Potassium 4.3 mmol/L (3.5-5.1) 02/12/21 06:25 Chloride 111 mmol/L (98-107) H 02/12/21 06:25 Carbon Dioxide 24 mmol/L (21-32) 02/12/21 06:25 Anion Gap 4.0 (3-11) 02/12/21 06:25 BUN 16 mg/dl (7-18) 02/12/21 06:25 Creatinine 1.30 mg/dl (0.6-1.2) H D 02/12/21 06:25 Est Cr Clr Drug Dosing 35.8 ml/min 02/12/21 06:25 Est GFR ( Amer) 46.2 ml/min 02/12/21 06:25 Est GFR (Non-Af Amer) 39.8 ml/min 02/12/21 06:25 BUN/Creatinine Ratio 12.1 (-20) 02/12/21 06:25 Glucose 115 mg/dl (70-99) H 02/12/21 06:25 POC Glucose 106 mg/dl (70-99) H 02/12/21 11:32 Lactate 1.9 mmol/L (0.4-2.0) 02/10/21 18:36 Calcium 8.8 mg/dl (8.5-10.1) 02/12/21 06:25 Magnesium 1.6 mg/dl (1.8-2.4) L 02/10/21 15:32 Total Bilirubin 1.0 mg/dl (0.2-1) 02/10/21 15:32 AST 11 U/L (15-37) L 02/10/21 15:32 ALT 19 U/L (12-78) 02/10/21 15:32 Alkaline Phosphatase 81 U/L (45-117) 02/10/21 15:32 Troponin I < 0.015 ng/ml (0-0.045) 02/10/21 15:32 Total Protein 6.9 gm/dl (6.4-8.2) 02/10/21 15:32 Albumin 3.4 gm/dl (3.4-5.0) 02/10/21 15:32 Globulin 3.5 gm/dl (2.5-4.0) 02/10/21 15:32 Albumin/Globulin Ratio 1.0 (0.9-2) 02/10/21 15:32 Procalcitonin 0.88 ng/ml (0-0.5) H 02/10/21 15:32 TSH 2.350 uIu/ml (0.300-4.500) 02/10/21 15:32 Urine Color Dark Yellow 02/10/21 18:20 Urine Appearance Clear (Clear) 02/10/21 18:20 Urine pH 5.0 (4.5-7.5) 02/10/21 18:20 Ur Specific [place] 1.043 (1.000-1.030) H 02/10/21 18:20 Urine Protein Negative (Negative) 02/10/21 18:20 Urine Glucose (UA) Negative (Negative) 02/10/21 18:20 Urine Ketones Trace (Negative) H 02/10/21 18:20 Urine Blood Negative (Negative) 02/10/21 18:20 Urine Nitrite Negative (Negative) 02/10/21 18:20 Urine Bilirubin Negative (Negative) 02/10/21 18:20 Urine Urobilinogen Negative (Negative) 02/10/21 18:20 Ur Leukocyte Esterase Trace (Negative) H 02/10/21 18:20 Urine WBC (Auto) 10-30 /hpf (0-5) H 02/10/21 18:20 Urine RBC (Auto) 0-4 /hpf (0-4) 02/10/21 18:20 U Hyaline Cast (Auto) 1-5 /lpf (0-5) 02/10/21 18:20 U Epithel Cells (Auto) >30 /lpf (0-5) H 02/10/21 18:20 Urine Bacteria (Auto) Negative (Negative) 02/10/21 18:20 COVID-19 Eval Order Covid19 at [facility] 02/10/21 18:36 SARS-CoV-2 (PCR) NEGATIVE (Negative) 02/10/21 18:36 Hepatitis C Ab Screen Neg (Neg) 02/12/21 06:25 Impressions Chest X-Ray 02/10/21 15:10 SINGLE VIEW CHEST CLINICAL HISTORY: Dyspnea. FINDINGS: An AP, portable, upright chest radiograph is obtained. No prior studies are available for comparison at the time of dictation. The cardiomediastinal silhouette is unremarkable noting atherosclerotic calcification of the thoracic aorta. There is elevation of right hemidiaphragm with bibasilar atelectasis. No airspace consolidation or large pleural effusion is identified. No pneumothorax is seen. The skeletal structures are osteopenic. The bony thorax is grossly intact. IMPRESSION: No active disease in the chest. ACT 112: Negative or not required by law. Electronically signed by: Sekou Richmond M.D. 02/10/2021 4:[address] 02/10/21 21:42 CT lumbar spine wo con CLINICAL HISTORY: back pain TECHNIQUE: Multidetector row helical CT of the lumbar spine was performed without administration of intravenous contrast. Coronal and sagittal reformations were obtained. Automated dose lowering techniques and/or adjustment according to patient size were utilized for this exam. Comparison: None available at the time of this dictation. FINDINGS: For counting purposes, the last complete intervertebral disc space is considered L5-S1. No acute fractures are identified. Degenerative changes are noted in the visualized spine. Vertebral body alignment is within normal limits. Surrounding soft tissues are unremarkable. IMPRESSION: No evidence of acute fracture or traumatic subluxation. ACT 112: Negative or not required by law. Electronically signed by: Hector Jo M.D. 02/11/2021 7:47 AM Abdomen/Pelvis CT 02/10/21 21:43 CT OF THE ABDOMEN AND PELVIS WITHOUT CONTRAST CLINICAL HISTORY: Right flank pain. COMPARISON STUDY: CT of the abdomen and pelvis March 10, 2020. KUB March 11, 2020. TECHNIQUE: Axial images of the abdomen and pelvis were obtained without IV contrast. Images were reviewed in the axial, sagittal, and coronal planes. Automated exposure control was utilized for the study. A dose lowering technique was utilized adhering to the principles of ALARA. FINDINGS: Lung bases are unremarkable. No pneumatosis, free air or portal venous gas is present. There are no renal, ureteral or bladder calculi although evaluation of the distal ureters is suboptimal given streak artifact from hip arthroplasties. Bilateral renal cortical thinning is present. Evaluation of the remainder of the abdomen and pelvis is suboptimal on this unenhanced examination. There is no significant biliary ductal dilatation status post cholecystectomy. Unenhanced images of the liver, spleen, adrenal glands and pancreas are unremarkable. There is no evidence for a bowel obstruction. Caliber of the appendix is at the upper limits of normal. There is no evidence for acute appendicitis. Colonic diverticulosis is noted without evidence for acute diverticulitis. There is extensive plaque of the abdominal aorta. Several fibroids are noted. There is no evidence for a bowel obstruction. Small fat- containing umbilical hernia is present. IMPRESSION: 1. No urinary calculi or hydronephrosis. 2. No bowel obstruction. 3. Sigmoid diverticulosis without evidence for acute diverticulitis. ACT 112: Negative or not required by law. Electronically signed by: Patrice Atkinson M.D. 02/11/2021 8:05 AM Venous Doppler Study 02/10/21 23:11 US venous doppler LE BI CLINICAL HISTORY: abn ddimer COMPARISON: None available at the time of this dictation. TECHNIQUE: Bilateral lower extremity real-time compression venous ultrasound with Color Doppler imaging. Utilizing real-time ultrasonic imaging multiple real time high-resolution ultrasonic images with compression and noncompression maneuvers of the deep venous system in addition to color doppler imaging were performed from the common femoral vein through the proximal calf veins. FINDINGS: Currently there is normal compressibility of the deep venous system from the common femoral vein through the proximal calf veins. No current evidence of acute thrombosis is identified. Impression: No evidence of deep venous thrombus. ACT 112: Negative or not required by law. Electronically signed by: Hector Jo M.D. 02/11/2021 8:14 AM Pulmonary Perfusion Imaging 02/11/21 23:11 NUCLEAR PULMONARY PERFUSION SCAN CLINICAL HISTORY: Dyspnea. COMPARISON STUDY: Chest x-ray dated 02/10/2021. TECHNIQUE: Nuclear perfusion scan of both lungs were obtained following the IV administration of 5.4 mCi of technetium 99m MAA. Images were acquired in the anterior, posterior, and oblique projections. FINDINGS: A chest x-ray performed 02/10/2021 shows elevation right hemidiaphragm. The lungs are clear. No perfusion defects are identified on the perfusion imaging. IMPRESSION: Normal pulmonary perfusion scan. ACT 112: Negative or not required by law. Electronically signed by: Sekou Richmond M.D. 02/11/2021 10:08 AM Hospital Course (1) SIRS (systemic inflammatory response syndrome): Initially presented with SIRS plur acute kidney injury and an elevated procalcitonin. Obstructive uropathy was ruled out. UTI and pneumonia ruled out. A VQ scan was performed which ruled out a pulmonary embolus. Blood sugar was normal on admission but she reports prednisone use prior to admission for acute back pain. She reports intermittent fatigue and hyperglycemia at home in response to this. She had generalized malaise without fevers, chills or other specific infectious symptoms when she presented to the ER for admission. She was started on cefepime empirically. A CT abd/pel ruled out any acute abdominal pathology. Blood cultures were negative. She was treated with IV hydration and her blood pressure improved. Also, her creatinine returned to her baseline by day of discharge. Will plan to restart her lisinopril and followup with her PCP in one week to repeat BMP and recheck blood pressure/ensure she is doing well after returning home. (2) Hypotension: resolved, restart home lisinopril at discharge (3) Aortic stenosis: chronic, asymptomatic. (4) Diabetes mellitus, type II: chronic, restart home therapy at discharge. Cont to follow [facility] outpatient provider. (5) Chronic back pain: improved after prednisone course recently. She is ambulating at baseline. Cont with home physical therapy and Tylenol PRN. Total Time Total Time Spent Total Time Spent (In Minutes): 60 Discharge Plan Discharge Items Patient Disposition: Home - Self-Care Reason For Visit: SEPSIS, SOB Discharge Diagnosis: SIRS Hypotension-resolved Acute kidney injury in setting of CKD Stage 3 Chronic back pain Condition on Discharge: Good Activity: Resume your previous activity Non-emergency contact: Primary Care Provider Call non-emergency contact if: you have any medication questions, your symptoms worsen and you have a fever Follow-up/Referrals: Indra Hernandes DO [Primary Care Provider] - Diet: Carb Consistent or DM2 Addtl Attending Provider Instructions: Please continue all medications as instructed on discharge list below. It is recommended that you follow-up with your primary care provider within one week of discharge to repeat bloodwork (BMP) and ensure you are doing well after returning home. It was a pleasure taking care of you! Please call if you have any questions or problems. You can reach a [facility] hospitalist on duty at [facility] 24 hours a day by calling [phone]. Take care of yourself. Danya Milian DO [facility] Hospitalist Pending Studies at Discharge: No Stand-Alone Forms: My [facility] Medications and DC Order Prescriptions: Continued lisinopril 10 mg tablet 10 mg PO DAILY RF: 0 spironolactone 25 mg tablet 12.5 mg PO DAILY RF: 0 metformin 500 mg tablet extended release 24 hr 500 mg PO DAILY RF: 0 ascorbic acid (vitamin C) 1,000 mg Tablet 1 g PO DAILY RF: 0 clobetasol 0.05 % ointment 1 appln TOP 2XWK RF: 0 acetaminophen 325 mg Tablet 325 - 650 mg PO Q4 PRN (Reason: Pain) RF: 0 aspirin [Aspirin Low Dose] 81 mg Tablet,Delayed Release (Dr/Ec) 81 mg PO QPM RF: 0 atorvastatin 40 mg Tablet 40 mg PO QPM RF: 0 diltiazem HCl [Cartia XT] 180 mg Capsule,Extended Release 24hr 180 mg PO QPM RF: 0 cyanocobalamin (vitamin B-12) [Vitamin B-12] 1,000 mcg Tablet 1,000 mcg PO DAILY RF: 0 fluocinonide 0.05 % Cream 1 applic TOPICAL DAILY RF: 0 Culturelle [employer]ive [employer] 10 billion cell -200 mg Capsule 1 cap PO DAILY RF: 0 Discharge Orders: Discharge Order (Routine); Ordered 02/12/21 Ordered By: Danya Milian Admission Data Admit Date/Time: 02/10/21 21:48 Attending Provider: Danya Milian Admit Provider: Momo Motta Primary Care Provider: Indra Hernandes
--- NOTE | 2021-02-26 12:48 | Coding Query ---
CODING QUERY To promote full compliance with coding requirements relating to patient care, provider participation is requested in all cases of detective bowling alley uncertainty. Please assist us with the question(s) below: Coding Question(s): SIRS is documented with documentation on the Discharge Summary of, " Initially presented with SIRS plur acute kidney injury and an elevated procalcitonin. Obstructive uropathy was ruled out. UTI and pneumonia ruled out. A VQ scan was performed which ruled out a pulmonary embolus. Blood sugar was normal on admission but she reports prednisone use prior to admission for acute back pain. She reports intermittent fatigue and hyperglycemia at home in response to this. She had generalized malaise without fevers, chills or other specific infectious symptoms when she presented to the ER for admission. She was started on cefepime empirically. A CT abd/pel ruled out any acute abdominal pathology. Blood cultures were negative. She was treated with IV hydration and her blood pressure improved. Also, her creatinine returned to her baseline by day of discharge. Will plan to restart her lisinopril and followup with her PCP in one week to repeat BMP and recheck blood pressure/ensure she is doing well after returning home". Acute Kidney Injury is documented but it is not clear if it is associated with SIRS or due to another condition. Please specify below, in your clinical opinion. (x ) Acute Kidney Injury is likely associated with SIRS = SIRS with acute organ dysfunction of Acute Kidney Injury ( ) Acute Kidney Injury is NOT likely associated with SIRS ( ) Other: Please Specify Physician's Response(s): SIRS and hypotension on admission may have been associated with [place]. Thank you Cheyenne Montano Principal Diagnosis: "that condition established after study, to be chiefly responsible for occasioning the admission of the patient to the hospital for care." Co-Existing Principal Diagnosis: "when two or more diagnoses equally meet the criteria for principal diagnosis as determined by the circumstances of admission, diagnostic work up, and/or therapy provided, and the Alphabetic Index, Tabular List, or another coding guideline does not provide sequencing direction, any one of the diagnoses may be sequenced first." "When the physician has documented what appears to be a current diagnosis in the body of the record, but has not included the diagnosis in the final diagnostic statement, the physician should be asked whether the diagnosis should be added." (Source Coding [facility] 2 QTR90. p3-4) [place]
== END 2021-02-12 16:31 | disposition home or self-care (01) | DRG 314 ==
LOC: ED 15:03 → EDINP 21:48 → SUATTDRO 21:48 → EDINP 02-11 03:43 → 2W 02-11 04:57